=== PATIENT | female | born 1930 | race Caucasian/White ===

== ENCOUNTER → 2016-07-07 | Outpatient (CLI) | payer MEDICARE, OTHER ==
[2016-03-25 11:27] VITALS: BP 98/64
[~2016-07-07] MED LIST: ACET500T68 PO; ALBU2.5V14 NEB; ALBU8.5H3 INH; ASPI81TA9 PO; ATOR20TA58 PO; BENZ100C2 PO; BENZ200C39 PO; BETA15CR4 TP; CALC400T5 PO; CARB15DR65 OU; CELE100C PO; CYAN10002 IM; CYCL5TAB PO; DILT240C2 PO; FLUT1DIS3 IH; FLUT9.9S NS; FURO-68 PO; FURO20TA3 PO; HYDR-2680 PO; HYDR12.53 PO; IPRA3AMP NEB; LOPE2CAP PO; LORA0.5T PO; MAG355OR17 PO; MAGN2400 PO; MAGN400T3 PO; MEMA28CA PO; METF10002 PO; METH29OI TP; METO10TA81 PO; MIRT15TA PO; MOME17SP NS; OMEP20TA PO; ONDA4TAB10 PO; OXYQ113. VG; POLY17PO5 PO; QUET25TA5 PO; SERT25TA PO
--- NOTE | 2016-07-07 11:52 | RAD ---
EXAM: Renal sonogram. HISTORY: Unable to void. TECHNIQUE: Sonographic imaging of the kidneys and bladder was performed. COMPARISON: None. FINDINGS: The right kidney measures 9.5 cm [id number] and the left kidney measures 9.4 cm [id number]-[id number]-[id number]. No solid or cystic renal lesion is seen. The bladder is empty. There is no hydronephrosis. IMPRESSION: Unremarkable renal sonogram.
== END | disposition home or self-care (01) ==
LOC: US 10:31
PROVIDERS: ATTEND Urology
DX: R33.9 Retention of urine, unspecified (principal)
CPT/HCPCS: 76770

== ENCOUNTER 2017-08-25 18:27 | Inpatient (IN) | payer MEDICARE, OTHER ==
[~2017-08-25] VITALS: Ht 149.9 cm; Wt 57.2 kg
[~2017-08-25 18:27] MED LIST changes: -ALBU8.5H3 INH; +ALBU8.5H8 INH; +ASPI-612 PO; -ASPI81TA9 PO; +BENZ-8 PO; -BENZ100C2 PO; -BENZ200C39 PO; +BENZ200C47 PO; -METF10002 PO; +METF10003 PO; -OMEP20TA PO; +OMEP20TA8 PO
[2017-08-25 19:28] LABS: BASO # 0.1 x10^3/uL (0.0-0.2); BASO % 1 % (0-3); EOS # 0.2 x10^3/uL (0.0-0.7); EOS % 2 % (0-3); HEMATOCRIT 37.8 % (36.0-47.0); LYMPH # 1.5 x10^3/uL (1.0-4.8); LYMPH % 19 % (24-48); MEAN CORPUSCULAR HEMOGLOBIN 31 pg (25-35); MEAN CORPUSCULAR HGB CONC 34 g/dL (31-37); MEAN CORPUSCULAR VOLUME 89 fL (79-100); MONO # 0.7 x10^3/uL (0.0-1.1); MONO % 9 % (0-9); NEUT # 5.3 x10^3uL (1.8-7.7); NEUT % 68 % (31-73); PLATELET COUNT 313 x10^3/uL (140-400); RED BLOOD COUNT 4.24 x10^6/uL (3.50-5.40); WHITE BLOOD COUNT 7.7 x10^3/uL (4.0-11.0)
--- NOTE | 2017-08-25 19:37 | EKG ---
[address] [address] Test Date: 2017-08-25 Test Time: 19:17:00 Pat Name: NOELLE OLIVER Department: Room: Gender: F [place] Operator: RODRICK : 1930 Requested By: RINA ANDREA Order Number: [id number] Reading MD: Measurements Intervals [place] Rate: 75 P: 58 NM: 202 QRS: -145 QRSD: 108 T: 31 QT: 392 QTc: 440 Interpretive Statements SINUS RHYTHM INCOMPLETE RIGHT BUNDLE BRANCH BLOCK RIGHT VENTRICULAR HYPERTROPHY ABNORMAL ECG RI6.01 No previous ECG available for comparison
[2017-08-25 19:38] LABS: ALBUMIN 3.5 g/dL (3.4-5.0); ALBUMIN/GLOBULIN RATIO 0.8 (1.0-1.7); CALCIUM 8.3 mg/dL (8.5-10.1); GFR 52.2; MAGNESIUM 2.3 mg/dL (1.8-2.4); TOTAL BILIRUBIN 0.2 mg/dL (0.2-1.0); TOTAL PROTEIN 7.7 g/dL (6.4-8.2)
[2017-08-25 19:40] LABS: BILIRUBIN,URINE NEG (NEG); CLARITY,URINE CLEAR; COLOR,URINE YELLOW; GLUCOSE,URINE NEG (NEG); NITRITE,URINE NEG (NEG); UROBILINOGEN,URINE 0.2 mg/dL (0.2 mg/dL)
[2017-08-25 19:41] LABS: BACTERIA,URINE FEW /HPF (0-FEW); SQUAMOUS EPITHELIAL CELL,UR MOD /LPF
--- NOTE | 2017-08-25 19:45 | PHYS DOC ---
Past History Past Medical History: Asthma, CAD, Cancer, COPD, Dementia, Diabetes, GERD Past Surgical History: Appendectomy, Hysterectomy Alcohol Use: None Drug Use: None Adult General Chief Complaint Chief Complaint: PSYCH EVALUATION HPI HPI Patient is a 87 year old female who presents to the emergency department for medical clearance prior to admission to the [facility]. Patient was brought to the emergency department room her care home after reportedly being threatening towards her roommate and the roommates family. Patient denies any somatic symptoms at this time. Patient was called for acceptance to the [facility] and was instructed to come to the emergency department for medical evaluation prior to admission. Patient states that she is very angry regarding her circumstances. The patient is alert and oriented at this time and is cooperative with questioning. Review of Systems Review of Systems Constitutional: Denies fever or chills [] Eyes: Denies change in visual acuity, redness, or eye pain [] HENT: Denies nasal congestion or sore throat [] Respiratory: Denies cough or shortness of breath [] Cardiovascular: Denies chest pain or edema[] GI: Denies abdominal pain, nausea, vomiting, bloody stools or diarrhea [] : Denies dysuria or hematuria [] Musculoskeletal: Denies back pain or joint pain [] Integument: Denies rash or skin lesions [] Neurologic: Denies headache, focal weakness or sensory changes [] Endocrine: Denies polyuria or polydipsia [] All other systems were reviewed and found to be within normal limits, except as documented in this note. Allergies Allergies Allergies Coded Allergies Type Severity Reaction Last Updated Verified No Known Drug Allergies 03/11/16 No Physical Exam Physical Exam Constitutional: Well developed, well nourished, no acute distress, cooperative with exam. [] HENT: Normocephalic, atraumatic, bilateral external ears normal, oropharynx moist, no oral exudates, nose normal. [] Eyes: PERRLA, EOMI, conjunctiva normal, no discharge. [] Neck: Normal range of motion, no tenderness, supple, no stridor. [] Cardiovascular:Heart rate regular rhythm, no murmur [] Lungs & Thorax: Bilateral breath sounds clear to auscultation [] Abdomen: Bowel sounds normal, soft, no tenderness, no masses, no pulsatile masses. [] Skin: Warm, dry, no erythema, no rash. [] Back: No tenderness, no CVA tenderness. [] Extremities: No tenderness, no cyanosis, no clubbing, ROM intact, no edema. [] Neurologic: Alert and oriented X 3, normal motor function, normal sensory function, no focal deficits noted. [] Psychologic: Affect normal, judgement normal, mood angry. [] Current Patient Data Vital Signs Vital Signs Date Time Temp Pulse Resp B/P (MAP) Pulse Ox O2 Delivery O2 Flow Rate FiO2 08/25/17 19:24 90 16 116/67 (83) 94 Room Air 08/25/17 18:50 98.1 Lab Results Laboratory Tests Test 08/25/17 18:48 08/25/17 19:03 Urine Collection Type Unknown Urine Color Yellow Urine Clarity Clear Urine pH 5.5 Urine Specific [place] 1.010 Urine Protein Neg Urine Glucose (UA) Neg mg/dL Urine Ketones (Stick) Neg mg/dL Urine Blood Neg Urine Nitrite Neg Urine Bilirubin Neg Urine Urobilinogen Dipstick 0.2 mg/dL Urine Leukocyte Esterase Neg Urine RBC 1-2 /HPF Urine WBC 1-4 /HPF Urine Squamous Epithelial Cells Mod /LPF Urine Bacteria Few /HPF White Blood Count 7.7 x10^3/uL Red Blood Count 4.24 x10^6/uL Hemoglobin 13.0 g/dL Hematocrit 37.8 % Mean Corpuscular Volume 89 fL Mean Corpuscular Hemoglobin 31 pg Mean Corpuscular Hemoglobin Concent 34 g/dL Red Cell Distribution Width 14.0 % Platelet Count 313 x10^3/uL Neutrophils (%) (Auto) 68 % Lymphocytes (%) (Auto) 19 % Monocytes (%) (Auto) 9 % Eosinophils (%) (Auto) 2 % Basophils (%) (Auto) 1 % Neutrophils # (Auto) 5.3 x10^3uL Lymphocytes # (Auto) 1.5 x10^3/uL Monocytes # (Auto) 0.7 x10^3/uL Eosinophils # (Auto) 0.2 x10^3/uL Basophils # (Auto) 0.1 x10^3/uL Sodium Level 132 mmol/L Potassium Level 4.0 mmol/L Chloride Level 94 mmol/L Carbon Dioxide Level 29 mmol/L Anion Gap 9 Blood Urea Nitrogen 18 mg/dL Creatinine 1.0 mg/dL Estimated GFR (Cockcroft-Gault) 52.2 BUN/Creatinine Ratio 18 Glucose Level 146 mg/dL Calcium Level 8.3 mg/dL Magnesium Level 2.3 mg/dL Total Bilirubin 0.2 mg/dL Aspartate Amino Transf (AST/SGOT) 16 U/L Alanine Aminotransferase (ALT/SGPT) 19 U/L Alkaline Phosphatase 111 U/L Total Protein 7.7 g/dL Albumin 3.5 g/dL Albumin/Globulin Ratio 0.8 Laboratory Tests Test 08/25/17 19:03 White Blood Count 7.7 x10^3/uL (4.0-11.0) Red Blood Count 4.24 x10^6/uL (3.50-5.40) Hemoglobin 13.0 g/dL (12.0-15.5) Hematocrit 37.8 % (36.0-47.0) Mean Corpuscular Volume 89 fL (79-100) Mean Corpuscular Hemoglobin 31 pg (25-35) Mean Corpuscular Hemoglobin Concent 34 g/dL (31-37) Red Cell Distribution Width 14.0 % (11.5-14.5) Platelet Count 313 x10^3/uL (140-400) Neutrophils (%) (Auto) 68 % (31-73) Lymphocytes (%) (Auto) 19 % (24-48) L Monocytes (%) (Auto) 9 % (0-9) Eosinophils (%) (Auto) 2 % (0-3) Basophils (%) (Auto) 1 % (0-3) Neutrophils # (Auto) 5.3 x10^3uL (1.8-7.7) Lymphocytes # (Auto) 1.5 x10^3/uL (1.0-4.8) Monocytes # (Auto) 0.7 x10^3/uL (0.0-1.1) Eosinophils # (Auto) 0.2 x10^3/uL (0.0-0.7) Basophils # (Auto) 0.1 x10^3/uL (0.0-0.2) Sodium Level 132 mmol/L (136-145) L Potassium Level 4.0 mmol/L (3.5-5.1) Chloride Level 94 mmol/L (98-107) L Carbon Dioxide Level 29 mmol/L (21-32) Anion Gap 9 (6-14) Blood Urea Nitrogen 18 mg/dL (7-20) Creatinine 1.0 mg/dL (0.6-1.0) Estimated GFR (Cockcroft-Gault) 52.2 BUN/Creatinine Ratio 18 (6-20) Glucose Level 146 mg/dL (70-99) H Calcium Level 8.3 mg/dL (8.5-10.1) L Magnesium Level 2.3 mg/dL (1.8-2.4) Total Bilirubin 0.2 mg/dL (0.2-1.0) Aspartate Amino Transferase (AST) 16 U/L (15-37) Alanine Aminotransferase (ALT) 19 U/L (14-59) Alkaline Phosphatase 111 U/L (46-116) Total Protein 7.7 g/dL (6.4-8.2) Albumin 3.5 g/dL (3.4-5.0) Albumin/Globulin Ratio 0.8 (1.0-1.7) L EKG EKG Interpreted by me: Heart rate 75, sinus rhythm, incomplete right bundle branch block, no acute ST/T-wave abnormalities present[] Radiology/Procedures Radiology/Procedures Not performed[] Course & Med Decision Making Course & Med Decision Making Pertinent Labs and Imaging studies reviewed. (See chart for details) Patient's labwork unremarkable. The patient is medically cleared for acceptance to the [facility]. Dragon Disclaimer Dragon Disclaimer This electronic medical record was generated, in whole or in part, using a voice recognition dictation system. Departure Departure: Impression: Primary Impression: Medical clearance for psychiatric admission Disposition: ADMITTED INPATIENT Admitting Physician: Other Condition: STABLE Referrals: ELIANE ZAFAR MD (PCP) RINA ANDREA MD August 25, 2017 19:45
[2017-08-25] MEDS ORDERED: POTA20TA4 PO (21:24)
[2017-08-25] MEDS ORDERED: SERT25TA PO (21:24)
[2017-08-25] MEDS ORDERED: INSU100I17 SQ (21:24)
[2017-08-25] MEDS ORDERED: MULT-317 PO (21:24)
[2017-08-25] MEDS ORDERED: POLY17PO5 PO (21:24)
[2017-08-25] MEDS ORDERED: FLUT1DIS3 IH (21:24)
[2017-08-25] MEDS ORDERED: QUET100T4 PO (21:24)
[2017-08-25] MEDS ORDERED: [UNRECOGNIZED DRUG - CODE] PO (21:24)
[2017-08-25] MEDS ORDERED: BUSP10TA PO (21:24)
[2017-08-25] MEDS ORDERED: VENL37.57 PO (21:24)
[2017-08-25] MEDS ORDERED: VITA1TAB3 PO (21:24)
[2017-08-25] MEDS ORDERED: SENN-87 PO (21:24)
[2017-08-25] MEDS ORDERED: HYDR-2758 PO ×2 (21:24)
[2017-08-25] MEDS ORDERED: DOCU100C28 PO (21:24)
[2017-08-25] MEDS ORDERED: PANT40TA5 PO (21:24)
[2017-08-25] MEDS ORDERED: TAMS0.4C2 PO (21:24)
[2017-08-25] MEDS ORDERED: GUAI600T47 PO (21:24)
[2017-08-25] MEDS ORDERED: METHYL SALICYLATE/MENTHOL TOPICAL OINTMENT 29GM TUBE. TP PRN (22:15)
[2017-08-25] MEDS ORDERED: ACETAMINOPHEN 325 MG TABLET PO PRN (22:15)
[2017-08-25 22:24] VITALS: BP 137/71
[2017-08-25] MEDS ORDERED: ONDA4TAB11 PO (22:37)
[2017-08-25] MEDS ORDERED: INSULIN ASPART 300 UNITS/3 ML INSULN.PEN SQ PRN (22:45)
[2017-08-25] MEDS ORDERED: ALBUTEROL SULFATE 2.5 MG/3 ML NEBU. NEB PRN (22:45)
[2017-08-25] MEDS ORDERED: ACETAMINOPHEN 500 MG TABLET PO PRN (22:45)
[2017-08-25] MEDS ORDERED: LOPERAMIDE 2 MG CAPSULE PO PRN (23:00)
[2017-08-25] MEDS ORDERED: ONDANSETRON ODT 4 MG TAB.RAPDIS PO PRN (23:15)
[2017-08-25] MEDS ORDERED: MAGNESIUM HYDROXIDE 2,400 MG/30 ML ORAL.SUSP. PO PRN (23:15)
[2017-08-25] MEDS ORDERED: MAG HYDROX/AL HYDROX/SIMETH 30 ML ORAL.SUSP PO PRN (23:15)
[2017-08-25] MEDS ORDERED: HYDROcodone/APAP 5/325MG 1 TAB TABLET PO PRN (23:15)
[2017-08-25] MEDS: SENNOSIDES 8.6 MG TABLET PO SCH (23:19)
[2017-08-25] MEDS: QUEtiapine 100 MG TABLET. PO SCH (23:19)
[2017-08-25] MEDS: DOCUSATE SODIUM 100 MG CAPSULE PO SCH (23:20)
[2017-08-26 05:59] VITALS: BP 171/89
[2017-08-26] MEDS ORDERED: INSULIN LISPRO 300 UNITS/3 ML INSULN.PEN. SQ PRN (07:15)
[2017-08-26] MEDS ORDERED: NON FORMULARY ITEM (Fluticasone/Salmeterol (Advair 250-50 Diskus) 1 PUFF) IH SCH (09:00)
[2017-08-26] MEDS ORDERED: BENZONATATE 100 MG CAPSULE. PO PRN (09:00)
[2017-08-26] MEDS ORDERED: POLYETHYLENE GLYCOL 3350 17 GM PACKET. PO PRN (09:00)
[2017-08-26] MEDS: busPIRone 10 MG TABLET. PO SCH ×3 (09:13→17:51)
[2017-08-26] MEDS: HYDROcodone/APAP 5/325MG 1 TAB TABLET PO SCH ×2 (09:13→20:29)
[2017-08-26] MEDS: DOCUSATE SODIUM 100 MG CAPSULE PO SCH ×2 (09:14→20:19)
[2017-08-26] MEDS: PANTOPRAZOLE 40 MG TABLET. PO SCH (09:14)
[2017-08-26] MEDS: VITAMIN B COMPLEX CAPSULE. PO SCH (09:14)
[2017-08-26] MEDS: POTASSIUM CHLORIDE 20 MEQ TABLET.ER. PO SCH (09:14)
[2017-08-26] MEDS: FUROSEMIDE 40 MG TABLET PO SCH (09:14)
[2017-08-26] MEDS: VENLAFAXINE XR 37.5 MG CAP.ER.24H. PO SCH (09:14)
[2017-08-26] MEDS: ASCORBIC ACID 500 MG TABLET PO SCH (09:14)
[2017-08-26] MEDS: MULTIVITAMIN with MINERAL TABLET. PO SCH (09:14)
[2017-08-26] MEDS: SERTRALINE 25 MG TABLET. PO SCH (09:14)
[2017-08-26] MEDS: SENNOSIDES 8.6 MG TABLET PO SCH ×2 (09:14→20:19)
[2017-08-26] MEDS: MAGNESIUM OXIDE 400 MG TABLET PO SCH ×2 (09:14→20:19)
[2017-08-26] MEDS: POLYETHYLENE GLYCOL 3350 17 GM PACKET. PO SCH (09:15)
[2017-08-26] MEDS: FLUTICASONE 50MCG/NASAL SPRAY 16GM BOTTLE. NS SCH (09:15)
[2017-08-26] MEDS: INSULIN LISPRO 300 UNITS/3 ML INSULN.PEN. SQ SCH ×4 (09:25→20:20)
[2017-08-26] MEDS: BUDESONIDE 0.5 MG/2 ML NEBU NEB SCH ×2 (09:30→20:43)
[2017-08-26] MEDS: IPRATRPIUM/ALBUTEROL 0.5/2.5MG 3 ML NEBU. NEB SCH ×4 (09:30→20:40)
[2017-08-26 12:40] LABS: THYROID STIM HORMONE (TSH) 3.025 uIU/mL (0.358-3.740)
[2017-08-26] MEDS: TAMSULOSIN 0.4 MG CAP.ER.24H. PO SCH (17:51)
[2017-08-26 18:25] VITALS: BP 125/60
[2017-08-26] MEDS ORDERED: traZODone 50 MG TABLET. PO PRN (18:45)
[2017-08-26 20:08] LABS: T3 TOTAL 72 ng/dL (71-180)
[2017-08-26] MEDS: QUEtiapine 100 MG TABLET. PO SCH (20:19)
[2017-08-26] MEDS: MIRTAZAPINE 7.5 MG TABLET. PO SCH (20:28)
--- NOTE | 2017-08-26 22:18 | PDOC ---
Exam Note: Harris Note: Please also refer to the separate dictated note~for this date of service dictated separately.~Patient seen individually. Discussed the patient with Nursing staff reviewed the chart.~Reviewed interim history and current functioning. Reviewed vital signs,~Labs/ Radiology~and current medications noted below. Continue current treatment with the changes noted in the dictated addendum note Assessment: Vital Signs: Vital Signs Date Time Temp Pulse Resp B/P (MAP) Pulse Ox O2 Delivery O2 Flow Rate FiO2 08/26/17 21:29 18 97 Room Air 08/26/17 20:19 73 125/60 08/26/17 18:25 97.4 Labs: Laboratory Tests Test 08/26/17 07:45 08/26/17 11:56 08/26/17 17:14 08/26/17 19:28 Glucose (Fingerstick) 160 mg/dL (70-99) H 138 mg/dL (70-99) H 134 mg/dL (70-99) H 148 mg/dL (70-99) H Current Medications: Meds: Current Medications Acetaminophen (Tylenol) 650 mg PRN Q6HRS PRN PO PAIN / TEMP; Start 08/25/17 at 22:15; Stop 08/25/17 at 23:02; Status DC Multi-Ingredient Ointment (Analgesic [place]) 1 estrella PRN QID PRN TP MUSCLE PAIN; Start 08/25/17 at 22:15 Buspirone HCl (Buspar) 10 mg TIDWMEALS PO Last administered on 08/26/17at 17:51 ; Start 08/26/17 at 08:00 Quetiapine Fumarate (SEROquel) 100 mg QHS PO Last administered on 08/26/17at 20: 19; Start 08/25/17 at 23:00 Sertraline HCl (Zoloft) 75 mg DAILY PO Last administered on 08/26/17at 09:14; Start 08/26/17 at 09:00 Venlafaxine HCl (Effexor Xr) 37.5 mg DAILY PO Last administered on 08/26/17at 09 :14; Start 08/26/17 at 09:00 Vitamin D (Vitamin D3) 50,000 unit WEEKLY PO ; Start 09/01/17 at 09:00 Cyanocobalamin (Vitamin B-12) 1,000 mcg QMONTH IM ; Start 09/24/17 at 09:00 Diltiazem HCl (Cardizem 24hr Cd) 120 mg BID PO Last administered on 08/26/17 20:19; Start 08/26/17 at 09:00 Guaifenesin (Mucinex Er) 600 mg TID PO Last administered on 08/26/17at 20:19; Start 08/26/17 at 09:00 Insulin Aspart (NovoLOG) BS 75-150- 0 units BS 151-200... PRN BFRMEALHC PRN SQ Diabetes; Start 08/25/17 at 22:45; Stop 08/26/17 at 07:17; Status DC Albuterol Sulfate (Ventolin) 2.5 mg PRN Q6HRS PRN NEB SHORTNESS OF BREATH; Start 08/25/17 at 22:45 Potassium Chloride (Klor-Con) 20 meq DAILY PO Last administered on 08/26/17at 09 :14; Start 08/26/17 at 09:00 Tamsulosin HCl (Flomax) 0.4 mg QEVNG PO Last administered on 08/26/17at 17:51; Start 08/26/17 at 18:00 Acetaminophen (Tylenol) 500 mg PRN Q4HRS PRN PO PAIN / TEMP; Start 08/25/17 at 22:45 Ascorbic Acid (Vitamin C) 1,000 mg DAILY PO Last administered on 08/26/17at 09: 14; Start 08/26/17 at 09:00 Benzonatate (Tessalon Perle) 100 mg PRN TID PRN PO COUGH; Start 08/26/17 at 09: 00 Docusate Sodium (Colace) 100 mg BID PO Last administered on 08/26/17at 20:19; Start 08/25/17 at 23:00 Fluticasone Propionate (Flonase) 2 spray DAILY NS Last administered on at 09:15; Start 08/26/17 at 09:00 Non-Formulary Medication (Fluticasone/ Salmeterol (Advair 250-50 Diskus)) 1 puff BID IH ; Start 08/26/17 at 09:00; Status UNV Furosemide (Lasix) 40 mg DAILY PO Last administered on 08/26/17at 09:14; Start 08/26/17 at 09:00 Acetaminophen/ Hydrocodone Bitart (Lortab 5/325) 1 tab BID PO Last administered on 08/26/17at 20:29; Start 08/26/17 at 09:00 Acetaminophen/ Hydrocodone Bitart (Lortab 5/325) 1 tab PRN Q6HRS PRN PO PAIN; Start 08/25/17 at 23:15 Loperamide HCl (Imodium) 2 mg PRN Q8HRS PRN PO DIARRHEA; Start 08/25/17 at 23: 00 Al Hydroxide/Mg Hydroxide (Mylanta Plus Xs) 15 ml PRN AFTMEAL PRN PO DYSPEPSIA ; Start 08/25/17 at 23:15 Magnesium Hydroxide (Milk Of Magnesia) 2,400 mg PRN QHS PRN PO CONSTIPATION; Start 08/25/17 at 23:15 Magnesium Oxide (Magnesium Oxide) 400 mg BID PO Last administered on 08/26/17at 20:19; Start 08/26/17 at 09:00 Multivitamins/ Calcium (Thera-M Plus) 1 tab DAILY PO Last administered on at 09:14; Start 08/26/17 at 09:00 Pantoprazole Sodium (Protonix) 40 mg DAILYAC PO Last administered on 08/26/17at 09:14; Start 08/26/17 at 07:30 Polyethylene Glycol (miraLAX) 17 gm DAILY PO Last administered on 08/26/17at 09: 15; Start 08/26/17 at 09:00 Polyethylene Glycol (miraLAX) 17 gm PRN DAILY PRN PO COPNSTIPATION; Start 08/26 at 09:00 Sennosides (Senna) 8.6 mg BID PO Last administered on 08/26/17 20:19; Start at 23:15 Vitamin B Complex 1 cap DAILY PO Last administered on 08/26/17at 09:14; Start at 09:00 Ondansetron HCl (Zofran Odt) 4 mg PRN Q4HRS PRN PO NAUSEA/VOMITING; Start 08/25 at 23:15 Budesonide (Pulmicort) 0.5 mg RTBID NEB Last administered on 08/26/17at 20:43; Start 08/26/17 at 08:00 Albuterol/ Ipratropium (Duoneb) 3 ml RTQID NEB Last administered on 08/26/17at 20:40; Start 08/26/17 at 08:00 Insulin Human Lispro (HumaLOG) PRN BFRMEALHC PRN SQ DIABETES; Start 08/26/17 at 07:15; Stop 08/26/17 at 09:19; Status DC Insulin Human Lispro (HumaLOG) TIDWMEALHC SQ Last administered on 08/26/17at 09 :25; Start 08/26/17 at 09:30 Mirtazapine (Remeron) 7.5 mg QHS PO Last administered on 08/26/17at 20:28; Start 08/26/17 at 21:00 Trazodone HCl (Desyrel) 50 mg PRN QHS PRN PO INSOMNIA, MAY REPEAT X1; Start at 18:45 Active Scripts Active Reported Ondansetron Hcl 4 Mg Tablet 4 Mg PO PRN Q4HRS PRN Novolog Flexpen (Insulin Aspart) 100 Unit/1 Ml Insuln.pen 0-6 Unit SQ PRN BFRMEALHC PRN BS 75-150= 0 units BS 151-200= 2 units BS 201-250= 3 units BS 251-300= 4 units BS 301-350= 5 units BS 351-400= 6 units BS<70 or >400 call Physician Miralax (Polyethylene Glycol 3350) 17 Gm Powd.pack 17 Gm PO PRN DAILY PRN Mucinex (Guaifenesin) 600 Mg Tablet.er 600 Mg PO TID AT 09/24/2199 Buspirone Hcl 10 Mg Tablet 10 Mg PO TID AT 11/22/1799 Senna Lax (Sennosides) 8.6 Mg Tablet 8.6 Mg PO BID Docusate Sodium 100 Mg Capsule 100 Mg PO BID Advair 250-50 Diskus (Fluticasone/Salmeterol) 1 Each Disk.w.dev 1 Puff IH BID Vitamin B Complex 1 Each Tablet 100 Mg PO DAILY D3-50 (Cholecalciferol (Vitamin D3)) 50,000 Unit Capsule 50,000 Unit PO WEEKLY C-1000 (Ascorbic Acid) 1,000 Mg Tablet 1,000 Mg PO DAILY Zoloft (Sertraline Hcl) 25 Mg Tablet 75 Mg PO DAILY Seroquel (Quetiapine Fumarate) 100 Mg Tablet 100 Mg PO HS Klor-Con M20 (Potassium Chloride) 20 Meq Tab.er.prt 20 Meq PO DAILY Pantoprazole Sodium 40 Mg Tablet.dr 40 Mg PO DAILY One Daily Complete (Multivitamin With Minerals) 1 Each Tablet 1 Tab PO DAILY Tamsulosin Hcl 0.4 Mg Cap.er.24h 0.4 Mg PO QEVNG Venlafaxine Hcl Er (Venlafaxine Hcl) 37.5 Mg Cap.er.24h 37.5 Mg PO DAILY Hydrocodone-Apap 5-325 (Hydrocodone Bit/Acetaminophen) 1 Each Tablet 1 Tab PO PRN Q6HRS PRN Hydrocodone-Apap 5-325 (Hydrocodone Bit/Acetaminophen) 1 Each Tablet 1 Tab PO BID Milk Of Magnesia (Magnesium Hydroxide) 2,400 Mg/10 Ml Oral.susp 2,400 Mg PO PRN QHS PRN Advanced Antacid Liquid (Mag Hydrox/Al Hydrox/Simeth) 355 Ml Oral.susp 15 Ml PO PRN AFTMEAL PRN Lasix (Furosemide) 40 Mg Tablet 40 Mg PO DAILY Flonase Allergy Relief (Fluticasone Propionate) 9.9 Ml [place].susp 2 Sprays NS DAILY Benzonatate 100 Mg Capsule 100 Mg PO PRN Q8HRS PRN Miralax (Polyethylene Glycol 3350) 17 Gm Powd.pack 17 Gm PO DAILY Loperamide (Loperamide Hcl) 2 Mg Capsule 2 Mg PO PRN Q8HRS PRN Acetaminophen 500 Mg Tablet 500 Mg PO PRN Q4HRS PRN Magnesium Oxide 400 Mg Tablet 400 Mg PO BID Duoneb 0.5-3(2.5) Mg/3 Ml (Albuterol/Ipratropium) 3 Ml Ampul.neb 3 Ml NEB PRN Q6HRS PRN Cardizem Cd (Diltiazem Hcl) 240 Mg Cap.er.24h 120 Mg PO BID HOLD FOR SBP <110 Cyanocobalamin Injection (Cyanocobalamin (Vitamin B-12)) 1,000 Mcg/1 Ml Vial 1, 000 Mcg IM QMONTH LAST GIVEN 08/19/17 NEXT DOSE DUE 09/19/17 I have reviewed the current psychotropics carefully including drug interactions. Risk benefit ratio favors no change other than as noted in my dictated progress note. Diagnosis: Problems: (1) Hyponatremia (2) Altered mental status (3) Anxiety disorder (4) Dementia in Alzheimer's disease with delusions (5) Dementia in Alzheimer's disease with depression (6) Dementia, vascular, with delusions (7) Dementia, vascular, with depression (8) Impulse control disorder RACHEL BULLARD MD August 26, 2017 22:18
[2017-08-27 03:07] LABS: HEMOGLOBIN A1C 6.5 % (4.8-5.6)
--- NOTE | 2017-08-27 03:57 | HP ---
ADMIT DATE: 08/25/2017 PSYCHIATRIC ADMISSION HISTORY/EVALUATION This note covers the elements not covered in my initial note of 08/26/2017. IDENTIFYING DATA: The patient is an 87-year-old female referred to us from [facility], referred by Dr. Luz Grier, her primary care physician on account of marked irritability, mood lability, delusional. She believes staff have put her in a cage at night with wild animals. She sees men in her room. She has been hallucinating that her son is in her room. She hates her roommate, has been verbally abusive, escalating, crying, agitated. This is within the context of her diagnoses of dementia, Alzheimer's, vascular with delusion, depression, behavioral disturbance and failure of outpatient psychiatric interventions. CHIEF COMPLAINT: "I have been here 3 weeks." HISTORY OF PRESENT ILLNESS: The patient has a history of dementia, Alzheimer's, vascular type. She has been residing at the [facility] for some time, but more recently has been getting increasingly psychotic, agitated, unmanageable and has failed outpatient psychiatric interventions. She has had some sleep and appetite changes. No clear history of bipolar disorder, suicidal or homicidal ideation. PAST PSYCHIATRIC HISTORY: As above. MEDICAL HISTORY: End-stage renal disease, heart failure, hypertension, COPD, diabetes mellitus, hyperlipidemia, muscle weakness. Accu-Cheks at a.c. and at bedtime. ALLERGIES: Negative. CODE STATUS: DNR. MEDICATIONS: Takes her medications whole. DIET: Regular. CURRENT PSYCHOTROPICS: Effexor XR 37.5 mg daily, BuSpar 10 mg 3 times a day, Zoloft 75 mg a day, Seroquel 100 mg at bedtime. FAMILY HISTORY: Noncontributory. SOCIAL HISTORY: No alcohol, drug abuse, physical, sexual or elder abuse history is noted. Not known to be a perpetrator. MENTAL STATUS EXAMINATION: The patient was seen in her room. She is oriented to herself. Insight, judgment, recent and remote memory, attention, concentration, fund of knowledge poor, consistent with her diagnosis. She is quite delusional, hyperverbal as noted. No suicidal or homicidal ideation. LABORATORY DATA: Reviewed. IMPRESSION: Major neurocognitive disorder, Alzheimer, vascular with depression, delusion, behavioral disturbance; anxiety disorder, unspecified; impulse control disorder, unspecified. Rest as above. PLAN: Admit to geropsychiatry unit at [facility]. I will see the patient daily individually from a psychiatric standpoint. She slept very poorly last night. We will start Remeron 7.5 mg at bedtime, trazodone 50 mg at bedtime p.r.n., may repeat x 1 for insomnia. Continue rest of the psychotropics; stop the Zoloft to avoid duplication of antidepressants. Medical followup per Dr. Bonilla/Dr. Rendon. MAN Wilson BULLARD MD DR: ERINN/nts JOB#: [id number] / [id number]
[2017-08-27] MEDS: BUDESONIDE 0.5 MG/2 ML NEBU NEB SCH ×3 (05:34→21:13)
[2017-08-27] MEDS: IPRATRPIUM/ALBUTEROL 0.5/2.5MG 3 ML NEBU. NEB SCH ×4 (05:34→21:13)
[2017-08-27 06:09] VITALS: BP 99/55
[2017-08-27] MEDS: INSULIN LISPRO 300 UNITS/3 ML INSULN.PEN. SQ SCH ×4 (07:56→21:14)
[2017-08-27 08:04] VITALS: BP 133/74
[2017-08-27] MEDS: VITAMIN B COMPLEX CAPSULE. PO SCH (08:05)
[2017-08-27] MEDS: POLYETHYLENE GLYCOL 3350 17 GM PACKET. PO SCH (08:05)
[2017-08-27] MEDS: VENLAFAXINE XR 37.5 MG CAP.ER.24H. PO SCH (08:06)
[2017-08-27] MEDS: MULTIVITAMIN with MINERAL TABLET. PO SCH (08:06)
[2017-08-27] MEDS: busPIRone 10 MG TABLET. PO SCH ×3 (08:06→17:43)
[2017-08-27] MEDS: ASCORBIC ACID 500 MG TABLET PO SCH (08:06)
[2017-08-27] MEDS: MAGNESIUM OXIDE 400 MG TABLET PO SCH ×2 (08:06→21:09)
[2017-08-27] MEDS: PANTOPRAZOLE 40 MG TABLET. PO SCH (08:06)
[2017-08-27] MEDS: SENNOSIDES 8.6 MG TABLET PO SCH ×2 (08:07→21:09)
[2017-08-27] MEDS: SERTRALINE 25 MG TABLET. PO SCH (08:07)
[2017-08-27] MEDS: FUROSEMIDE 40 MG TABLET PO SCH (08:07)
[2017-08-27] MEDS: DOCUSATE SODIUM 100 MG CAPSULE PO SCH ×2 (08:07→21:09)
[2017-08-27] MEDS: POTASSIUM CHLORIDE 20 MEQ TABLET.ER. PO SCH (08:07)
[2017-08-27] MEDS: FLUTICASONE 50MCG/NASAL SPRAY 16GM BOTTLE. NS SCH (08:09)
[2017-08-27] MEDS: HYDROcodone/APAP 5/325MG 1 TAB TABLET PO SCH ×3 (08:10→22:13)
--- NOTE | 2017-08-27 09:35 | CONS ---
DATE OF CONSULTATION: 08/26/2017 REASON FOR CONSULTATION: Medical management. HISTORY OF PRESENT ILLNESS: The patient is an 87-year-old female patient who was apparently very delusional, angry with her roommate, calling roommate names, confused, and thinks men are in her room, yelling and mean to peers, crying, angry, all this has been going on for a few weeks and was admitted to [facility] for inpatient psychiatric stabilization. PAST MEDICAL HISTORY: Significant for hypertension, type 2 diabetes, hyperlipidemia, COPD, heart failure and muscle weakness. PAST SURGICAL HISTORY: Unobtainable. ALLERGIES: She has no known drug allergies. MEDICATIONS: She is currently following medications. She is currently on ipratropium bromide, albuterol sulfate 3 mL by nebulizer every 6 hours, she is on Flomax 0.4 mg at bedtime, Cardizem 120 mg twice a day, hydrocodone/APAP 5/325 one tablet twice a day and every 6 hours as needed, Tylenol 500 mg every 4 hours, sertraline, Zoloft 75 mg once a day, venlafaxine 37.5 mg once a day, quetiapine fumarate or Seroquel 100 mg at bedtime, buspirone 10 mg 3 times a day, potassium chloride 20 mEq once a day, she is on furosemide 40 mg daily, benzonatate or Tessalon Perles 100 mg every 8 hours, she is on Advair Diskus 250/50 one puff twice a day, Mucinex 600 mg 3 times a day, Flonase 2 sprays to each nostril daily, Mylanta 15 mL 4 times a day, magnesium oxide 400 mg twice a day, loperamide 2 mg every 8 hours, Colace 100 mg twice a day, magnesium hydroxide or milk of magnesia 30 mL p.o. daily p.r.n., polyethylene glycol 17 grams daily, senna 1 tablet twice a day, ondansetron 4 mg every 4 hours as needed, Protonix 40 mg daily, she is on NovoLog insulin sliding scale before meals, cyanocobalamin 1000 mcg per mL once a month, vitamin B complex 1 tablet once a day, ascorbic acid 1000 mg daily, vitamin D 50,000 units once a week, and multivitamin 1 tablet once a day. PHYSICAL EXAMINATION: GENERAL: On examining her, she looked well and was clearly in no apparent distress. She is pale, but no jaundice, cyanosis, or thyromegaly. No jugular venous distension. No limb edema. VITAL SIGNS: Her heart rate was 90, blood pressure 171/89, temperature 97.9, respiratory rate was 16, and oxygen saturation was 97% on room air. HEAD, EYES, EARS, NOSE AND THROAT: Showed normocephalic, atraumatic. NECK: Supple. HEART: Showed normal first and second heart sounds with no gallop, rub or murmur. CHEST: Clear to auscultation. No crepitation or rhonchi. ABDOMEN: Distended, soft, nontender. No guarding or rigidity. No organomegaly. Hernial orifices intact. Bowel sounds normal. NEUROLOGIC: She was awake, alert, confused, delusional; however, all cranial nerves intact. EXTREMITIES: She moves extremities without difficulty. She ambulates without assistance or assistive devices. LABORATORY DATA: This morning showed a serum sodium of 132, potassium 4, chloride 94, bicarbonate 29, anion gap of 9, BUN 18, creatinine 1, estimated GFR was 52 mL per minute. Her glucose 146, calcium was 8.3, magnesium 2.3. Serum iron was ____, TIBC was 436 and percent saturation was 15. Her total bilirubin, AST, ALT, alkaline phosphatase were normal. Total protein was 7.7, albumin was 3.5. Her vitamin B12 was 1156 picogram per mL. Her TSH was 3.025, 25-hydroxy vitamin D was ____ which is within normal range. Her serum triglycerides were 77, total cholesterol 207, LDL was 90, VLDL was 35, and HDL cholesterol 82, the ratio was 2. Her urinalysis was essentially unremarkable. IMPRESSION: In summary, this is an 87-year-old female patient who was admitted on account of being delusional, angry with a roommate, calling roommates names, confused, thinks men are in her room, yelling and mean to her peers, crying, angry and difficult apparently to redirect and was admitted here for inpatient psychiatric stabilization. Medically, she has multiple medical problems including COPD, hypertension, type 2 diabetes, hyperlipidemia, chronic obstructive pulmonary disease, heart failure, and muscle weakness. All in all, she seemed to be medically stable. I will definitely continue with all her medication. I will obviously follow all the lab works that are still pending and make any necessary recommendation. Thank you, Dr. Felix for allowing me to participate in the care of this patient. MARCELO HYATT MD DR: BREANNE/alex JOB#: [id number] / [id number]
[2017-08-27 16:51] VITALS: BP 178/53
[2017-08-27] MEDS: TAMSULOSIN 0.4 MG CAP.ER.24H. PO SCH (17:43)
--- NOTE | 2017-08-27 20:21 | PDOC ---
Exam Note: Harris Note: Please also refer to the separate dictated note~for this date of service dictated separately.~Patient seen individually. Discussed the patient with Nursing staff reviewed the chart.~Reviewed interim history and current functioning. Reviewed vital signs,~Labs/ Radiology~and current medications noted below. Continue current treatment with the changes noted in the dictated addendum note Assessment: Vital Signs: Vital Signs Date Time Temp Pulse Resp B/P (MAP) Pulse Ox O2 Delivery O2 Flow Rate FiO2 08/27/17 16:51 97.4 72 18 178/53 (94) 92 Room Air I&O Intake and Output 08/27/17 07:00 Intake Total 600 ml Balance 600 ml Intake Oral 600 ml Labs: Laboratory Tests Test 08/27/17 07:11 08/27/17 11:42 08/27/17 16:50 08/27/17 19:31 Glucose (Fingerstick) 133 mg/dL (70-99) H 89 mg/dL (70-99) 113 mg/dL (70-99) H 202 mg/dL (70-99) H Current Medications: Meds: Current Medications Acetaminophen (Tylenol) 650 mg PRN Q6HRS PRN PO PAIN / TEMP; Start 08/25/17 at 22:15; Stop 08/25/17 at 23:02; Status DC Multi-Ingredient Ointment (Analgesic [place]) 1 estrella PRN QID PRN TP MUSCLE PAIN; Start 08/25/17 at 22:15 Buspirone HCl (Buspar) 10 mg TIDWMEALS PO Last administered on 08/27/17at 17:43 ; Start 08/26/17 at 08:00 Quetiapine Fumarate (SEROquel) 100 mg QHS PO Last administered on 08/26/17at 20: 19; Start 08/25/17 at 23:00 Sertraline HCl (Zoloft) 75 mg DAILY PO Last administered on 08/27/17at 08:07; Start 08/26/17 at 09:00; Stop 08/27/17 at 18:41; Status DC Venlafaxine HCl (Effexor Xr) 37.5 mg DAILY PO Last administered on 08/27/17at 08 :06; Start 08/26/17 at 09:00 Vitamin D (Vitamin D3) 50,000 unit WEEKLY PO ; Start 09/01/17 at 09:00 Cyanocobalamin (Vitamin B-12) 1,000 mcg QMONTH IM ; Start 09/24/17 at 09:00 Diltiazem HCl (Cardizem 24hr Cd) 120 mg BID PO Last administered on 08/27/17at 08:06; Start 08/26/17 at 09:00 Guaifenesin (Mucinex Er) 600 mg TID PO Last administered on 08/27/17at 14:08; Start 08/26/17 at 09:00 Insulin Aspart (NovoLOG) BS 75-150- 0 units BS 151-200... PRN BFRMEALHC PRN SQ Diabetes; Start 08/25/17 at 22:45; Stop 08/26/17 at 07:17; Status DC Albuterol Sulfate (Ventolin) 2.5 mg PRN Q6HRS PRN NEB SHORTNESS OF BREATH; Start 08/25/17 at 22:45 Potassium Chloride (Klor-Con) 20 meq DAILY PO Last administered on 08/27/17at 08 :07; Start 08/26/17 at 09:00 Tamsulosin HCl (Flomax) 0.4 mg QEVNG PO Last administered on 08/27/17at 17:43; Start 08/26/17 at 18:00 Acetaminophen (Tylenol) 500 mg PRN Q4HRS PRN PO PAIN / TEMP; Start 08/25/17 at 22:45 Ascorbic Acid (Vitamin C) 1,000 mg DAILY PO Last administered on 08/27/17at 08: 06; Start 08/26/17 at 09:00 Benzonatate (Tessalon Perle) 100 mg PRN TID PRN PO COUGH; Start 08/26/17 at 09: 00 Docusate Sodium (Colace) 100 mg BID PO Last administered on 08/27/17at 08:07; Start 08/25/17 at 23:00 Fluticasone Propionate (Flonase) 2 spray DAILY NS Last administered on at 08:09; Start 08/26/17 at 09:00 Non-Formulary Medication (Fluticasone/ Salmeterol (Advair 250-50 Diskus)) 1 puff BID IH ; Start 08/26/17 at 09:00; Status UNV Furosemide (Lasix) 40 mg DAILY PO Last administered on 08/27/17at 08:07; Start 08/26/17 at 09:00 Acetaminophen/ Hydrocodone Bitart (Lortab 5/325) 1 tab BID PO Last administered on 08/27/17at 08:10; Start 08/26/17 at 09:00 Acetaminophen/ Hydrocodone Bitart (Lortab 5/325) 1 tab PRN Q6HRS PRN PO PAIN; Start 08/25/17 at 23:15 Loperamide HCl (Imodium) 2 mg PRN Q8HRS PRN PO DIARRHEA; Start 08/25/17 at 23: 00 Al Hydroxide/Mg Hydroxide (Mylanta Plus Xs) 15 ml PRN AFTMEAL PRN PO DYSPEPSIA ; Start 08/25/17 at 23:15 Magnesium Hydroxide (Milk Of Magnesia) 2,400 mg PRN QHS PRN PO CONSTIPATION; Start 08/25/17 at 23:15 Magnesium Oxide (Magnesium Oxide) 400 mg BID PO Last administered on 08/27/17at 08:06; Start 08/26/17 at 09:00 Multivitamins/ Calcium (Thera-M Plus) 1 tab DAILY PO Last administered on at 08:06; Start 08/26/17 at 09:00 Pantoprazole Sodium (Protonix) 40 mg DAILYAC PO Last administered on 08/27/17at 08:06; Start 08/26/17 at 07:30 Polyethylene Glycol (miraLAX) 17 gm DAILY PO Last administered on 08/27/17at 08: 05; Start 08/26/17 at 09:00 Polyethylene Glycol (miraLAX) 17 gm PRN DAILY PRN PO COPNSTIPATION; Start 08/26 at 09:00 Sennosides (Senna) 8.6 mg BID PO Last administered on 08/27/17at 08:07; Start at 23:15 Vitamin B Complex 1 cap DAILY PO Last administered on 08/27/17at 08:05; Start at 09:00 Ondansetron HCl (Zofran Odt) 4 mg PRN Q4HRS PRN PO NAUSEA/VOMITING; Start 08/25 at 23:15 Budesonide (Pulmicort) 0.5 mg RTBID NEB Last administered on 08/27/17at 11:21; Start 08/26/17 at 08:00 Albuterol/ Ipratropium (Duoneb) 3 ml RTQID NEB Last administered on 08/27/17at 16:39; Start 08/26/17 at 08:00 Insulin Human Lispro (HumaLOG) PRN BFRMEALHC PRN SQ DIABETES; Start 08/26/17 at 07:15; Stop 08/26/17 at 09:19; Status DC Insulin Human Lispro (HumaLOG) TIDWMEALHC SQ Last administered on 08/26/17at 09 :25; Start 08/26/17 at 09:30 Mirtazapine (Remeron) 7.5 mg QHS PO Last administered on 08/26/17at 20:28; Start 08/26/17 at 21:00 Trazodone HCl (Desyrel) 50 mg PRN QHS PRN PO INSOMNIA, MAY REPEAT X1; Start at 18:45 Active Scripts Active Reported Ondansetron Hcl 4 Mg Tablet 4 Mg PO PRN Q4HRS PRN Novolog Flexpen (Insulin Aspart) 100 Unit/1 Ml Insuln.pen 0-6 Unit SQ PRN BFRMEALHC PRN BS 75-150= 0 units BS 151-200= 2 units BS 201-250= 3 units BS 251-300= 4 units BS 301-350= 5 units BS 351-400= 6 units BS<70 or >400 call Physician Miralax (Polyethylene Glycol 3350) 17 Gm Powd.pack 17 Gm PO PRN DAILY PRN Mucinex (Guaifenesin) 600 Mg Tablet.er 600 Mg PO TID AT 09/24/2199 Buspirone Hcl 10 Mg Tablet 10 Mg PO TID AT 11/22/1799 Senna Lax (Sennosides) 8.6 Mg Tablet 8.6 Mg PO BID Docusate Sodium 100 Mg Capsule 100 Mg PO BID Advair 250-50 Diskus (Fluticasone/Salmeterol) 1 Each Disk.w.dev 1 Puff IH BID Vitamin B Complex 1 Each Tablet 100 Mg PO DAILY D3-50 (Cholecalciferol (Vitamin D3)) 50,000 Unit Capsule 50,000 Unit PO WEEKLY C-1000 (Ascorbic Acid) 1,000 Mg Tablet 1,000 Mg PO DAILY Zoloft (Sertraline Hcl) 25 Mg Tablet 75 Mg PO DAILY Seroquel (Quetiapine Fumarate) 100 Mg Tablet 100 Mg PO HS Klor-Con M20 (Potassium Chloride) 20 Meq Tab.er.prt 20 Meq PO DAILY Pantoprazole Sodium 40 Mg Tablet.dr 40 Mg PO DAILY One Daily Complete (Multivitamin With Minerals) 1 Each Tablet 1 Tab PO DAILY Tamsulosin Hcl 0.4 Mg Cap.er.24h 0.4 Mg PO QEVNG Venlafaxine Hcl Er (Venlafaxine Hcl) 37.5 Mg Cap.er.24h 37.5 Mg PO DAILY Hydrocodone-Apap 5-325 (Hydrocodone Bit/Acetaminophen) 1 Each Tablet 1 Tab PO PRN Q6HRS PRN Hydrocodone-Apap 5-325 (Hydrocodone Bit/Acetaminophen) 1 Each Tablet 1 Tab PO BID Milk Of Magnesia (Magnesium Hydroxide) 2,400 Mg/10 Ml Oral.susp 2,400 Mg PO PRN QHS PRN Advanced Antacid Liquid (Mag Hydrox/Al Hydrox/Simeth) 355 Ml Oral.susp 15 Ml PO PRN AFTMEAL PRN Lasix (Furosemide) 40 Mg Tablet 40 Mg PO DAILY Flonase Allergy Relief (Fluticasone Propionate) 9.9 Ml [place].susp 2 Sprays NS DAILY Benzonatate 100 Mg Capsule 100 Mg PO PRN Q8HRS PRN Miralax (Polyethylene Glycol 3350) 17 Gm Powd.pack 17 Gm PO DAILY Loperamide (Loperamide Hcl) 2 Mg Capsule 2 Mg PO PRN Q8HRS PRN Acetaminophen 500 Mg Tablet 500 Mg PO PRN Q4HRS PRN Magnesium Oxide 400 Mg Tablet 400 Mg PO BID Duoneb 0.5-3(2.5) Mg/3 Ml (Albuterol/Ipratropium) 3 Ml Ampul.neb 3 Ml NEB PRN Q6HRS PRN Cardizem Cd (Diltiazem Hcl) 240 Mg Cap.er.24h 120 Mg PO BID HOLD FOR SBP <110 Cyanocobalamin Injection (Cyanocobalamin (Vitamin B-12)) 1,000 Mcg/1 Ml Vial 1, 000 Mcg IM QMONTH LAST GIVEN 08/19/17 NEXT DOSE DUE 09/19/17 I have reviewed the current psychotropics carefully including drug interactions. Risk benefit ratio favors no change other than as noted in my dictated progress note. Diagnosis: Problems: (1) Hyponatremia (2) Altered mental status (3) Anxiety disorder (4) Dementia in Alzheimer's disease with delusions (5) Dementia in Alzheimer's disease with depression (6) Dementia, vascular, with delusions (7) Dementia, vascular, with depression (8) Impulse control disorder RACHEL BULLARD MD August 27, 2017 20:20
[2017-08-27] MEDS: QUEtiapine 100 MG TABLET. PO SCH (21:09)
[2017-08-27] MEDS: MIRTAZAPINE 7.5 MG TABLET. PO SCH (21:09)
[2017-08-28 05:39] VITALS: BP 146/64
[2017-08-28] MEDS: IPRATRPIUM/ALBUTEROL 0.5/2.5MG 3 ML NEBU. NEB SCH ×4 (05:49→20:07)
[2017-08-28] MEDS: VENLAFAXINE XR 37.5 MG CAP.ER.24H. PO SCH (08:46)
[2017-08-28] MEDS: MAGNESIUM OXIDE 400 MG TABLET PO SCH ×2 (08:46→20:41)
[2017-08-28] MEDS: busPIRone 10 MG TABLET. PO SCH ×3 (08:46→16:54)
[2017-08-28] MEDS: VITAMIN B COMPLEX CAPSULE. PO SCH (08:46)
[2017-08-28] MEDS: POLYETHYLENE GLYCOL 3350 17 GM PACKET. PO SCH (08:46)
[2017-08-28] MEDS: DOCUSATE SODIUM 100 MG CAPSULE PO SCH ×2 (08:46→20:40)
[2017-08-28] MEDS: MULTIVITAMIN with MINERAL TABLET. PO SCH (08:47)
[2017-08-28] MEDS: PANTOPRAZOLE 40 MG TABLET. PO SCH (08:47)
[2017-08-28] MEDS: SENNOSIDES 8.6 MG TABLET PO SCH ×2 (08:47→20:41)
[2017-08-28] MEDS: POTASSIUM CHLORIDE 20 MEQ TABLET.ER. PO SCH (08:47)
[2017-08-28] MEDS: FUROSEMIDE 40 MG TABLET PO SCH (08:47)
[2017-08-28] MEDS: ASCORBIC ACID 500 MG TABLET PO SCH (08:47)
[2017-08-28] MEDS: FLUTICASONE 50MCG/NASAL SPRAY 16GM BOTTLE. NS SCH (08:50)
[2017-08-28] MEDS: INSULIN LISPRO 300 UNITS/3 ML INSULN.PEN. SQ SCH ×4 (08:51→20:58)
[2017-08-28] MEDS: BUDESONIDE 0.5 MG/2 ML NEBU NEB SCH ×2 (10:19→20:07)
[2017-08-28 16:24] VITALS: BP 101/59
[2017-08-28] MEDS: TAMSULOSIN 0.4 MG CAP.ER.24H. PO SCH (17:42)
[2017-08-28] MEDS: MIRTAZAPINE 7.5 MG TABLET. PO SCH (20:40)
[2017-08-28] MEDS: HYDROcodone/APAP 5/325MG 1 TAB TABLET PO SCH (20:41)
[2017-08-28] MEDS: QUEtiapine 100 MG TABLET. PO SCH (20:41)
[2017-08-29] MEDS: IPRATRPIUM/ALBUTEROL 0.5/2.5MG 3 ML NEBU. NEB SCH ×4 (05:54→21:18)
[2017-08-29 06:14] VITALS: BP 114/77
[2017-08-29] MEDS: PANTOPRAZOLE 40 MG TABLET. PO SCH (07:47)
[2017-08-29] MEDS: INSULIN LISPRO 300 UNITS/3 ML INSULN.PEN. SQ SCH ×4 (08:00→20:20)
[2017-08-29] MEDS: POLYETHYLENE GLYCOL 3350 17 GM PACKET. PO SCH (08:52)
[2017-08-29] MEDS: ASCORBIC ACID 500 MG TABLET PO SCH (08:53)
[2017-08-29] MEDS: VENLAFAXINE XR 37.5 MG CAP.ER.24H. PO SCH (08:53)
[2017-08-29] MEDS: MULTIVITAMIN with MINERAL TABLET. PO SCH (08:53)
[2017-08-29] MEDS: SENNOSIDES 8.6 MG TABLET PO SCH ×2 (08:56→20:23)
[2017-08-29] MEDS: FUROSEMIDE 40 MG TABLET PO SCH (08:56)
[2017-08-29] MEDS: DOCUSATE SODIUM 100 MG CAPSULE PO SCH ×2 (08:59→20:23)
[2017-08-29] MEDS: MAGNESIUM OXIDE 400 MG TABLET PO SCH ×2 (08:59→20:23)
[2017-08-29] MEDS: POTASSIUM CHLORIDE 20 MEQ TABLET.ER. PO SCH (08:59)
[2017-08-29] MEDS: busPIRone 10 MG TABLET. PO SCH ×3 (09:11→17:37)
[2017-08-29] MEDS: HYDROcodone/APAP 5/325MG 1 TAB TABLET PO SCH ×2 (09:11→20:24)
[2017-08-29] MEDS: VITAMIN B COMPLEX CAPSULE. PO SCH (09:11)
[2017-08-29] MEDS: FLUTICASONE 50MCG/NASAL SPRAY 16GM BOTTLE. NS SCH (09:12)
[2017-08-29] MEDS: BUDESONIDE 0.5 MG/2 ML NEBU NEB SCH ×2 (11:09→21:18)
--- NOTE | 2017-08-29 12:24 | PN ---
DATE: 08/27/2017 This late entry 08/27/2017 covers elements not covered in my initial note 08/27/2017. I met with the patient in the evening, the patient slept 5-1/2 hours, remains quite confused but not aggressive. REVIEW OF SYSTEMS: No CV, , pulmonary, eye, ENT system symptoms on review. MENTAL STATUS EXAM: Oriented to herself. Insight, judgment, recent and remote memory, attention, concentration, fund of knowledge poor, consistent with her diagnosis mentioned in my initial note. PLAN: The patient is on two antidepressants Effexor and Zoloft. We will stop the Zoloft. Continue BuSpar, Seroquel, Remeron, trazodone. Adjust further as clinically indicated. May need to increase Effexor. MAN Wilson BULLARD MD DR: ERINN/alex JOB#: [id number] / [id number]
[2017-08-29 16:39] VITALS: BP 103/60
[2017-08-29] MEDS: TAMSULOSIN 0.4 MG CAP.ER.24H. PO SCH (17:39)
[2017-08-29] MEDS: MIRTAZAPINE 7.5 MG TABLET. PO SCH (20:23)
[2017-08-29] MEDS: QUEtiapine 100 MG TABLET. PO SCH (20:23)
--- NOTE | 2017-08-29 22:50 | PDOC ---
Exam Note: Harris Note: Late entry for date of service August 28, 2017. Please also refer to the separate dictated note~for this date of service dictated separately.~Patient seen individually. Discussed the patient with Nursing staff reviewed the chart.~ Reviewed interim history and current functioning. Reviewed vital signs,~Labs/ Radiology~and current medications noted below. Continue current treatment with the changes noted in the dictated addendum note Assessment: Vital Signs: VS - Last 72 Hours, by Label Date Time Temp Pulse Resp B/P (MAP) Pulse Ox O2 Delivery O2 Flow Rate FiO2 08/29/17 21:32 18 Room Air 08/29/17 21:22 Room Air 08/29/17 21:20 95 Room Air 08/29/17 20:24 18 Room Air 08/29/17 20:23 68 103/60 08/29/17 16:39 97.1 68 18 103/60 (74) 94 08/29/17 16:32 95 Room Air 08/29/17 12:09 92 08/29/17 11:10 92 Room Air 08/29/17 11:09 92 Room Air 08/29/17 09:11 92 Room Air 08/29/17 09:00 80 114/77 08/29/17 06:14 97.4 80 18 114/77 (89) 92 08/29/17 05:55 94 Room Air 08/28/17 20:57 69 98/62 08/28/17 20:13 Room Air 08/28/17 20:10 92 Room Air 08/28/17 16:24 97.1 69 18 101/59 (73) 94 08/28/17 10:20 94 Room Air 08/28/17 08:47 94 146/64 08/28/17 05:39 97.9 94 14 146/64 (91) 94 08/27/17 22:13 20 92 08/27/17 21:12 97 Room Air 08/27/17 21:12 20 92 08/27/17 21:09 72 178/53 08/27/17 21:05 97 Room Air 08/27/17 16:51 97.4 72 18 178/53 (94) 92 Room Air 08/27/17 16:39 96 Room Air 08/27/17 11:22 96 Room Air 08/27/17 11:21 96 Room Air 5/17/18 08:10 20 93 08/27/17 08:06 64 133/74 08/27/17 08:04 64 133/74 (93) 08/27/17 06:09 97.6 64 20 99/55 (70) 93 08/27/17 05:35 97 Room Air Vital Signs Date Time Temp Pulse Resp B/P (MAP) Pulse Ox O2 Delivery O2 Flow Rate FiO2 08/29/17 21:32 18 Room Air 08/29/17 21:20 95 08/29/17 20:23 68 103/60 08/29/17 16:39 97.1 I&O Intake and Output 08/29/17 07:00 Intake Total 960 ml Balance 960 ml Intake Oral 960 ml Labs: Laboratory Tests Test 08/29/17 07:32 08/29/17 12:20 08/29/17 16:51 08/29/17 19:36 Glucose (Fingerstick) 112 mg/dL (70-99) H 58 mg/dL (70-99) L 131 mg/dL (70-99) H 119 mg/dL (70-99) H Current Medications: Meds: Current Medications Acetaminophen (Tylenol) 650 mg PRN Q6HRS PRN PO PAIN / TEMP; Start 08/25/17 at 22:15; Stop 08/25/17 at 23:02; Status DC Multi-Ingredient Ointment (Analgesic [place]) 1 estrella PRN QID PRN TP MUSCLE PAIN; Start 08/25/17 at 22:15 Buspirone HCl (Buspar) 10 mg TIDWMEALS PO Last administered on 08/28/17at 16:54 ; Start 08/26/17 at 08:00; Stop 08/28/17 at 19:30; Status DC Quetiapine Fumarate (SEROquel) 100 mg QHS PO Last administered on 08/29/17at 20: 23; Start 08/25/17 at 23:00 Sertraline HCl (Zoloft) 75 mg DAILY PO Last administered on 08/27/17at 08:07; Start 08/26/17 at 09:00; Stop 08/27/17 at 18:41; Status DC Venlafaxine HCl (Effexor Xr) 37.5 mg DAILY PO Last administered on 08/29/17at 08 :53; Start 08/26/17 at 09:00; Stop 08/29/17 at 19:25; Status DC Vitamin D (Vitamin D3) 50,000 unit WEEKLY PO ; Start 09/01/17 at 09:00 Cyanocobalamin (Vitamin B-12) 1,000 mcg QMONTH IM ; Start 09/24/17 at 09:00 Diltiazem HCl (Cardizem 24hr Cd) 120 mg BID PO Last administered on 08/29/17at 20:23; Start 08/26/17 at 09:00 Guaifenesin (Mucinex Er) 600 mg TID PO Last administered on 08/29/17at 20:23; Start 08/26/17 at 09:00 Insulin Aspart (NovoLOG) BS 75-150- 0 units BS 151-200... PRN BFRMEALHC PRN SQ Diabetes; Start 08/25/17 at 22:45; Stop 08/26/17 at 07:17; Status DC Albuterol Sulfate (Ventolin) 2.5 mg PRN Q6HRS PRN NEB SHORTNESS OF BREATH; Start 08/25/17 at 22:45 Potassium Chloride (Klor-Con) 20 meq DAILY PO Last administered on 08/29/17at 08 :59; Start 08/26/17 at 09:00 Tamsulosin HCl (Flomax) 0.4 mg QEVNG PO Last administered on 08/29/17at 17:39; Start 08/26/17 at 18:00 Acetaminophen (Tylenol) 500 mg PRN Q4HRS PRN PO PAIN / TEMP; Start 08/25/17 at 22:45 Ascorbic Acid (Vitamin C) 1,000 mg DAILY PO Last administered on 08/29/17at 08: 53; Start 08/26/17 at 09:00 Benzonatate (Tessalon Perle) 100 mg PRN TID PRN PO COUGH; Start 08/26/17 at 09: 00 Docusate Sodium (Colace) 100 mg BID PO Last administered on 08/29/17at 20:23; Start 08/25/17 at 23:00 Fluticasone Propionate (Flonase) 2 spray DAILY NS Last administered on at 09:12; Start 08/26/17 at 09:00 Non-Formulary Medication (Fluticasone/ Salmeterol (Advair 250-50 Diskus)) 1 puff BID IH ; Start 08/26/17 at 09:00; Status UNV Furosemide (Lasix) 40 mg DAILY PO Last administered on 08/29/17at 08:56; Start 08/26/17 at 09:00 Acetaminophen/ Hydrocodone Bitart (Lortab 5/325) 1 tab BID PO Last administered on 08/29/17at 20:24; Start 08/26/17 at 09:00 Acetaminophen/ Hydrocodone Bitart (Lortab 5/325) 1 tab PRN Q6HRS PRN PO PAIN; Start 08/25/17 at 23:15 Loperamide HCl (Imodium) 2 mg PRN Q8HRS PRN PO DIARRHEA; Start 08/25/17 at 23: 00 Al Hydroxide/Mg Hydroxide (Mylanta Plus Xs) 15 ml PRN AFTMEAL PRN PO DYSPEPSIA ; Start 08/25/17 at 23:15 Magnesium Hydroxide (Milk Of Magnesia) 2,400 mg PRN QHS PRN PO CONSTIPATION; Start 08/25/17 at 23:15 Magnesium Oxide (Magnesium Oxide) 400 mg BID PO Last administered on 08/29/17at 20:23; Start 08/26/17 at 09:00 Multivitamins/ Calcium (Thera-M Plus) 1 tab DAILY PO Last administered on at 08:53; Start 08/26/17 at 09:00 Pantoprazole Sodium (Protonix) 40 mg DAILYAC PO Last administered on 08/29/17at 07:47; Start 08/26/17 at 07:30 Polyethylene Glycol (miraLAX) 17 gm DAILY PO Last administered on 08/29/17at 08: 52; Start 08/26/17 at 09:00 Polyethylene Glycol (miraLAX) 17 gm PRN DAILY PRN PO COPNSTIPATION; Start 08/26 at 09:00 Sennosides (Senna) 8.6 mg BID PO Last administered on 08/29/17at 20:23; Start at 23:15 Vitamin B Complex 1 cap DAILY PO Last administered on 08/29/17at 09:11; Start at 09:00 Ondansetron HCl (Zofran Odt) 4 mg PRN Q4HRS PRN PO NAUSEA/VOMITING; Start 08/25 at 23:15 Budesonide (Pulmicort) 0.5 mg RTBID NEB Last administered on 08/29/17at 21:18; Start 08/26/17 at 08:00 Albuterol/ Ipratropium (Duoneb) 3 ml RTQID NEB Last administered on 08/29/17at 21:18; Start 08/26/17 at 08:00 Insulin Human Lispro (HumaLOG) PRN BFRMEALHC PRN SQ DIABETES; Start 08/26/17 at 07:15; Stop 08/26/17 at 09:19; Status DC Insulin Human Lispro (HumaLOG) TIDWMEALHC SQ Last administered on 08/28/17at 08 :51; Start 08/26/17 at 09:30 Mirtazapine (Remeron) 7.5 mg QHS PO Last administered on 08/29/17at 20:23; Start 08/26/17 at 21:00 Trazodone HCl (Desyrel) 50 mg PRN QHS PRN PO INSOMNIA, MAY REPEAT X1; Start at 18:45 Buspirone HCl (Buspar) 10 mg BID@0900,1300 PO Last administered on 08/29/17at 14 :03; Start 08/29/17 at 09:00 Buspirone HCl (Buspar) 20 mg DAILYWSUP PO Last administered on 08/29/17at 17:37 ; Start 08/29/17 at 17:00 Venlafaxine HCl (Effexor Xr) 75 mg DAILY PO ; Start 08/30/17 at 09:00 Active Scripts Active Reported Ondansetron Hcl 4 Mg Tablet 4 Mg PO PRN Q4HRS PRN Novolog Flexpen (Insulin Aspart) 100 Unit/1 Ml Insuln.pen 0-6 Unit SQ PRN BFRMEALHC PRN BS 75-150= 0 units BS 151-200= 2 units BS 201-250= 3 units BS 251-300= 4 units BS 301-350= 5 units BS 351-400= 6 units BS<70 or >400 call Physician Miralax (Polyethylene Glycol 3350) 17 Gm Powd.pack 17 Gm PO PRN DAILY PRN Mucinex (Guaifenesin) 600 Mg Tablet.er 600 Mg PO TID AT 09/24/2199 Buspirone Hcl 10 Mg Tablet 10 Mg PO TID AT 11/22/1799 Senna Lax (Sennosides) 8.6 Mg Tablet 8.6 Mg PO BID Docusate Sodium 100 Mg Capsule 100 Mg PO BID Advair 250-50 Diskus (Fluticasone/Salmeterol) 1 Each Disk.w.dev 1 Puff IH BID Vitamin B Complex 1 Each Tablet 100 Mg PO DAILY D3-50 (Cholecalciferol (Vitamin D3)) 50,000 Unit Capsule 50,000 Unit PO WEEKLY C-1000 (Ascorbic Acid) 1,000 Mg Tablet 1,000 Mg PO DAILY Zoloft (Sertraline Hcl) 25 Mg Tablet 75 Mg PO DAILY Seroquel (Quetiapine Fumarate) 100 Mg Tablet 100 Mg PO HS Klor-Con M20 (Potassium Chloride) 20 Meq Tab.er.prt 20 Meq PO DAILY Pantoprazole Sodium 40 Mg Tablet.dr 40 Mg PO DAILY One Daily Complete (Multivitamin With Minerals) 1 Each Tablet 1 Tab PO DAILY Tamsulosin Hcl 0.4 Mg Cap.er.24h 0.4 Mg PO QEVNG Venlafaxine Hcl Er (Venlafaxine Hcl) 37.5 Mg Cap.er.24h 37.5 Mg PO DAILY Hydrocodone-Apap 5-325 (Hydrocodone Bit/Acetaminophen) 1 Each Tablet 1 Tab PO PRN Q6HRS PRN Hydrocodone-Apap 5-325 (Hydrocodone Bit/Acetaminophen) 1 Each Tablet 1 Tab PO BID Milk Of Magnesia (Magnesium Hydroxide) 2,400 Mg/10 Ml Oral.susp 2,400 Mg PO PRN QHS PRN Advanced Antacid Liquid (Mag Hydrox/Al Hydrox/Simeth) 355 Ml Oral.susp 15 Ml PO PRN AFTMEAL PRN Lasix (Furosemide) 40 Mg Tablet 40 Mg PO DAILY Flonase Allergy Relief (Fluticasone Propionate) 9.9 Ml [place].susp 2 Sprays NS DAILY Benzonatate 100 Mg Capsule 100 Mg PO PRN Q8HRS PRN Miralax (Polyethylene Glycol 3350) 17 Gm Powd.pack 17 Gm PO DAILY Loperamide (Loperamide Hcl) 2 Mg Capsule 2 Mg PO PRN Q8HRS PRN Acetaminophen 500 Mg Tablet 500 Mg PO PRN Q4HRS PRN Magnesium Oxide 400 Mg Tablet 400 Mg PO BID Duoneb 0.5-3(2.5) Mg/3 Ml (Albuterol/Ipratropium) 3 Ml Ampul.neb 3 Ml NEB PRN Q6HRS PRN Cardizem Cd (Diltiazem Hcl) 240 Mg Cap.er.24h 120 Mg PO BID HOLD FOR SBP <110 Cyanocobalamin Injection (Cyanocobalamin (Vitamin B-12)) 1,000 Mcg/1 Ml Vial 1, 000 Mcg IM QMONTH LAST GIVEN 08/19/17 NEXT DOSE DUE 09/19/17 I have reviewed the current psychotropics carefully including drug interactions. Risk benefit ratio favors no change other than as noted in my dictated progress note. Diagnosis: Problems: (1) Hyponatremia (2) Altered mental status (3) Anxiety disorder (4) Dementia in Alzheimer's disease with delusions (5) Dementia in Alzheimer's disease with depression (6) Dementia, vascular, with delusions (7) Dementia, vascular, with depression (8) Impulse control disorder RACHEL BULLARD MD August 29, 2017 22:50
--- NOTE | 2017-08-29 23:20 | PDOC ---
Exam Note: Harris Note: Please also refer to the separate dictated note~for this date of service dictated separately.~Patient seen individually. Discussed the patient with Nursing staff reviewed the chart.~Reviewed interim history and current functioning. Reviewed vital signs,~Labs/ Radiology~and current medications noted below. Continue current treatment with the changes noted in the dictated addendum note Assessment: Vital Signs: Vital Signs Date Time Temp Pulse Resp B/P (MAP) Pulse Ox O2 Delivery O2 Flow Rate FiO2 08/29/17 21:32 18 Room Air 08/29/17 21:20 95 08/29/17 20:23 68 103/60 08/29/17 16:39 97.1 I&O Intake and Output 08/29/17 07:00 Intake Total 960 ml Balance 960 ml Intake Oral 960 ml Labs: Laboratory Tests Test 08/29/17 07:32 08/29/17 12:20 08/29/17 16:51 08/29/17 19:36 Glucose (Fingerstick) 112 mg/dL (70-99) H 58 mg/dL (70-99) L 131 mg/dL (70-99) H 119 mg/dL (70-99) H Current Medications: Meds: Current Medications Acetaminophen (Tylenol) 650 mg PRN Q6HRS PRN PO PAIN / TEMP; Start 08/25/17 at 22:15; Stop 08/25/17 at 23:02; Status DC Multi-Ingredient Ointment (Analgesic [place]) 1 estrella PRN QID PRN TP MUSCLE PAIN; Start 08/25/17 at 22:15 Buspirone HCl (Buspar) 10 mg TIDWMEALS PO Last administered on 08/28/17at 16:54 ; Start 08/26/17 at 08:00; Stop 08/28/17 at 19:30; Status DC Quetiapine Fumarate (SEROquel) 100 mg QHS PO Last administered on 08/29/17at 20: 23; Start 08/25/17 at 23:00 Sertraline HCl (Zoloft) 75 mg DAILY PO Last administered on 08/27/17at 08:07; Start 08/26/17 at 09:00; Stop 08/27/17 at 18:41; Status DC Venlafaxine HCl (Effexor Xr) 37.5 mg DAILY PO Last administered on 08/29/17at 08 :53; Start 08/26/17 at 09:00; Stop 08/29/17 at 19:25; Status DC Vitamin D (Vitamin D3) 50,000 unit WEEKLY PO ; Start 09/01/17 at 09:00 Cyanocobalamin (Vitamin B-12) 1,000 mcg QMONTH IM ; Start 09/24/17 at 09:00 Diltiazem HCl (Cardizem 24hr Cd) 120 mg BID PO Last administered on 08/29/17at 20:23; Start 08/26/17 at 09:00 Guaifenesin (Mucinex Er) 600 mg TID PO Last administered on 08/29/17at 20:23; Start 08/26/17 at 09:00 Insulin Aspart (NovoLOG) BS 75-150- 0 units BS 151-200... PRN BFRMEALHC PRN SQ Diabetes; Start 08/25/17 at 22:45; Stop 08/26/17 at 07:17; Status DC Albuterol Sulfate (Ventolin) 2.5 mg PRN Q6HRS PRN NEB SHORTNESS OF BREATH; Start 08/25/17 at 22:45 Potassium Chloride (Klor-Con) 20 meq DAILY PO Last administered on 08/29/17at 08 :59; Start 08/26/17 at 09:00 Tamsulosin HCl (Flomax) 0.4 mg QEVNG PO Last administered on 08/29/17at 17:39; Start 08/26/17 at 18:00 Acetaminophen (Tylenol) 500 mg PRN Q4HRS PRN PO PAIN / TEMP; Start 08/25/17 at 22:45 Ascorbic Acid (Vitamin C) 1,000 mg DAILY PO Last administered on 08/29/17at 08: 53; Start 08/26/17 at 09:00 Benzonatate (Tessalon Perle) 100 mg PRN TID PRN PO COUGH; Start 08/26/17 at 09: 00 Docusate Sodium (Colace) 100 mg BID PO Last administered on 08/29/17at 20:23; Start 08/25/17 at 23:00 Fluticasone Propionate (Flonase) 2 spray DAILY NS Last administered on at 09:12; Start 08/26/17 at 09:00 Non-Formulary Medication (Fluticasone/ Salmeterol (Advair 250-50 Diskus)) 1 puff BID IH ; Start 08/26/17 at 09:00; Status UNV Furosemide (Lasix) 40 mg DAILY PO Last administered on 08/29/17at 08:56; Start 08/26/17 at 09:00 Acetaminophen/ Hydrocodone Bitart (Lortab 5/325) 1 tab BID PO Last administered on 08/29/17at 20:24; Start 08/26/17 at 09:00 Acetaminophen/ Hydrocodone Bitart (Lortab 5/325) 1 tab PRN Q6HRS PRN PO PAIN; Start 08/25/17 at 23:15 Loperamide HCl (Imodium) 2 mg PRN Q8HRS PRN PO DIARRHEA; Start 08/25/17 at 23: 00 Al Hydroxide/Mg Hydroxide (Mylanta Plus Xs) 15 ml PRN AFTMEAL PRN PO DYSPEPSIA ; Start 08/25/17 at 23:15 Magnesium Hydroxide (Milk Of Magnesia) 2,400 mg PRN QHS PRN PO CONSTIPATION; Start 08/25/17 at 23:15 Magnesium Oxide (Magnesium Oxide) 400 mg BID PO Last administered on 08/29/17at 20:23; Start 08/26/17 at 09:00 Multivitamins/ Calcium (Thera-M Plus) 1 tab DAILY PO Last administered on at 08:53; Start 08/26/17 at 09:00 Pantoprazole Sodium (Protonix) 40 mg DAILYAC PO Last administered on 08/29/17at 07:47; Start 08/26/17 at 07:30 Polyethylene Glycol (miraLAX) 17 gm DAILY PO Last administered on 08/29/17at 08: 52; Start 08/26/17 at 09:00 Polyethylene Glycol (miraLAX) 17 gm PRN DAILY PRN PO COPNSTIPATION; Start 08/26 at 09:00 Sennosides (Senna) 8.6 mg BID PO Last administered on 08/29/17at 20:23; Start at 23:15 Vitamin B Complex 1 cap DAILY PO Last administered on 08/29/17at 09:11; Start at 09:00 Ondansetron HCl (Zofran Odt) 4 mg PRN Q4HRS PRN PO NAUSEA/VOMITING; Start 08/25 at 23:15 Budesonide (Pulmicort) 0.5 mg RTBID NEB Last administered on 08/29/17at 21:18; Start 08/26/17 at 08:00 Albuterol/ Ipratropium (Duoneb) 3 ml RTQID NEB Last administered on 08/29/17at 21:18; Start 08/26/17 at 08:00 Insulin Human Lispro (HumaLOG) PRN BFRMEALHC PRN SQ DIABETES; Start 08/26/17 at 07:15; Stop 08/26/17 at 09:19; Status DC Insulin Human Lispro (HumaLOG) TIDWMEALHC SQ Last administered on 08/28/17at 08 :51; Start 08/26/17 at 09:30 Mirtazapine (Remeron) 7.5 mg QHS PO Last administered on 08/29/17at 20:23; Start 08/26/17 at 21:00 Trazodone HCl (Desyrel) 50 mg PRN QHS PRN PO INSOMNIA, MAY REPEAT X1; Start at 18:45 Buspirone HCl (Buspar) 10 mg BID@0900,1300 PO Last administered on 08/29/17at 14 :03; Start 08/29/17 at 09:00 Buspirone HCl (Buspar) 20 mg DAILYWSUP PO Last administered on 08/29/17at 17:37 ; Start 08/29/17 at 17:00 Venlafaxine HCl (Effexor Xr) 75 mg DAILY PO ; Start 08/30/17 at 09:00 Active Scripts Active Reported Ondansetron Hcl 4 Mg Tablet 4 Mg PO PRN Q4HRS PRN Novolog Flexpen (Insulin Aspart) 100 Unit/1 Ml Insuln.pen 0-6 Unit SQ PRN BFRMEALHC PRN BS 75-150= 0 units BS 151-200= 2 units BS 201-250= 3 units BS 251-300= 4 units BS 301-350= 5 units BS 351-400= 6 units BS<70 or >400 call Physician Miralax (Polyethylene Glycol 3350) 17 Gm Powd.pack 17 Gm PO PRN DAILY PRN Mucinex (Guaifenesin) 600 Mg Tablet.er 600 Mg PO TID AT 09/24/2199 Buspirone Hcl 10 Mg Tablet 10 Mg PO TID AT 11/22/1799 Senna Lax (Sennosides) 8.6 Mg Tablet 8.6 Mg PO BID Docusate Sodium 100 Mg Capsule 100 Mg PO BID Advair 250-50 Diskus (Fluticasone/Salmeterol) 1 Each Disk.w.dev 1 Puff IH BID Vitamin B Complex 1 Each Tablet 100 Mg PO DAILY D3-50 (Cholecalciferol (Vitamin D3)) 50,000 Unit Capsule 50,000 Unit PO WEEKLY C-1000 (Ascorbic Acid) 1,000 Mg Tablet 1,000 Mg PO DAILY Zoloft (Sertraline Hcl) 25 Mg Tablet 75 Mg PO DAILY Seroquel (Quetiapine Fumarate) 100 Mg Tablet 100 Mg PO HS Klor-Con M20 (Potassium Chloride) 20 Meq Tab.er.prt 20 Meq PO DAILY Pantoprazole Sodium 40 Mg Tablet.dr 40 Mg PO DAILY One Daily Complete (Multivitamin With Minerals) 1 Each Tablet 1 Tab PO DAILY Tamsulosin Hcl 0.4 Mg Cap.er.24h 0.4 Mg PO QEVNG Venlafaxine Hcl Er (Venlafaxine Hcl) 37.5 Mg Cap.er.24h 37.5 Mg PO DAILY Hydrocodone-Apap 5-325 (Hydrocodone Bit/Acetaminophen) 1 Each Tablet 1 Tab PO PRN Q6HRS PRN Hydrocodone-Apap 5-325 (Hydrocodone Bit/Acetaminophen) 1 Each Tablet 1 Tab PO BID Milk Of Magnesia (Magnesium Hydroxide) 2,400 Mg/10 Ml Oral.susp 2,400 Mg PO PRN QHS PRN Advanced Antacid Liquid (Mag Hydrox/Al Hydrox/Simeth) 355 Ml Oral.susp 15 Ml PO PRN AFTMEAL PRN Lasix (Furosemide) 40 Mg Tablet 40 Mg PO DAILY Flonase Allergy Relief (Fluticasone Propionate) 9.9 Ml [place].susp 2 Sprays NS DAILY Benzonatate 100 Mg Capsule 100 Mg PO PRN Q8HRS PRN Miralax (Polyethylene Glycol 3350) 17 Gm Powd.pack 17 Gm PO DAILY Loperamide (Loperamide Hcl) 2 Mg Capsule 2 Mg PO PRN Q8HRS PRN Acetaminophen 500 Mg Tablet 500 Mg PO PRN Q4HRS PRN Magnesium Oxide 400 Mg Tablet 400 Mg PO BID Duoneb 0.5-3(2.5) Mg/3 Ml (Albuterol/Ipratropium) 3 Ml Ampul.neb 3 Ml NEB PRN Q6HRS PRN Cardizem Cd (Diltiazem Hcl) 240 Mg Cap.er.24h 120 Mg PO BID HOLD FOR SBP <110 Cyanocobalamin Injection (Cyanocobalamin (Vitamin B-12)) 1,000 Mcg/1 Ml Vial 1, 000 Mcg IM QMONTH LAST GIVEN 08/19/17 NEXT DOSE DUE 09/19/17 I have reviewed the current psychotropics carefully including drug interactions. Risk benefit ratio favors no change other than as noted in my dictated progress note. 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
[2017-08-30] MEDS: IPRATRPIUM/ALBUTEROL 0.5/2.5MG 3 ML NEBU. NEB SCH ×4 (05:55→20:11)
[2017-08-30 06:07] VITALS: BP 93/55
[2017-08-30] MEDS: INSULIN LISPRO 300 UNITS/3 ML INSULN.PEN. SQ SCH ×4 (08:00→21:01)
[2017-08-30] MEDS: DOCUSATE SODIUM 100 MG CAPSULE PO SCH ×2 (08:19→20:51)
[2017-08-30] MEDS: POTASSIUM CHLORIDE 20 MEQ TABLET.ER. PO SCH (08:19)
[2017-08-30] MEDS: VITAMIN B COMPLEX CAPSULE. PO SCH (08:19)
[2017-08-30] MEDS: POLYETHYLENE GLYCOL 3350 17 GM PACKET. PO SCH (08:19)
[2017-08-30] MEDS: MULTIVITAMIN with MINERAL TABLET. PO SCH (08:19)
[2017-08-30] MEDS: SENNOSIDES 8.6 MG TABLET PO SCH ×2 (08:20→20:51)
[2017-08-30] MEDS: PANTOPRAZOLE 40 MG TABLET. PO SCH (08:21)
[2017-08-30] MEDS: FUROSEMIDE 40 MG TABLET PO SCH (08:21)
[2017-08-30] MEDS: busPIRone 10 MG TABLET. PO SCH ×3 (08:21→17:18)
[2017-08-30] MEDS: ASCORBIC ACID 500 MG TABLET PO SCH (08:22)
[2017-08-30] MEDS: MAGNESIUM OXIDE 400 MG TABLET PO SCH ×2 (08:22→20:51)
[2017-08-30] MEDS: HYDROcodone/APAP 5/325MG 1 TAB TABLET PO SCH ×2 (08:24→20:54)
[2017-08-30] MEDS: VENLAFAXINE XR 37.5 MG CAP.ER.24H. PO SCH (08:24)
[2017-08-30] MEDS: FLUTICASONE 50MCG/NASAL SPRAY 16GM BOTTLE. NS SCH (08:25)
[2017-08-30] MEDS: BUDESONIDE 0.5 MG/2 ML NEBU NEB SCH ×2 (11:14→20:11)
[2017-08-30 15:42] VITALS: BP 108/69
[2017-08-30] MEDS: TAMSULOSIN 0.4 MG CAP.ER.24H. PO SCH (17:19)
[2017-08-30] MEDS: MIRTAZAPINE 7.5 MG TABLET. PO SCH (20:51)
[2017-08-30] MEDS: QUEtiapine 100 MG TABLET. PO SCH (20:51)
--- NOTE | 2017-08-30 20:51 | PDOC ---
Exam Note: Harris Note: Please also refer to the separate dictated note~for this date of service dictated separately.~Patient seen individually. Discussed the patient with Nursing staff reviewed the chart.~Reviewed interim history and current functioning. Reviewed vital signs,~Labs/ Radiology~and current medications noted below. Continue current treatment with the changes noted in the dictated addendum note Assessment: Vital Signs: Vital Signs Date Time Temp Pulse Resp B/P (MAP) Pulse Ox O2 Delivery O2 Flow Rate FiO2 08/30/17 20:14 Room Air 08/30/17 20:10 95 08/30/17 15:42 98.3 86 18 108/69 (82) I&O Intake and Output 08/30/17 07:00 Intake Total 1440 ml Balance 1440 ml Intake Oral 1440 ml Labs: Laboratory Tests Test 08/30/17 07:15 08/30/17 11:22 08/30/17 16:26 08/30/17 19:35 Glucose (Fingerstick) 147 mg/dL (70-99) H 107 mg/dL (70-99) H 96 mg/dL (70-99) 157 mg/dL (70-99) H Current Medications: Meds: Current Medications Acetaminophen (Tylenol) 650 mg PRN Q6HRS PRN PO PAIN / TEMP; Start 08/25/17 at 22:15; Stop 08/25/17 at 23:02; Status DC Multi-Ingredient Ointment (Analgesic [place]) 1 estrella PRN QID PRN TP MUSCLE PAIN; Start 08/25/17 at 22:15 Buspirone HCl (Buspar) 10 mg TIDWMEALS PO Last administered on 08/28/17at 16:54 ; Start 08/26/17 at 08:00; Stop 08/28/17 at 19:30; Status DC Quetiapine Fumarate (SEROquel) 100 mg QHS PO Last administered on 08/29/17at 20: 23; Start 08/25/17 at 23:00 Sertraline HCl (Zoloft) 75 mg DAILY PO Last administered on 08/27/17at 08:07; Start 08/26/17 at 09:00; Stop 08/27/17 at 18:41; Status DC Venlafaxine HCl (Effexor Xr) 37.5 mg DAILY PO Last administered on 08/29/17at 08 :53; Start 08/26/17 at 09:00; Stop 08/29/17 at 19:25; Status DC Vitamin D (Vitamin D3) 50,000 unit WEEKLY PO ; Start 09/01/17 at 09:00 Cyanocobalamin (Vitamin B-12) 1,000 mcg QMONTH IM ; Start 09/24/17 at 09:00 Diltiazem HCl (Cardizem 24hr Cd) 120 mg BID PO Last administered on 08/29/17at 20:23; Start 08/26/17 at 09:00 Guaifenesin (Mucinex Er) 600 mg TID PO Last administered on 08/30/17at 14:54; Start 08/26/17 at 09:00 Insulin Aspart (NovoLOG) BS 75-150- 0 units BS 151-200... PRN BFRMEALHC PRN SQ Diabetes; Start 08/25/17 at 22:45; Stop 08/26/17 at 07:17; Status DC Albuterol Sulfate (Ventolin) 2.5 mg PRN Q6HRS PRN NEB SHORTNESS OF BREATH; Start 08/25/17 at 22:45 Potassium Chloride (Klor-Con) 20 meq DAILY PO Last administered on 08/30/17at 08 :19; Start 08/26/17 at 09:00 Tamsulosin HCl (Flomax) 0.4 mg QEVNG PO Last administered on 08/30/17at 17:19; Start 08/26/17 at 18:00 Acetaminophen (Tylenol) 500 mg PRN Q4HRS PRN PO PAIN / TEMP; Start 08/25/17 at 22:45 Ascorbic Acid (Vitamin C) 1,000 mg DAILY PO Last administered on 08/30/17at 08: 22; Start 08/26/17 at 09:00 Benzonatate (Tessalon Perle) 100 mg PRN TID PRN PO COUGH; Start 08/26/17 at 09: 00 Docusate Sodium (Colace) 100 mg BID PO Last administered on 08/30/17at 08:19; Start 08/25/17 at 23:00 Fluticasone Propionate (Flonase) 2 spray DAILY NS Last administered on at 08:25; Start 08/26/17 at 09:00 Non-Formulary Medication (Fluticasone/ Salmeterol (Advair 250-50 Diskus)) 1 puff BID IH ; Start 08/26/17 at 09:00; Status UNV Furosemide (Lasix) 40 mg DAILY PO Last administered on 08/30/17at 08:21; Start 08/26/17 at 09:00 Acetaminophen/ Hydrocodone Bitart (Lortab 5/325) 1 tab BID PO Last administered on 08/30/17at 08:24; Start 08/26/17 at 09:00 Acetaminophen/ Hydrocodone Bitart (Lortab 5/325) 1 tab PRN Q6HRS PRN PO PAIN; Start 08/25/17 at 23:15 Loperamide HCl (Imodium) 2 mg PRN Q8HRS PRN PO DIARRHEA; Start 08/25/17 at 23: 00 Al Hydroxide/Mg Hydroxide (Mylanta Plus Xs) 15 ml PRN AFTMEAL PRN PO DYSPEPSIA ; Start 08/25/17 at 23:15 Magnesium Hydroxide (Milk Of Magnesia) 2,400 mg PRN QHS PRN PO CONSTIPATION; Start 08/25/17 at 23:15 Magnesium Oxide (Magnesium Oxide) 400 mg BID PO Last administered on 08/30/17at 08:22; Start 08/26/17 at 09:00 Multivitamins/ Calcium (Thera-M Plus) 1 tab DAILY PO Last administered on at 08:19; Start 08/26/17 at 09:00 Pantoprazole Sodium (Protonix) 40 mg DAILYAC PO Last administered on 08/30/17at 08:21; Start 08/26/17 at 07:30 Polyethylene Glycol (miraLAX) 17 gm DAILY PO Last administered on 08/30/17at 08: 19; Start 08/26/17 at 09:00 Polyethylene Glycol (miraLAX) 17 gm PRN DAILY PRN PO COPNSTIPATION; Start 08/26 at 09:00 Sennosides (Senna) 8.6 mg BID PO Last administered on 08/30/17at 08:20; Start at 23:15 Vitamin B Complex 1 cap DAILY PO Last administered on 08/30/17at 08:19; Start at 09:00 Ondansetron HCl (Zofran Odt) 4 mg PRN Q4HRS PRN PO NAUSEA/VOMITING; Start 08/25 at 23:15 Budesonide (Pulmicort) 0.5 mg RTBID NEB Last administered on 08/30/17at 20:11; Start 08/26/17 at 08:00 Albuterol/ Ipratropium (Duoneb) 3 ml RTQID NEB Last administered on 08/30/17at 20:11; Start 08/26/17 at 08:00 Insulin Human Lispro (HumaLOG) PRN BFRMEALHC PRN SQ DIABETES; Start 08/26/17 at 07:15; Stop 08/26/17 at 09:19; Status DC Insulin Human Lispro (HumaLOG) TIDWMEALHC SQ Last administered on 08/28/17at 08 :51; Start 08/26/17 at 09:30 Mirtazapine (Remeron) 7.5 mg QHS PO Last administered on 08/29/17at 20:23; Start 08/26/17 at 21:00 Trazodone HCl (Desyrel) 50 mg PRN QHS PRN PO INSOMNIA, MAY REPEAT X1; Start at 18:45 Buspirone HCl (Buspar) 10 mg BID@0900,1300 PO Last administered on 08/30/17at 14 :55; Start 08/29/17 at 09:00 Buspirone HCl (Buspar) 20 mg DAILYWSUP PO Last administered on 08/30/17at 17:18 ; Start 08/29/17 at 17:00 Venlafaxine HCl (Effexor Xr) 75 mg DAILY PO Last administered on 08/30/17at 08: 24; Start 08/30/17 at 09:00 Active Scripts Active Reported Ondansetron Hcl 4 Mg Tablet 4 Mg PO PRN Q4HRS PRN Novolog Flexpen (Insulin Aspart) 100 Unit/1 Ml Insuln.pen 0-6 Unit SQ PRN BFRMEALHC PRN BS 75-150= 0 units BS 151-200= 2 units BS 201-250= 3 units BS 251-300= 4 units BS 301-350= 5 units BS 351-400= 6 units BS<70 or >400 call Physician Miralax (Polyethylene Glycol 3350) 17 Gm Powd.pack 17 Gm PO PRN DAILY PRN Mucinex (Guaifenesin) 600 Mg Tablet.er 600 Mg PO TID AT 09/24/2199 Buspirone Hcl 10 Mg Tablet 10 Mg PO TID AT 11/22/1799 Senna Lax (Sennosides) 8.6 Mg Tablet 8.6 Mg PO BID Docusate Sodium 100 Mg Capsule 100 Mg PO BID Advair 250-50 Diskus (Fluticasone/Salmeterol) 1 Each Disk.w.dev 1 Puff IH BID Vitamin B Complex 1 Each Tablet 100 Mg PO DAILY D3-50 (Cholecalciferol (Vitamin D3)) 50,000 Unit Capsule 50,000 Unit PO WEEKLY C-1000 (Ascorbic Acid) 1,000 Mg Tablet 1,000 Mg PO DAILY Zoloft (Sertraline Hcl) 25 Mg Tablet 75 Mg PO DAILY Seroquel (Quetiapine Fumarate) 100 Mg Tablet 100 Mg PO HS Klor-Con M20 (Potassium Chloride) 20 Meq Tab.er.prt 20 Meq PO DAILY Pantoprazole Sodium 40 Mg Tablet.dr 40 Mg PO DAILY One Daily Complete (Multivitamin With Minerals) 1 Each Tablet 1 Tab PO DAILY Tamsulosin Hcl 0.4 Mg Cap.er.24h 0.4 Mg PO QEVNG Venlafaxine Hcl Er (Venlafaxine Hcl) 37.5 Mg Cap.er.24h 37.5 Mg PO DAILY Hydrocodone-Apap 5-325 (Hydrocodone Bit/Acetaminophen) 1 Each Tablet 1 Tab PO PRN Q6HRS PRN Hydrocodone-Apap 5-325 (Hydrocodone Bit/Acetaminophen) 1 Each Tablet 1 Tab PO BID Milk Of Magnesia (Magnesium Hydroxide) 2,400 Mg/10 Ml Oral.susp 2,400 Mg PO PRN QHS PRN Advanced Antacid Liquid (Mag Hydrox/Al Hydrox/Simeth) 355 Ml Oral.susp 15 Ml PO PRN AFTMEAL PRN Lasix (Furosemide) 40 Mg Tablet 40 Mg PO DAILY Flonase Allergy Relief (Fluticasone Propionate) 9.9 Ml [place].susp 2 Sprays NS DAILY Benzonatate 100 Mg Capsule 100 Mg PO PRN Q8HRS PRN Miralax (Polyethylene Glycol 3350) 17 Gm Powd.pack 17 Gm PO DAILY Loperamide (Loperamide Hcl) 2 Mg Capsule 2 Mg PO PRN Q8HRS PRN Acetaminophen 500 Mg Tablet 500 Mg PO PRN Q4HRS PRN Magnesium Oxide 400 Mg Tablet 400 Mg PO BID Duoneb 0.5-3(2.5) Mg/3 Ml (Albuterol/Ipratropium) 3 Ml Ampul.neb 3 Ml NEB PRN Q6HRS PRN Cardizem Cd (Diltiazem Hcl) 240 Mg Cap.er.24h 120 Mg PO BID HOLD FOR SBP <110 Cyanocobalamin Injection (Cyanocobalamin (Vitamin B-12)) 1,000 Mcg/1 Ml Vial 1, 000 Mcg IM QMONTH LAST GIVEN 08/19/17 NEXT DOSE DUE 09/19/17 I have reviewed the current psychotropics carefully including drug interactions. Risk benefit ratio favors no change other than as noted in my dictated progress note. Diagnosis: Problems: (1) Hyponatremia (2) Altered mental status (3) Anxiety disorder (4) Dementia in Alzheimer's disease with delusions (5) Dementia in Alzheimer's disease with depression (6) Dementia, vascular, with delusions (7) Dementia, vascular, with depression (8) Impulse control disorder RACHEL BULLARD MD August 30, 2017 20:51
[2017-08-31] MEDS: IPRATRPIUM/ALBUTEROL 0.5/2.5MG 3 ML NEBU. NEB SCH ×4 (06:04→21:55)
[2017-08-31 06:13] VITALS: BP 96/73
[2017-08-31] MEDS: POLYETHYLENE GLYCOL 3350 17 GM PACKET. PO SCH (07:57)
[2017-08-31] MEDS: DOCUSATE SODIUM 100 MG CAPSULE PO SCH ×2 (07:57→20:00)
[2017-08-31] MEDS: POTASSIUM CHLORIDE 20 MEQ TABLET.ER. PO SCH (07:57)
[2017-08-31] MEDS: VITAMIN B COMPLEX CAPSULE. PO SCH (07:57)
[2017-08-31] MEDS: VENLAFAXINE XR 37.5 MG CAP.ER.24H. PO SCH (07:58)
[2017-08-31] MEDS: HYDROcodone/APAP 5/325MG 1 TAB TABLET PO SCH ×2 (07:58→19:58)
[2017-08-31] MEDS: SENNOSIDES 8.6 MG TABLET PO SCH ×2 (07:59→19:58)
[2017-08-31] MEDS: busPIRone 10 MG TABLET. PO SCH ×3 (07:59→17:00)
[2017-08-31] MEDS: MULTIVITAMIN with MINERAL TABLET. PO SCH (08:00)
[2017-08-31] MEDS: MAGNESIUM OXIDE 400 MG TABLET PO SCH ×2 (08:00→20:00)
[2017-08-31] MEDS: PANTOPRAZOLE 40 MG TABLET. PO SCH (08:00)
[2017-08-31] MEDS: FUROSEMIDE 40 MG TABLET PO SCH (08:00)
[2017-08-31] MEDS: BUDESONIDE 0.5 MG/2 ML NEBU NEB SCH ×2 (08:00→21:55)
[2017-08-31] MEDS: ASCORBIC ACID 500 MG TABLET PO SCH (08:00)
[2017-08-31] MEDS: INSULIN LISPRO 300 UNITS/3 ML INSULN.PEN. SQ SCH ×4 (08:00→20:01)
[2017-08-31] MEDS: FLUTICASONE 50MCG/NASAL SPRAY 16GM BOTTLE. NS SCH (09:00)
--- NOTE | 2017-08-31 09:07 | PN ---
DATE: 08/28/2017 This late entry 08/28/2017 covers elements not covered in my initial note 08/28/2017. Met with the patient in the evening. The patient slept 6 hours. Otherwise, pleasant and calm. No delusional behaviors noted. Less aggressive, certainly very confused. REVIEW OF SYSTEMS: No CV, , pulmonary, eye, ENT system symptoms on review. Reliability poor. MENTAL STATUS EXAM: Oriented to herself. Insight, judgment, recent and remote memory, attention, concentration, fund of knowledge poor, consistent with her diagnosis mentioned in my initial note. PLAN: Continue current psychotropics. BuSpar is 10 mg 3 times a day. We will increase to 10 mg twice a day, 20 mg in the evening. Continue rest unchanged. MAN Wilson BULLARD MD DR: ERINN/alex JOB#: [id number] / [id number]
--- NOTE | 2017-08-31 13:15 | PN ---
DATE: PSYCHIATRIC PROGRESS NOTE DATE OF SERVICE: 08/29/2017 This late entry 08/29/2017 covers elements not covered in my initial note 08/29/2017. SUBJECTIVE: I met with the patient in the evening. The patient slept 6-1/4 hours, remains confused, did reasonably well the night before, oblivious of her surroundings, anxious regarding a male patient coming into her room, later she was smiling. REVIEW OF SYSTEMS: No CV, , pulmonary, eye, ENT system symptoms on review. Reliability poor. MENTAL STATUS EXAM: Oriented to herself. Insight, judgment, recent and remote memory, attention, concentration, fund of knowledge poor, consistent with her diagnosis mentioned in my initial note. PLAN: Increase Effexor XR from 37.5 mg a day to 75 mg a day. Continue BuSpar, Seroquel, Remeron along with trazodone for now. MAN Wilson BULLARD MD DR: ERINN/alex JOB#: [id number] / [id number]
[2017-08-31 16:20] VITALS: BP 119/65
[2017-08-31] MEDS: TAMSULOSIN 0.4 MG CAP.ER.24H. PO SCH (18:00)
[2017-08-31] MEDS: MIRTAZAPINE 7.5 MG TABLET. PO SCH (19:59)
[2017-08-31] MEDS: QUEtiapine 100 MG TABLET. PO SCH (20:00)
--- NOTE | 2017-08-31 20:49 | PDOC ---
Exam Note: Harris Note: Please also refer to the separate dictated note~for this date of service dictated separately.~Patient seen individually. Discussed the patient with Nursing staff reviewed the chart.~Reviewed interim history and current functioning. Reviewed vital signs,~Labs/ Radiology~and current medications noted below. Continue current treatment with the changes noted in the dictated addendum note Assessment: Vital Signs: Vital Signs Date Time Temp Pulse Resp B/P (MAP) Pulse Ox O2 Delivery O2 Flow Rate FiO2 08/31/17 19:59 83 119/65 08/31/17 16:20 98.5 20 94 08/31/17 06:05 Room Air I&O Intake and Output 08/31/17 07:00 Intake Total 1680 ml Balance 1680 ml Intake Oral 1680 ml # Bowel Movements 2 Labs: Laboratory Tests Test 08/31/17 07:30 08/31/17 11:09 08/31/17 16:17 08/31/17 19:13 Glucose (Fingerstick) 116 mg/dL (70-99) H 89 mg/dL (70-99) 184 mg/dL (70-99) H 90 mg/dL (70-99) Current Medications: Meds: Current Medications Acetaminophen (Tylenol) 650 mg PRN Q6HRS PRN PO PAIN / TEMP; Start 08/25/17 at 22:15; Stop 08/25/17 at 23:02; Status DC Multi-Ingredient Ointment (Analgesic [place]) 1 estrella PRN QID PRN TP MUSCLE PAIN; Start 08/25/17 at 22:15 Buspirone HCl (Buspar) 10 mg TIDWMEALS PO Last administered on 08/28/17at 16:54 ; Start 08/26/17 at 08:00; Stop 08/28/17 at 19:30; Status DC Quetiapine Fumarate (SEROquel) 100 mg QHS PO Last administered on 08/31/17at 20: 00; Start 08/25/17 at 23:00 Sertraline HCl (Zoloft) 75 mg DAILY PO Last administered on 08/27/17at 08:07; Start 08/26/17 at 09:00; Stop 08/27/17 at 18:41; Status DC Venlafaxine HCl (Effexor Xr) 37.5 mg DAILY PO Last administered on 08/29/17at 08 :53; Start 08/26/17 at 09:00; Stop 08/29/17 at 19:25; Status DC Vitamin D (Vitamin D3) 50,000 unit WEEKLY PO ; Start 09/01/17 at 09:00 Cyanocobalamin (Vitamin B-12) 1,000 mcg QMONTH IM ; Start 09/24/17 at 09:00 Diltiazem HCl (Cardizem 24hr Cd) 120 mg BID PO Last administered on 08/31/17at 19:59; Start 08/26/17 at 09:00 Guaifenesin (Mucinex Er) 600 mg TID PO Last administered on 08/31/17at 20:00; Start 08/26/17 at 09:00 Insulin Aspart (NovoLOG) BS 75-150- 0 units BS 151-200... PRN BFRMEALHC PRN SQ Diabetes; Start 08/25/17 at 22:45; Stop 08/26/17 at 07:17; Status DC Albuterol Sulfate (Ventolin) 2.5 mg PRN Q6HRS PRN NEB SHORTNESS OF BREATH; Start 08/25/17 at 22:45 Potassium Chloride (Klor-Con) 20 meq DAILY PO Last administered on 08/31/17at 07 :57; Start 08/26/17 at 09:00 Tamsulosin HCl (Flomax) 0.4 mg QEVNG PO Last administered on 08/31/17at 18:00; Start 08/26/17 at 18:00 Acetaminophen (Tylenol) 500 mg PRN Q4HRS PRN PO PAIN / TEMP; Start 08/25/17 at 22:45 Ascorbic Acid (Vitamin C) 1,000 mg DAILY PO Last administered on 08/31/17at 08: 00; Start 08/26/17 at 09:00 Benzonatate (Tessalon Perle) 100 mg PRN TID PRN PO COUGH; Start 08/26/17 at 09: 00 Docusate Sodium (Colace) 100 mg BID PO Last administered on 08/31/17at 20:00; Start 08/25/17 at 23:00 Fluticasone Propionate (Flonase) 2 spray DAILY NS Last administered on at 09:00; Start 08/26/17 at 09:00 Non-Formulary Medication (Fluticasone/ Salmeterol (Advair 250-50 Diskus)) 1 puff BID IH ; Start 08/26/17 at 09:00; Status UNV Furosemide (Lasix) 40 mg DAILY PO Last administered on 08/31/17at 08:00; Start 08/26/17 at 09:00 Acetaminophen/ Hydrocodone Bitart (Lortab 5/325) 1 tab BID PO Last administered on 08/31/17at 19:58; Start 08/26/17 at 09:00 Acetaminophen/ Hydrocodone Bitart (Lortab 5/325) 1 tab PRN Q6HRS PRN PO PAIN; Start 08/25/17 at 23:15 Loperamide HCl (Imodium) 2 mg PRN Q8HRS PRN PO DIARRHEA; Start 08/25/17 at 23: 00 Al Hydroxide/Mg Hydroxide (Mylanta Plus Xs) 15 ml PRN AFTMEAL PRN PO DYSPEPSIA ; Start 08/25/17 at 23:15 Magnesium Hydroxide (Milk Of Magnesia) 2,400 mg PRN QHS PRN PO CONSTIPATION; Start 08/25/17 at 23:15 Magnesium Oxide (Magnesium Oxide) 400 mg BID PO Last administered on 08/31/17at 20:00; Start 08/26/17 at 09:00 Multivitamins/ Calcium (Thera-M Plus) 1 tab DAILY PO Last administered on at 08:00; Start 08/26/17 at 09:00 Pantoprazole Sodium (Protonix) 40 mg DAILYAC PO Last administered on 08/31/17at 08:00; Start 08/26/17 at 07:30 Polyethylene Glycol (miraLAX) 17 gm DAILY PO Last administered on 08/31/17at 07: 57; Start 08/26/17 at 09:00 Polyethylene Glycol (miraLAX) 17 gm PRN DAILY PRN PO COPNSTIPATION; Start 08/26 at 09:00 Sennosides (Senna) 8.6 mg BID PO Last administered on 08/31/17at 19:58; Start at 23:15 Vitamin B Complex 1 cap DAILY PO Last administered on 08/31/17at 07:57; Start at 09:00 Ondansetron HCl (Zofran Odt) 4 mg PRN Q4HRS PRN PO NAUSEA/VOMITING; Start 08/25 at 23:15 Budesonide (Pulmicort) 0.5 mg RTBID NEB Last administered on 08/30/17at 20:11; Start 08/26/17 at 08:00 Albuterol/ Ipratropium (Duoneb) 3 ml RTQID NEB Last administered on 08/31/17at 06:04; Start 08/26/17 at 08:00 Insulin Human Lispro (HumaLOG) PRN BFRMEALHC PRN SQ DIABETES; Start 08/26/17 at 07:15; Stop 08/26/17 at 09:19; Status DC Insulin Human Lispro (HumaLOG) TIDWMEALHC SQ Last administered on 08/31/17at 17 :00; Start 08/26/17 at 09:30 Mirtazapine (Remeron) 7.5 mg QHS PO Last administered on 08/31/17at 19:59; Start 08/26/17 at 21:00 Trazodone HCl (Desyrel) 50 mg PRN QHS PRN PO INSOMNIA, MAY REPEAT X1; Start at 18:45 Buspirone HCl (Buspar) 10 mg BID@0900,1300 PO Last administered on 08/31/17at 13 :02; Start 08/29/17 at 09:00 Buspirone HCl (Buspar) 20 mg DAILYWSUP PO Last administered on 08/31/17at 17:00 ; Start 08/29/17 at 17:00 Venlafaxine HCl (Effexor Xr) 75 mg DAILY PO Last administered on 08/31/17at 07: 58; Start 08/30/17 at 09:00 Active Scripts Active Reported Ondansetron Hcl 4 Mg Tablet 4 Mg PO PRN Q4HRS PRN Novolog Flexpen (Insulin Aspart) 100 Unit/1 Ml Insuln.pen 0-6 Unit SQ PRN BFRMEALHC PRN BS 75-150= 0 units BS 151-200= 2 units BS 201-250= 3 units BS 251-300= 4 units BS 301-350= 5 units BS 351-400= 6 units BS<70 or >400 call Physician Miralax (Polyethylene Glycol 3350) 17 Gm Powd.pack 17 Gm PO PRN DAILY PRN Mucinex (Guaifenesin) 600 Mg Tablet.er 600 Mg PO TID AT 09/24/2199 Buspirone Hcl 10 Mg Tablet 10 Mg PO TID AT 11/22/1799 Senna Lax (Sennosides) 8.6 Mg Tablet 8.6 Mg PO BID Docusate Sodium 100 Mg Capsule 100 Mg PO BID Advair 250-50 Diskus (Fluticasone/Salmeterol) 1 Each Disk.w.dev 1 Puff IH BID Vitamin B Complex 1 Each Tablet 100 Mg PO DAILY D3-50 (Cholecalciferol (Vitamin D3)) 50,000 Unit Capsule 50,000 Unit PO WEEKLY C-1000 (Ascorbic Acid) 1,000 Mg Tablet 1,000 Mg PO DAILY Zoloft (Sertraline Hcl) 25 Mg Tablet 75 Mg PO DAILY Seroquel (Quetiapine Fumarate) 100 Mg Tablet 100 Mg PO HS Klor-Con M20 (Potassium Chloride) 20 Meq Tab.er.prt 20 Meq PO DAILY Pantoprazole Sodium 40 Mg Tablet.dr 40 Mg PO DAILY One Daily Complete (Multivitamin With Minerals) 1 Each Tablet 1 Tab PO DAILY Tamsulosin Hcl 0.4 Mg Cap.er.24h 0.4 Mg PO QEVNG Venlafaxine Hcl Er (Venlafaxine Hcl) 37.5 Mg Cap.er.24h 37.5 Mg PO DAILY Hydrocodone-Apap 5-325 (Hydrocodone Bit/Acetaminophen) 1 Each Tablet 1 Tab PO PRN Q6HRS PRN Hydrocodone-Apap 5-325 (Hydrocodone Bit/Acetaminophen) 1 Each Tablet 1 Tab PO BID Milk Of Magnesia (Magnesium Hydroxide) 2,400 Mg/10 Ml Oral.susp 2,400 Mg PO PRN QHS PRN Advanced Antacid Liquid (Mag Hydrox/Al Hydrox/Simeth) 355 Ml Oral.susp 15 Ml PO PRN AFTMEAL PRN Lasix (Furosemide) 40 Mg Tablet 40 Mg PO DAILY Flonase Allergy Relief (Fluticasone Propionate) 9.9 Ml [place].susp 2 Sprays NS DAILY Benzonatate 100 Mg Capsule 100 Mg PO PRN Q8HRS PRN Miralax (Polyethylene Glycol 3350) 17 Gm Powd.pack 17 Gm PO DAILY Loperamide (Loperamide Hcl) 2 Mg Capsule 2 Mg PO PRN Q8HRS PRN Acetaminophen 500 Mg Tablet 500 Mg PO PRN Q4HRS PRN Magnesium Oxide 400 Mg Tablet 400 Mg PO BID Duoneb 0.5-3(2.5) Mg/3 Ml (Albuterol/Ipratropium) 3 Ml Ampul.neb 3 Ml NEB PRN Q6HRS PRN Cardizem Cd (Diltiazem Hcl) 240 Mg Cap.er.24h 120 Mg PO BID HOLD FOR SBP <110 Cyanocobalamin Injection (Cyanocobalamin (Vitamin B-12)) 1,000 Mcg/1 Ml Vial 1, 000 Mcg IM QMONTH LAST GIVEN 08/19/17 NEXT DOSE DUE 09/19/17 I have reviewed the current psychotropics carefully including drug interactions. Risk benefit ratio favors no change other than as noted in my dictated progress note. Diagnosis: Problems: (1) Hyponatremia (2) Altered mental status (3) Anxiety disorder (4) Dementia in Alzheimer's disease with delusions (5) Dementia in Alzheimer's disease with depression (6) Dementia, vascular, with delusions (7) Dementia, vascular, with depression (8) Impulse control disorder RACHEL BULLARD MD August 31, 2017 20:49
--- NOTE | 2017-09-01 07:14 | PN ---
DATE: 08/31/2017 SUBJECTIVE: The patient was seen today, met with the staff, chart reviewed. The patient was also seen today for Dr. Felix. The patient's behavior remains the same. She is confused constantly, very delusional, paranoid. She thinks people are walking into her room. The patient also having hallucinations, both visual and auditory. The patient also rambling, increased psychomotor activity, racing thoughts, manic-like behaviors. OBSERVATION: VITAL SIGNS: Temperature 98.2, blood pressure 96/73, pulse 79, respirations 16, O2 sat 96%. Slept about 8 hours last night. Appetite fair. The patient likes to be left alone, gets irritable and ramos, also somewhat sarcastic. The patient does not like to hold a conversation with the staff or residents. MEDICATIONS: Reviewed. Currently on Effexor 75 mg daily, BuSpar 20 mg daily and 10 mg t.i.d., mirtazapine 7.5 mg at night, trazodone 50 mg at night p.r.n., Seroquel 100 mg at night. The patient normally is not exhibiting any side effects. The patient's lab reviewed, which are all within normal range. ASSESSMENT: 1. Major neurocognitive disorder, Alzheimer's, vascular with depression, delusions and behavioral disturbances. 2. Anxiety disorder, unspecified. 3. Impulse control disorder, unspecified. PARKER AGUIRRE MD DR: CHRISTIANO/alex JOB#: [id number] / [id number]
[2017-09-01 07:41] LABS: ALBUMIN 3.1 g/dL (3.4-5.0); ALBUMIN/GLOBULIN RATIO 0.8 (1.0-1.7); CALCIUM 8.5 mg/dL (8.5-10.1); GFR 52.2; POTASSIUM 3.9 mmol/L (3.5-5.1); TOTAL BILIRUBIN 0.3 mg/dL (0.2-1.0)
[2017-09-01 07:51] LABS: BASO # 0.1 x10^3/uL (0.0-0.2); BASO % 1 % (0-3); EOS # 0.2 x10^3/uL (0.0-0.7); EOS % 4 % (0-3); HEMATOCRIT 38.6 % (36.0-47.0); HEMOGLOBIN 13.2 g/dL (12.0-15.5); LYMPH # 1.6 x10^3/uL (1.0-4.8); LYMPH % 25 % (24-48); MEAN CORPUSCULAR HEMOGLOBIN 31 pg (25-35); MEAN CORPUSCULAR HGB CONC 34 g/dL (31-37); MEAN CORPUSCULAR VOLUME 89 fL (79-100); MONO # 0.6 x10^3/uL (0.0-1.1); MONO % 9 % (0-9); NEUT # 3.9 x10^3uL (1.8-7.7); NEUT % 62 % (31-73); PLATELET COUNT 337 x10^3/uL (140-400); RED BLOOD COUNT 4.33 x10^6/uL (3.50-5.40); RED CELL DISTRIBUTION WIDTH 14.1 % (11.5-14.5); WHITE BLOOD COUNT 6.3 x10^3/uL (4.0-11.0)
[2017-09-01] MEDS: IPRATRPIUM/ALBUTEROL 0.5/2.5MG 3 ML NEBU. NEB SCH ×4 (08:00→22:10)
[2017-09-01] MEDS: INSULIN LISPRO 300 UNITS/3 ML INSULN.PEN. SQ SCH ×4 (08:00→20:12)
[2017-09-01] MEDS: busPIRone 10 MG TABLET. PO SCH ×3 (08:12→16:51)
[2017-09-01] MEDS: VITAMIN B COMPLEX CAPSULE. PO SCH (08:12)
[2017-09-01] MEDS: VENLAFAXINE XR 37.5 MG CAP.ER.24H. PO SCH (08:13)
[2017-09-01] MEDS: FUROSEMIDE 40 MG TABLET PO SCH (08:13)
[2017-09-01] MEDS: DOCUSATE SODIUM 100 MG CAPSULE PO SCH ×2 (08:13→20:08)
[2017-09-01] MEDS: SENNOSIDES 8.6 MG TABLET PO SCH ×2 (08:13→20:08)
[2017-09-01] MEDS: ASCORBIC ACID 500 MG TABLET PO SCH (08:13)
[2017-09-01] MEDS: MAGNESIUM OXIDE 400 MG TABLET PO SCH ×2 (08:14→20:07)
[2017-09-01] MEDS: PANTOPRAZOLE 40 MG TABLET. PO SCH (08:14)
[2017-09-01] MEDS: MULTIVITAMIN with MINERAL TABLET. PO SCH (08:14)
[2017-09-01] MEDS: POTASSIUM CHLORIDE 20 MEQ TABLET.ER. PO SCH (08:14)
[2017-09-01] MEDS: POLYETHYLENE GLYCOL 3350 17 GM PACKET. PO SCH (08:15)
[2017-09-01] MEDS: HYDROcodone/APAP 5/325MG 1 TAB TABLET PO SCH ×2 (08:17→20:11)
[2017-09-01] MEDS: FLUTICASONE 50MCG/NASAL SPRAY 16GM BOTTLE. NS SCH (08:18)
[2017-09-01 09:00] VITALS: BP 121/66
[2017-09-01] MEDS ORDERED: CHOLECALCIFEROL (VITAMIN D3) 50,000 UNIT CAPSULE PO SCH (09:00)
--- NOTE | 2017-09-01 09:45 | PN ---
DATE: 08/30/2017 This is a late entry 08/30/2017 covers the elements not covered in my initial note 08/30/2017. I met with the patient in the evening. The patient remains confused, wandering up and down the hallway, somewhat anxious, restless, but redirectable. REVIEW OF SYSTEMS: No CV, , pulmonary, eye, ENT system symptoms on review. Reliability poor. MENTAL STATUS EXAM: Oriented to herself. Insight, judgment, recent and remote memory, attention, concentration, fund of knowledge poor, consistent with her diagnosis mentioned in my initial note. IMPRESSION: Major neurocognitive disorder, Alzheimer, vascular with depression, behavioral disturbance. Rest unchanged. PLAN: Continue psychotropics mentioned in my initial note. Adjust further as clinically indicated. MAN Wilson BULLARD MD DR: ERINN/alex JOB#: [id number] / [id number]
[2017-09-01] MEDS: BUDESONIDE 0.5 MG/2 ML NEBU NEB SCH ×2 (10:47→22:11)
[2017-09-01 16:50] VITALS: BP 125/52
[2017-09-01] MEDS: TAMSULOSIN 0.4 MG CAP.ER.24H. PO SCH (16:51)
[2017-09-01] MEDS: MIRTAZAPINE 7.5 MG TABLET. PO SCH (20:07)
[2017-09-01] MEDS: QUEtiapine 50 MG TABLET. PO SCH (20:11)
[2017-09-01] MEDS ORDERED: CHOL500021 PO (21:24)
[2017-09-02] MEDS: IPRATRPIUM/ALBUTEROL 0.5/2.5MG 3 ML NEBU. NEB SCH ×4 (05:52→23:31)
[2017-09-02 06:41] VITALS: BP 104/55
[2017-09-02] MEDS: SENNOSIDES 8.6 MG TABLET PO SCH ×2 (07:48→20:04)
[2017-09-02] MEDS: DOCUSATE SODIUM 100 MG CAPSULE PO SCH ×2 (07:48→20:04)
[2017-09-02] MEDS: VITAMIN B COMPLEX CAPSULE. PO SCH (07:48)
[2017-09-02] MEDS: PANTOPRAZOLE 40 MG TABLET. PO SCH (07:49)
[2017-09-02] MEDS: VENLAFAXINE XR 37.5 MG CAP.ER.24H. PO SCH (07:49)
[2017-09-02] MEDS: FUROSEMIDE 40 MG TABLET PO SCH (07:49)
[2017-09-02] MEDS: MULTIVITAMIN with MINERAL TABLET. PO SCH (07:49)
[2017-09-02] MEDS: MAGNESIUM OXIDE 400 MG TABLET PO SCH ×2 (07:49→20:04)
[2017-09-02] MEDS: busPIRone 10 MG TABLET. PO SCH ×3 (07:49→17:25)
[2017-09-02] MEDS: POTASSIUM CHLORIDE 20 MEQ TABLET.ER. PO SCH (07:49)
[2017-09-02] MEDS: POLYETHYLENE GLYCOL 3350 17 GM PACKET. PO SCH (07:50)
[2017-09-02] MEDS: ASCORBIC ACID 500 MG TABLET PO SCH (07:50)
[2017-09-02] MEDS: INSULIN LISPRO 300 UNITS/3 ML INSULN.PEN. SQ SCH ×4 (07:51→20:06)
[2017-09-02] MEDS: HYDROcodone/APAP 5/325MG 1 TAB TABLET PO SCH ×2 (07:52→20:04)
[2017-09-02] MEDS: FLUTICASONE 50MCG/NASAL SPRAY 16GM BOTTLE. NS SCH (07:53)
[2017-09-02] MEDS: QUEtiapine 25 MG TABLET. PO SCH ×2 (07:54→14:04)
[2017-09-02] MEDS: BUDESONIDE 0.5 MG/2 ML NEBU NEB SCH ×2 (10:56→23:31)
[2017-09-02 16:45] VITALS: BP 133/60
[2017-09-02] MEDS: TAMSULOSIN 0.4 MG CAP.ER.24H. PO SCH (17:26)
[2017-09-02] MEDS: MIRTAZAPINE 7.5 MG TABLET. PO SCH (20:04)
--- NOTE | 2017-09-02 20:04 | PDOC ---
Exam Note: Harris Note: Late entry for date of service September 01, 2017. Please also refer to the separate dictated note~for this date of service dictated separately.~Patient seen individually. Discussed the patient with Nursing staff reviewed the chart.~ Reviewed interim history and current functioning. Reviewed vital signs,~Labs/ Radiology~and current medications noted below. Continue current treatment with the changes noted in the dictated addendum note Assessment: Vital Signs: VS - Last 72 Hours, by Label Date Time Temp Pulse Resp B/P (MAP) Pulse Ox O2 Delivery O2 Flow Rate FiO2 09/02/17 16:45 97.6 71 20 133/60 (84) 92 09/02/17 16:04 94 Room Air 09/02/17 10:56 94 Room Air 09/02/17 10:56 94 Room Air 09/02/17 09:08 93 09/02/17 07:52 93 09/02/17 07:48 79 104/55 09/02/17 06:41 97.4 79 16 104/55 (71) 93 09/02/17 04:50 95 Room Air 09/01/17 21:45 95 Room Air 09/01/17 21:40 95 Room Air 09/01/17 21:35 18 Room Air 09/01/17 20:11 20 95 Room Air 09/01/17 20:08 72 125/52 09/01/17 16:50 97.8 72 18 125/52 (76) 95 Room Air 09/01/17 16:18 93 Room Air 09/01/17 10:47 96 Room Air 09/01/17 10:47 96 Room Air 09/01/17 09:00 80 121/66 (84) Room Air 09/01/17 08:19 80 121/66 09/01/17 08:17 95 Room Air 08/31/17 21:55 95 Room Air 08/31/17 19:59 83 119/65 08/31/17 16:20 98.5 83 20 119/65 (83) 94 08/31/17 08:01 79 96/73 08/31/17 06:13 98.2 79 16 96/73 (81) 96 08/31/17 06:05 95 Room Air 08/30/17 20:54 18 Room Air 08/30/17 20:51 86 108/69 08/30/17 20:14 Room Air 08/30/17 20:10 95 Room Air Vital Signs Date Time Temp Pulse Resp B/P (MAP) Pulse Ox O2 Delivery O2 Flow Rate FiO2 09/02/17 16:45 97.6 71 20 133/60 (84) 92 09/02/17 16:04 Room Air I&O Intake and Output 09/02/17 07:00 Intake Total 1320 ml Balance 1320 ml Intake Oral 1320 ml Labs: Laboratory Tests Test 09/02/17 07:18 09/02/17 11:20 09/02/17 16:16 09/02/17 19:32 Glucose (Fingerstick) 134 mg/dL (70-99) H 96 mg/dL (70-99) 129 mg/dL (70-99) H 187 mg/dL (70-99) H Current Medications: Meds: Current Medications Acetaminophen (Tylenol) 650 mg PRN Q6HRS PRN PO PAIN / TEMP; Start 08/25/17 at 22:15; Stop 08/25/17 at 23:02; Status DC Multi-Ingredient Ointment (Analgesic [place]) 1 estrella PRN QID PRN TP MUSCLE PAIN; Start 08/25/17 at 22:15 Buspirone HCl (Buspar) 10 mg TIDWMEALS PO Last administered on 08/28/17at 16:54 ; Start 08/26/17 at 08:00; Stop 08/28/17 at 19:30; Status DC Quetiapine Fumarate (SEROquel) 100 mg QHS PO Last administered on 08/31/17at 20: 00; Start 08/25/17 at 23:00; Stop 09/01/17 at 18:29; Status DC Sertraline HCl (Zoloft) 75 mg DAILY PO Last administered on 08/27/17at 08:07; Start 08/26/17 at 09:00; Stop 08/27/17 at 18:41; Status DC Venlafaxine HCl (Effexor Xr) 37.5 mg DAILY PO Last administered on 08/29/17at 08 :53; Start 08/26/17 at 09:00; Stop 08/29/17 at 19:25; Status DC Vitamin D (Vitamin D3) 50,000 unit WEEKLY PO Last administered on 09/01/17at 08: 17; Start 09/01/17 at 09:00 Cyanocobalamin (Vitamin B-12) 1,000 mcg QMONTH IM ; Start 09/24/17 at 09:00 Diltiazem HCl (Cardizem 24hr Cd) 120 mg BID PO Last administered on 09/02/17at 07:48; Start 08/26/17 at 09:00 Guaifenesin (Mucinex Er) 600 mg TID PO Last administered on 09/02/17at 14:00; Start 08/26/17 at 09:00 Insulin Aspart (NovoLOG) BS 75-150- 0 units BS 151-200... PRN BFRMEALHC PRN SQ Diabetes; Start 08/25/17 at 22:45; Stop 08/26/17 at 07:17; Status DC Albuterol Sulfate (Ventolin) 2.5 mg PRN Q6HRS PRN NEB SHORTNESS OF BREATH; Start 08/25/17 at 22:45 Potassium Chloride (Klor-Con) 20 meq DAILY PO Last administered on 09/02/17at 07 :49; Start 08/26/17 at 09:00 Tamsulosin HCl (Flomax) 0.4 mg QEVNG PO Last administered on 09/02/17at 17:26; Start 08/26/17 at 18:00 Acetaminophen (Tylenol) 500 mg PRN Q4HRS PRN PO PAIN / TEMP; Start 08/25/17 at 22:45 Ascorbic Acid (Vitamin C) 1,000 mg DAILY PO Last administered on 09/02/17at 07: 50; Start 08/26/17 at 09:00 Benzonatate (Tessalon Perle) 100 mg PRN TID PRN PO COUGH; Start 08/26/17 at 09: 00 Docusate Sodium (Colace) 100 mg BID PO Last administered on 09/02/17at 07:48; Start 08/25/17 at 23:00 Fluticasone Propionate (Flonase) 2 spray DAILY NS Last administered on at 07:53; Start 08/26/17 at 09:00 Non-Formulary Medication (Fluticasone/ Salmeterol (Advair 250-50 Diskus)) 1 puff BID IH ; Start 08/26/17 at 09:00; Status UNV Furosemide (Lasix) 40 mg DAILY PO Last administered on 09/02/17 07:49; Start 08/26/17 at 09:00 Acetaminophen/ Hydrocodone Bitart (Lortab 5/325) 1 tab BID PO Last administered on 09/02/17at 07:52; Start 08/26/17 at 09:00 Acetaminophen/ Hydrocodone Bitart (Lortab 5/325) 1 tab PRN Q6HRS PRN PO PAIN; Start 08/25/17 at 23:15 Loperamide HCl (Imodium) 2 mg PRN Q8HRS PRN PO DIARRHEA; Start 08/25/17 at 23: 00 Al Hydroxide/Mg Hydroxide (Mylanta Plus Xs) 15 ml PRN AFTMEAL PRN PO DYSPEPSIA Last administered on 09/01/17 14:19; Start 08/25/17 at 23:15 Magnesium Hydroxide (Milk Of Magnesia) 2,400 mg PRN QHS PRN PO CONSTIPATION; Start 08/25/17 at 23:15 Magnesium Oxide (Magnesium Oxide) 400 mg BID PO Last administered on 09/02/17 07:49; Start 08/26/17 at 09:00 Multivitamins/ Calcium (Thera-M Plus) 1 tab DAILY PO Last administered on 07:49; Start 08/26/17 at 09:00 Pantoprazole Sodium (Protonix) 40 mg DAILYAC PO Last administered on 09/02/17 07:49; Start 08/26/17 at 07:30 Polyethylene Glycol (miraLAX) 17 gm DAILY PO Last administered on 09/02/17 07: 50; Start 08/26/17 at 09:00 Polyethylene Glycol (miraLAX) 17 gm PRN DAILY PRN PO COPNSTIPATION; Start 08/26 at 09:00 Sennosides (Senna) 8.6 mg BID PO Last administered on 09/02/17 07:48; Start at 23:15 Vitamin B Complex 1 cap DAILY PO Last administered on 09/02/17 07:48; Start at 09:00 Ondansetron HCl (Zofran Odt) 4 mg PRN Q4HRS PRN PO NAUSEA/VOMITING; Start 08/25 at 23:15 Budesonide (Pulmicort) 0.5 mg RTBID NEB Last administered on 09/02/17at 10:56; Start 08/26/17 at 08:00 Albuterol/ Ipratropium (Duoneb) 3 ml RTQID NEB Last administered on 09/02/17at 16:03; Start 08/26/17 at 08:00 Insulin Human Lispro (HumaLOG) PRN BFRMEALHC PRN SQ DIABETES; Start 08/26/17 at 07:15; Stop 08/26/17 at 09:19; Status DC Insulin Human Lispro (HumaLOG) TIDWMEALHC SQ Last administered on 08/31/17at 17 :00; Start 08/26/17 at 09:30 Mirtazapine (Remeron) 7.5 mg QHS PO Last administered on 09/01/17at 20:07; Start 08/26/17 at 21:00 Trazodone HCl (Desyrel) 50 mg PRN QHS PRN PO INSOMNIA, MAY REPEAT X1; Start at 18:45 Buspirone HCl (Buspar) 10 mg BID@0900,1300 PO Last administered on 09/02/17at 14 :07; Start 08/29/17 at 09:00 Buspirone HCl (Buspar) 20 mg DAILYWSUP PO Last administered on 09/02/17at 17:25 ; Start 08/29/17 at 17:00 Venlafaxine HCl (Effexor Xr) 75 mg DAILY PO Last administered on 09/02/17at 07: 49; Start 08/30/17 at 09:00 Quetiapine Fumarate (SEROquel) 75 mg QHS PO Last administered on 09/01/17at 20: 11; Start 09/01/17 at 21:00 Quetiapine Fumarate (SEROquel) 25 mg BID@0900,1500 PO Last administered on 09/02at 14:04; Start 09/02/17 at 09:00 Active Scripts Active Reported Ondansetron Hcl 4 Mg Tablet 4 Mg PO PRN Q4HRS PRN Novolog Flexpen (Insulin Aspart) 100 Unit/1 Ml Insuln.pen 0-6 Unit SQ PRN BFRMEALHC PRN BS 75-150= 0 units BS 151-200= 2 units BS 201-250= 3 units BS 251-300= 4 units BS 301-350= 5 units BS 351-400= 6 units BS<70 or >400 call Physician Miralax (Polyethylene Glycol 3350) 17 Gm Powd.pack 17 Gm PO PRN DAILY PRN Mucinex (Guaifenesin) 600 Mg Tablet.er 600 Mg PO TID AT 09/24/2199 Buspirone Hcl 10 Mg Tablet 10 Mg PO TID AT 11/22/1799 Senna Lax (Sennosides) 8.6 Mg Tablet 8.6 Mg PO BID Docusate Sodium 100 Mg Capsule 100 Mg PO BID Advair 250-50 Diskus (Fluticasone/Salmeterol) 1 Each Disk.w.dev 1 Puff IH BID Vitamin B Complex 1 Each Tablet 100 Mg PO DAILY D3-50 (Cholecalciferol (Vitamin D3)) 50,000 Unit Capsule 50,000 Unit PO WEEKLY C-1000 (Ascorbic Acid) 1,000 Mg Tablet 1,000 Mg PO DAILY Zoloft (Sertraline Hcl) 25 Mg Tablet 75 Mg PO DAILY Seroquel (Quetiapine Fumarate) 100 Mg Tablet 100 Mg PO HS Klor-Con M20 (Potassium Chloride) 20 Meq Tab.er.prt 20 Meq PO DAILY Pantoprazole Sodium 40 Mg Tablet.dr 40 Mg PO DAILY One Daily Complete (Multivitamin With Minerals) 1 Each Tablet 1 Tab PO DAILY Tamsulosin Hcl 0.4 Mg Cap.er.24h 0.4 Mg PO QEVNG Venlafaxine Hcl Er (Venlafaxine Hcl) 37.5 Mg Cap.er.24h 37.5 Mg PO DAILY Hydrocodone-Apap 5-325 (Hydrocodone Bit/Acetaminophen) 1 Each Tablet 1 Tab PO PRN Q6HRS PRN Hydrocodone-Apap 5-325 (Hydrocodone Bit/Acetaminophen) 1 Each Tablet 1 Tab PO BID Milk Of Magnesia (Magnesium Hydroxide) 2,400 Mg/10 Ml Oral.susp 2,400 Mg PO PRN QHS PRN Advanced Antacid Liquid (Mag Hydrox/Al Hydrox/Simeth) 355 Ml Oral.susp 15 Ml PO PRN AFTMEAL PRN Lasix (Furosemide) 40 Mg Tablet 40 Mg PO DAILY Flonase Allergy Relief (Fluticasone Propionate) 9.9 Ml [place].susp 2 Sprays NS DAILY Benzonatate 100 Mg Capsule 100 Mg PO PRN Q8HRS PRN Miralax (Polyethylene Glycol 3350) 17 Gm Powd.pack 17 Gm PO DAILY Loperamide (Loperamide Hcl) 2 Mg Capsule 2 Mg PO PRN Q8HRS PRN Acetaminophen 500 Mg Tablet 500 Mg PO PRN Q4HRS PRN Magnesium Oxide 400 Mg Tablet 400 Mg PO BID Duoneb 0.5-3(2.5) Mg/3 Ml (Albuterol/Ipratropium) 3 Ml Ampul.neb 3 Ml NEB PRN Q6HRS PRN Cardizem Cd (Diltiazem Hcl) 240 Mg Cap.er.24h 120 Mg PO BID HOLD FOR SBP <110 Cyanocobalamin Injection (Cyanocobalamin (Vitamin B-12)) 1,000 Mcg/1 Ml Vial 1, 000 Mcg IM QMONTH LAST GIVEN 08/19/17 NEXT DOSE DUE 09/19/17 I have reviewed the current psychotropics carefully including drug interactions. Risk benefit ratio favors no change other than as noted in my dictated progress note. Diagnosis: Problems: (1) Hyponatremia (2) Altered mental status (3) Anxiety disorder (4) Dementia in Alzheimer's disease with delusions (5) Dementia in Alzheimer's disease with depression (6) Dementia, vascular, with delusions (7) Dementia, vascular, with depression (8) Impulse control disorder RACHEL BULLARD MD September 02, 2017 20:04
[2017-09-02] MEDS: QUEtiapine 50 MG TABLET. PO SCH (20:05)
--- NOTE | 2017-09-02 20:36 | PDOC ---
Exam Note: Harris Note: Please also refer to the separate dictated note~for this date of service dictated separately.~Patient seen individually. Discussed the patient with Nursing staff reviewed the chart.~Reviewed interim history and current functioning. Reviewed vital signs,~Labs/ Radiology~and current medications noted below. Continue current treatment with the changes noted in the dictated addendum note Assessment: Vital Signs: Vital Signs Date Time Temp Pulse Resp B/P (MAP) Pulse Ox O2 Delivery O2 Flow Rate FiO2 09/02/17 20:04 18 09/02/17 20:03 71 133/60 09/02/17 16:45 97.6 92 09/02/17 16:04 Room Air I&O Intake and Output 09/02/17 07:00 Intake Total 1320 ml Balance 1320 ml Intake Oral 1320 ml Labs: Laboratory Tests Test 09/02/17 07:18 09/02/17 11:20 09/02/17 16:16 09/02/17 19:32 Glucose (Fingerstick) 134 mg/dL (70-99) H 96 mg/dL (70-99) 129 mg/dL (70-99) H 187 mg/dL (70-99) H Current Medications: Meds: Current Medications Acetaminophen (Tylenol) 650 mg PRN Q6HRS PRN PO PAIN / TEMP; Start 08/25/17 at 22:15; Stop 08/25/17 at 23:02; Status DC Multi-Ingredient Ointment (Analgesic [place]) 1 estrella PRN QID PRN TP MUSCLE PAIN; Start 08/25/17 at 22:15 Buspirone HCl (Buspar) 10 mg TIDWMEALS PO Last administered on 08/28/17at 16:54 ; Start 08/26/17 at 08:00; Stop 08/28/17 at 19:30; Status DC Quetiapine Fumarate (SEROquel) 100 mg QHS PO Last administered on 08/31/17at 20: 00; Start 08/25/17 at 23:00; Stop 09/01/17 at 18:29; Status DC Sertraline HCl (Zoloft) 75 mg DAILY PO Last administered on 08/27/17at 08:07; Start 08/26/17 at 09:00; Stop 08/27/17 at 18:41; Status DC Venlafaxine HCl (Effexor Xr) 37.5 mg DAILY PO Last administered on 08/29/17at 08 :53; Start 08/26/17 at 09:00; Stop 08/29/17 at 19:25; Status DC Vitamin D (Vitamin D3) 50,000 unit WEEKLY PO Last administered on 09/01/17at 08: 17; Start 09/01/17 at 09:00 Cyanocobalamin (Vitamin B-12) 1,000 mcg QMONTH IM ; Start 09/24/17 at 09:00 Diltiazem HCl (Cardizem 24hr Cd) 120 mg BID PO Last administered on 09/02/17at 20:03; Start 08/26/17 at 09:00 Guaifenesin (Mucinex Er) 600 mg TID PO Last administered on 09/02/17at 20:04; Start 08/26/17 at 09:00 Insulin Aspart (NovoLOG) BS 75-150- 0 units BS 151-200... PRN BFRMEALHC PRN SQ Diabetes; Start 08/25/17 at 22:45; Stop 08/26/17 at 07:17; Status DC Albuterol Sulfate (Ventolin) 2.5 mg PRN Q6HRS PRN NEB SHORTNESS OF BREATH; Start 08/25/17 at 22:45 Potassium Chloride (Klor-Con) 20 meq DAILY PO Last administered on 09/02/17at 07 :49; Start 08/26/17 at 09:00 Tamsulosin HCl (Flomax) 0.4 mg QEVNG PO Last administered on 09/02/17at 17:26; Start 08/26/17 at 18:00 Acetaminophen (Tylenol) 500 mg PRN Q4HRS PRN PO PAIN / TEMP; Start 08/25/17 at 22:45 Ascorbic Acid (Vitamin C) 1,000 mg DAILY PO Last administered on 09/02/17at 07: 50; Start 08/26/17 at 09:00 Benzonatate (Tessalon Perle) 100 mg PRN TID PRN PO COUGH; Start 08/26/17 at 09: 00 Docusate Sodium (Colace) 100 mg BID PO Last administered on 09/02/17at 20:04; Start 08/25/17 at 23:00 Fluticasone Propionate (Flonase) 2 spray DAILY NS Last administered on 07:53; Start 08/26/17 at 09:00 Non-Formulary Medication (Fluticasone/ Salmeterol (Advair 250-50 Diskus)) 1 puff BID IH ; Start 08/26/17 at 09:00; Status UNV Furosemide (Lasix) 40 mg DAILY PO Last administered on 09/02/17 07:49; Start 08/26/17 at 09:00 Acetaminophen/ Hydrocodone Bitart (Lortab 5/325) 1 tab BID PO Last administered on 09/02/17at 20:04; Start 08/26/17 at 09:00 Acetaminophen/ Hydrocodone Bitart (Lortab 5/325) 1 tab PRN Q6HRS PRN PO PAIN; Start 08/25/17 at 23:15 Loperamide HCl (Imodium) 2 mg PRN Q8HRS PRN PO DIARRHEA; Start 08/25/17 at 23: 00 Al Hydroxide/Mg Hydroxide (Mylanta Plus Xs) 15 ml PRN AFTMEAL PRN PO DYSPEPSIA Last administered on 09/01/17at 14:19; Start 08/25/17 at 23:15 Magnesium Hydroxide (Milk Of Magnesia) 2,400 mg PRN QHS PRN PO CONSTIPATION; Start 08/25/17 at 23:15 Magnesium Oxide (Magnesium Oxide) 400 mg BID PO Last administered on 09/02/17 20:04; Start 08/26/17 at 09:00 Multivitamins/ Calcium (Thera-M Plus) 1 tab DAILY PO Last administered on 07:49; Start 08/26/17 at 09:00 Pantoprazole Sodium (Protonix) 40 mg DAILYAC PO Last administered on 09/02/17 07:49; Start 08/26/17 at 07:30 Polyethylene Glycol (miraLAX) 17 gm DAILY PO Last administered on 09/02/17 07: 50; Start 08/26/17 at 09:00 Polyethylene Glycol (miraLAX) 17 gm PRN DAILY PRN PO COPNSTIPATION; Start 08/26 at 09:00 Sennosides (Senna) 8.6 mg BID PO Last administered on 09/02/17 20:04; Start at 23:15 Vitamin B Complex 1 cap DAILY PO Last administered on 09/02/17 07:48; Start at 09:00 Ondansetron HCl (Zofran Odt) 4 mg PRN Q4HRS PRN PO NAUSEA/VOMITING; Start 08/25 at 23:15 Budesonide (Pulmicort) 0.5 mg RTBID NEB Last administered on 09/02/17at 10:56; Start 08/26/17 at 08:00 Albuterol/ Ipratropium (Duoneb) 3 ml RTQID NEB Last administered on 09/02/17 16:03; Start 08/26/17 at 08:00 Insulin Human Lispro (HumaLOG) PRN BFRMEALHC PRN SQ DIABETES; Start 08/26/17 at 07:15; Stop 08/26/17 at 09:19; Status DC Insulin Human Lispro (HumaLOG) TIDWMEALHC SQ Last administered on 09/02/17at 20 :06; Start 08/26/17 at 09:30 Mirtazapine (Remeron) 7.5 mg QHS PO Last administered on 09/02/17 20:04; Start 08/26/17 at 21:00 Trazodone HCl (Desyrel) 50 mg PRN QHS PRN PO INSOMNIA, MAY REPEAT X1; Start at 18:45 Buspirone HCl (Buspar) 10 mg BID@0900,1300 PO Last administered on 09/02/17at 14 :07; Start 08/29/17 at 09:00 Buspirone HCl (Buspar) 20 mg DAILYWSUP PO Last administered on 09/02/17at 17:25 ; Start 08/29/17 at 17:00 Venlafaxine HCl (Effexor Xr) 75 mg DAILY PO Last administered on 09/02/17at 07: 49; Start 08/30/17 at 09:00 Quetiapine Fumarate (SEROquel) 75 mg QHS PO Last administered on 09/02/17at 20: 05; Start 09/01/17 at 21:00 Quetiapine Fumarate (SEROquel) 25 mg BID@0900,1500 PO Last administered on 09/02at 14:04; Start 09/02/17 at 09:00 Active Scripts Active Reported Ondansetron Hcl 4 Mg Tablet 4 Mg PO PRN Q4HRS PRN Novolog Flexpen (Insulin Aspart) 100 Unit/1 Ml Insuln.pen 0-6 Unit SQ PRN BFRMEALHC PRN BS 75-150= 0 units BS 151-200= 2 units BS 201-250= 3 units BS 251-300= 4 units BS 301-350= 5 units BS 351-400= 6 units BS<70 or >400 call Physician Miralax (Polyethylene Glycol 3350) 17 Gm Powd.pack 17 Gm PO PRN DAILY PRN Mucinex (Guaifenesin) 600 Mg Tablet.er 600 Mg PO TID AT 09/24/2199 Buspirone Hcl 10 Mg Tablet 10 Mg PO TID AT 11/22/1799 Senna Lax (Sennosides) 8.6 Mg Tablet 8.6 Mg PO BID Docusate Sodium 100 Mg Capsule 100 Mg PO BID Advair 250-50 Diskus (Fluticasone/Salmeterol) 1 Each Disk.w.dev 1 Puff IH BID Vitamin B Complex 1 Each Tablet 100 Mg PO DAILY D3-50 (Cholecalciferol (Vitamin D3)) 50,000 Unit Capsule 50,000 Unit PO WEEKLY C-1000 (Ascorbic Acid) 1,000 Mg Tablet 1,000 Mg PO DAILY Zoloft (Sertraline Hcl) 25 Mg Tablet 75 Mg PO DAILY Seroquel (Quetiapine Fumarate) 100 Mg Tablet 100 Mg PO HS Klor-Con M20 (Potassium Chloride) 20 Meq Tab.er.prt 20 Meq PO DAILY Pantoprazole Sodium 40 Mg Tablet.dr 40 Mg PO DAILY One Daily Complete (Multivitamin With Minerals) 1 Each Tablet 1 Tab PO DAILY Tamsulosin Hcl 0.4 Mg Cap.er.24h 0.4 Mg PO QEVNG Venlafaxine Hcl Er (Venlafaxine Hcl) 37.5 Mg Cap.er.24h 37.5 Mg PO DAILY Hydrocodone-Apap 5-325 (Hydrocodone Bit/Acetaminophen) 1 Each Tablet 1 Tab PO PRN Q6HRS PRN Hydrocodone-Apap 5-325 (Hydrocodone Bit/Acetaminophen) 1 Each Tablet 1 Tab PO BID Milk Of Magnesia (Magnesium Hydroxide) 2,400 Mg/10 Ml Oral.susp 2,400 Mg PO PRN QHS PRN Advanced Antacid Liquid (Mag Hydrox/Al Hydrox/Simeth) 355 Ml Oral.susp 15 Ml PO PRN AFTMEAL PRN Lasix (Furosemide) 40 Mg Tablet 40 Mg PO DAILY Flonase Allergy Relief (Fluticasone Propionate) 9.9 Ml [place].susp 2 Sprays NS DAILY Benzonatate 100 Mg Capsule 100 Mg PO PRN Q8HRS PRN Miralax (Polyethylene Glycol 3350) 17 Gm Powd.pack 17 Gm PO DAILY Loperamide (Loperamide Hcl) 2 Mg Capsule 2 Mg PO PRN Q8HRS PRN Acetaminophen 500 Mg Tablet 500 Mg PO PRN Q4HRS PRN Magnesium Oxide 400 Mg Tablet 400 Mg PO BID Duoneb 0.5-3(2.5) Mg/3 Ml (Albuterol/Ipratropium) 3 Ml Ampul.neb 3 Ml NEB PRN Q6HRS PRN Cardizem Cd (Diltiazem Hcl) 240 Mg Cap.er.24h 120 Mg PO BID HOLD FOR SBP <110 Cyanocobalamin Injection (Cyanocobalamin (Vitamin B-12)) 1,000 Mcg/1 Ml Vial 1, 000 Mcg IM QMONTH LAST GIVEN 08/19/17 NEXT DOSE DUE 09/19/17 I have reviewed the current psychotropics carefully including drug interactions. Risk benefit ratio favors no change other than as noted in my dictated progress note. 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
--- NOTE | 2017-09-03 05:08 | PN ---
DATE: PSYCHIATRIC PROGRESS NOTE DATE OF SERVICE: 09/01/2017 This late entry 09/01/2017 covers elements not covered in my initial note 09/01/2017. SUBJECTIVE: I met with the patient on evening of 09/01/2017. The patient slept 5-3/4 hours previous evening. She is confused, wanders the hallways, pleasant; otherwise, compliant, was labile and agitated the previous evening and seemed to have some sundowning. During the day, she does better. She gets agitated if someone wanders into her room and we addressed this. REVIEW OF SYSTEMS: No CV, , pulmonary, eye, ENT system symptoms on review. Reliability poor. MENTAL STATUS EXAM: Oriented to herself. Insight, judgment, recent and remote memory, attention, concentration, fund of knowledge poor, consistent with her diagnosis mentioned in my initial note. IMPRESSION: Major neurocognitive disorder, Alzheimer, vascular with delusion, depression, behavioral disturbance. Rest unchanged. PLAN: Continue current psychotropics. Change the Seroquel to 25 mg 9:00 a.m., 3:00 p.m. and 75 mg at bedtime, which is an increase of 25 mg but we are using some of the nighttime dosage during the day to help with her daytime anxiety and some mood lability. MAN Wilson BULLARD MD DR: ERINN/alex JOB#: [id number] / [id number]
[2017-09-03 05:57] VITALS: BP 127/51
[2017-09-03] MEDS: IPRATRPIUM/ALBUTEROL 0.5/2.5MG 3 ML NEBU. NEB SCH ×4 (05:57→22:15)
[2017-09-03] MEDS: INSULIN LISPRO 300 UNITS/3 ML INSULN.PEN. SQ SCH ×4 (08:00→21:00)
[2017-09-03] MEDS: BUDESONIDE 0.5 MG/2 ML NEBU NEB SCH ×2 (08:00→22:15)
[2017-09-03] MEDS: FUROSEMIDE 40 MG TABLET PO SCH (08:03)
[2017-09-03] MEDS: VENLAFAXINE XR 37.5 MG CAP.ER.24H. PO SCH (08:03)
[2017-09-03] MEDS: MULTIVITAMIN with MINERAL TABLET. PO SCH (08:04)
[2017-09-03] MEDS: MAGNESIUM OXIDE 400 MG TABLET PO SCH ×2 (08:04→21:16)
[2017-09-03] MEDS: ASCORBIC ACID 500 MG TABLET PO SCH (08:04)
[2017-09-03] MEDS: busPIRone 10 MG TABLET. PO SCH ×3 (08:04→16:23)
[2017-09-03] MEDS: VITAMIN B COMPLEX CAPSULE. PO SCH (08:04)
[2017-09-03] MEDS: SENNOSIDES 8.6 MG TABLET PO SCH ×2 (08:05→21:17)
[2017-09-03] MEDS: POTASSIUM CHLORIDE 20 MEQ TABLET.ER. PO SCH (08:05)
[2017-09-03] MEDS: POLYETHYLENE GLYCOL 3350 17 GM PACKET. PO SCH (08:06)
[2017-09-03] MEDS: QUEtiapine 25 MG TABLET. PO SCH ×2 (08:06→15:25)
[2017-09-03] MEDS: DOCUSATE SODIUM 100 MG CAPSULE PO SCH ×2 (08:06→21:16)
[2017-09-03] MEDS: FLUTICASONE 50MCG/NASAL SPRAY 16GM BOTTLE. NS SCH (08:09)
[2017-09-03] MEDS: PANTOPRAZOLE 40 MG TABLET. PO SCH (08:09)
[2017-09-03] MEDS: HYDROcodone/APAP 5/325MG 1 TAB TABLET PO SCH ×2 (08:12→21:19)
[2017-09-03 16:10] VITALS: BP 82/58
[2017-09-03 16:49] VITALS: BP 110/62
[2017-09-03] MEDS: TAMSULOSIN 0.4 MG CAP.ER.24H. PO SCH (16:56)
--- NOTE | 2017-09-03 20:53 | PDOC ---
Exam Note: Harris Note: Please also refer to the separate dictated note~for this date of service dictated separately.~Patient seen individually. Discussed the patient with Nursing staff reviewed the chart.~Reviewed interim history and current functioning. Reviewed vital signs,~Labs/ Radiology~and current medications noted below. Continue current treatment with the changes noted in the dictated addendum note Assessment: Vital Signs: Vital Signs Date Time Temp Pulse Resp B/P (MAP) Pulse Ox O2 Delivery O2 Flow Rate FiO2 09/03/17 16:49 110/62 (78) Room Air 09/03/17 16:10 97.9 80 18 97 I&O Intake and Output 09/03/17 07:00 Intake Total 1160 ml Balance 1160 ml Intake Oral 1160 ml Labs: Laboratory Tests Test 09/03/17 07:25 09/03/17 11:45 09/03/17 17:00 09/03/17 19:23 Glucose (Fingerstick) 119 mg/dL (70-99) H 145 mg/dL (70-99) H 88 mg/dL (70-99) 133 mg/dL (70-99) H Current Medications: Meds: Current Medications Acetaminophen (Tylenol) 650 mg PRN Q6HRS PRN PO PAIN / TEMP; Start 08/25/17 at 22:15; Stop 08/25/17 at 23:02; Status DC Multi-Ingredient Ointment (Analgesic [place]) 1 estrella PRN QID PRN TP MUSCLE PAIN; Start 08/25/17 at 22:15 Buspirone HCl (Buspar) 10 mg TIDWMEALS PO Last administered on 08/28/17at 16:54 ; Start 08/26/17 at 08:00; Stop 08/28/17 at 19:30; Status DC Quetiapine Fumarate (SEROquel) 100 mg QHS PO Last administered on 08/31/17at 20: 00; Start 08/25/17 at 23:00; Stop 09/01/17 at 18:29; Status DC Sertraline HCl (Zoloft) 75 mg DAILY PO Last administered on 08/27/17at 08:07; Start 08/26/17 at 09:00; Stop 08/27/17 at 18:41; Status DC Venlafaxine HCl (Effexor Xr) 37.5 mg DAILY PO Last administered on 08/29/17at 08 :53; Start 08/26/17 at 09:00; Stop 08/29/17 at 19:25; Status DC Vitamin D (Vitamin D3) 50,000 unit WEEKLY PO Last administered on 09/01/17at 08: 17; Start 09/01/17 at 09:00 Cyanocobalamin (Vitamin B-12) 1,000 mcg QMONTH IM ; Start 09/24/17 at 09:00 Diltiazem HCl (Cardizem 24hr Cd) 120 mg BID PO Last administered on 09/03/17at 08:12; Start 08/26/17 at 09:00 Guaifenesin (Mucinex Er) 600 mg TID PO Last administered on 09/03/17 12:29; Start 08/26/17 at 09:00 Insulin Aspart (NovoLOG) BS 75-150- 0 units BS 151-200... PRN BFRMEALHC PRN SQ Diabetes; Start 08/25/17 at 22:45; Stop 08/26/17 at 07:17; Status DC Albuterol Sulfate (Ventolin) 2.5 mg PRN Q6HRS PRN NEB SHORTNESS OF BREATH; Start 08/25/17 at 22:45 Potassium Chloride (Klor-Con) 20 meq DAILY PO Last administered on 09/03/17at 08 :05; Start 08/26/17 at 09:00 Tamsulosin HCl (Flomax) 0.4 mg QEVNG PO Last administered on 09/03/17at 16:56; Start 08/26/17 at 18:00 Acetaminophen (Tylenol) 500 mg PRN Q4HRS PRN PO PAIN / TEMP; Start 08/25/17 at 22:45 Ascorbic Acid (Vitamin C) 1,000 mg DAILY PO Last administered on 09/03/17at 08: 04; Start 08/26/17 at 09:00 Benzonatate (Tessalon Perle) 100 mg PRN TID PRN PO COUGH; Start 08/26/17 at 09: 00 Docusate Sodium (Colace) 100 mg BID PO Last administered on 09/03/17at 08:06; Start 08/25/17 at 23:00 Fluticasone Propionate (Flonase) 2 spray DAILY NS Last administered on at 08:09; Start 08/26/17 at 09:00 Non-Formulary Medication (Fluticasone/ Salmeterol (Advair 250-50 Diskus)) 1 puff BID IH ; Start 08/26/17 at 09:00; Status UNV Furosemide (Lasix) 40 mg DAILY PO Last administered on 09/03/17at 08:03; Start 08/26/17 at 09:00 Acetaminophen/ Hydrocodone Bitart (Lortab 5/325) 1 tab BID PO Last administered on 09/03/17at 08:12; Start 08/26/17 at 09:00 Acetaminophen/ Hydrocodone Bitart (Lortab 5/325) 1 tab PRN Q6HRS PRN PO PAIN; Start 08/25/17 at 23:15 Loperamide HCl (Imodium) 2 mg PRN Q8HRS PRN PO DIARRHEA; Start 08/25/17 at 23: 00 Al Hydroxide/Mg Hydroxide (Mylanta Plus Xs) 15 ml PRN AFTMEAL PRN PO DYSPEPSIA Last administered on 09/01/17at 14:19; Start 08/25/17 at 23:15 Magnesium Hydroxide (Milk Of Magnesia) 2,400 mg PRN QHS PRN PO CONSTIPATION; Start 08/25/17 at 23:15 Magnesium Oxide (Magnesium Oxide) 400 mg BID PO Last administered on 09/03/17at 08:04; Start 08/26/17 at 09:00 Multivitamins/ Calcium (Thera-M Plus) 1 tab DAILY PO Last administered on at 08:04; Start 08/26/17 at 09:00 Pantoprazole Sodium (Protonix) 40 mg DAILYAC PO Last administered on 09/03/17at 08:09; Start 08/26/17 at 07:30 Polyethylene Glycol (miraLAX) 17 gm DAILY PO Last administered on 09/03/17 08: 06; Start 08/26/17 at 09:00 Polyethylene Glycol (miraLAX) 17 gm PRN DAILY PRN PO COPNSTIPATION; Start 08/26 at 09:00 Sennosides (Senna) 8.6 mg BID PO Last administered on 09/03/17at 08:05; Start at 23:15 Vitamin B Complex 1 cap DAILY PO Last administered on 09/03/17at 08:04; Start at 09:00 Ondansetron HCl (Zofran Odt) 4 mg PRN Q4HRS PRN PO NAUSEA/VOMITING; Start 08/25 at 23:15 Budesonide (Pulmicort) 0.5 mg RTBID NEB Last administered on 09/02/17at 23:31; Start 08/26/17 at 08:00 Albuterol/ Ipratropium (Duoneb) 3 ml RTQID NEB Last administered on 09/03/17at 15:32; Start 08/26/17 at 08:00 Insulin Human Lispro (HumaLOG) PRN BFRMEALHC PRN SQ DIABETES; Start 08/26/17 at 07:15; Stop 08/26/17 at 09:19; Status DC Insulin Human Lispro (HumaLOG) TIDWMEALHC SQ Last administered on 09/02/17 20 :06; Start 08/26/17 at 09:30 Mirtazapine (Remeron) 7.5 mg QHS PO Last administered on 09/02/17 20:04; Start 08/26/17 at 21:00 Trazodone HCl (Desyrel) 50 mg PRN QHS PRN PO INSOMNIA, MAY REPEAT X1; Start at 18:45 Buspirone HCl (Buspar) 10 mg BID@0900,1300 PO Last administered on 09/03/17at 12 :30; Start 08/29/17 at 09:00 Buspirone HCl (Buspar) 20 mg DAILYWSUP PO Last administered on 09/03/17at 16:23 ; Start 08/29/17 at 17:00 Venlafaxine HCl (Effexor Xr) 75 mg DAILY PO Last administered on 09/03/17 08: 03; Start 08/30/17 at 09:00 Quetiapine Fumarate (SEROquel) 75 mg QHS PO Last administered on 09/02/17at 20: 05; Start 09/01/17 at 21:00 Quetiapine Fumarate (SEROquel) 25 mg BID@0900,1500 PO Last administered on 09/03at 15:25; Start 09/02/17 at 09:00 Active Scripts Active Reported Ondansetron Hcl 4 Mg Tablet 4 Mg PO PRN Q4HRS PRN Novolog Flexpen (Insulin Aspart) 100 Unit/1 Ml Insuln.pen 0-6 Unit SQ PRN BFRMEALHC PRN BS 75-150= 0 units BS 151-200= 2 units BS 201-250= 3 units BS 251-300= 4 units BS 301-350= 5 units BS 351-400= 6 units BS<70 or >400 call Physician Miralax (Polyethylene Glycol 3350) 17 Gm Powd.pack 17 Gm PO PRN DAILY PRN Mucinex (Guaifenesin) 600 Mg Tablet.er 600 Mg PO TID AT 09/24/2199 Buspirone Hcl 10 Mg Tablet 10 Mg PO TID AT 11/22/1799 Senna Lax (Sennosides) 8.6 Mg Tablet 8.6 Mg PO BID Docusate Sodium 100 Mg Capsule 100 Mg PO BID Advair 250-50 Diskus (Fluticasone/Salmeterol) 1 Each Disk.w.dev 1 Puff IH BID Vitamin B Complex 1 Each Tablet 100 Mg PO DAILY D3-50 (Cholecalciferol (Vitamin D3)) 50,000 Unit Capsule 50,000 Unit PO WEEKLY C-1000 (Ascorbic Acid) 1,000 Mg Tablet 1,000 Mg PO DAILY Zoloft (Sertraline Hcl) 25 Mg Tablet 75 Mg PO DAILY Seroquel (Quetiapine Fumarate) 100 Mg Tablet 100 Mg PO HS Klor-Con M20 (Potassium Chloride) 20 Meq Tab.er.prt 20 Meq PO DAILY Pantoprazole Sodium 40 Mg Tablet.dr 40 Mg PO DAILY One Daily Complete (Multivitamin With Minerals) 1 Each Tablet 1 Tab PO DAILY Tamsulosin Hcl 0.4 Mg Cap.er.24h 0.4 Mg PO QEVNG Venlafaxine Hcl Er (Venlafaxine Hcl) 37.5 Mg Cap.er.24h 37.5 Mg PO DAILY Hydrocodone-Apap 5-325 (Hydrocodone Bit/Acetaminophen) 1 Each Tablet 1 Tab PO PRN Q6HRS PRN Hydrocodone-Apap 5-325 (Hydrocodone Bit/Acetaminophen) 1 Each Tablet 1 Tab PO BID Milk Of Magnesia (Magnesium Hydroxide) 2,400 Mg/10 Ml Oral.susp 2,400 Mg PO PRN QHS PRN Advanced Antacid Liquid (Mag Hydrox/Al Hydrox/Simeth) 355 Ml Oral.susp 15 Ml PO PRN AFTMEAL PRN Lasix (Furosemide) 40 Mg Tablet 40 Mg PO DAILY Flonase Allergy Relief (Fluticasone Propionate) 9.9 Ml [place].susp 2 Sprays NS DAILY Benzonatate 100 Mg Capsule 100 Mg PO PRN Q8HRS PRN Miralax (Polyethylene Glycol 3350) 17 Gm Powd.pack 17 Gm PO DAILY Loperamide (Loperamide Hcl) 2 Mg Capsule 2 Mg PO PRN Q8HRS PRN Acetaminophen 500 Mg Tablet 500 Mg PO PRN Q4HRS PRN Magnesium Oxide 400 Mg Tablet 400 Mg PO BID Duoneb 0.5-3(2.5) Mg/3 Ml (Albuterol/Ipratropium) 3 Ml Ampul.neb 3 Ml NEB PRN Q6HRS PRN Cardizem Cd (Diltiazem Hcl) 240 Mg Cap.er.24h 120 Mg PO BID HOLD FOR SBP <110 Cyanocobalamin Injection (Cyanocobalamin (Vitamin B-12)) 1,000 Mcg/1 Ml Vial 1, 000 Mcg IM QMONTH LAST GIVEN 08/19/17 NEXT DOSE DUE 09/19/17 I have reviewed the current psychotropics carefully including drug interactions. Risk benefit ratio favors no change other than as noted in my dictated progress note. Diagnosis: Problems: (1) Hyponatremia (2) Altered mental status (3) Anxiety disorder (4) Dementia in Alzheimer's disease with delusions (5) Dementia in Alzheimer's disease with depression (6) Dementia, vascular, with delusions (7) Dementia, vascular, with depression (8) Impulse control disorder RACHEL BULLARD MD September 03, 2017 20:53
[2017-09-03] MEDS: QUEtiapine 50 MG TABLET. PO SCH (21:17)
[2017-09-03] MEDS: MIRTAZAPINE 7.5 MG TABLET. PO SCH (21:17)
[2017-09-04] MEDS ORDERED: ALBU2.5V5 NEB (03:14)
[2017-09-04] MEDS ORDERED: BENZ-8 PO (03:16)
[2017-09-04] MEDS ORDERED: BUDE0.5A3 NEB (03:17)
[2017-09-04] MEDS ORDERED: MAG30ORA2 PO (03:27)
[2017-09-04] MEDS ORDERED: METH29OI TP (03:30)
[2017-09-04] MEDS ORDERED: MIRT15TA PO (03:32)
[2017-09-04] MEDS ORDERED: MULT-638 PO (03:34)
[2017-09-04] MEDS ORDERED: QUET50TA5 PO (03:42)
[2017-09-04] MEDS ORDERED: QUET25TA5 PO (03:44)
[2017-09-04] MEDS ORDERED: VENL75CA6 PO (03:46)
[2017-09-04] MEDS ORDERED: BUSP10TA PO (03:49)
[2017-09-04] MEDS ORDERED: TRAZ50TA15 PO (03:52)
[2017-09-04] MEDS: IPRATRPIUM/ALBUTEROL 0.5/2.5MG 3 ML NEBU. NEB SCH ×3 (04:11→20:25)
[2017-09-04 05:57] VITALS: BP 150/61
[2017-09-04] MEDS: INSULIN LISPRO 300 UNITS/3 ML INSULN.PEN. SQ SCH ×4 (08:00→19:53)
[2017-09-04] MEDS: SENNOSIDES 8.6 MG TABLET PO SCH ×2 (09:28→19:51)
[2017-09-04] MEDS: QUEtiapine 25 MG TABLET. PO SCH ×2 (09:28→14:05)
[2017-09-04] MEDS: VENLAFAXINE XR 37.5 MG CAP.ER.24H. PO SCH (09:28)
[2017-09-04] MEDS: POLYETHYLENE GLYCOL 3350 17 GM PACKET. PO SCH (09:28)
[2017-09-04] MEDS: DOCUSATE SODIUM 100 MG CAPSULE PO SCH ×2 (09:28→19:51)
[2017-09-04] MEDS: FUROSEMIDE 40 MG TABLET PO SCH (09:29)
[2017-09-04] MEDS: VITAMIN B COMPLEX CAPSULE. PO SCH (09:29)
[2017-09-04] MEDS: busPIRone 10 MG TABLET. PO SCH ×3 (09:29→17:50)
[2017-09-04] MEDS: MAGNESIUM OXIDE 400 MG TABLET PO SCH ×2 (09:29→19:52)
[2017-09-04] MEDS: PANTOPRAZOLE 40 MG TABLET. PO SCH (09:29)
[2017-09-04] MEDS: ASCORBIC ACID 500 MG TABLET PO SCH (09:29)
[2017-09-04] MEDS: MULTIVITAMIN with MINERAL TABLET. PO SCH (09:29)
[2017-09-04] MEDS: POTASSIUM CHLORIDE 20 MEQ TABLET.ER. PO SCH (09:30)
[2017-09-04] MEDS: FLUTICASONE 50MCG/NASAL SPRAY 16GM BOTTLE. NS SCH (09:33)
[2017-09-04] MEDS: HYDROcodone/APAP 5/325MG 1 TAB TABLET PO SCH ×2 (09:33→19:52)
[2017-09-04] MEDS: BUDESONIDE 0.5 MG/2 ML NEBU NEB SCH ×2 (10:43→20:25)
[2017-09-04 16:26] VITALS: BP 90/64
[2017-09-04] MEDS: TAMSULOSIN 0.4 MG CAP.ER.24H. PO SCH (17:50)
[2017-09-04] MEDS: MIRTAZAPINE 7.5 MG TABLET. PO SCH (19:52)
[2017-09-04] MEDS: QUEtiapine 50 MG TABLET. PO SCH (19:52)
--- NOTE | 2017-09-04 19:56 | PDOC ---
Exam Note: Harris Note: Please also refer to the separate dictated note~for this date of service dictated separately.~Patient seen individually. Discussed the patient with Nursing staff reviewed the chart.~Reviewed interim history and current functioning. Reviewed vital signs,~Labs/ Radiology~and current medications noted below. Continue current treatment with the changes noted in the dictated addendum note Assessment: Vital Signs: Vital Signs Date Time Temp Pulse Resp B/P (MAP) Pulse Ox O2 Delivery O2 Flow Rate FiO2 09/04/17 19:52 Room Air 09/04/17 16:26 97.8 78 18 90/64 (73) 95 I&O Intake and Output 09/04/17 07:00 Intake Total 2060 ml Balance 2060 ml Intake Oral 2060 ml Labs: Laboratory Tests Test 09/04/17 07:27 09/04/17 11:30 09/04/17 16:58 09/04/17 19:36 Glucose (Fingerstick) 112 mg/dL (70-99) H 93 mg/dL (70-99) 110 mg/dL (70-99) H 315 mg/dL (70-99) H Current Medications: Meds: Current Medications Acetaminophen (Tylenol) 650 mg PRN Q6HRS PRN PO PAIN / TEMP; Start 08/25/17 at 22:15; Stop 08/25/17 at 23:02; Status DC Multi-Ingredient Ointment (Analgesic Rough And Ready) 1 edi PRN QID PRN TP MUSCLE PAIN; Start 08/25/17 at 22:15 Buspirone HCl (Buspar) 10 mg TIDWMEALS PO Last administered on 08/28/17at 16:54 ; Start 08/26/17 at 08:00; Stop 08/28/17 at 19:30; Status DC Quetiapine Fumarate (SEROquel) 100 mg QHS PO Last administered on 08/31/17at 20: 00; Start 08/25/17 at 23:00; Stop 09/01/17 at 18:29; Status DC Sertraline HCl (Zoloft) 75 mg DAILY PO Last administered on 08/27/17at 08:07; Start 08/26/17 at 09:00; Stop 08/27/17 at 18:41; Status DC Venlafaxine HCl (Effexor Xr) 37.5 mg DAILY PO Last administered on 08/29/17at 08 :53; Start 08/26/17 at 09:00; Stop 08/29/17 at 19:25; Status DC Vitamin D (Vitamin D3) 50,000 unit WEEKLY PO Last administered on 09/01/17at 08: 17; Start 09/01/17 at 09:00 Cyanocobalamin (Vitamin B-12) 1,000 mcg QMONTH IM ; Start 09/24/17 at 09:00 Diltiazem HCl (Cardizem 24hr Cd) 120 mg BID PO Last administered on 09/04/17 09:29; Start 08/26/17 at 09:00 Guaifenesin (Mucinex Er) 600 mg TID PO Last administered on 09/04/17 19:51; Start 08/26/17 at 09:00 Insulin Aspart (NovoLOG) BS 75-150- 0 units BS 151-200... PRN BFRMEALHC PRN SQ Diabetes; Start 08/25/17 at 22:45; Stop 08/26/17 at 07:17; Status DC Albuterol Sulfate (Ventolin) 2.5 mg PRN Q6HRS PRN NEB SHORTNESS OF BREATH; Start 08/25/17 at 22:45 Potassium Chloride (Klor-Con) 20 meq DAILY PO Last administered on 09/04/17 09 :30; Start 08/26/17 at 09:00 Tamsulosin HCl (Flomax) 0.4 mg QEVNG PO Last administered on 09/04/17at 17:50; Start 08/26/17 at 18:00 Acetaminophen (Tylenol) 500 mg PRN Q4HRS PRN PO PAIN / TEMP; Start 08/25/17 at 22:45 Ascorbic Acid (Vitamin C) 1,000 mg DAILY PO Last administered on 09/04/17 09: 29; Start 08/26/17 at 09:00 Benzonatate (Tessalon Perle) 100 mg PRN TID PRN PO COUGH; Start 08/26/17 at 09: 00 Docusate Sodium (Colace) 100 mg BID PO Last administered on 09/04/17 19:51; Start 08/25/17 at 23:00 Fluticasone Propionate (Flonase) 2 spray DAILY NS Last administered on 09:33; Start 08/26/17 at 09:00 Non-Formulary Medication (Fluticasone/ Salmeterol (Advair 250-50 Diskus)) 1 puff BID IH ; Start 08/26/17 at 09:00; Status UNV Furosemide (Lasix) 40 mg DAILY PO Last administered on 09/04/17 09:29; Start 08/26/17 at 09:00 Acetaminophen/ Hydrocodone Bitart (Lortab 5/325) 1 tab BID PO Last administered on 09/04/17 19:52; Start 08/26/17 at 09:00 Acetaminophen/ Hydrocodone Bitart (Lortab 5/325) 1 tab PRN Q6HRS PRN PO PAIN; Start 08/25/17 at 23:15 Loperamide HCl (Imodium) 2 mg PRN Q8HRS PRN PO DIARRHEA; Start 08/25/17 at 23: 00 Al Hydroxide/Mg Hydroxide (Mylanta Plus Xs) 15 ml PRN AFTMEAL PRN PO DYSPEPSIA Last administered on 09/01/17 14:19; Start 08/25/17 at 23:15 Magnesium Hydroxide (Milk Of Magnesia) 2,400 mg PRN QHS PRN PO CONSTIPATION; Start 08/25/17 at 23:15 Magnesium Oxide (Magnesium Oxide) 400 mg BID PO Last administered on 09/04/17 19:52; Start 08/26/17 at 09:00 Multivitamins/ Calcium (Thera-M Plus) 1 tab DAILY PO Last administered on 09:29; Start 08/26/17 at 09:00 Pantoprazole Sodium (Protonix) 40 mg DAILYAC PO Last administered on 09/04/17 09:29; Start 08/26/17 at 07:30 Polyethylene Glycol (miraLAX) 17 gm DAILY PO Last administered on 09/04/17 09: 28; Start 08/26/17 at 09:00 Polyethylene Glycol (miraLAX) 17 gm PRN DAILY PRN PO COPNSTIPATION; Start 08/26 at 09:00 Sennosides (Senna) 8.6 mg BID PO Last administered on 09/04/17 19:51; Start at 23:15 Vitamin B Complex 1 cap DAILY PO Last administered on 09/04/17 09:29; Start at 09:00 Ondansetron HCl (Zofran Odt) 4 mg PRN Q4HRS PRN PO NAUSEA/VOMITING Last administered on 09/04/17at 05:04; Start 08/25/17 at 23:15 Budesonide (Pulmicort) 0.5 mg RTBID NEB Last administered on 09/04/17at 10:43; Start 08/26/17 at 08:00 Albuterol/ Ipratropium (Duoneb) 3 ml RTQID NEB Last administered on 09/04/17 04:11; Start 08/26/17 at 08:00; Stop 09/04/17 at 04:39; Status DC Insulin Human Lispro (HumaLOG) PRN BFRMEALHC PRN SQ DIABETES; Start 08/26/17 at 07:15; Stop 08/26/17 at 09:19; Status DC Insulin Human Lispro (HumaLOG) TIDWMEALHC SQ Last administered on 09/02/17at 20 :06; Start 08/26/17 at 09:30 Mirtazapine (Remeron) 7.5 mg QHS PO Last administered on 09/04/17 19:52; Start 08/26/17 at 21:00 Trazodone HCl (Desyrel) 50 mg PRN QHS PRN PO INSOMNIA, MAY REPEAT X1; Start at 18:45 Buspirone HCl (Buspar) 10 mg BID@0900,1300 PO Last administered on 09/04/17 14 :05; Start 08/29/17 at 09:00 Buspirone HCl (Buspar) 20 mg DAILYWSUP PO Last administered on 09/04/17at 17:50 ; Start 08/29/17 at 17:00 Venlafaxine HCl (Effexor Xr) 75 mg DAILY PO Last administered on 09/04/17 09: 28; Start 08/30/17 at 09:00 Quetiapine Fumarate (SEROquel) 75 mg QHS PO Last administered on 09/04/17 19: 52; Start 09/01/17 at 21:00 Quetiapine Fumarate (SEROquel) 25 mg BID@0900,1500 PO Last administered on 09/04 14:05; Start 09/02/17 at 09:00 Albuterol/ Ipratropium (Duoneb) 3 ml RTBID NEB Last administered on 09/04/17at 10:43; Start 09/04/17 at 08:00; Stop 09/12/17 at 07:59 Active Scripts Active Reported Trazodone Hcl 50 Mg Tablet 50 Mg PO PRN QHS PRN Buspirone Hcl 10 Mg Tablet 20 Mg PO DAILYWSUP Venlafaxine Hcl Er (Venlafaxine Hcl) 75 Mg Cap.er.24h 75 Mg PO DAILY Seroquel (Quetiapine Fumarate) 25 Mg Tablet 25 Mg PO BID @ 0900,1500 Seroquel (Quetiapine Fumarate) 50 Mg Tablet 75 Mg PO QHS Thera M Plus Tablet (Multivits,Ca,Minerals/Iron/FA) 1 Each Tablet 1 Each PO DAILY Remeron (Mirtazapine) 15 Mg Tablet 7.5 Mg PO QHS Analgesic Rough And Ready (Methyl Salicylate/Menthol) 28 Gm Oint...g. 1 Edi TP PRN QID PRN Mag-Al Plus Xs Suspension (Mag Hydrox/Al Hydrox/Simeth) 30 Ml Oral.susp 15 Ml PO PRN AFTMEAL PRN Pulmicort (Budesonide) 0.5 Mg/2 Ml Ampul.neb 0.5 Mg NEB BID Benzonatate 100 Mg Capsule 100 Mg PO PRN TID PRN Albuterol Sulfate Neb Soln (Albuterol Sulfate) 2.5 Mg/3 Ml Vial.neb 2.5 Mg NEB PRN Q6HRS PRN Ondansetron Hcl 4 Mg Tablet 4 Mg PO PRN Q4HRS PRN Novolog Flexpen (Insulin Aspart) 100 Unit/1 Ml Insuln.pen 0-6 Unit SQ PRN BFRMEALHC PRN BS 75-150= 0 units BS 151-200= 2 units BS 201-250= 3 units BS 251-300= 4 units BS 301-350= 5 units BS 351-400= 6 units BS<70 or >400 call Physician Miralax (Polyethylene Glycol 3350) 17 Gm Powd.pack 17 Gm PO PRN DAILY PRN Mucinex (Guaifenesin) 600 Mg Tablet.er 600 Mg PO TID AT 09/24/2199 Buspirone Hcl 10 Mg Tablet 10 Mg PO TID AT 11/22/1799 Senna Lax (Sennosides) 8.6 Mg Tablet 8.6 Mg PO BID Docusate Sodium 100 Mg Capsule 100 Mg PO BID Advair 250-50 Diskus (Fluticasone/Salmeterol) 1 Each Disk.w.dev 1 Puff IH BID Vitamin B Complex 1 Each Tablet 100 Mg PO DAILY D3-50 (Cholecalciferol (Vitamin D3)) 50,000 Unit Capsule 50,000 Unit PO WEEKLY C-1000 (Ascorbic Acid) 1,000 Mg Tablet 1,000 Mg PO DAILY Zoloft (Sertraline Hcl) 25 Mg Tablet 75 Mg PO DAILY Seroquel (Quetiapine Fumarate) 100 Mg Tablet 100 Mg PO HS Klor-Con M20 (Potassium Chloride) 20 Meq Tab.er.prt 20 Meq PO DAILY Pantoprazole Sodium 40 Mg Tablet.dr 40 Mg PO DAILY One Daily Complete (Multivitamin With Minerals) 1 Each Tablet 1 Tab PO DAILY Tamsulosin Hcl 0.4 Mg Cap.er.24h 0.4 Mg PO QEVNG Venlafaxine Hcl Er (Venlafaxine Hcl) 37.5 Mg Cap.er.24h 37.5 Mg PO DAILY Hydrocodone-Apap 5-325 (Hydrocodone Bit/Acetaminophen) 1 Each Tablet 1 Tab PO PRN Q6HRS PRN Hydrocodone-Apap 5-325 (Hydrocodone Bit/Acetaminophen) 1 Each Tablet 1 Tab PO BID Milk Of Magnesia (Magnesium Hydroxide) 2,400 Mg/10 Ml Oral.susp 2,400 Mg PO PRN QHS PRN Advanced Antacid Liquid (Mag Hydrox/Al Hydrox/Simeth) 355 Ml Oral.susp 15 Ml PO PRN AFTMEAL PRN Lasix (Furosemide) 40 Mg Tablet 40 Mg PO DAILY Flonase Allergy Relief (Fluticasone Propionate) 9.9 Ml [place].susp 2 Sprays NS DAILY Benzonatate 100 Mg Capsule 100 Mg PO PRN Q8HRS PRN Miralax (Polyethylene Glycol 3350) 17 Gm Powd.pack 17 Gm PO DAILY Loperamide (Loperamide Hcl) 2 Mg Capsule 2 Mg PO PRN Q8HRS PRN Acetaminophen 500 Mg Tablet 500 Mg PO PRN Q4HRS PRN Magnesium Oxide 400 Mg Tablet 400 Mg PO BID Duoneb 0.5-3(2.5) Mg/3 Ml (Albuterol/Ipratropium) 3 Ml Ampul.neb 3 Ml NEB PRN Q6HRS PRN Cardizem Cd (Diltiazem Hcl) 240 Mg Cap.er.24h 120 Mg PO BID HOLD FOR SBP <110 Cyanocobalamin Injection (Cyanocobalamin (Vitamin B-12)) 1,000 Mcg/1 Ml Vial 1, 000 Mcg IM QMONTH LAST GIVEN 08/19/17 NEXT DOSE DUE 09/19/17 I have reviewed the current psychotropics carefully including drug interactions. Risk benefit ratio favors no change other than as noted in my dictated progress note. Diagnosis: Problems: (1) Hyponatremia (2) Altered mental status (3) Anxiety disorder (4) Dementia in Alzheimer's disease with delusions (5) Dementia in Alzheimer's disease with depression (6) Dementia, vascular, with delusions (7) Dementia, vascular, with depression (8) Impulse control disorder RACHEL BULLARD MD September 04, 2017 19:56
--- NOTE | 2017-09-04 22:47 | PN ---
DATE: PSYCHIATRIC PROGRESS NOTE DATE OF SERVICE: 09/02/2017 This late entry 09/02/2017 covers elements not covered in my initial note 09/02/2017. SUBJECTIVE: I met with the patient in the evening. The patient slept 6 hours, somewhat concerned about another demented patient walking into her room. REVIEW OF SYSTEMS: No CV, , pulmonary, eye, ENT system symptoms on review. Reliability poor. MENTAL STATUS EXAM: Oriented to herself. Insight, judgment, recent and remote memory, attention, concentration, fund of knowledge poor, consistent with her diagnosis mentioned in my initial note. PLAN: Continue psychotropics from my initial note. MAN Wilson BULLARD MD DR: ERINN/alex JOB#: [id number] / [id number]
--- NOTE | 2017-09-05 03:29 | PN ---
DATE: 08/25/2017 This is a late entry, 08/25/2017, covers the elements not covered in my initial note, 08/25/2017. SUBJECTIVE: I met with the patient in the evening and staffed at a treatment team meeting with the entire team in the morning. The patient is sleeping about 7 hours. Appetite 90%, remains confused. REVIEW OF SYSTEMS: No CV, , pulmonary, eye, ENT system symptoms on review. Not aggressive. MENTAL STATUS EXAM: Oriented to herself. Insight, judgment, recent and remote memory, attention, concentration, fund of knowledge poor, consistent with her diagnosis as mentioned in my initial note. PLAN: Continue psychotropics from initial note. MAN Wilson BULLARD MD DR: ERINN/alex JOB#: [id number] / [id number]
[2017-09-05 06:30] VITALS: BP 110/70
[2017-09-05 07:47] VITALS: BP 110/70
[2017-09-05] MEDS: POLYETHYLENE GLYCOL 3350 17 GM PACKET. PO SCH (07:47)
[2017-09-05] MEDS: busPIRone 10 MG TABLET. PO SCH (07:48)
[2017-09-05] MEDS: PANTOPRAZOLE 40 MG TABLET. PO SCH (07:48)
[2017-09-05] MEDS: ASCORBIC ACID 500 MG TABLET PO SCH (07:48)
[2017-09-05] MEDS: POTASSIUM CHLORIDE 20 MEQ TABLET.ER. PO SCH (07:48)
[2017-09-05] MEDS: SENNOSIDES 8.6 MG TABLET PO SCH (07:48)
[2017-09-05] MEDS: DOCUSATE SODIUM 100 MG CAPSULE PO SCH (07:48)
[2017-09-05] MEDS: MULTIVITAMIN with MINERAL TABLET. PO SCH (07:48)
[2017-09-05] MEDS: FUROSEMIDE 40 MG TABLET PO SCH (07:48)
[2017-09-05] MEDS: VITAMIN B COMPLEX CAPSULE. PO SCH (07:49)
[2017-09-05] MEDS: QUEtiapine 25 MG TABLET. PO SCH (07:49)
[2017-09-05] MEDS: MAGNESIUM OXIDE 400 MG TABLET PO SCH (07:49)
[2017-09-05] MEDS: VENLAFAXINE XR 37.5 MG CAP.ER.24H. PO SCH (07:49)
[2017-09-05] MEDS: HYDROcodone/APAP 5/325MG 1 TAB TABLET PO SCH (07:51)
[2017-09-05] MEDS: INSULIN LISPRO 300 UNITS/3 ML INSULN.PEN. SQ SCH (08:00)
[2017-09-05] MEDS: FLUTICASONE 50MCG/NASAL SPRAY 16GM BOTTLE. NS SCH (09:00)
[2017-09-05] MEDS: IPRATRPIUM/ALBUTEROL 0.5/2.5MG 3 ML NEBU. NEB SCH (09:54)
[2017-09-05] MEDS: BUDESONIDE 0.5 MG/2 ML NEBU NEB SCH (09:54)
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
--- NOTE | 2017-09-07 22:32 | PN ---
DATE: 09/04/2017 PSYCHIATRIC PROGRESS NOTE This is a late entry for 09/04/2017, covers the elements not covered in my initial note of 09/04/2017. SUBJECTIVE: I met with the patient in the evening. The patient slept 5-1/2 hours at night, cooperative, pleasant, confused. REVIEW OF SYSTEMS: No CV, , pulmonary, eye, ENT system symptoms on review. Reliability poor. MENTAL STATUS EXAM: Oriented to herself. Insight, judgment, recent and remote memory, attention, concentration, fund of knowledge poor, consistent with her diagnosis mentioned in my initial note. PLAN: No change from a psychiatric standpoint from initial note. MAN Wilson BULLARD MD DR: ERINN/alex JOB#: [id number] / [id number]
[2017-09-24] MEDS ORDERED: CYANOCOBALAMIN (VITAMIN B-12) 1,000 MCG/ML VIAL IM SCH (09:00)
== END 2017-09-05 12:30 | disposition home or self-care (01) | DRG 56 ==
LOC: ER 18:27 → GEROPSY 21:54
PROVIDERS: ADMIT Psychiatry & Neurology Psychiatry; ATTEND Psychiatry & Neurology Psychiatry
DX: G30.9 Alzheimer's disease, unspecified (principal); N18.6 End stage renal disease; I13.2 Hypertensive heart and chronic kidney disease with heart failure and with stage 5 chronic kidney disease, or end stage renal disease; E11.22 Type 2 diabetes mellitus with diabetic chronic kidney disease; F01.51 Vascular dementia, unspecified severity, with behavioral disturbance; E87.1 Hypo-osmolality and hyponatremia; F02.81 Dementia in other diseases classified elsewhere, unspecified severity, with behavioral disturbance; I50.9 Heart failure, unspecified; J44.9 Chronic obstructive pulmonary disease, unspecified; I25.10 Atherosclerotic heart disease of native coronary artery without angina pectoris; E78.5 Hyperlipidemia, unspecified; F41.9 Anxiety disorder, unspecified; F63.9 Impulse disorder, unspecified; K21.9 Gastro-esophageal reflux disease without esophagitis; Z66 Do not resuscitate; F32.9 Major depressive disorder, single episode, unspecified; Z79.899 Other long term (current) drug therapy; Z90.49 Acquired absence of other specified parts of digestive tract; Z90.710 Acquired absence of both cervix and uterus; Z91.83 Wandering in diseases classified elsewhere
CPT/HCPCS: 36415; 80053; 80061; 81001; 82306; 82607; 82947; 83036; 83540; 83550; 83735; 84436; 84443; 84480; 85025; 86593; 93005; 94640; J1815; J7620; J7626; Q0162; 99285-25

== ENCOUNTER 2017-11-15 12:50 | Inpatient (IN) | payer MEDICARE, OTHER ==
[~2017-11-15] VITALS: Ht 149.9 cm; Wt 63.1 kg
[~2017-11-15 12:50] MED LIST changes: +ALBU2.5V5 NEB; +BUDE0.5A3 NEB; +BUSP10TA PO; +CHOL500021 PO; +DOCU100C28 PO; +GUAI600T47 PO; +HYDR-2758 PO; +INSU100I17 SQ; -IPRA3AMP NEB; +IPRA3AMP29 NEB; +MAG30ORA2 PO; +MULT-317 PO; +MULT-638 PO; +ONDA4TAB11 PO; +PANT40TA5 PO; +POTA20TA4 PO; +QUET100T4 PO; +QUET50TA5 PO; +SENN-87 PO; +TAMS0.4C2 PO; +TRAZ-85 PO; +VENL37.57 PO; +VENL75CA6 PO; +VITA1TAB3 PO; +[UNRECOGNIZED DRUG - CODE] PO
--- NOTE | 2017-11-15 13:05 | EKG ---
[address] [address] Test Date: 2017-11-15 Test Time: 13:03:04 Pat Name: NOELLE OLIVER Department: Room: Gender: F Education And Training Coordinator: : 1930 Requested By: PATRIA GREEN Order Number: [id number] Reading MD: Odell Mendez Measurements Intervals [place] Rate: 59 P: GA: QRS: 171 QRSD: 118 T: 10 QT: 412 QTc: 412 Interpretive Statements SINUS RHYTHM FIRST DEGREE AV BLOCK ABNORMAL RIGHT AXIS DEVIATION INCOMPLETE RIGHT BUNDLE BRANCH BLOCK, T ABNORMALITY IN ANTERIOR LEADS, INFEROLATERAL LEADS ABNORMAL ECG Electronically Signed On 11-30-2017 9:47:46 CDT by Odell Mendez
[2017-11-15 13:30] LABS: BASO # 0.1 x10^3/uL (0.0-0.2); BASO % 1 % (0-3); EOS # 0.2 x10^3/uL (0.0-0.7); EOS % 2 % (0-3); HEMATOCRIT 39.7 % (36.0-47.0); HEMOGLOBIN 13.2 g/dL (12.0-15.5); LYMPH # 2.2 x10^3/uL (1.0-4.8); LYMPH % 20 % (24-48); MEAN CORPUSCULAR HEMOGLOBIN 30 pg (25-35); MEAN CORPUSCULAR HGB CONC 33 g/dL (31-37); MEAN CORPUSCULAR VOLUME 90 fL (79-100); MONO # 0.8 x10^3/uL (0.0-1.1); MONO % 7 % (0-9); NEUT % 71 % (31-73); PLATELET COUNT 355 x10^3/uL (140-400); RED BLOOD COUNT 4.42 x10^6/uL (3.50-5.40); RED CELL DISTRIBUTION WIDTH 14.2 % (11.5-14.5); WHITE BLOOD COUNT 11.3 x10^3/uL (4.0-11.0)
[2017-11-15 13:38] LABS: BACTERIA,URINE FEW /HPF (0-FEW); BILIRUBIN,URINE NEG (NEG); CLARITY,URINE HAZY; COLOR,URINE YELLOW; GLUCOSE,URINE NEG (NEG); NITRITE,URINE NEG (NEG); RBC,URINE 0 /HPF (0-2); SQUAMOUS EPITHELIAL CELL,UR MOD /LPF; UROBILINOGEN,URINE 0.2 mg/dL (0.2 mg/dL)
[2017-11-15 13:39] LABS: ALBUMIN 3.3 g/dL (3.4-5.0); ALBUMIN/GLOBULIN RATIO 0.8 (1.0-1.7); CALCIUM 8.4 mg/dL (8.5-10.1); CREATININE 1.6 mg/dL (0.6-1.0); GFR 30.3; MAGNESIUM 2.3 mg/dL (1.8-2.4); POTASSIUM 4.2 mmol/L (3.5-5.1); TOTAL BILIRUBIN 0.3 mg/dL (0.2-1.0); TOTAL PROTEIN 7.6 g/dL (6.4-8.2)
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
--- NOTE | 2017-11-15 20:21 | PDOC ---
Exam Note: Harris Note: Please also refer to the separate dictated note~for this date of service dictated separately.~Patient seen individually. Discussed the patient with Nursing staff reviewed the chart.~Reviewed interim history and current functioning. Reviewed vital signs,~Labs/ Radiology~and current medications noted below. Continue current treatment with the changes noted in the dictated addendum note Assessment: Vital Signs: Vital Signs Date Time Temp Pulse Resp B/P (MAP) Pulse Ox O2 Delivery O2 Flow Rate FiO2 11/15/17 15:05 52 18 97/53 (68) 95 Room Air 11/15/17 12:55 97.6 Labs: Laboratory Tests Test 11/15/17 13:00 11/15/17 13:10 Urine Collection Type Unknown Urine Color Yellow Urine Clarity Hazy Urine pH 6.5 Urine Specific [place] 1.010 Urine Protein Neg (NEG-TRACE) Urine Glucose (UA) Neg mg/dL (NEG) Urine Ketones (Stick) Neg mg/dL (NEG) Urine Blood Neg (NEG) Urine Nitrite Neg (NEG) Urine Bilirubin Neg (NEG) Urine Urobilinogen Dipstick 0.2 mg/dL (0.2 mg/dL) Urine Leukocyte Esterase Small (NEG) Urine RBC 0 /HPF (0-2) Urine WBC 1-4 /HPF (0-4) Urine Squamous Epithelial Cells Mod /LPF Urine Bacteria Few /HPF (0-FEW) Urine Mucus Slight /LPF White Blood Count 11.3 x10^3/uL (4.0-11.0) H Red Blood Count 4.42 x10^6/uL (3.50-5.40) Hemoglobin 13.2 g/dL (12.0-15.5) Hematocrit 39.7 % (36.0-47.0) Mean Corpuscular Volume 90 fL (79-100) Mean Corpuscular Hemoglobin 30 pg (25-35) Mean Corpuscular Hemoglobin Concent 33 g/dL (31-37) Red Cell Distribution Width 14.2 % (11.5-14.5) Platelet Count 355 x10^3/uL (140-400) Neutrophils (%) (Auto) 71 % (31-73) Lymphocytes (%) (Auto) 20 % (24-48) L Monocytes (%) (Auto) 7 % (0-9) Eosinophils (%) (Auto) 2 % (0-3) Basophils (%) (Auto) 1 % (0-3) Neutrophils # (Auto) 8.0 x10^3uL (1.8-7.7) H Lymphocytes # (Auto) 2.2 x10^3/uL (1.0-4.8) Monocytes # (Auto) 0.8 x10^3/uL (0.0-1.1) Eosinophils # (Auto) 0.2 x10^3/uL (0.0-0.7) Basophils # (Auto) 0.1 x10^3/uL (0.0-0.2) Sodium Level 132 mmol/L (136-145) L Potassium Level 4.2 mmol/L (3.5-5.1) Chloride Level 95 mmol/L (98-107) L Carbon Dioxide Level 30 mmol/L (21-32) Anion Gap 7 (6-14) Blood Urea Nitrogen 22 mg/dL (7-20) H Creatinine 1.6 mg/dL (0.6-1.0) H Estimated GFR (Cockcroft-Gault) 30.3 BUN/Creatinine Ratio 14 (6-20) Glucose Level 203 mg/dL (70-99) H Calcium Level 8.4 mg/dL (8.5-10.1) L Magnesium Level 2.3 mg/dL (1.8-2.4) Total Bilirubin 0.3 mg/dL (0.2-1.0) Aspartate Amino Transferase (AST) 19 U/L (15-37) Alanine Aminotransferase (ALT) 20 U/L (14-59) Alkaline Phosphatase 114 U/L (46-116) Total Protein 7.6 g/dL (6.4-8.2) Albumin 3.3 g/dL (3.4-5.0) L Albumin/Globulin Ratio 0.8 (1.0-1.7) L Current Medications: Meds: Active Scripts Active Reported Trazodone Hcl 50 Mg Tablet 50 Mg PO PRN QHS PRN Buspirone Hcl 10 Mg Tablet 20 Mg PO DAILYWSUP Venlafaxine Hcl Er (Venlafaxine Hcl) 75 Mg Cap.er.24h 75 Mg PO DAILY Seroquel (Quetiapine Fumarate) 25 Mg Tablet 25 Mg PO BID @ 0900,1500 Seroquel (Quetiapine Fumarate) 50 Mg Tablet 75 Mg PO QHS Thera M Plus Tablet (Multivits,Ca,Minerals/Iron/FA) 1 Each Tablet 1 Each PO DAILY Remeron (Mirtazapine) 15 Mg Tablet 7.5 Mg PO QHS Analgesic [place] (Methyl Salicylate/Menthol) 28 Gm Oint...g. 1 Edi TP PRN QID PRN Mag-Al Plus Xs Suspension (Mag Hydrox/Al Hydrox/Simeth) 30 Ml Oral.susp 15 Ml PO PRN AFTMEAL PRN Pulmicort (Budesonide) 0.5 Mg/2 Ml Ampul.neb 0.5 Mg NEB BID Benzonatate 100 Mg Capsule 100 Mg PO PRN TID PRN Albuterol Sulfate Neb Soln (Albuterol Sulfate) 2.5 Mg/3 Ml Vial.neb 2.5 Mg NEB PRN Q6HRS PRN Ondansetron Hcl 4 Mg Tablet 4 Mg PO PRN Q4HRS PRN dissolve on tongue Novolog Flexpen (Insulin Aspart) 100 Unit/1 Ml Insuln.pen 0-6 Unit SQ TIDWMEALHC PRN BS 75-150= 0 units BS 151-200= 2 units BS 201-250= 3 units BS 251-300= 4 units BS 301-350= 5 units BS 351-400= 6 units BS<70 or >400 call Physician Miralax (Polyethylene Glycol 3350) 17 Gm Powd.pack 17 Gm PO PRN DAILY PRN Mucinex (Guaifenesin) 600 Mg Tablet.er 600 Mg PO TID Buspirone Hcl 10 Mg Tablet 10 Mg PO BID@ 0900,1300 Senna Lax (Sennosides) 8.6 Mg Tablet 8.6 Mg PO BID Docusate Sodium 100 Mg Capsule 100 Mg PO BID Vitamin B Complex 1 Each Tablet 100 Mg PO DAILY D3-50 (Cholecalciferol (Vitamin D3)) 50,000 Unit Capsule 50,000 Unit PO WEEKLY every thursday C-1000 (Ascorbic Acid) 1,000 Mg Tablet 1,000 Mg PO DAILY Klor-Con M20 (Potassium Chloride) 20 Meq Tab.er.prt 20 Meq PO DAILY Pantoprazole Sodium 40 Mg Tablet.dr 40 Mg PO DAILYAC Tamsulosin Hcl 0.4 Mg Cap.er.24h 0.4 Mg PO QEVNG Hydrocodone-Apap 5-325 (Hydrocodone Bit/Acetaminophen) 1 Each Tablet 1 Tab PO PRN Q6HRS PRN Hydrocodone-Apap 5-325 (Hydrocodone Bit/Acetaminophen) 1 Each Tablet 1 Tab PO BID Milk Of Magnesia (Magnesium Hydroxide) 2,400 Mg/10 Ml Oral.susp 2,400 Mg PO PRN QHS PRN Lasix (Furosemide) 40 Mg Tablet 40 Mg PO DAILY Flonase Allergy Relief (Fluticasone Propionate) 9.9 Ml [place].susp 2 Sprays NS DAILY use in each nostril Miralax (Polyethylene Glycol 3350) 17 Gm Powd.pack 17 Gm PO DAILY Loperamide (Loperamide Hcl) 2 Mg Capsule 2 Mg PO PRN Q8HRS PRN Not to exceed 8 capsules in 24hrs Acetaminophen 500 Mg Tablet 500 Mg PO PRN Q4HRS PRN Magnesium Oxide 400 Mg Tablet 400 Mg PO BID Duoneb 0.5-3(2.5) Mg/3 Ml (Albuterol/Ipratropium) 3 Ml Ampul.neb 3 Ml NEB QID Cardizem Cd (Diltiazem Hcl) 240 Mg Cap.er.24h 120 Mg PO BID HOLD FOR SBP <110 Cyanocobalamin Injection (Cyanocobalamin (Vitamin B-12)) 1,000 Mcg/1 Ml Vial 1, 000 Mcg IM QMONTH next due 09/24/17 NEXT DOSE DUE 09/19/17 I have reviewed the current psychotropics carefully including drug interactions. Risk benefit ratio favors no change other than as noted in my dictated progress note. 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
[2017-11-15] MEDS ORDERED: METHYL SALICYLATE/MENTHOL TOPICAL OINTMENT 29GM TUBE. TP PRN ×2 (20:45→22:15)
[2017-11-15] MEDS ORDERED: ALBUTEROL SULFATE 2.5 MG/3 ML NEBU. NEB PRN (20:45)
[2017-11-15] MEDS ORDERED: ACETAMINOPHEN 500 MG TABLET PO PRN (21:15)
[2017-11-15] MEDS ORDERED: ONDANSETRON ODT 4 MG TAB.RAPDIS PO PRN (21:30)
[2017-11-15] MEDS ORDERED: MAGNESIUM HYDROXIDE 2,400 MG/30 ML ORAL.SUSP. PO PRN ×2 (21:30→22:15)
[2017-11-15] MEDS ORDERED: HYDROcodone/APAP 5/325MG 1 TAB TABLET PO PRN (21:30)
[2017-11-15] MEDS ORDERED: LOPERAMIDE 2 MG CAPSULE PO PRN (21:30)
[2017-11-15] MEDS ORDERED: traZODone 50 MG TABLET. PO PRN (21:30)
[2017-11-15] MEDS ORDERED: MIRTAZAPINE 7.5 MG TABLET. PO SCH (22:00)
[2017-11-15] MEDS ORDERED: MAG HYDROX/AL HYDROX/SIMETH 30 ML ORAL.SUSP PO PRN (22:15)
[2017-11-15] MEDS ORDERED: ACETAMINOPHEN 325 MG TABLET PO PRN (22:15)
[2017-11-15] MEDS: MAGNESIUM OXIDE 400 MG TABLET PO SCH (22:17)
[2017-11-15] MEDS: QUEtiapine 25 MG TABLET. PO SCH (22:17)
[2017-11-15] MEDS: SENNOSIDES 8.6 MG TABLET PO SCH (22:17)
[2017-11-15] MEDS: DOCUSATE SODIUM 100 MG CAPSULE PO SCH (22:17)
[2017-11-15] MEDS: HYDROcodone/APAP 5/325MG 1 TAB TABLET PO SCH (22:18)
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
[2017-11-15] MEDS: IPRATRPIUM/ALBUTEROL 0.5/2.5MG 3 ML NEBU. NEB SCH (23:28)
[2017-11-16] MEDS: IPRATRPIUM/ALBUTEROL 0.5/2.5MG 3 ML NEBU. NEB SCH ×5 (05:11→20:51)
[2017-11-16 06:45] VITALS: BP 115/32
[2017-11-16] MEDS: BUDESONIDE 0.5 MG/2 ML NEBU NEB SCH ×2 (08:00→20:35)
[2017-11-16] MEDS: MULTIVITAMIN with MINERAL TABLET. PO SCH (08:34)
[2017-11-16] MEDS: DOCUSATE SODIUM 100 MG CAPSULE PO SCH ×2 (08:34→20:29)
[2017-11-16] MEDS: QUEtiapine 25 MG TABLET. PO SCH ×3 (08:34→20:29)
[2017-11-16] MEDS: VITAMIN B COMPLEX CAPSULE. PO SCH (08:34)
[2017-11-16] MEDS: VENLAFAXINE XR 37.5 MG CAP.ER.24H. PO SCH (08:35)
[2017-11-16] MEDS: POTASSIUM CHLORIDE 20 MEQ TABLET.ER. PO SCH (08:35)
[2017-11-16] MEDS: SENNOSIDES 8.6 MG TABLET PO SCH ×2 (08:36→20:29)
[2017-11-16] MEDS: PANTOPRAZOLE 40 MG TABLET. PO SCH (08:36)
[2017-11-16] MEDS: HYDROcodone/APAP 5/325MG 1 TAB TABLET PO SCH ×2 (08:36→20:31)
[2017-11-16] MEDS: busPIRone 10 MG TABLET. PO SCH ×3 (08:36→17:19)
[2017-11-16] MEDS: FUROSEMIDE 40 MG TABLET PO SCH (08:36)
[2017-11-16] MEDS: MAGNESIUM OXIDE 400 MG TABLET PO SCH ×2 (08:36→20:29)
[2017-11-16] MEDS: POLYETHYLENE GLYCOL 3350 17 GM PACKET. PO SCH (08:36)
[2017-11-16] MEDS: ASCORBIC ACID 500 MG TABLET PO SCH (08:36)
[2017-11-16] MEDS: FLUTICASONE 50MCG/NASAL SPRAY 16GM BOTTLE. NS SCH (08:48)
[2017-11-16] MEDS ORDERED: BENZONATATE 100 MG CAPSULE. PO PRN (09:00)
[2017-11-16 13:35] LABS: THYROID STIM HORMONE (TSH) 2.485 uIU/mL (0.358-3.740)
[2017-11-16 16:23] VITALS: BP 147/82
[2017-11-16] MEDS: TAMSULOSIN 0.4 MG CAP.ER.24H. PO SCH (17:19)
[2017-11-16] MEDS: MIRTAZAPINE 15 MG TABLET PO SCH (20:34)
--- NOTE | 2017-11-16 21:16 | PDOC ---
Exam Note: Harris Note: Please also refer to the separate dictated note~for this date of service dictated separately.~Patient seen individually. Discussed the patient with Nursing staff reviewed the chart.~Reviewed interim history and current functioning. Reviewed vital signs,~Labs/ Radiology~and current medications noted below. Continue current treatment with the changes noted in the dictated addendum note Assessment: Vital Signs: Vital Signs Date Time Temp Pulse Resp B/P (MAP) Pulse Ox O2 Delivery O2 Flow Rate FiO2 11/16/17 20:53 94 Room Air 11/16/17 20:31 80 147/82 11/16/17 16:23 98.3 18 I&O Intake and Output 11/16/17 07:00 Intake Total 120 ml Balance 120 ml Intake Oral 120 ml Labs: Laboratory Tests Test 11/15/17 22:11 11/16/17 07:34 11/16/17 12:09 11/16/17 16:48 Glucose (Fingerstick) 199 mg/dL (70-99) H 143 mg/dL (70-99) H 151 mg/dL (70-99) H 112 mg/dL (70-99) H Test 11/16/17 19:26 Glucose (Fingerstick) 198 mg/dL (70-99) H Current Medications: Meds: Current Medications Albuterol Sulfate (Ventolin) 2.5 mg PRN Q6HRS PRN NEB SHORTNESS OF BREATH; Start 11/15/17 at 20:45 Vitamin D (Vitamin D3) 50,000 unit WEEKLY PO ; Start 11/22/17 at 09:00 Cyanocobalamin (Vitamin B-12) 1,000 mcg QMONTH IM ; Start 12/15/17 at 09:00 Diltiazem HCl (Cardizem 24hr Cd) 120 mg BID PO Last administered on 11/16/17at 20 :31; Start 11/16/17 at 09:00 Guaifenesin (Mucinex Er) 600 mg BID PO Last administered on 11/16/17at 20:31; Start 11/15/17 at 21:00 Albuterol/ Ipratropium (Duoneb) 3 ml RTQID NEB Last administered on 11/16/17at 20 :51; Start 11/15/17 at 21:00 Al Hydroxide/Mg Hydroxide (Mylanta Plus Xs) 15 ml PRN AFTMEAL PRN PO DYSPEPSIA ; Start 11/15/17 at 20:45 Multi-Ingredient Ointment (Analgesic [place]) 1 edi PRN QID PRN TP MUSCLE PAIN; Start 11/15/17 at 20:45 Multivitamins/ Calcium (Thera-M Plus) 1 tab DAILY PO Last administered on 08:34; Start 11/16/17 at 09:00 Potassium Chloride (Klor-Con) 20 meq DAILY PO Last administered on 11/16/17at 08: 35; Start 11/16/17 at 09:00 Tamsulosin HCl (Flomax) 0.4 mg QEVNG PO Last administered on 11/16/17 17:19; Start 11/16/17 at 18:00 Acetaminophen (Tylenol) 500 mg PRN Q4HRS PRN PO PAIN / TEMP; Start 11/15/17 at 21:15 Ascorbic Acid (Vitamin C) 1,000 mg DAILY PO Last administered on 11/16/17 08:36 ; Start 11/16/17 at 09:00 Benzonatate (Tessalon Perle) 100 mg PRN TID PRN PO COUGH; Start 11/16/17 at 09: 00 Budesonide (Pulmicort) 0.5 mg RTBID NEB Last administered on 11/16/17 20:35; Start 11/16/17 at 08:00 Buspirone HCl (Buspar) 10 mg 0900,1300 PO Last administered on 11/16/17 13:52; Start 11/16/17 at 09:00 Buspirone HCl (Buspar) 20 mg DAILYWSUP PO Last administered on 11/16/17 17:19; Start 11/16/17 at 17:00 Docusate Sodium (Colace) 100 mg BID PO Last administered on 11/16/17 20:29; Start 11/15/17 at 21:30 Fluticasone Propionate (Flonase) 2 spray DAILY NS ; Start 11/16/17 at 09:00 Furosemide (Lasix) 40 mg DAILY PO Last administered on 11/16/17 08:36; Start at 09:00 Acetaminophen/ Hydrocodone Bitart (Lortab 5/325) 1 tab BID PO Last administered on 11/16/17 20:31; Start 11/15/17 at 21:30 Acetaminophen/ Hydrocodone Bitart (Lortab 5/325) 1 tab PRN Q6HRS PRN PO PAIN; Start 11/15/17 at 21:30 Insulin Human Lispro (HumaLOG) If blood sugar is 75-150=0un... TIDWMEALHC PRN SQ Diabetes; Start 11/15/17 at 20:45 Loperamide HCl (Imodium) 2 mg PRN Q8HRS PRN PO DIARRHEA; Start 11/15/17 at 21:30 Magnesium Hydroxide (Milk Of Magnesia) 2,400 mg PRN QHS PRN PO CONSTIPATION; Start 11/15/17 at 21:30 Magnesium Oxide (Magnesium Oxide) 400 mg BID PO Last administered on 11/16/17at 20:29; Start 11/15/17 at 22:00 Mirtazapine (Remeron) 7.5 mg QHS PO Last administered on 11/15/17 22:17; Start 11/15/17 at 22:00; Stop 11/16/17 at 18:24; Status DC Ondansetron HCl (Zofran Odt) 4 mg PRN Q8HRS PRN PO NAUSEA/VOMITING; Start at 21:30 Pantoprazole Sodium (Protonix) 40 mg DAILYAC PO Last administered on 11/16/17 08:36; Start 11/16/17 at 07:30 Polyethylene Glycol (miraLAX) 17 gm DAILY PO Last administered on 11/16/17 08: 36; Start 11/16/17 at 09:00 Quetiapine Fumarate (SEROquel) 25 mg 0900,1500 PO Last administered on at 13:52; Start 11/16/17 at 09:00 Quetiapine Fumarate (SEROquel) 75 mg QHS PO Last administered on 11/16/17 20:29 ; Start 11/15/17 at 21:30 Sennosides (Senna) 8.6 mg BID PO Last administered on 11/16/17 20:29; Start 11/15/17 at 21:30 Trazodone HCl (Desyrel) 50 mg PRN QHS PRN PO INSOMNIA, MAY REPEAT X1 Last administered on 11/15/17at 22:17; Start 11/15/17 at 21:30 Venlafaxine HCl (Effexor Xr) 75 mg DAILY PO Last administered on 11/16/17at 08:35 ; Start 11/16/17 at 09:00 Vitamin B Complex 1 cap DAILY PO Last administered on 11/16/17at 08:34; Start 11/16/17 at 09:00 Acetaminophen (Tylenol) 650 mg PRN Q6HRS PRN PO PAIN / TEMP; Start 11/15/17 at 22:15; Status UNV Multi-Ingredient Ointment (Analgesic [place]) 1 edi PRN QID PRN TP MUSCLE PAIN; Start 11/15/17 at 22:15; Status UNV Al Hydroxide/Mg Hydroxide (Mylanta Plus Xs) 15 ml PRN AFTMEALHC PRN PO DYSPEPSIA; Start 11/15/17 at 22:15; Status UNV Magnesium Hydroxide (Milk Of Magnesia) 2,400 mg PRN QHS PRN PO CONSTIPATION; Start 11/15/17 at 22:15; Status UNV Mirtazapine (Remeron) 15 mg QHS PO Last administered on 11/16/17at 20:34; Start 11/16/17 at 21:00 Active Scripts Active Reported Trazodone Hcl 50 Mg Tablet 50 Mg PO PRN QHS PRN Buspirone Hcl 10 Mg Tablet 20 Mg PO DAILYWSUP Venlafaxine Hcl Er (Venlafaxine Hcl) 75 Mg Cap.er.24h 75 Mg PO DAILY Seroquel (Quetiapine Fumarate) 25 Mg Tablet 25 Mg PO BID @ 0900,1500 Seroquel (Quetiapine Fumarate) 50 Mg Tablet 75 Mg PO QHS Thera M Plus Tablet (Multivits,Ca,Minerals/Iron/FA) 1 Each Tablet 1 Each PO DAILY Remeron (Mirtazapine) 15 Mg Tablet 7.5 Mg PO QHS Analgesic [place] (Methyl Salicylate/Menthol) 28 Gm Oint...g. 1 Edi TP PRN QID PRN Mag-Al Plus Xs Suspension (Mag Hydrox/Al Hydrox/Simeth) 30 Ml Oral.susp 15 Ml PO PRN AFTMEAL PRN Pulmicort (Budesonide) 0.5 Mg/2 Ml Ampul.neb 0.5 Mg NEB BID Benzonatate 100 Mg Capsule 100 Mg PO PRN TID PRN Albuterol Sulfate Neb Soln (Albuterol Sulfate) 2.5 Mg/3 Ml Vial.neb 2.5 Mg NEB PRN Q6HRS PRN Ondansetron Hcl 4 Mg Tablet 4 Mg PO PRN Q4HRS PRN dissolve on tongue Novolog Flexpen (Insulin Aspart) 100 Unit/1 Ml Insuln.pen 0-6 Unit SQ TIDWMEALHC PRN BS 75-150= 0 units BS 151-200= 2 units BS 201-250= 3 units BS 251-300= 4 units BS 301-350= 5 units BS 351-400= 6 units BS<70 or >400 call Physician Miralax (Polyethylene Glycol 3350) 17 Gm Powd.pack 17 Gm PO PRN DAILY PRN Mucinex (Guaifenesin) 600 Mg Tablet.er 600 Mg PO TID Buspirone Hcl 10 Mg Tablet 10 Mg PO BID@ 0900,1300 Senna Lax (Sennosides) 8.6 Mg Tablet 8.6 Mg PO BID Docusate Sodium 100 Mg Capsule 100 Mg PO BID Vitamin B Complex 1 Each Tablet 100 Mg PO DAILY D3-50 (Cholecalciferol (Vitamin D3)) 50,000 Unit Capsule 50,000 Unit PO WEEKLY every thursday C-1000 (Ascorbic Acid) 1,000 Mg Tablet 1,000 Mg PO DAILY Klor-Con M20 (Potassium Chloride) 20 Meq Tab.er.prt 20 Meq PO DAILY Pantoprazole Sodium 40 Mg Tablet.dr 40 Mg PO DAILYAC Tamsulosin Hcl 0.4 Mg Cap.er.24h 0.4 Mg PO QEVNG Hydrocodone-Apap 5-325 (Hydrocodone Bit/Acetaminophen) 1 Each Tablet 1 Tab PO PRN Q6HRS PRN Hydrocodone-Apap 5-325 (Hydrocodone Bit/Acetaminophen) 1 Each Tablet 1 Tab PO BID Milk Of Magnesia (Magnesium Hydroxide) 2,400 Mg/10 Ml Oral.susp 2,400 Mg PO PRN QHS PRN Lasix (Furosemide) 40 Mg Tablet 40 Mg PO DAILY Flonase Allergy Relief (Fluticasone Propionate) 9.9 Ml [place].susp 2 Sprays NS DAILY use in each nostril Miralax (Polyethylene Glycol 3350) 17 Gm Powd.pack 17 Gm PO DAILY Loperamide (Loperamide Hcl) 2 Mg Capsule 2 Mg PO PRN Q8HRS PRN Not to exceed 8 capsules in 24hrs Acetaminophen 500 Mg Tablet 500 Mg PO PRN Q4HRS PRN Magnesium Oxide 400 Mg Tablet 400 Mg PO BID Duoneb 0.5-3(2.5) Mg/3 Ml (Albuterol/Ipratropium) 3 Ml Ampul.neb 3 Ml NEB QID Cardizem Cd (Diltiazem Hcl) 240 Mg Cap.er.24h 120 Mg PO BID HOLD FOR SBP <110 Cyanocobalamin Injection (Cyanocobalamin (Vitamin B-12)) 1,000 Mcg/1 Ml Vial 1, 000 Mcg IM QMONTH next due 09/24/17 NEXT DOSE DUE 09/19/17 I have reviewed the current psychotropics carefully including drug interactions. Risk benefit ratio favors no change other than as noted in my dictated progress note. Diagnosis: Problems: (1) Hyponatremia (2) Major neurocognitive disorder due to Alzheimer's disease, probable, with behavioral disturbance (3) Hyperglycemia (4) Renal insufficiency (5) Uncontrolled diabetes mellitus (6) Behavior problem (7) Medical clearance for psychiatric admission (8) Altered mental status (9) Anxiety disorder (10) Dementia in Alzheimer's disease with delusions (11) Dementia in Alzheimer's disease with depression (12) Dementia, vascular, with delusions (13) Dementia, vascular, with depression (14) Impulse control disorder RACHEL BULLARD MD Nov 16, 2017 21:16
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
[2017-11-17] MEDS: IPRATRPIUM/ALBUTEROL 0.5/2.5MG 3 ML NEBU. NEB SCH ×3 (04:13→21:34)
[2017-11-17 06:59] VITALS: BP 137/93
[2017-11-17] MEDS: BUDESONIDE 0.5 MG/2 ML NEBU NEB SCH ×2 (08:00→21:34)
[2017-11-17] MEDS: VENLAFAXINE XR 37.5 MG CAP.ER.24H. PO SCH (09:15)
[2017-11-17] MEDS: ASCORBIC ACID 500 MG TABLET PO SCH (09:16)
[2017-11-17] MEDS: SENNOSIDES 8.6 MG TABLET PO SCH ×2 (09:16→20:38)
[2017-11-17] MEDS: busPIRone 10 MG TABLET. PO SCH ×3 (09:16→17:33)
[2017-11-17] MEDS: VITAMIN B COMPLEX CAPSULE. PO SCH (09:16)
[2017-11-17] MEDS: POTASSIUM CHLORIDE 20 MEQ TABLET.ER. PO SCH (09:16)
[2017-11-17] MEDS: QUEtiapine 25 MG TABLET. PO SCH ×3 (09:16→20:37)
[2017-11-17] MEDS: POLYETHYLENE GLYCOL 3350 17 GM PACKET. PO SCH (09:17)
[2017-11-17] MEDS: DOCUSATE SODIUM 100 MG CAPSULE PO SCH ×2 (09:17→20:38)
[2017-11-17] MEDS: PANTOPRAZOLE 40 MG TABLET. PO SCH (09:17)
[2017-11-17] MEDS: MAGNESIUM OXIDE 400 MG TABLET PO SCH ×2 (09:17→20:38)
[2017-11-17] MEDS: MULTIVITAMIN with MINERAL TABLET. PO SCH (09:17)
[2017-11-17] MEDS: HYDROcodone/APAP 5/325MG 1 TAB TABLET PO SCH ×2 (09:17→20:40)
[2017-11-17] MEDS: FUROSEMIDE 40 MG TABLET PO SCH (09:17)
[2017-11-17] MEDS: FLUTICASONE 50MCG/NASAL SPRAY 16GM BOTTLE. NS SCH (09:19)
[2017-11-17 15:10] LABS: HEMOGLOBIN A1C 6.9 % (4.8-5.6)
[2017-11-17 16:27] VITALS: BP 137/60
[2017-11-17] MEDS: TAMSULOSIN 0.4 MG CAP.ER.24H. PO SCH (17:33)
[2017-11-17] MEDS: MIRTAZAPINE 15 MG TABLET PO SCH (20:38)
--- NOTE | 2017-11-17 20:45 | PDOC ---
Exam Note: Harris Note: Please also refer to the separate dictated note~for this date of service dictated separately.~Patient seen individually. Discussed the patient with Nursing staff reviewed the chart.~Reviewed interim history and current functioning. Reviewed vital signs,~Labs/ Radiology~and current medications noted below. Continue current treatment with the changes noted in the dictated addendum note Assessment: Vital Signs: Vital Signs Date Time Temp Pulse Resp B/P (MAP) Pulse Ox O2 Delivery O2 Flow Rate FiO2 11/17/17 20:40 20 94 Room Air 11/17/17 20:39 75 137/60 11/17/17 16:27 98.0 I&O Intake and Output 11/17/17 06:59 Intake Total 720 ml Balance 720 ml Intake Oral 720 ml Labs: Laboratory Tests Test 11/17/17 07:04 11/17/17 12:16 Glucose (Fingerstick) 120 mg/dL (70-99) H 118 mg/dL (70-99) H Current Medications: Meds: Current Medications Albuterol Sulfate (Ventolin) 2.5 mg PRN Q6HRS PRN NEB SHORTNESS OF BREATH; Start 11/15/17 at 20:45 Vitamin D (Vitamin D3) 50,000 unit WEEKLY PO ; Start 11/22/17 at 09:00 Cyanocobalamin (Vitamin B-12) 1,000 mcg QMONTH IM ; Start 12/15/17 at 09:00 Diltiazem HCl (Cardizem 24hr Cd) 120 mg BID PO Last administered on 11/17/17at 20 :39; Start 11/16/17 at 09:00 Guaifenesin (Mucinex Er) 600 mg BID PO Last administered on 11/17/17at 20:38; Start 11/15/17 at 21:00 Albuterol/ Ipratropium (Duoneb) 3 ml RTQID NEB Last administered on 11/17/17at 04 :13; Start 11/15/17 at 21:00 Al Hydroxide/Mg Hydroxide (Mylanta Plus Xs) 15 ml PRN AFTMEAL PRN PO DYSPEPSIA ; Start 11/15/17 at 20:45 Multi-Ingredient Ointment (Analgesic [place]) 1 edi PRN QID PRN TP MUSCLE PAIN; Start 11/15/17 at 20:45 Multivitamins/ Calcium (Thera-M Plus) 1 tab DAILY PO Last administered on 09:17; Start 11/16/17 at 09:00 Potassium Chloride (Klor-Con) 20 meq DAILY PO Last administered on 11/17/17 09: 16; Start 11/16/17 at 09:00 Tamsulosin HCl (Flomax) 0.4 mg QEVNG PO Last administered on 11/17/17 17:33; Start 11/16/17 at 18:00 Acetaminophen (Tylenol) 500 mg PRN Q4HRS PRN PO PAIN / TEMP; Start 11/15/17 at 21:15 Ascorbic Acid (Vitamin C) 1,000 mg DAILY PO Last administered on 11/17/17 09:16 ; Start 11/16/17 at 09:00 Benzonatate (Tessalon Perle) 100 mg PRN TID PRN PO COUGH; Start 11/16/17 at 09: 00 Budesonide (Pulmicort) 0.5 mg RTBID NEB Last administered on 11/16/17 20:35; Start 11/16/17 at 08:00 Buspirone HCl (Buspar) 10 mg 0900,1300 PO Last administered on 11/17/17 14:23; Start 11/16/17 at 09:00 Buspirone HCl (Buspar) 20 mg DAILYWSUP PO Last administered on 11/17/17 17:33; Start 11/16/17 at 17:00 Docusate Sodium (Colace) 100 mg BID PO Last administered on 11/17/17 20:38; Start 11/15/17 at 21:30 Fluticasone Propionate (Flonase) 2 spray DAILY NS Last administered on 09:19; Start 11/16/17 at 09:00 Furosemide (Lasix) 40 mg DAILY PO Last administered on 11/17/17 09:17; Start at 09:00 Acetaminophen/ Hydrocodone Bitart (Lortab 5/325) 1 tab BID PO Last administered on 11/17/17 20:40; Start 11/15/17 at 21:30 Acetaminophen/ Hydrocodone Bitart (Lortab 5/325) 1 tab PRN Q6HRS PRN PO PAIN; Start 11/15/17 at 21:30 Insulin Human Lispro (HumaLOG) If blood sugar is 75-150=0un... TIDWMEALHC PRN SQ Diabetes; Start 11/15/17 at 20:45 Loperamide HCl (Imodium) 2 mg PRN Q8HRS PRN PO DIARRHEA; Start 11/15/17 at 21:30 Magnesium Hydroxide (Milk Of Magnesia) 2,400 mg PRN QHS PRN PO CONSTIPATION; Start 11/15/17 at 21:30 Magnesium Oxide (Magnesium Oxide) 400 mg BID PO Last administered on 11/17/17 20:38; Start 11/15/17 at 22:00 Mirtazapine (Remeron) 7.5 mg QHS PO Last administered on 11/15/17 22:17; Start 11/15/17 at 22:00; Stop 11/16/17 at 18:24; Status DC Ondansetron HCl (Zofran Odt) 4 mg PRN Q8HRS PRN PO NAUSEA/VOMITING; Start at 21:30 Pantoprazole Sodium (Protonix) 40 mg DAILYAC PO Last administered on 11/17/17 09:17; Start 11/16/17 at 07:30 Polyethylene Glycol (miraLAX) 17 gm DAILY PO Last administered on 11/17/17 09: 17; Start 11/16/17 at 09:00 Quetiapine Fumarate (SEROquel) 25 mg 0900,1500 PO Last administered on 14:23; Start 11/16/17 at 09:00 Quetiapine Fumarate (SEROquel) 75 mg QHS PO Last administered on 11/17/17 20:37 ; Start 11/15/17 at 21:30 Sennosides (Senna) 8.6 mg BID PO Last administered on 11/17/17 20:38; Start 11/15/17 at 21:30 Trazodone HCl (Desyrel) 50 mg PRN QHS PRN PO INSOMNIA, MAY REPEAT X1 Last administered on 11/15/17 22:17; Start 11/15/17 at 21:30 Venlafaxine HCl (Effexor Xr) 75 mg DAILY PO Last administered on 11/17/17 09:15 ; Start 11/16/17 at 09:00 Vitamin B Complex 1 cap DAILY PO Last administered on 11/17/17at 09:16; Start 11/16/17 at 09:00 Acetaminophen (Tylenol) 650 mg PRN Q6HRS PRN PO PAIN / TEMP; Start 11/15/17 at 22:15; Status UNV Multi-Ingredient Ointment (Analgesic [place]) 1 edi PRN QID PRN TP MUSCLE PAIN; Start 11/15/17 at 22:15; Status UNV Al Hydroxide/Mg Hydroxide (Mylanta Plus Xs) 15 ml PRN AFTMEALHC PRN PO DYSPEPSIA; Start 11/15/17 at 22:15; Status UNV Magnesium Hydroxide (Milk Of Magnesia) 2,400 mg PRN QHS PRN PO CONSTIPATION; Start 11/15/17 at 22:15; Status UNV Mirtazapine (Remeron) 15 mg QHS PO Last administered on 11/17/17at 20:38; Start 11/16/17 at 21:00 Active Scripts Active Reported Trazodone Hcl 50 Mg Tablet 50 Mg PO PRN QHS PRN Buspirone Hcl 10 Mg Tablet 20 Mg PO DAILYWSUP Venlafaxine Hcl Er (Venlafaxine Hcl) 75 Mg Cap.er.24h 75 Mg PO DAILY Seroquel (Quetiapine Fumarate) 25 Mg Tablet 25 Mg PO BID @ 0900,1500 Seroquel (Quetiapine Fumarate) 50 Mg Tablet 75 Mg PO QHS Thera M Plus Tablet (Multivits,Ca,Minerals/Iron/FA) 1 Each Tablet 1 Each PO DAILY Remeron (Mirtazapine) 15 Mg Tablet 7.5 Mg PO QHS Analgesic [place] (Methyl Salicylate/Menthol) 28 Gm Oint...g. 1 Edi TP PRN QID PRN Mag-Al Plus Xs Suspension (Mag Hydrox/Al Hydrox/Simeth) 30 Ml Oral.susp 15 Ml PO PRN AFTMEAL PRN Pulmicort (Budesonide) 0.5 Mg/2 Ml Ampul.neb 0.5 Mg NEB BID Benzonatate 100 Mg Capsule 100 Mg PO PRN TID PRN Albuterol Sulfate Neb Soln (Albuterol Sulfate) 2.5 Mg/3 Ml Vial.neb 2.5 Mg NEB PRN Q6HRS PRN Ondansetron Hcl 4 Mg Tablet 4 Mg PO PRN Q4HRS PRN dissolve on tongue Novolog Flexpen (Insulin Aspart) 100 Unit/1 Ml Insuln.pen 0-6 Unit SQ TIDWMEALHC PRN BS 75-150= 0 units BS 151-200= 2 units BS 201-250= 3 units BS 251-300= 4 units BS 301-350= 5 units BS 351-400= 6 units BS<70 or >400 call Physician Miralax (Polyethylene Glycol 3350) 17 Gm Powd.pack 17 Gm PO PRN DAILY PRN Mucinex (Guaifenesin) 600 Mg Tablet.er 600 Mg PO TID Buspirone Hcl 10 Mg Tablet 10 Mg PO BID@ 0900,1300 Senna Lax (Sennosides) 8.6 Mg Tablet 8.6 Mg PO BID Docusate Sodium 100 Mg Capsule 100 Mg PO BID Vitamin B Complex 1 Each Tablet 100 Mg PO DAILY D3-50 (Cholecalciferol (Vitamin D3)) 50,000 Unit Capsule 50,000 Unit PO WEEKLY every thursday C-1000 (Ascorbic Acid) 1,000 Mg Tablet 1,000 Mg PO DAILY Klor-Con M20 (Potassium Chloride) 20 Meq Tab.er.prt 20 Meq PO DAILY Pantoprazole Sodium 40 Mg Tablet.dr 40 Mg PO DAILYAC Tamsulosin Hcl 0.4 Mg Cap.er.24h 0.4 Mg PO QEVNG Hydrocodone-Apap 5-325 (Hydrocodone Bit/Acetaminophen) 1 Each Tablet 1 Tab PO PRN Q6HRS PRN Hydrocodone-Apap 5-325 (Hydrocodone Bit/Acetaminophen) 1 Each Tablet 1 Tab PO BID Milk Of Magnesia (Magnesium Hydroxide) 2,400 Mg/10 Ml Oral.susp 2,400 Mg PO PRN QHS PRN Lasix (Furosemide) 40 Mg Tablet 40 Mg PO DAILY Flonase Allergy Relief (Fluticasone Propionate) 9.9 Ml [place].susp 2 Sprays NS DAILY use in each nostril Miralax (Polyethylene Glycol 3350) 17 Gm Powd.pack 17 Gm PO DAILY Loperamide (Loperamide Hcl) 2 Mg Capsule 2 Mg PO PRN Q8HRS PRN Not to exceed 8 capsules in 24hrs Acetaminophen 500 Mg Tablet 500 Mg PO PRN Q4HRS PRN Magnesium Oxide 400 Mg Tablet 400 Mg PO BID Duoneb 0.5-3(2.5) Mg/3 Ml (Albuterol/Ipratropium) 3 Ml Ampul.neb 3 Ml NEB QID Cardizem Cd (Diltiazem Hcl) 240 Mg Cap.er.24h 120 Mg PO BID HOLD FOR SBP <110 Cyanocobalamin Injection (Cyanocobalamin (Vitamin B-12)) 1,000 Mcg/1 Ml Vial 1, 000 Mcg IM QMONTH next due 09/24/17 NEXT DOSE DUE 09/19/17 I have reviewed the current psychotropics carefully including drug interactions. Risk benefit ratio favors no change other than as noted in my dictated progress note. 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
--- NOTE | 2017-11-18 00:50 | PN ---
DATE: 11/16/2017 PSYCHIATRIC PROGRESS NOTE This is a late entry for 11/16/2017, covers elements not covered in my initial note. SUBJECTIVE: I met with the patient in the evening. The patient slept 4-1/2 hours previous evening, extremely labile, agitated, resistive to medications from time to time. More agitated in the evening, threatening staff members. REVIEW OF SYSTEMS: No CV, , pulmonary, eye, ENT system symptoms on review. Reliability poor. MENTAL STATUS EXAM: Oriented to herself. Insight, judgment, recent and remote memory, attention, concentration, fund of knowledge poor, consistent with her diagnosis mentioned in my initial note. PLAN: Increase Remeron from 7.5 to 15 mg a day. Continue rest unchanged per initial note. MAN Wilson BULLARD MD DR: ERINN/alex JOB#: [id number] / [id number]
[2017-11-18] MEDS: IPRATRPIUM/ALBUTEROL 0.5/2.5MG 3 ML NEBU. NEB SCH ×4 (05:45→22:24)
[2017-11-18 06:03] VITALS: BP 96/59
[2017-11-18] MEDS: MULTIVITAMIN with MINERAL TABLET. PO SCH (07:45)
[2017-11-18] MEDS: POLYETHYLENE GLYCOL 3350 17 GM PACKET. PO SCH (07:45)
[2017-11-18] MEDS: ASCORBIC ACID 500 MG TABLET PO SCH (07:46)
[2017-11-18] MEDS: FUROSEMIDE 40 MG TABLET PO SCH (07:46)
[2017-11-18] MEDS: SENNOSIDES 8.6 MG TABLET PO SCH ×2 (07:46→20:03)
[2017-11-18] MEDS: VITAMIN B COMPLEX CAPSULE. PO SCH (07:46)
[2017-11-18] MEDS: PANTOPRAZOLE 40 MG TABLET. PO SCH (07:47)
[2017-11-18] MEDS: VENLAFAXINE XR 37.5 MG CAP.ER.24H. PO SCH (07:47)
[2017-11-18] MEDS: busPIRone 10 MG TABLET. PO SCH ×3 (07:47→17:15)
[2017-11-18] MEDS: QUEtiapine 25 MG TABLET. PO SCH ×3 (07:47→20:02)
[2017-11-18] MEDS: DOCUSATE SODIUM 100 MG CAPSULE PO SCH ×2 (07:47→20:03)
[2017-11-18] MEDS: MAGNESIUM OXIDE 400 MG TABLET PO SCH ×2 (07:47→20:03)
[2017-11-18] MEDS: POTASSIUM CHLORIDE 20 MEQ TABLET.ER. PO SCH (07:48)
[2017-11-18] MEDS: FLUTICASONE 50MCG/NASAL SPRAY 16GM BOTTLE. NS SCH (07:49)
[2017-11-18] MEDS: HYDROcodone/APAP 5/325MG 1 TAB TABLET PO SCH ×2 (07:49→20:03)
[2017-11-18] MEDS: BUDESONIDE 0.5 MG/2 ML NEBU NEB SCH ×2 (08:00→22:24)
[2017-11-18] MEDS: INSULIN LISPRO 300 UNITS/3 ML INSULN.PEN. SQ PRN (12:22)
[2017-11-18 16:29] VITALS: BP 123/65
[2017-11-18] MEDS: TAMSULOSIN 0.4 MG CAP.ER.24H. PO SCH (17:15)
[2017-11-18] MEDS: MIRTAZAPINE 15 MG TABLET PO SCH (20:03)
--- NOTE | 2017-11-18 21:14 | PDOC ---
Exam Note: Harris Note: Please also refer to the separate dictated note~for this date of service dictated separately.~Patient seen individually. Discussed the patient with Nursing staff reviewed the chart.~Reviewed interim history and current functioning. Reviewed vital signs,~Labs/ Radiology~and current medications noted below. Continue current treatment with the changes noted in the dictated addendum note Assessment: Vital Signs: Vital Signs Date Time Temp Pulse Resp B/P (MAP) Pulse Ox O2 Delivery O2 Flow Rate FiO2 11/18/17 20:03 18 93 Room Air 11/18/17 20:03 67 123/65 11/18/17 16:29 97.5 I&O Intake and Output 11/18/17 06:59 Intake Total 840 ml Balance 840 ml Intake Oral 840 ml # Bowel Movements 1 Labs: Laboratory Tests Test 11/18/17 07:50 11/18/17 11:54 11/18/17 19:11 Glucose (Fingerstick) 151 mg/dL (70-99) H 172 mg/dL (70-99) H 150 mg/dL (70-99) H Current Medications: Meds: Current Medications Albuterol Sulfate (Ventolin) 2.5 mg PRN Q6HRS PRN NEB SHORTNESS OF BREATH; Start 11/15/17 at 20:45 Vitamin D (Vitamin D3) 50,000 unit WEEKLY PO ; Start 11/22/17 at 09:00 Cyanocobalamin (Vitamin B-12) 1,000 mcg QMONTH IM ; Start 12/15/17 at 09:00 Diltiazem HCl (Cardizem 24hr Cd) 120 mg BID PO Last administered on 11/18/17at 20 :03; Start 11/16/17 at 09:00 Guaifenesin (Mucinex Er) 600 mg BID PO Last administered on 11/18/17at 20:03; Start 11/15/17 at 21:00 Albuterol/ Ipratropium (Duoneb) 3 ml RTQID NEB Last administered on 11/18/17at 05 :45; Start 11/15/17 at 21:00 Al Hydroxide/Mg Hydroxide (Mylanta Plus Xs) 15 ml PRN AFTMEAL PRN PO DYSPEPSIA ; Start 11/15/17 at 20:45 Multi-Ingredient Ointment (Analgesic [place]) 1 edi PRN QID PRN TP MUSCLE PAIN; Start 11/15/17 at 20:45 Multivitamins/ Calcium (Thera-M Plus) 1 tab DAILY PO Last administered on 07:45; Start 11/16/17 at 09:00 Potassium Chloride (Klor-Con) 20 meq DAILY PO Last administered on 11/18/17 07: 48; Start 11/16/17 at 09:00 Tamsulosin HCl (Flomax) 0.4 mg QEVNG PO Last administered on 11/18/17 17:15; Start 11/16/17 at 18:00 Acetaminophen (Tylenol) 500 mg PRN Q4HRS PRN PO PAIN / TEMP; Start 11/15/17 at 21:15 Ascorbic Acid (Vitamin C) 1,000 mg DAILY PO Last administered on 11/18/17 07:46 ; Start 11/16/17 at 09:00 Benzonatate (Tessalon Perle) 100 mg PRN TID PRN PO COUGH; Start 11/16/17 at 09: 00 Budesonide (Pulmicort) 0.5 mg RTBID NEB Last administered on 11/17/17 21:34; Start 11/16/17 at 08:00 Buspirone HCl (Buspar) 10 mg 0900,1300 PO Last administered on 11/18/17 11:53; Start 11/16/17 at 09:00 Buspirone HCl (Buspar) 20 mg DAILYWSUP PO Last administered on 11/18/17 17:15; Start 11/16/17 at 17:00 Docusate Sodium (Colace) 100 mg BID PO Last administered on 11/18/17 20:03; Start 11/15/17 at 21:30 Fluticasone Propionate (Flonase) 2 spray DAILY NS Last administered on 07:49; Start 11/16/17 at 09:00 Furosemide (Lasix) 40 mg DAILY PO Last administered on 11/18/17 07:46; Start at 09:00 Acetaminophen/ Hydrocodone Bitart (Lortab 5/325) 1 tab BID PO Last administered on 11/18/17 20:03; Start 11/15/17 at 21:30 Acetaminophen/ Hydrocodone Bitart (Lortab 5/325) 1 tab PRN Q6HRS PRN PO PAIN; Start 11/15/17 at 21:30 Insulin Human Lispro (HumaLOG) If blood sugar is 75-150=0un... TIDWMEALHC PRN SQ Diabetes Last administered on 11/18/17 12:22; Start 11/15/17 at 20:45 Loperamide HCl (Imodium) 2 mg PRN Q8HRS PRN PO DIARRHEA; Start 11/15/17 at 21:30 Magnesium Hydroxide (Milk Of Magnesia) 2,400 mg PRN QHS PRN PO CONSTIPATION; Start 11/15/17 at 21:30 Magnesium Oxide (Magnesium Oxide) 400 mg BID PO Last administered on 11/18/17 20:03; Start 11/15/17 at 22:00 Mirtazapine (Remeron) 7.5 mg QHS PO Last administered on 11/15/17 22:17; Start 11/15/17 at 22:00; Stop 11/16/17 at 18:24; Status DC Ondansetron HCl (Zofran Odt) 4 mg PRN Q8HRS PRN PO NAUSEA/VOMITING; Start at 21:30 Pantoprazole Sodium (Protonix) 40 mg DAILYAC PO Last administered on 11/18/17 07:47; Start 11/16/17 at 07:30 Polyethylene Glycol (miraLAX) 17 gm DAILY PO Last administered on 11/18/17 07: 45; Start 11/16/17 at 09:00 Quetiapine Fumarate (SEROquel) 25 mg 0900,1500 PO Last administered on 15:56; Start 11/16/17 at 09:00 Quetiapine Fumarate (SEROquel) 75 mg QHS PO Last administered on 11/18/17 20:02 ; Start 11/15/17 at 21:30 Sennosides (Senna) 8.6 mg BID PO Last administered on 11/18/17 20:03; Start 11/15/17 at 21:30 Trazodone HCl (Desyrel) 50 mg PRN QHS PRN PO INSOMNIA, MAY REPEAT X1 Last administered on 11/15/17 22:17; Start 11/15/17 at 21:30 Venlafaxine HCl (Effexor Xr) 75 mg DAILY PO Last administered on 11/18/17at 07:47 ; Start 11/16/17 at 09:00 Vitamin B Complex 1 cap DAILY PO Last administered on 11/18/17at 07:46; Start 11/16/17 at 09:00 Acetaminophen (Tylenol) 650 mg PRN Q6HRS PRN PO PAIN / TEMP; Start 11/15/17 at 22:15; Status UNV Multi-Ingredient Ointment (Analgesic [place]) 1 edi PRN QID PRN TP MUSCLE PAIN; Start 11/15/17 at 22:15; Status UNV Al Hydroxide/Mg Hydroxide (Mylanta Plus Xs) 15 ml PRN AFTMEALHC PRN PO DYSPEPSIA; Start 11/15/17 at 22:15; Status UNV Magnesium Hydroxide (Milk Of Magnesia) 2,400 mg PRN QHS PRN PO CONSTIPATION; Start 11/15/17 at 22:15; Status UNV Mirtazapine (Remeron) 15 mg QHS PO Last administered on 11/18/17at 20:03; Start 11/16/17 at 21:00 Active Scripts Active Reported Trazodone Hcl 50 Mg Tablet 50 Mg PO PRN QHS PRN Buspirone Hcl 10 Mg Tablet 20 Mg PO DAILYWSUP Venlafaxine Hcl Er (Venlafaxine Hcl) 75 Mg Cap.er.24h 75 Mg PO DAILY Seroquel (Quetiapine Fumarate) 25 Mg Tablet 25 Mg PO BID @ 0900,1500 Seroquel (Quetiapine Fumarate) 50 Mg Tablet 75 Mg PO QHS Thera M Plus Tablet (Multivits,Ca,Minerals/Iron/FA) 1 Each Tablet 1 Each PO DAILY Remeron (Mirtazapine) 15 Mg Tablet 7.5 Mg PO QHS Analgesic [place] (Methyl Salicylate/Menthol) 28 Gm Oint...g. 1 Edi TP PRN QID PRN Mag-Al Plus Xs Suspension (Mag Hydrox/Al Hydrox/Simeth) 30 Ml Oral.susp 15 Ml PO PRN AFTMEAL PRN Pulmicort (Budesonide) 0.5 Mg/2 Ml Ampul.neb 0.5 Mg NEB BID Benzonatate 100 Mg Capsule 100 Mg PO PRN TID PRN Albuterol Sulfate Neb Soln (Albuterol Sulfate) 2.5 Mg/3 Ml Vial.neb 2.5 Mg NEB PRN Q6HRS PRN Ondansetron Hcl 4 Mg Tablet 4 Mg PO PRN Q4HRS PRN dissolve on tongue Novolog Flexpen (Insulin Aspart) 100 Unit/1 Ml Insuln.pen 0-6 Unit SQ TIDWMEALHC PRN BS 75-150= 0 units BS 151-200= 2 units BS 201-250= 3 units BS 251-300= 4 units BS 301-350= 5 units BS 351-400= 6 units BS<70 or >400 call Physician Miralax (Polyethylene Glycol 3350) 17 Gm Powd.pack 17 Gm PO PRN DAILY PRN Mucinex (Guaifenesin) 600 Mg Tablet.er 600 Mg PO TID Buspirone Hcl 10 Mg Tablet 10 Mg PO BID@ 0900,1300 Senna Lax (Sennosides) 8.6 Mg Tablet 8.6 Mg PO BID Docusate Sodium 100 Mg Capsule 100 Mg PO BID Vitamin B Complex 1 Each Tablet 100 Mg PO DAILY D3-50 (Cholecalciferol (Vitamin D3)) 50,000 Unit Capsule 50,000 Unit PO WEEKLY every thursday C-1000 (Ascorbic Acid) 1,000 Mg Tablet 1,000 Mg PO DAILY Klor-Con M20 (Potassium Chloride) 20 Meq Tab.er.prt 20 Meq PO DAILY Pantoprazole Sodium 40 Mg Tablet.dr 40 Mg PO DAILYAC Tamsulosin Hcl 0.4 Mg Cap.er.24h 0.4 Mg PO QEVNG Hydrocodone-Apap 5-325 (Hydrocodone Bit/Acetaminophen) 1 Each Tablet 1 Tab PO PRN Q6HRS PRN Hydrocodone-Apap 5-325 (Hydrocodone Bit/Acetaminophen) 1 Each Tablet 1 Tab PO BID Milk Of Magnesia (Magnesium Hydroxide) 2,400 Mg/10 Ml Oral.susp 2,400 Mg PO PRN QHS PRN Lasix (Furosemide) 40 Mg Tablet 40 Mg PO DAILY Flonase Allergy Relief (Fluticasone Propionate) 9.9 Ml [place].susp 2 Sprays NS DAILY use in each nostril Miralax (Polyethylene Glycol 3350) 17 Gm Powd.pack 17 Gm PO DAILY Loperamide (Loperamide Hcl) 2 Mg Capsule 2 Mg PO PRN Q8HRS PRN Not to exceed 8 capsules in 24hrs Acetaminophen 500 Mg Tablet 500 Mg PO PRN Q4HRS PRN Magnesium Oxide 400 Mg Tablet 400 Mg PO BID Duoneb 0.5-3(2.5) Mg/3 Ml (Albuterol/Ipratropium) 3 Ml Ampul.neb 3 Ml NEB QID Cardizem Cd (Diltiazem Hcl) 240 Mg Cap.er.24h 120 Mg PO BID HOLD FOR SBP <110 Cyanocobalamin Injection (Cyanocobalamin (Vitamin B-12)) 1,000 Mcg/1 Ml Vial 1, 000 Mcg IM QMONTH next due 09/24/17 NEXT DOSE DUE 09/19/17 I have reviewed the current psychotropics carefully including drug interactions. Risk benefit ratio favors no change other than as noted in my dictated progress note. 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
--- NOTE | 2017-11-18 22:49 | PN ---
DATE: 11/17/2017 PSYCHIATRIC PROGRESS NOTE This is a late entry, 11/17, covers elements not covered in my initial note. SUBJECTIVE: I met with the patient in the evening. The patient slept 7-3/4 hours previous evening. Previous night, she was resistive to cares, agitated in the morning, but better by the evening of 11/17. Earlier, she was making rather threatening statements "kill the bitch." She is nonspecific, but irritability is better in the evening. She slept 7-3/4 hours. REVIEW OF SYSTEMS: No CV, , pulmonary, eye, ENT system symptoms on review. MENTAL STATUS EXAM: Oriented to herself, situation at times. Speech coherent, rapid at times. Abstraction fair, computation impaired, language function intact. Mood and affect, lability is improved. LABORATORY DATA: Reviewed. IMPRESSION: Unchanged from initial note. PLAN: No change from initial note. RACHEL BULLARD MD DR: ERINN/alex JOB#: [id number] / [id number]
[2017-11-19] MEDS: IPRATRPIUM/ALBUTEROL 0.5/2.5MG 3 ML NEBU. NEB SCH ×3 (05:52→16:45)
[2017-11-19] MEDS: BUDESONIDE 0.5 MG/2 ML NEBU NEB SCH ×2 (05:52→21:26)
[2017-11-19 06:28] VITALS: BP 95/56
[2017-11-19 08:04] VITALS: BP 125/64
[2017-11-19] MEDS: VITAMIN B COMPLEX CAPSULE. PO SCH (08:15)
[2017-11-19] MEDS: PANTOPRAZOLE 40 MG TABLET. PO SCH (08:16)
[2017-11-19] MEDS: SENNOSIDES 8.6 MG TABLET PO SCH ×2 (08:16→20:03)
[2017-11-19] MEDS: MAGNESIUM OXIDE 400 MG TABLET PO SCH ×2 (08:17→20:03)
[2017-11-19] MEDS: ASCORBIC ACID 500 MG TABLET PO SCH (08:18)
[2017-11-19] MEDS: QUEtiapine 25 MG TABLET. PO SCH ×3 (08:18→20:03)
[2017-11-19] MEDS: FUROSEMIDE 40 MG TABLET PO SCH (08:18)
[2017-11-19] MEDS: MULTIVITAMIN with MINERAL TABLET. PO SCH (08:18)
[2017-11-19] MEDS: VENLAFAXINE XR 37.5 MG CAP.ER.24H. PO SCH (08:19)
[2017-11-19] MEDS: DOCUSATE SODIUM 100 MG CAPSULE PO SCH ×2 (08:19→20:03)
[2017-11-19] MEDS: FLUTICASONE 50MCG/NASAL SPRAY 16GM BOTTLE. NS SCH (08:19)
[2017-11-19] MEDS: POTASSIUM CHLORIDE 20 MEQ TABLET.ER. PO SCH (08:19)
[2017-11-19] MEDS: busPIRone 10 MG TABLET. PO SCH ×3 (08:19→17:04)
[2017-11-19] MEDS: POLYETHYLENE GLYCOL 3350 17 GM PACKET. PO SCH (08:20)
[2017-11-19] MEDS: HYDROcodone/APAP 5/325MG 1 TAB TABLET PO SCH ×2 (08:24→20:04)
[2017-11-19 15:50] VITALS: BP 143/65
[2017-11-19 16:08] LABS: BILIRUBIN,URINE NEG (NEG); CLARITY,URINE CLOUDY; COLOR,URINE YELLOW; GLUCOSE,URINE NEG (NEG)
[2017-11-19 16:09] LABS: BACTERIA,URINE FEW /HPF (0-FEW); HYALINE CASTS, URINE OCC /HPF; NITRITE,URINE NEG (NEG); SQUAMOUS EPITHELIAL CELL,UR MANY /LPF; UROBILINOGEN,URINE 0.2 mg/dL (0.2 mg/dL)
[2017-11-19] MEDS: TAMSULOSIN 0.4 MG CAP.ER.24H. PO SCH (17:04)
[2017-11-19] MEDS: MIRTAZAPINE 15 MG TABLET PO SCH (20:03)
[2017-11-19] MEDS: INSULIN LISPRO 300 UNITS/3 ML INSULN.PEN. SQ PRN (20:18)
--- NOTE | 2017-11-19 20:33 | PDOC ---
Exam Note: Harris Note: Please also refer to the separate dictated note~for this date of service dictated separately.~Patient seen individually. Discussed the patient with Nursing staff reviewed the chart.~Reviewed interim history and current functioning. Reviewed vital signs,~Labs/ Radiology~and current medications noted below. Continue current treatment with the changes noted in the dictated addendum note Assessment: Vital Signs: Vital Signs Date Time Temp Pulse Resp B/P (MAP) Pulse Ox O2 Delivery O2 Flow Rate FiO2 11/19/17 20:04 20 Room Air 11/19/17 20:02 75 143/65 11/19/17 16:45 95 11/19/17 15:50 98.1 I&O Intake and Output 11/19/17 07:00 Intake Total 1200 ml Balance 1200 ml Intake Oral 1200 ml # Voids 1 Labs: Laboratory Tests Test 11/19/17 07:10 11/19/17 11:53 11/19/17 15:18 11/19/17 16:53 Glucose (Fingerstick) 141 mg/dL (70-99) H 163 mg/dL (70-99) H 125 mg/dL (70-99) H Urine Collection Type Unknown Urine Color Yellow Urine Clarity Cloudy Urine pH 7.0 Urine Specific [place] 1.015 Urine Protein Neg (NEG-TRACE) Urine Glucose (UA) Neg mg/dL (NEG) Urine Ketones (Stick) Neg mg/dL (NEG) Urine Blood Neg (NEG) Urine Nitrite Neg (NEG) Urine Bilirubin Neg (NEG) Urine Urobilinogen Dipstick 0.2 mg/dL (0.2 mg/dL) Urine Leukocyte Esterase Large (NEG) Urine RBC 11-20 /HPF (0-2) Urine WBC 11-20 /HPF (0-4) Urine Squamous Epithelial Cells Many /LPF Urine Bacteria Few /HPF (0-FEW) Urine Hyaline Casts Occ /HPF Urine Mucus Slight /LPF Test 11/19/17 19:53 Glucose (Fingerstick) 168 mg/dL (70-99) H Current Medications: Meds: Current Medications Albuterol Sulfate (Ventolin) 2.5 mg PRN Q6HRS PRN NEB SHORTNESS OF BREATH; Start 11/15/17 at 20:45 Vitamin D (Vitamin D3) 50,000 unit WEEKLY PO ; Start 11/22/17 at 09:00 Cyanocobalamin (Vitamin B-12) 1,000 mcg QMONTH IM ; Start 12/15/17 at 09:00 Diltiazem HCl (Cardizem 24hr Cd) 120 mg BID PO Last administered on 11/19/17 20 :02; Start 11/16/17 at 09:00 Guaifenesin (Mucinex Er) 600 mg BID PO Last administered on 11/19/17 20:03; Start 11/15/17 at 21:00 Albuterol/ Ipratropium (Duoneb) 3 ml RTQID NEB Last administered on 11/19/17 16 :45; Start 11/15/17 at 21:00 Al Hydroxide/Mg Hydroxide (Mylanta Plus Xs) 15 ml PRN AFTMEAL PRN PO DYSPEPSIA ; Start 11/15/17 at 20:45 Multi-Ingredient Ointment (Analgesic [place]) 1 edi PRN QID PRN TP MUSCLE PAIN; Start 11/15/17 at 20:45 Multivitamins/ Calcium (Thera-M Plus) 1 tab DAILY PO Last administered on at 08:18; Start 11/16/17 at 09:00 Potassium Chloride (Klor-Con) 20 meq DAILY PO Last administered on 11/19/17 08: 19; Start 11/16/17 at 09:00 Tamsulosin HCl (Flomax) 0.4 mg QEVNG PO Last administered on 11/19/17at 17:04; Start 11/16/17 at 18:00 Acetaminophen (Tylenol) 500 mg PRN Q4HRS PRN PO PAIN / TEMP; Start 11/15/17 at 21:15 Ascorbic Acid (Vitamin C) 1,000 mg DAILY PO Last administered on 11/19/17at 08:18 ; Start 11/16/17 at 09:00 Benzonatate (Tessalon Perle) 100 mg PRN TID PRN PO COUGH; Start 11/16/17 at 09: 00 Budesonide (Pulmicort) 0.5 mg RTBID NEB Last administered on 11/19/17at 05:52; Start 11/16/17 at 08:00 Buspirone HCl (Buspar) 10 mg 0900,1300 PO Last administered on 11/19/17at 13:55; Start 11/16/17 at 09:00 Buspirone HCl (Buspar) 20 mg DAILYWSUP PO Last administered on 11/19/17 17:04; Start 11/16/17 at 17:00 Docusate Sodium (Colace) 100 mg BID PO Last administered on 11/19/17 20:03; Start 11/15/17 at 21:30 Fluticasone Propionate (Flonase) 2 spray DAILY NS Last administered on 08:19; Start 11/16/17 at 09:00 Furosemide (Lasix) 40 mg DAILY PO Last administered on 11/19/17 08:18; Start at 09:00 Acetaminophen/ Hydrocodone Bitart (Lortab 5/325) 1 tab BID PO Last administered on 11/19/17 20:04; Start 11/15/17 at 21:30 Acetaminophen/ Hydrocodone Bitart (Lortab 5/325) 1 tab PRN Q6HRS PRN PO PAIN; Start 11/15/17 at 21:30 Insulin Human Lispro (HumaLOG) If blood sugar is 75-150=0un... TIDWMEALHC PRN SQ Diabetes Last administered on 11/19/17 20:18; Start 11/15/17 at 20:45 Loperamide HCl (Imodium) 2 mg PRN Q8HRS PRN PO DIARRHEA; Start 11/15/17 at 21:30 Magnesium Hydroxide (Milk Of Magnesia) 2,400 mg PRN QHS PRN PO CONSTIPATION; Start 11/15/17 at 21:30 Magnesium Oxide (Magnesium Oxide) 400 mg BID PO Last administered on 11/19/17at 20:03; Start 11/15/17 at 22:00 Mirtazapine (Remeron) 7.5 mg QHS PO Last administered on 11/15/17at 22:17; Start 11/15/17 at 22:00; Stop 11/16/17 at 18:24; Status DC Ondansetron HCl (Zofran Odt) 4 mg PRN Q8HRS PRN PO NAUSEA/VOMITING; Start at 21:30 Pantoprazole Sodium (Protonix) 40 mg DAILYAC PO Last administered on 11/19/17 08:16; Start 11/16/17 at 07:30 Polyethylene Glycol (miraLAX) 17 gm DAILY PO Last administered on 11/19/17 08: 20; Start 11/16/17 at 09:00 Quetiapine Fumarate (SEROquel) 25 mg 0900,1500 PO Last administered on 13:55; Start 11/16/17 at 09:00 Quetiapine Fumarate (SEROquel) 75 mg QHS PO Last administered on 11/19/17 20:03 ; Start 11/15/17 at 21:30 Sennosides (Senna) 8.6 mg BID PO Last administered on 11/19/17 20:03; Start 11/15/17 at 21:30 Trazodone HCl (Desyrel) 50 mg PRN QHS PRN PO INSOMNIA, MAY REPEAT X1 Last administered on 11/15/17 22:17; Start 11/15/17 at 21:30 Venlafaxine HCl (Effexor Xr) 75 mg DAILY PO Last administered on 11/19/17 08:19 ; Start 11/16/17 at 09:00 Vitamin B Complex 1 cap DAILY PO Last administered on 11/19/17 08:15; Start 11/16/17 at 09:00 Acetaminophen (Tylenol) 650 mg PRN Q6HRS PRN PO PAIN / TEMP; Start 11/15/17 at 22:15; Status UNV Multi-Ingredient Ointment (Analgesic [place]) 1 edi PRN QID PRN TP MUSCLE PAIN; Start 11/15/17 at 22:15; Status UNV Al Hydroxide/Mg Hydroxide (Mylanta Plus Xs) 15 ml PRN AFTMEALHC PRN PO DYSPEPSIA; Start 11/15/17 at 22:15; Status UNV Magnesium Hydroxide (Milk Of Magnesia) 2,400 mg PRN QHS PRN PO CONSTIPATION; Start 11/15/17 at 22:15; Status UNV Mirtazapine (Remeron) 15 mg QHS PO Last administered on 11/19/17 20:03; Start 11/16/17 at 21:00 Active Scripts Active Reported Trazodone Hcl 50 Mg Tablet 50 Mg PO PRN QHS PRN Buspirone Hcl 10 Mg Tablet 20 Mg PO DAILYWSUP Venlafaxine Hcl Er (Venlafaxine Hcl) 75 Mg Cap.er.24h 75 Mg PO DAILY Seroquel (Quetiapine Fumarate) 25 Mg Tablet 25 Mg PO BID @ 0900,1500 Seroquel (Quetiapine Fumarate) 50 Mg Tablet 75 Mg PO QHS Thera M Plus Tablet (Multivits,Ca,Minerals/Iron/FA) 1 Each Tablet 1 Each PO DAILY Remeron (Mirtazapine) 15 Mg Tablet 7.5 Mg PO QHS Analgesic [place] (Methyl Salicylate/Menthol) 28 Gm Oint...g. 1 Edi TP PRN QID PRN Mag-Al Plus Xs Suspension (Mag Hydrox/Al Hydrox/Simeth) 30 Ml Oral.susp 15 Ml PO PRN AFTMEAL PRN Pulmicort (Budesonide) 0.5 Mg/2 Ml Ampul.neb 0.5 Mg NEB BID Benzonatate 100 Mg Capsule 100 Mg PO PRN TID PRN Albuterol Sulfate Neb Soln (Albuterol Sulfate) 2.5 Mg/3 Ml Vial.neb 2.5 Mg NEB PRN Q6HRS PRN Ondansetron Hcl 4 Mg Tablet 4 Mg PO PRN Q4HRS PRN dissolve on tongue Novolog Flexpen (Insulin Aspart) 100 Unit/1 Ml Insuln.pen 0-6 Unit SQ TIDWMEALHC PRN BS 75-150= 0 units BS 151-200= 2 units BS 201-250= 3 units BS 251-300= 4 units BS 301-350= 5 units BS 351-400= 6 units BS<70 or >400 call Physician Miralax (Polyethylene Glycol 3350) 17 Gm Powd.pack 17 Gm PO PRN DAILY PRN Mucinex (Guaifenesin) 600 Mg Tablet.er 600 Mg PO TID Buspirone Hcl 10 Mg Tablet 10 Mg PO BID@ 0900,1300 Senna Lax (Sennosides) 8.6 Mg Tablet 8.6 Mg PO BID Docusate Sodium 100 Mg Capsule 100 Mg PO BID Vitamin B Complex 1 Each Tablet 100 Mg PO DAILY D3-50 (Cholecalciferol (Vitamin D3)) 50,000 Unit Capsule 50,000 Unit PO WEEKLY every thursday C-1000 (Ascorbic Acid) 1,000 Mg Tablet 1,000 Mg PO DAILY Klor-Con M20 (Potassium Chloride) 20 Meq Tab.er.prt 20 Meq PO DAILY Pantoprazole Sodium 40 Mg Tablet.dr 40 Mg PO DAILYAC Tamsulosin Hcl 0.4 Mg Cap.er.24h 0.4 Mg PO QEVNG Hydrocodone-Apap 5-325 (Hydrocodone Bit/Acetaminophen) 1 Each Tablet 1 Tab PO PRN Q6HRS PRN Hydrocodone-Apap 5-325 (Hydrocodone Bit/Acetaminophen) 1 Each Tablet 1 Tab PO BID Milk Of Magnesia (Magnesium Hydroxide) 2,400 Mg/10 Ml Oral.susp 2,400 Mg PO PRN QHS PRN Lasix (Furosemide) 40 Mg Tablet 40 Mg PO DAILY Flonase Allergy Relief (Fluticasone Propionate) 9.9 Ml [place].susp 2 Sprays NS DAILY use in each nostril Miralax (Polyethylene Glycol 3350) 17 Gm Powd.pack 17 Gm PO DAILY Loperamide (Loperamide Hcl) 2 Mg Capsule 2 Mg PO PRN Q8HRS PRN Not to exceed 8 capsules in 24hrs Acetaminophen 500 Mg Tablet 500 Mg PO PRN Q4HRS PRN Magnesium Oxide 400 Mg Tablet 400 Mg PO BID Duoneb 0.5-3(2.5) Mg/3 Ml (Albuterol/Ipratropium) 3 Ml Ampul.neb 3 Ml NEB QID Cardizem Cd (Diltiazem Hcl) 240 Mg Cap.er.24h 120 Mg PO BID HOLD FOR SBP <110 Cyanocobalamin Injection (Cyanocobalamin (Vitamin B-12)) 1,000 Mcg/1 Ml Vial 1, 000 Mcg IM QMONTH next due 09/24/17 NEXT DOSE DUE 09/19/17 I have reviewed the current psychotropics carefully including drug interactions. Risk benefit ratio favors no change other than as noted in my dictated progress note. 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
[2017-11-20] MEDS: BUDESONIDE 0.5 MG/2 ML NEBU NEB SCH ×2 (05:49→20:00)
[2017-11-20] MEDS: IPRATRPIUM/ALBUTEROL 0.5/2.5MG 3 ML NEBU. NEB SCH ×5 (05:49→20:00)
[2017-11-20 06:41] VITALS: BP 110/40
[2017-11-20] MEDS: PANTOPRAZOLE 40 MG TABLET. PO SCH (07:48)
[2017-11-20] MEDS: FUROSEMIDE 40 MG TABLET PO SCH (07:48)
[2017-11-20] MEDS: POTASSIUM CHLORIDE 20 MEQ TABLET.ER. PO SCH (07:48)
[2017-11-20] MEDS: HYDROcodone/APAP 5/325MG 1 TAB TABLET PO SCH ×2 (07:48→19:30)
[2017-11-20] MEDS: POLYETHYLENE GLYCOL 3350 17 GM PACKET. PO SCH (07:48)
[2017-11-20] MEDS: busPIRone 10 MG TABLET. PO SCH ×3 (07:48→18:26)
[2017-11-20] MEDS: VITAMIN B COMPLEX CAPSULE. PO SCH (07:48)
[2017-11-20] MEDS: SENNOSIDES 8.6 MG TABLET PO SCH ×2 (07:49→19:29)
[2017-11-20] MEDS: VENLAFAXINE XR 37.5 MG CAP.ER.24H. PO SCH (07:49)
[2017-11-20] MEDS: MAGNESIUM OXIDE 400 MG TABLET PO SCH ×2 (07:50→19:30)
[2017-11-20] MEDS: MULTIVITAMIN with MINERAL TABLET. PO SCH (07:50)
[2017-11-20] MEDS: QUEtiapine 25 MG TABLET. PO SCH ×3 (07:50→19:29)
[2017-11-20] MEDS: ASCORBIC ACID 500 MG TABLET PO SCH (07:50)
[2017-11-20] MEDS: FLUTICASONE 50MCG/NASAL SPRAY 16GM BOTTLE. NS SCH (07:51)
[2017-11-20] MEDS: DOCUSATE SODIUM 100 MG CAPSULE PO SCH ×2 (07:51→19:30)
[2017-11-20 16:28] VITALS: BP 112/69
[2017-11-20] MEDS: TAMSULOSIN 0.4 MG CAP.ER.24H. PO SCH (18:26)
[2017-11-20] MEDS: MIRTAZAPINE 15 MG TABLET PO SCH (19:30)
--- NOTE | 2017-11-20 20:58 | PDOC ---
Exam Note: Harris Note: Please also refer to the separate dictated note~for this date of service dictated separately.~Patient seen individually. Discussed the patient with Nursing staff reviewed the chart.~Reviewed interim history and current functioning. Reviewed vital signs,~Labs/ Radiology~and current medications noted below. Continue current treatment with the changes noted in the dictated addendum note Assessment: Vital Signs: Vital Signs Date Time Temp Pulse Resp B/P (MAP) Pulse Ox O2 Delivery O2 Flow Rate FiO2 11/20/17 19:30 93 11/20/17 19:28 92 112/69 11/20/17 16:28 97.4 20 11/20/17 15:50 Room Air I&O Intake and Output 11/20/17 07:00 Intake Total 600 ml Balance 600 ml Intake Oral 600 ml # Voids 1 Labs: Laboratory Tests Test 11/20/17 07:14 11/20/17 11:41 11/20/17 16:32 11/20/17 19:12 Glucose (Fingerstick) 140 mg/dL (70-99) H 111 mg/dL (70-99) H 133 mg/dL (70-99) H 324 mg/dL (70-99) H Current Medications: Meds: Current Medications Albuterol Sulfate (Ventolin) 2.5 mg PRN Q6HRS PRN NEB SHORTNESS OF BREATH; Start 11/15/17 at 20:45 Vitamin D (Vitamin D3) 50,000 unit WEEKLY PO ; Start 11/22/17 at 09:00 Cyanocobalamin (Vitamin B-12) 1,000 mcg QMONTH IM ; Start 12/15/17 at 09:00 Diltiazem HCl (Cardizem 24hr Cd) 120 mg BID PO Last administered on 11/20/17at 19:28; Start 11/16/17 at 09:00 Guaifenesin (Mucinex Er) 600 mg BID PO Last administered on 11/20/17at 19:30; Start 11/15/17 at 21:00 Albuterol/ Ipratropium (Duoneb) 3 ml RTQID NEB Last administered on 11/20/17at 15:47; Start 11/15/17 at 21:00 Al Hydroxide/Mg Hydroxide (Mylanta Plus Xs) 15 ml PRN AFTMEAL PRN PO DYSPEPSIA ; Start 11/15/17 at 20:45 Multi-Ingredient Ointment (Analgesic [place]) 1 edi PRN QID PRN TP MUSCLE PAIN; Start 11/15/17 at 20:45 Multivitamins/ Calcium (Thera-M Plus) 1 tab DAILY PO Last administered on 07:50; Start 11/16/17 at 09:00 Potassium Chloride (Klor-Con) 20 meq DAILY PO Last administered on 11/20/17 07 :48; Start 11/16/17 at 09:00 Tamsulosin HCl (Flomax) 0.4 mg QEVNG PO Last administered on 11/20/17 18:26; Start 11/16/17 at 18:00 Acetaminophen (Tylenol) 500 mg PRN Q4HRS PRN PO PAIN / TEMP; Start 11/15/17 at 21:15 Ascorbic Acid (Vitamin C) 1,000 mg DAILY PO Last administered on 11/20/17 07: 50; Start 11/16/17 at 09:00 Benzonatate (Tessalon Perle) 100 mg PRN TID PRN PO COUGH; Start 11/16/17 at 09: 00 Budesonide (Pulmicort) 0.5 mg RTBID NEB Last administered on 11/20/17 05:49; Start 11/16/17 at 08:00 Buspirone HCl (Buspar) 10 mg 0900,1300 PO Last administered on 11/20/17 13:27 ; Start 11/16/17 at 09:00 Buspirone HCl (Buspar) 20 mg DAILYWSUP PO Last administered on 11/20/17 18:26 ; Start 11/16/17 at 17:00 Docusate Sodium (Colace) 100 mg BID PO Last administered on 11/20/17 19:30; Start 11/15/17 at 21:30 Fluticasone Propionate (Flonase) 2 spray DAILY NS Last administered on 07:51; Start 11/16/17 at 09:00 Furosemide (Lasix) 40 mg DAILY PO Last administered on 11/20/17 07:48; Start 11/16/17 at 09:00 Acetaminophen/ Hydrocodone Bitart (Lortab 5/325) 1 tab BID PO Last administered on 11/20/17 19:30; Start 11/15/17 at 21:30 Acetaminophen/ Hydrocodone Bitart (Lortab 5/325) 1 tab PRN Q6HRS PRN PO PAIN; Start 11/15/17 at 21:30 Insulin Human Lispro (HumaLOG) If blood sugar is 75-150=0un... TIDWMEALHC PRN SQ Diabetes Last administered on 11/19/17 20:18; Start 11/15/17 at 20:45 Loperamide HCl (Imodium) 2 mg PRN Q8HRS PRN PO DIARRHEA; Start 11/15/17 at 21:30 Magnesium Hydroxide (Milk Of Magnesia) 2,400 mg PRN QHS PRN PO CONSTIPATION; Start 11/15/17 at 21:30 Magnesium Oxide (Magnesium Oxide) 400 mg BID PO Last administered on 11/20/17 19:30; Start 11/15/17 at 22:00 Mirtazapine (Remeron) 7.5 mg QHS PO Last administered on 11/15/17 22:17; Start 11/15/17 at 22:00; Stop 11/16/17 at 18:24; Status DC Ondansetron HCl (Zofran Odt) 4 mg PRN Q8HRS PRN PO NAUSEA/VOMITING; Start at 21:30 Pantoprazole Sodium (Protonix) 40 mg DAILYAC PO Last administered on 11/20/17 07:48; Start 11/16/17 at 07:30 Polyethylene Glycol (miraLAX) 17 gm DAILY PO Last administered on 11/20/17 07: 48; Start 11/16/17 at 09:00 Quetiapine Fumarate (SEROquel) 25 mg 0900,1500 PO Last administered on 18:25; Start 11/16/17 at 09:00 Quetiapine Fumarate (SEROquel) 75 mg QHS PO Last administered on 11/20/17 19: 29; Start 11/15/17 at 21:30 Sennosides (Senna) 8.6 mg BID PO Last administered on 11/20/17 19:29; Start at 21:30 Trazodone HCl (Desyrel) 50 mg PRN QHS PRN PO INSOMNIA, MAY REPEAT X1 Last administered on 8/5/18at 22:17; Start 11/15/17 at 21:30 Venlafaxine HCl (Effexor Xr) 75 mg DAILY PO Last administered on 11/20/17at 07: 49; Start 11/16/17 at 09:00 Vitamin B Complex 1 cap DAILY PO Last administered on 11/20/17at 07:48; Start at 09:00 Acetaminophen (Tylenol) 650 mg PRN Q6HRS PRN PO PAIN / TEMP; Start 11/15/17 at 22:15; Status UNV Multi-Ingredient Ointment (Analgesic [place]) 1 edi PRN QID PRN TP MUSCLE PAIN; Start 11/15/17 at 22:15; Status UNV Al Hydroxide/Mg Hydroxide (Mylanta Plus Xs) 15 ml PRN AFTMEALHC PRN PO DYSPEPSIA; Start 11/15/17 at 22:15; Status UNV Magnesium Hydroxide (Milk Of Magnesia) 2,400 mg PRN QHS PRN PO CONSTIPATION; Start 11/15/17 at 22:15; Status UNV Mirtazapine (Remeron) 15 mg QHS PO Last administered on 11/20/17at 19:30; Start 11/16/17 at 21:00 Active Scripts Active Reported Trazodone Hcl 50 Mg Tablet 50 Mg PO PRN QHS PRN Buspirone Hcl 10 Mg Tablet 20 Mg PO DAILYWSUP Venlafaxine Hcl Er (Venlafaxine Hcl) 75 Mg Cap.er.24h 75 Mg PO DAILY Seroquel (Quetiapine Fumarate) 25 Mg Tablet 25 Mg PO BID @ 0900,1500 Seroquel (Quetiapine Fumarate) 50 Mg Tablet 75 Mg PO QHS Thera M Plus Tablet (Multivits,Ca,Minerals/Iron/FA) 1 Each Tablet 1 Each PO DAILY Remeron (Mirtazapine) 15 Mg Tablet 7.5 Mg PO QHS Analgesic [place] (Methyl Salicylate/Menthol) 28 Gm Oint...g. 1 Edi TP PRN QID PRN Mag-Al Plus Xs Suspension (Mag Hydrox/Al Hydrox/Simeth) 30 Ml Oral.susp 15 Ml PO PRN AFTMEAL PRN Pulmicort (Budesonide) 0.5 Mg/2 Ml Ampul.neb 0.5 Mg NEB BID Benzonatate 100 Mg Capsule 100 Mg PO PRN TID PRN Albuterol Sulfate Neb Soln (Albuterol Sulfate) 2.5 Mg/3 Ml Vial.neb 2.5 Mg NEB PRN Q6HRS PRN Ondansetron Hcl 4 Mg Tablet 4 Mg PO PRN Q4HRS PRN dissolve on tongue Novolog Flexpen (Insulin Aspart) 100 Unit/1 Ml Insuln.pen 0-6 Unit SQ TIDWMEALHC PRN BS 75-150= 0 units BS 151-200= 2 units BS 201-250= 3 units BS 251-300= 4 units BS 301-350= 5 units BS 351-400= 6 units BS<70 or >400 call Physician Miralax (Polyethylene Glycol 3350) 17 Gm Powd.pack 17 Gm PO PRN DAILY PRN Mucinex (Guaifenesin) 600 Mg Tablet.er 600 Mg PO TID Buspirone Hcl 10 Mg Tablet 10 Mg PO BID@ 0900,1300 Senna Lax (Sennosides) 8.6 Mg Tablet 8.6 Mg PO BID Docusate Sodium 100 Mg Capsule 100 Mg PO BID Vitamin B Complex 1 Each Tablet 100 Mg PO DAILY D3-50 (Cholecalciferol (Vitamin D3)) 50,000 Unit Capsule 50,000 Unit PO WEEKLY every thursday C-1000 (Ascorbic Acid) 1,000 Mg Tablet 1,000 Mg PO DAILY Klor-Con M20 (Potassium Chloride) 20 Meq Tab.er.prt 20 Meq PO DAILY Pantoprazole Sodium 40 Mg Tablet.dr 40 Mg PO DAILYAC Tamsulosin Hcl 0.4 Mg Cap.er.24h 0.4 Mg PO QEVNG Hydrocodone-Apap 5-325 (Hydrocodone Bit/Acetaminophen) 1 Each Tablet 1 Tab PO PRN Q6HRS PRN Hydrocodone-Apap 5-325 (Hydrocodone Bit/Acetaminophen) 1 Each Tablet 1 Tab PO BID Milk Of Magnesia (Magnesium Hydroxide) 2,400 Mg/10 Ml Oral.susp 2,400 Mg PO PRN QHS PRN Lasix (Furosemide) 40 Mg Tablet 40 Mg PO DAILY Flonase Allergy Relief (Fluticasone Propionate) 9.9 Ml [place].susp 2 Sprays NS DAILY use in each nostril Miralax (Polyethylene Glycol 3350) 17 Gm Powd.pack 17 Gm PO DAILY Loperamide (Loperamide Hcl) 2 Mg Capsule 2 Mg PO PRN Q8HRS PRN Not to exceed 8 capsules in 24hrs Acetaminophen 500 Mg Tablet 500 Mg PO PRN Q4HRS PRN Magnesium Oxide 400 Mg Tablet 400 Mg PO BID Duoneb 0.5-3(2.5) Mg/3 Ml (Albuterol/Ipratropium) 3 Ml Ampul.neb 3 Ml NEB QID Cardizem Cd (Diltiazem Hcl) 240 Mg Cap.er.24h 120 Mg PO BID HOLD FOR SBP <110 Cyanocobalamin Injection (Cyanocobalamin (Vitamin B-12)) 1,000 Mcg/1 Ml Vial 1, 000 Mcg IM QMONTH next due 09/24/17 NEXT DOSE DUE 09/19/17 I have reviewed the current psychotropics carefully including drug interactions. Risk benefit ratio favors no change other than as noted in my dictated progress note. 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
--- NOTE | 2017-11-20 21:28 | PN ---
DATE: 11/19/2017 PSYCHIATRIC PROGRESS NOTE This late entry 11/19/2017 covers elements not covered in my initial note of 11/19/2017. SUBJECTIVE: Met with the patient in the evening, staffed at a treatment team meeting with the entire team in the morning. The patient has moments when she gets more irritable. Slept 5-1/4 hours. REVIEW OF SYSTEMS: No CV, , pulmonary, eye, ENT system symptoms on review. Reliability poor. MENTAL STATUS EXAM: Oriented to herself, situation. Speech is coherent, rapid at times. Abstraction fair, computation impaired. Mood and affect somewhat anxious, labile. LABORATORY DATA: Reviewed. IMPRESSION: Unchanged from initial note. PLAN: Increase Seroquel from 25 mg twice a day to 3 times a day. Continue rest unchanged. MAN Wilson BULLARD MD DR: ERINN/alex JOB#: [id number] / [id number]
--- NOTE | 2017-11-20 21:31 | PN ---
DATE: 11/18/2017 PSYCHIATRIC PROGRESS NOTE This is a late entry for 11/18/2017, covers elements not covered in my initial note. SUBJECTIVE: I met with the patient evening of 11/18/2017. The patient remains confused, slept 6-1/4 hours, irritable at times, but pleasant most of the day on 11/18/2017. Compliant with medications, more friendly. REVIEW OF SYSTEMS: No CV, , pulmonary, eye, ENT system symptoms on review. Reliability poor. MENTAL STATUS EXAM: Oriented to herself. Insight, judgment, recent and remote memory, attention, concentration, fund of knowledge poor, consistent with her diagnosis mentioned in my initial note. PLAN: No change from initial note. MAN Wilson BULLARD MD DR: ERINN/alex JOB#: [id number] / [id number]
[2017-11-21] MEDS: BUDESONIDE 0.5 MG/2 ML NEBU NEB SCH ×2 (05:38→20:52)
[2017-11-21] MEDS: IPRATRPIUM/ALBUTEROL 0.5/2.5MG 3 ML NEBU. NEB SCH ×4 (05:38→20:52)
[2017-11-21 06:53] VITALS: BP 105/56
[2017-11-21] MEDS: POLYETHYLENE GLYCOL 3350 17 GM PACKET. PO SCH (08:17)
[2017-11-21] MEDS: VENLAFAXINE XR 37.5 MG CAP.ER.24H. PO SCH (08:17)
[2017-11-21] MEDS: busPIRone 10 MG TABLET. PO SCH ×3 (08:17→18:38)
[2017-11-21] MEDS: DOCUSATE SODIUM 100 MG CAPSULE PO SCH ×2 (08:17→20:22)
[2017-11-21] MEDS: FUROSEMIDE 40 MG TABLET PO SCH (08:17)
[2017-11-21] MEDS: SENNOSIDES 8.6 MG TABLET PO SCH ×2 (08:18→20:21)
[2017-11-21] MEDS: ASCORBIC ACID 500 MG TABLET PO SCH (08:18)
[2017-11-21] MEDS: MULTIVITAMIN with MINERAL TABLET. PO SCH (08:18)
[2017-11-21] MEDS: VITAMIN B COMPLEX CAPSULE. PO SCH (08:18)
[2017-11-21] MEDS: QUEtiapine 25 MG TABLET. PO SCH ×3 (08:18→20:21)
[2017-11-21] MEDS: POTASSIUM CHLORIDE 20 MEQ TABLET.ER. PO SCH (08:19)
[2017-11-21] MEDS: PANTOPRAZOLE 40 MG TABLET. PO SCH (08:19)
[2017-11-21] MEDS: MAGNESIUM OXIDE 400 MG TABLET PO SCH ×2 (08:19→20:22)
[2017-11-21] MEDS: FLUTICASONE 50MCG/NASAL SPRAY 16GM BOTTLE. NS SCH (08:19)
[2017-11-21] MEDS: HYDROcodone/APAP 5/325MG 1 TAB TABLET PO SCH ×2 (08:21→20:22)
[2017-11-21 16:53] VITALS: BP 109/68
[2017-11-21] MEDS: INSULIN LISPRO 300 UNITS/3 ML INSULN.PEN. SQ SCH (17:00)
[2017-11-21] MEDS: TAMSULOSIN 0.4 MG CAP.ER.24H. PO SCH (18:38)
[2017-11-21] MEDS: MIRTAZAPINE 15 MG TABLET PO SCH (20:22)
--- NOTE | 2017-11-21 23:12 | PDOC ---
Exam Note: Harris Note: Please also refer to the separate dictated note~for this date of service dictated separately.~Patient seen individually. Discussed the patient with Nursing staff reviewed the chart.~Reviewed interim history and current functioning. Reviewed vital signs,~Labs/ Radiology~and current medications noted below. Continue current treatment with the changes noted in the dictated addendum note Assessment: Vital Signs: Vital Signs Date Time Temp Pulse Resp B/P (MAP) Pulse Ox O2 Delivery O2 Flow Rate FiO2 11/21/17 21:22 93 11/21/17 20:50 Room Air 11/21/17 20:21 83 109/68 11/21/17 16:53 97.6 18 I&O Intake and Output 11/21/17 07:00 Intake Total 1080 ml Balance 1080 ml Intake Oral 1080 ml # Voids 1 Labs: Laboratory Tests Test 11/21/17 07:50 11/21/17 11:43 11/21/17 17:11 11/21/17 19:07 Glucose (Fingerstick) 151 mg/dL (70-99) H 116 mg/dL (70-99) H 124 mg/dL (70-99) H 175 mg/dL (70-99) H Current Medications: Meds: Current Medications Albuterol Sulfate (Ventolin) 2.5 mg PRN Q6HRS PRN NEB SHORTNESS OF BREATH; Start 11/15/17 at 20:45 Vitamin D (Vitamin D3) 50,000 unit WEEKLY PO ; Start 11/22/17 at 09:00 Cyanocobalamin (Vitamin B-12) 1,000 mcg QMONTH IM ; Start 12/15/17 at 09:00 Diltiazem HCl (Cardizem 24hr Cd) 120 mg BID PO Last administered on 11/21/17at 20:21; Start 11/16/17 at 09:00 Guaifenesin (Mucinex Er) 600 mg BID PO Last administered on 11/21/17at 20:22; Start 11/15/17 at 21:00 Albuterol/ Ipratropium (Duoneb) 3 ml RTQID NEB Last administered on 11/21/17at 20:52; Start 11/15/17 at 21:00 Al Hydroxide/Mg Hydroxide (Mylanta Plus Xs) 15 ml PRN AFTMEAL PRN PO DYSPEPSIA ; Start 11/15/17 at 20:45 Multi-Ingredient Ointment (Analgesic [place]) 1 edi PRN QID PRN TP MUSCLE PAIN; Start 11/15/17 at 20:45 Multivitamins/ Calcium (Thera-M Plus) 1 tab DAILY PO Last administered on 08:18; Start 11/16/17 at 09:00 Potassium Chloride (Klor-Con) 20 meq DAILY PO Last administered on 11/21/17 08 :19; Start 11/16/17 at 09:00 Tamsulosin HCl (Flomax) 0.4 mg QEVNG PO Last administered on 11/21/17 18:38; Start 11/16/17 at 18:00 Acetaminophen (Tylenol) 500 mg PRN Q4HRS PRN PO PAIN / TEMP; Start 11/15/17 at 21:15 Ascorbic Acid (Vitamin C) 1,000 mg DAILY PO Last administered on 11/21/17 08: 18; Start 11/16/17 at 09:00 Benzonatate (Tessalon Perle) 100 mg PRN TID PRN PO COUGH; Start 11/16/17 at 09: 00 Budesonide (Pulmicort) 0.5 mg RTBID NEB Last administered on 11/21/17 20:52; Start 11/16/17 at 08:00 Buspirone HCl (Buspar) 10 mg 0900,1300 PO Last administered on 11/21/17 13:03 ; Start 11/16/17 at 09:00 Buspirone HCl (Buspar) 20 mg DAILYWSUP PO Last administered on 11/21/17 18:38 ; Start 11/16/17 at 17:00 Docusate Sodium (Colace) 100 mg BID PO Last administered on 11/21/17 20:22; Start 11/15/17 at 21:30 Fluticasone Propionate (Flonase) 2 spray DAILY NS Last administered on 07:51; Start 11/16/17 at 09:00 Furosemide (Lasix) 40 mg DAILY PO Last administered on 11/21/17 08:17; Start 11/16/17 at 09:00 Acetaminophen/ Hydrocodone Bitart (Lortab 5/325) 1 tab BID PO Last administered on 11/21/17 20:22; Start 11/15/17 at 21:30 Acetaminophen/ Hydrocodone Bitart (Lortab 5/325) 1 tab PRN Q6HRS PRN PO PAIN; Start 11/15/17 at 21:30 Insulin Human Lispro (HumaLOG) If blood sugar is 75-150=0un... TIDWMEALHC PRN SQ Diabetes Last administered on 11/19/17 20:18; Start 11/15/17 at 20:45; Stop at 12:25; Status DC Loperamide HCl (Imodium) 2 mg PRN Q8HRS PRN PO DIARRHEA; Start 11/15/17 at 21:30 Magnesium Hydroxide (Milk Of Magnesia) 2,400 mg PRN QHS PRN PO CONSTIPATION; Start 11/15/17 at 21:30 Magnesium Oxide (Magnesium Oxide) 400 mg BID PO Last administered on 11/21/17 20:22; Start 11/15/17 at 22:00 Mirtazapine (Remeron) 7.5 mg QHS PO Last administered on 11/15/17at 22:17; Start 11/15/17 at 22:00; Stop 11/16/17 at 18:24; Status DC Ondansetron HCl (Zofran Odt) 4 mg PRN Q8HRS PRN PO NAUSEA/VOMITING; Start at 21:30 Pantoprazole Sodium (Protonix) 40 mg DAILYAC PO Last administered on 11/21/17 08:19; Start 11/16/17 at 07:30 Polyethylene Glycol (miraLAX) 17 gm DAILY PO Last administered on 11/21/17 08: 17; Start 11/16/17 at 09:00 Quetiapine Fumarate (SEROquel) 25 mg 0900,1500 PO Last administered on 13:03; Start 11/16/17 at 09:00 Quetiapine Fumarate (SEROquel) 75 mg QHS PO Last administered on 11/21/17 20: 21; Start 11/15/17 at 21:30 Sennosides (Senna) 8.6 mg BID PO Last administered on 11/21/17 20:21; Start at 21:30 Trazodone HCl (Desyrel) 50 mg PRN QHS PRN PO INSOMNIA, MAY REPEAT X1 Last administered on 11/15/17at 22:17; Start 11/15/17 at 21:30 Venlafaxine HCl (Effexor Xr) 75 mg DAILY PO Last administered on 11/21/17at 08: 17; Start 11/16/17 at 09:00 Vitamin B Complex 1 cap DAILY PO Last administered on 11/21/17at 08:18; Start at 09:00 Acetaminophen (Tylenol) 650 mg PRN Q6HRS PRN PO PAIN / TEMP; Start 11/15/17 at 22:15; Status UNV Multi-Ingredient Ointment (Analgesic [place]) 1 edi PRN QID PRN TP MUSCLE PAIN; Start 11/15/17 at 22:15; Status UNV Al Hydroxide/Mg Hydroxide (Mylanta Plus Xs) 15 ml PRN AFTMEALHC PRN PO DYSPEPSIA; Start 11/15/17 at 22:15; Status UNV Magnesium Hydroxide (Milk Of Magnesia) 2,400 mg PRN QHS PRN PO CONSTIPATION; Start 11/15/17 at 22:15; Status UNV Mirtazapine (Remeron) 15 mg QHS PO Last administered on 11/21/17at 20:22; Start 11/16/17 at 21:00 Insulin Human Lispro (HumaLOG) If blood sugar is 75-150=0un... TIDWMEALS SQ ; Start 11/21/17 at 17:00 Active Scripts Active Reported Trazodone Hcl 50 Mg Tablet 50 Mg PO PRN QHS PRN Buspirone Hcl 10 Mg Tablet 20 Mg PO DAILYWSUP Venlafaxine Hcl Er (Venlafaxine Hcl) 75 Mg Cap.er.24h 75 Mg PO DAILY Seroquel (Quetiapine Fumarate) 25 Mg Tablet 25 Mg PO BID @ 0900,1500 Seroquel (Quetiapine Fumarate) 50 Mg Tablet 75 Mg PO QHS Thera M Plus Tablet (Multivits,Ca,Minerals/Iron/FA) 1 Each Tablet 1 Each PO DAILY Remeron (Mirtazapine) 15 Mg Tablet 7.5 Mg PO QHS Analgesic [place] (Methyl Salicylate/Menthol) 28 Gm Oint...g. 1 Edi TP PRN QID PRN Mag-Al Plus Xs Suspension (Mag Hydrox/Al Hydrox/Simeth) 30 Ml Oral.susp 15 Ml PO PRN AFTMEAL PRN Pulmicort (Budesonide) 0.5 Mg/2 Ml Ampul.neb 0.5 Mg NEB BID Benzonatate 100 Mg Capsule 100 Mg PO PRN TID PRN Albuterol Sulfate Neb Soln (Albuterol Sulfate) 2.5 Mg/3 Ml Vial.neb 2.5 Mg NEB PRN Q6HRS PRN Ondansetron Hcl 4 Mg Tablet 4 Mg PO PRN Q4HRS PRN dissolve on tongue Novolog Flexpen (Insulin Aspart) 100 Unit/1 Ml Insuln.pen 0-6 Unit SQ TIDWMEALHC PRN BS 75-150= 0 units BS 151-200= 2 units BS 201-250= 3 units BS 251-300= 4 units BS 301-350= 5 units BS 351-400= 6 units BS<70 or >400 call Physician Miralax (Polyethylene Glycol 3350) 17 Gm Powd.pack 17 Gm PO PRN DAILY PRN Mucinex (Guaifenesin) 600 Mg Tablet.er 600 Mg PO TID Buspirone Hcl 10 Mg Tablet 10 Mg PO BID@ 0900,1300 Senna Lax (Sennosides) 8.6 Mg Tablet 8.6 Mg PO BID Docusate Sodium 100 Mg Capsule 100 Mg PO BID Vitamin B Complex 1 Each Tablet 100 Mg PO DAILY D3-50 (Cholecalciferol (Vitamin D3)) 50,000 Unit Capsule 50,000 Unit PO WEEKLY every thursday C-1000 (Ascorbic Acid) 1,000 Mg Tablet 1,000 Mg PO DAILY Klor-Con M20 (Potassium Chloride) 20 Meq Tab.er.prt 20 Meq PO DAILY Pantoprazole Sodium 40 Mg Tablet.dr 40 Mg PO DAILYAC Tamsulosin Hcl 0.4 Mg Cap.er.24h 0.4 Mg PO QEVNG Hydrocodone-Apap 5-325 (Hydrocodone Bit/Acetaminophen) 1 Each Tablet 1 Tab PO PRN Q6HRS PRN Hydrocodone-Apap 5-325 (Hydrocodone Bit/Acetaminophen) 1 Each Tablet 1 Tab PO BID Milk Of Magnesia (Magnesium Hydroxide) 2,400 Mg/10 Ml Oral.susp 2,400 Mg PO PRN QHS PRN Lasix (Furosemide) 40 Mg Tablet 40 Mg PO DAILY Flonase Allergy Relief (Fluticasone Propionate) 9.9 Ml [place].susp 2 Sprays NS DAILY use in each nostril Miralax (Polyethylene Glycol 3350) 17 Gm Powd.pack 17 Gm PO DAILY Loperamide (Loperamide Hcl) 2 Mg Capsule 2 Mg PO PRN Q8HRS PRN Not to exceed 8 capsules in 24hrs Acetaminophen 500 Mg Tablet 500 Mg PO PRN Q4HRS PRN Magnesium Oxide 400 Mg Tablet 400 Mg PO BID Duoneb 0.5-3(2.5) Mg/3 Ml (Albuterol/Ipratropium) 3 Ml Ampul.neb 3 Ml NEB QID Cardizem Cd (Diltiazem Hcl) 240 Mg Cap.er.24h 120 Mg PO BID HOLD FOR SBP <110 Cyanocobalamin Injection (Cyanocobalamin (Vitamin B-12)) 1,000 Mcg/1 Ml Vial 1, 000 Mcg IM QMONTH next due 09/24/17 NEXT DOSE DUE 09/19/17 I have reviewed the current psychotropics carefully including drug interactions. Risk benefit ratio favors no change other than as noted in my dictated progress note. 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
[2017-11-22] MEDS: IPRATRPIUM/ALBUTEROL 0.5/2.5MG 3 ML NEBU. NEB SCH ×4 (05:39→21:17)
[2017-11-22 07:15] LABS: BASO % 1 % (0-3); EOS # 0.2 x10^3/uL (0.0-0.7); EOS % 3 % (0-3); HEMATOCRIT 38.9 % (36.0-47.0); HEMOGLOBIN 13.1 g/dL (12.0-15.5); LYMPH # 1.8 x10^3/uL (1.0-4.8); LYMPH % 23 % (24-48); MEAN CORPUSCULAR HEMOGLOBIN 30 pg (25-35); MEAN CORPUSCULAR HGB CONC 34 g/dL (31-37); MEAN CORPUSCULAR VOLUME 89 fL (79-100); MONO # 0.7 x10^3/uL (0.0-1.1); MONO % 8 % (0-9); NEUT # 5.1 x10^3uL (1.8-7.7); NEUT % 66 % (31-73); PLATELET COUNT 318 x10^3/uL (140-400); RED BLOOD COUNT 4.37 x10^6/uL (3.50-5.40); RED CELL DISTRIBUTION WIDTH 14.5 % (11.5-14.5); WHITE BLOOD COUNT 7.8 x10^3/uL (4.0-11.0)
[2017-11-22 07:18] LABS: ALBUMIN 3.4 g/dL (3.4-5.0); ALBUMIN/GLOBULIN RATIO 0.8 (1.0-1.7); CALCIUM 9.5 mg/dL (8.5-10.1); GFR 52.2; MAGNESIUM 2.7 mg/dL (1.8-2.4); POTASSIUM 4.5 mmol/L (3.5-5.1); TOTAL BILIRUBIN 0.2 mg/dL (0.2-1.0); TOTAL PROTEIN 7.5 g/dL (6.4-8.2)
[2017-11-22] MEDS: INSULIN LISPRO 300 UNITS/3 ML INSULN.PEN. SQ SCH ×3 (08:00→17:00)
[2017-11-22] MEDS: DOCUSATE SODIUM 100 MG CAPSULE PO SCH ×2 (08:02→21:16)
[2017-11-22] MEDS: VITAMIN B COMPLEX CAPSULE. PO SCH (08:02)
[2017-11-22] MEDS: POLYETHYLENE GLYCOL 3350 17 GM PACKET. PO SCH (08:02)
[2017-11-22] MEDS: FUROSEMIDE 40 MG TABLET PO SCH (08:03)
[2017-11-22] MEDS: SENNOSIDES 8.6 MG TABLET PO SCH ×2 (08:03→21:15)
[2017-11-22] MEDS: VENLAFAXINE XR 37.5 MG CAP.ER.24H. PO SCH (08:03)
[2017-11-22] MEDS: MAGNESIUM OXIDE 400 MG TABLET PO SCH ×2 (08:03→21:16)
[2017-11-22] MEDS: MULTIVITAMIN with MINERAL TABLET. PO SCH (08:03)
[2017-11-22] MEDS: POTASSIUM CHLORIDE 20 MEQ TABLET.ER. PO SCH (08:03)
[2017-11-22] MEDS: QUEtiapine 25 MG TABLET. PO SCH ×3 (08:03→21:16)
[2017-11-22] MEDS: busPIRone 10 MG TABLET. PO SCH ×3 (08:04→18:10)
[2017-11-22] MEDS: ASCORBIC ACID 500 MG TABLET PO SCH (08:04)
[2017-11-22] MEDS: PANTOPRAZOLE 40 MG TABLET. PO SCH (08:04)
[2017-11-22] MEDS: FLUTICASONE 50MCG/NASAL SPRAY 16GM BOTTLE. NS SCH (08:05)
[2017-11-22] MEDS: CHOLECALCIFEROL (VITAMIN D3) 50,000 UNIT CAPSULE PO SCH (08:07)
[2017-11-22] MEDS: HYDROcodone/APAP 5/325MG 1 TAB TABLET PO SCH ×2 (08:08→21:14)
[2017-11-22 10:33] VITALS: BP 100/55
[2017-11-22] MEDS: BUDESONIDE 0.5 MG/2 ML NEBU NEB SCH ×2 (11:15→21:17)
[2017-11-22 16:09] VITALS: BP 94/60
[2017-11-22] MEDS: TAMSULOSIN 0.4 MG CAP.ER.24H. PO SCH (18:10)
--- NOTE | 2017-11-22 20:13 | PDOC ---
Exam Note: Harris Note: Please also refer to the separate dictated note~for this date of service dictated separately.~Patient seen individually. Discussed the patient with Nursing staff reviewed the chart.~Reviewed interim history and current functioning. Reviewed vital signs,~Labs/ Radiology~and current medications noted below. Continue current treatment with the changes noted in the dictated addendum note Assessment: Vital Signs: Vital Signs Date Time Temp Pulse Resp B/P (MAP) Pulse Ox O2 Delivery O2 Flow Rate FiO2 11/22/17 16:09 97.8 83 18 94/60 (71) 96 11/22/17 16:04 Room Air I&O Intake and Output 11/22/17 06:59 Intake Total 840 ml Balance 840 ml Intake Oral 840 ml # Voids 1 Labs: Laboratory Tests Test 11/22/17 06:55 11/22/17 07:27 11/22/17 12:18 White Blood Count 7.8 x10^3/uL (4.0-11.0) Red Blood Count 4.37 x10^6/uL (3.50-5.40) Hemoglobin 13.1 g/dL (12.0-15.5) Hematocrit 38.9 % (36.0-47.0) Mean Corpuscular Volume 89 fL (79-100) Mean Corpuscular Hemoglobin 30 pg (25-35) Mean Corpuscular Hemoglobin Concent 34 g/dL (31-37) Red Cell Distribution Width 14.5 % (11.5-14.5) Platelet Count 318 x10^3/uL (140-400) Neutrophils (%) (Auto) 66 % (31-73) Lymphocytes (%) (Auto) 23 % (24-48) L Monocytes (%) (Auto) 8 % (0-9) Eosinophils (%) (Auto) 3 % (0-3) Basophils (%) (Auto) 1 % (0-3) Neutrophils # (Auto) 5.1 x10^3uL (1.8-7.7) Lymphocytes # (Auto) 1.8 x10^3/uL (1.0-4.8) Monocytes # (Auto) 0.7 x10^3/uL (0.0-1.1) Eosinophils # (Auto) 0.2 x10^3/uL (0.0-0.7) Basophils # (Auto) 0.0 x10^3/uL (0.0-0.2) Sodium Level 137 mmol/L (136-145) Potassium Level 4.5 mmol/L (3.5-5.1) Chloride Level 101 mmol/L (98-107) Carbon Dioxide Level 33 mmol/L (21-32) H Anion Gap 3 (6-14) L Blood Urea Nitrogen 22 mg/dL (7-20) H Creatinine 1.0 mg/dL (0.6-1.0) Estimated GFR (Cockcroft-Gault) 52.2 BUN/Creatinine Ratio 22 (6-20) H Glucose Level 126 mg/dL (70-99) H Calcium Level 9.5 mg/dL (8.5-10.1) Magnesium Level 2.7 mg/dL (1.8-2.4) H Total Bilirubin 0.2 mg/dL (0.2-1.0) Aspartate Amino Transferase (AST) 16 U/L (15-37) Alanine Aminotransferase (ALT) 18 U/L (14-59) Alkaline Phosphatase 100 U/L (46-116) Total Protein 7.5 g/dL (6.4-8.2) Albumin 3.4 g/dL (3.4-5.0) Albumin/Globulin Ratio 0.8 (1.0-1.7) L Glucose (Fingerstick) 126 mg/dL (70-99) H 108 mg/dL (70-99) H Current Medications: Meds: Current Medications Albuterol Sulfate (Ventolin) 2.5 mg PRN Q6HRS PRN NEB SHORTNESS OF BREATH Last administered on 11/22/17at 02:19; Start 11/15/17 at 20:45 Vitamin D (Vitamin D3) 50,000 unit WEEKLY PO Last administered on 11/22/17at 08: 07; Start 11/22/17 at 09:00 Cyanocobalamin (Vitamin B-12) 1,000 mcg QMONTH IM ; Start 12/15/17 at 09:00 Diltiazem HCl (Cardizem 24hr Cd) 120 mg BID PO Last administered on 11/22/17at 08:03; Start 11/16/17 at 09:00 Guaifenesin (Mucinex Er) 600 mg BID PO Last administered on 11/22/17at 08:04; Start 11/15/17 at 21:00 Albuterol/ Ipratropium (Duoneb) 3 ml RTQID NEB Last administered on 11/22/17at 16:04; Start 11/15/17 at 21:00 Al Hydroxide/Mg Hydroxide (Mylanta Plus Xs) 15 ml PRN AFTMEAL PRN PO DYSPEPSIA ; Start 11/15/17 at 20:45 Multi-Ingredient Ointment (Analgesic [place]) 1 edi PRN QID PRN TP MUSCLE PAIN; Start 11/15/17 at 20:45 Multivitamins/ Calcium (Thera-M Plus) 1 tab DAILY PO Last administered on 08:03; Start 11/16/17 at 09:00 Potassium Chloride (Klor-Con) 20 meq DAILY PO Last administered on 11/22/17 08 :03; Start 11/16/17 at 09:00 Tamsulosin HCl (Flomax) 0.4 mg QEVNG PO Last administered on 11/22/17 18:10; Start 11/16/17 at 18:00 Acetaminophen (Tylenol) 500 mg PRN Q4HRS PRN PO PAIN / TEMP; Start 11/15/17 at 21:15 Ascorbic Acid (Vitamin C) 1,000 mg DAILY PO Last administered on 11/22/17 08: 04; Start 11/16/17 at 09:00 Benzonatate (Tessalon Perle) 100 mg PRN TID PRN PO COUGH Last administered on 02:19; Start 11/16/17 at 09:00 Budesonide (Pulmicort) 0.5 mg RTBID NEB Last administered on 11/22/17 11:15; Start 11/16/17 at 08:00 Buspirone HCl (Buspar) 10 mg 0900,1300 PO Last administered on 11/22/17 12:56 ; Start 11/16/17 at 09:00 Buspirone HCl (Buspar) 20 mg DAILYWSUP PO Last administered on 11/22/17 18:10 ; Start 11/16/17 at 17:00 Docusate Sodium (Colace) 100 mg BID PO Last administered on 11/22/17 08:02; Start 11/15/17 at 21:30 Fluticasone Propionate (Flonase) 2 spray DAILY NS Last administered on 07:51; Start 11/16/17 at 09:00 Furosemide (Lasix) 40 mg DAILY PO Last administered on 11/22/17 08:03; Start 11/16/17 at 09:00 Acetaminophen/ Hydrocodone Bitart (Lortab 5/325) 1 tab BID PO Last administered on 11/22/17 08:08; Start 11/15/17 at 21:30 Acetaminophen/ Hydrocodone Bitart (Lortab 5/325) 1 tab PRN Q6HRS PRN PO PAIN; Start 11/15/17 at 21:30 Insulin Human Lispro (HumaLOG) If blood sugar is 75-150=0un... TIDWMEALHC PRN SQ Diabetes Last administered on 11/19/17 20:18; Start 11/15/17 at 20:45; Stop at 12:25; Status DC Loperamide HCl (Imodium) 2 mg PRN Q8HRS PRN PO DIARRHEA; Start 11/15/17 at 21:30 Magnesium Hydroxide (Milk Of Magnesia) 2,400 mg PRN QHS PRN PO CONSTIPATION; Start 11/15/17 at 21:30 Magnesium Oxide (Magnesium Oxide) 400 mg BID PO Last administered on 11/22/17 08:03; Start 11/15/17 at 22:00 Mirtazapine (Remeron) 7.5 mg QHS PO Last administered on 11/15/17 22:17; Start 11/15/17 at 22:00; Stop 11/16/17 at 18:24; Status DC Ondansetron HCl (Zofran Odt) 4 mg PRN Q8HRS PRN PO NAUSEA/VOMITING; Start at 21:30 Pantoprazole Sodium (Protonix) 40 mg DAILYAC PO Last administered on 11/22/17 08:04; Start 11/16/17 at 07:30 Polyethylene Glycol (miraLAX) 17 gm DAILY PO Last administered on 11/22/17 08: 02; Start 11/16/17 at 09:00 Quetiapine Fumarate (SEROquel) 25 mg 0900,1500 PO Last administered on 12:56; Start 11/16/17 at 09:00 Quetiapine Fumarate (SEROquel) 75 mg QHS PO Last administered on 11/21/17at 20: 21; Start 11/15/17 at 21:30 Sennosides (Senna) 8.6 mg BID PO Last administered on 11/22/17at 08:03; Start at 21:30 Trazodone HCl (Desyrel) 50 mg PRN QHS PRN PO INSOMNIA, MAY REPEAT X1 Last administered on 11/15/17at 22:17; Start 11/15/17 at 21:30 Venlafaxine HCl (Effexor Xr) 75 mg DAILY PO Last administered on 11/22/17at 08: 03; Start 11/16/17 at 09:00 Vitamin B Complex 1 cap DAILY PO Last administered on 11/22/17at 08:02; Start at 09:00 Acetaminophen (Tylenol) 650 mg PRN Q6HRS PRN PO PAIN / TEMP; Start 11/15/17 at 22:15; Status UNV Multi-Ingredient Ointment (Analgesic [place]) 1 edi PRN QID PRN TP MUSCLE PAIN; Start 11/15/17 at 22:15; Status UNV Al Hydroxide/Mg Hydroxide (Mylanta Plus Xs) 15 ml PRN AFTMEALHC PRN PO DYSPEPSIA; Start 11/15/17 at 22:15; Status UNV Magnesium Hydroxide (Milk Of Magnesia) 2,400 mg PRN QHS PRN PO CONSTIPATION; Start 11/15/17 at 22:15; Status UNV Mirtazapine (Remeron) 15 mg QHS PO Last administered on 11/21/17at 20:22; Start 11/16/17 at 21:00 Insulin Human Lispro (HumaLOG) If blood sugar is 75-150=0un... TIDWMEALS SQ ; Start 11/21/17 at 17:00 Active Scripts Active Reported Trazodone Hcl 50 Mg Tablet 50 Mg PO PRN QHS PRN Buspirone Hcl 10 Mg Tablet 20 Mg PO DAILYWSUP Venlafaxine Hcl Er (Venlafaxine Hcl) 75 Mg Cap.er.24h 75 Mg PO DAILY Seroquel (Quetiapine Fumarate) 25 Mg Tablet 25 Mg PO BID @ 0900,1500 Seroquel (Quetiapine Fumarate) 50 Mg Tablet 75 Mg PO QHS Thera M Plus Tablet (Multivits,Ca,Minerals/Iron/FA) 1 Each Tablet 1 Each PO DAILY Remeron (Mirtazapine) 15 Mg Tablet 7.5 Mg PO QHS Analgesic [place] (Methyl Salicylate/Menthol) 28 Gm Oint...g. 1 Edi TP PRN QID PRN Mag-Al Plus Xs Suspension (Mag Hydrox/Al Hydrox/Simeth) 30 Ml Oral.susp 15 Ml PO PRN AFTMEAL PRN Pulmicort (Budesonide) 0.5 Mg/2 Ml Ampul.neb 0.5 Mg NEB BID Benzonatate 100 Mg Capsule 100 Mg PO PRN TID PRN Albuterol Sulfate Neb Soln (Albuterol Sulfate) 2.5 Mg/3 Ml Vial.neb 2.5 Mg NEB PRN Q6HRS PRN Ondansetron Hcl 4 Mg Tablet 4 Mg PO PRN Q4HRS PRN dissolve on tongue Novolog Flexpen (Insulin Aspart) 100 Unit/1 Ml Insuln.pen 0-6 Unit SQ TIDWMEALHC PRN BS 75-150= 0 units BS 151-200= 2 units BS 201-250= 3 units BS 251-300= 4 units BS 301-350= 5 units BS 351-400= 6 units BS<70 or >400 call Physician Miralax (Polyethylene Glycol 3350) 17 Gm Powd.pack 17 Gm PO PRN DAILY PRN Mucinex (Guaifenesin) 600 Mg Tablet.er 600 Mg PO TID Buspirone Hcl 10 Mg Tablet 10 Mg PO BID@ 0900,1300 Senna Lax (Sennosides) 8.6 Mg Tablet 8.6 Mg PO BID Docusate Sodium 100 Mg Capsule 100 Mg PO BID Vitamin B Complex 1 Each Tablet 100 Mg PO DAILY D3-50 (Cholecalciferol (Vitamin D3)) 50,000 Unit Capsule 50,000 Unit PO WEEKLY every thursday C-1000 (Ascorbic Acid) 1,000 Mg Tablet 1,000 Mg PO DAILY Klor-Con M20 (Potassium Chloride) 20 Meq Tab.er.prt 20 Meq PO DAILY Pantoprazole Sodium 40 Mg Tablet.dr 40 Mg PO DAILYAC Tamsulosin Hcl 0.4 Mg Cap.er.24h 0.4 Mg PO QEVNG Hydrocodone-Apap 5-325 (Hydrocodone Bit/Acetaminophen) 1 Each Tablet 1 Tab PO PRN Q6HRS PRN Hydrocodone-Apap 5-325 (Hydrocodone Bit/Acetaminophen) 1 Each Tablet 1 Tab PO BID Milk Of Magnesia (Magnesium Hydroxide) 2,400 Mg/10 Ml Oral.susp 2,400 Mg PO PRN QHS PRN Lasix (Furosemide) 40 Mg Tablet 40 Mg PO DAILY Flonase Allergy Relief (Fluticasone Propionate) 9.9 Ml [place].susp 2 Sprays NS DAILY use in each nostril Miralax (Polyethylene Glycol 3350) 17 Gm Powd.pack 17 Gm PO DAILY Loperamide (Loperamide Hcl) 2 Mg Capsule 2 Mg PO PRN Q8HRS PRN Not to exceed 8 capsules in 24hrs Acetaminophen 500 Mg Tablet 500 Mg PO PRN Q4HRS PRN Magnesium Oxide 400 Mg Tablet 400 Mg PO BID Duoneb 0.5-3(2.5) Mg/3 Ml (Albuterol/Ipratropium) 3 Ml Ampul.neb 3 Ml NEB QID Cardizem Cd (Diltiazem Hcl) 240 Mg Cap.er.24h 120 Mg PO BID HOLD FOR SBP <110 Cyanocobalamin Injection (Cyanocobalamin (Vitamin B-12)) 1,000 Mcg/1 Ml Vial 1, 000 Mcg IM QMONTH next due 09/24/17 NEXT DOSE DUE 09/19/17 I have reviewed the current psychotropics carefully including drug interactions. Risk benefit ratio favors no change other than as noted in my dictated progress note. Diagnosis: Problems: (1) Hyponatremia (2) Hyperglycemia (3) Renal insufficiency (4) Uncontrolled diabetes mellitus (5) Behavior problem (6) Medical clearance for psychiatric admission (7) Major neurocognitive disorder due to Alzheimer's disease, probable, with behavioral disturbance (8) Altered mental status (9) Anxiety disorder (10) Dementia in Alzheimer's disease with delusions (11) Dementia in Alzheimer's disease with depression (12) Dementia, vascular, with delusions (13) Dementia, vascular, with depression (14) Impulse control disorder RACHEL BULLARD MD Nov 22, 2017 20:13
[2017-11-22] MEDS: MIRTAZAPINE 15 MG TABLET PO SCH (21:16)
--- NOTE | 2017-11-23 00:13 | PN ---
DATE: 11/20/2017 PSYCHIATRIC PROGRESS NOTE This is a late entry, 11/20, covers elements not covered in my initial note. SUBJECTIVE: I met with the patient in the evening. The patient has been pleasant, cooperative, confused, not aggressive. REVIEW OF SYSTEMS: No CV, , pulmonary, eye, ENT system symptoms on review. MENTAL STATUS EXAM: Oriented to herself. Insight, judgment, recent and remote memory, attention, concentration, fund of knowledge poor, consistent with her diagnosis. At times, she seems much more oriented than she is at other times. LABORATORY DATA: Reviewed. IMPRESSION: Major depressive disorder with psychotic features; anxiety disorder, unspecified; possible urinary tract infection; cognitive disorder, unspecified versus major neurocognitive disorder, Alzheimer, vascular with delusion; depression. PLAN: Await urine C and S. Defer to Dr. Bonilla. Continue rest psychotropics unchanged from initial note. MAN Wilson BULLARD MD DR: ERINN/alex JOB#: [id number] / [id number]
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
[2017-11-23] MEDS: IPRATRPIUM/ALBUTEROL 0.5/2.5MG 3 ML NEBU. NEB SCH ×4 (05:11→20:18)
[2017-11-23 06:41] VITALS: BP 100/61
[2017-11-23] MEDS: INSULIN LISPRO 300 UNITS/3 ML INSULN.PEN. SQ SCH ×3 (07:58→16:37)
[2017-11-23] MEDS: BUDESONIDE 0.5 MG/2 ML NEBU NEB SCH ×2 (08:00→20:21)
[2017-11-23] MEDS: VITAMIN B COMPLEX CAPSULE. PO SCH (08:44)
[2017-11-23] MEDS: FUROSEMIDE 40 MG TABLET PO SCH (08:45)
[2017-11-23] MEDS: QUEtiapine 25 MG TABLET. PO SCH ×3 (08:45→20:08)
[2017-11-23] MEDS: SENNOSIDES 8.6 MG TABLET PO SCH ×2 (08:45→20:08)
[2017-11-23] MEDS: DOCUSATE SODIUM 100 MG CAPSULE PO SCH ×2 (08:45→20:08)
[2017-11-23] MEDS: POLYETHYLENE GLYCOL 3350 17 GM PACKET. PO SCH (08:45)
[2017-11-23] MEDS: POTASSIUM CHLORIDE 20 MEQ TABLET.ER. PO SCH (08:45)
[2017-11-23] MEDS: ASCORBIC ACID 500 MG TABLET PO SCH (08:45)
[2017-11-23] MEDS: busPIRone 10 MG TABLET. PO SCH ×3 (08:45→17:59)
[2017-11-23] MEDS: PANTOPRAZOLE 40 MG TABLET. PO SCH (08:46)
[2017-11-23] MEDS: HYDROcodone/APAP 5/325MG 1 TAB TABLET PO SCH ×2 (08:46→20:08)
[2017-11-23] MEDS: MAGNESIUM OXIDE 400 MG TABLET PO SCH (08:46)
[2017-11-23] MEDS: VENLAFAXINE XR 37.5 MG CAP.ER.24H. PO SCH (08:46)
[2017-11-23] MEDS: FLUTICASONE 50MCG/NASAL SPRAY 16GM BOTTLE. NS SCH (08:48)
[2017-11-23 08:54] VITALS: BP 144/66
[2017-11-23] MEDS: MULTIVITAMIN with MINERAL TABLET. PO SCH (08:54)
[2017-11-23 16:24] VITALS: BP 109/62
[2017-11-23] MEDS: TAMSULOSIN 0.4 MG CAP.ER.24H. PO SCH (17:59)
[2017-11-23] MEDS: MIRTAZAPINE 15 MG TABLET PO SCH (20:09)
--- NOTE | 2017-11-23 22:37 | PDOC ---
Exam Note: Harris Note: Please also refer to the separate dictated note~for this date of service dictated separately.~Patient seen individually. Discussed the patient with Nursing staff reviewed the chart.~Reviewed interim history and current functioning. Reviewed vital signs,~Labs/ Radiology~and current medications noted below. Continue current treatment with the changes noted in the dictated addendum note Assessment: Vital Signs: Vital Signs Date Time Temp Pulse Resp B/P (MAP) Pulse Ox O2 Delivery O2 Flow Rate FiO2 11/23/17 20:21 94 Room Air 11/23/17 20:08 20 11/23/17 20:08 82 109/62 11/23/17 16:24 97.8 I&O Intake and Output 11/23/17 06:59 Intake Total 1080 ml Balance 1080 ml Intake Oral 1080 ml # Voids 1 Labs: Laboratory Tests Test 11/23/17 07:30 11/23/17 11:50 11/23/17 16:26 11/23/17 19:14 Glucose (Fingerstick) 135 mg/dL (70-99) H 81 mg/dL (70-99) 109 mg/dL (70-99) H 104 mg/dL (70-99) H Current Medications: Meds: Current Medications Albuterol Sulfate (Ventolin) 2.5 mg PRN Q6HRS PRN NEB SHORTNESS OF BREATH Last administered on 11/22/17at 02:19; Start 11/15/17 at 20:45 Vitamin D (Vitamin D3) 50,000 unit WEEKLY PO Last administered on 11/22/17at 08: 07; Start 11/22/17 at 09:00 Cyanocobalamin (Vitamin B-12) 1,000 mcg QMONTH IM ; Start 12/15/17 at 09:00 Diltiazem HCl (Cardizem 24hr Cd) 120 mg BID PO Last administered on 11/23/17at 20:08; Start 11/16/17 at 09:00 Guaifenesin (Mucinex Er) 600 mg BID PO Last administered on 11/23/17at 20:08; Start 11/15/17 at 21:00 Albuterol/ Ipratropium (Duoneb) 3 ml RTQID NEB Last administered on 11/23/17at 20:18; Start 11/15/17 at 21:00 Al Hydroxide/Mg Hydroxide (Mylanta Plus Xs) 15 ml PRN AFTMEAL PRN PO DYSPEPSIA ; Start 11/15/17 at 20:45 Multi-Ingredient Ointment (Analgesic [place]) 1 edi PRN QID PRN TP MUSCLE PAIN; Start 11/15/17 at 20:45 Multivitamins/ Calcium (Thera-M Plus) 1 tab DAILY PO Last administered on 08:54; Start 11/16/17 at 09:00 Potassium Chloride (Klor-Con) 20 meq DAILY PO Last administered on 11/23/17 08 :45; Start 11/16/17 at 09:00 Tamsulosin HCl (Flomax) 0.4 mg QEVNG PO Last administered on 11/23/17 17:59; Start 11/16/17 at 18:00 Acetaminophen (Tylenol) 500 mg PRN Q4HRS PRN PO PAIN / TEMP; Start 11/15/17 at 21:15 Ascorbic Acid (Vitamin C) 1,000 mg DAILY PO Last administered on 11/23/17 08: 45; Start 11/16/17 at 09:00 Benzonatate (Tessalon Perle) 100 mg PRN TID PRN PO COUGH Last administered on 02:19; Start 11/16/17 at 09:00 Budesonide (Pulmicort) 0.5 mg RTBID NEB Last administered on 11/23/17 20:21; Start 11/16/17 at 08:00 Buspirone HCl (Buspar) 10 mg 0900,1300 PO Last administered on 11/23/17 13:48 ; Start 11/16/17 at 09:00 Buspirone HCl (Buspar) 20 mg DAILYWSUP PO Last administered on 11/23/17 17:59 ; Start 11/16/17 at 17:00 Docusate Sodium (Colace) 100 mg BID PO Last administered on 11/23/17 20:08; Start 11/15/17 at 21:30 Fluticasone Propionate (Flonase) 2 spray DAILY NS Last administered on 07:51; Start 11/16/17 at 09:00 Furosemide (Lasix) 40 mg DAILY PO Last administered on 11/23/17 08:45; Start 11/16/17 at 09:00 Acetaminophen/ Hydrocodone Bitart (Lortab 5/325) 1 tab BID PO Last administered on 11/23/17at 20:08; Start 11/15/17 at 21:30 Acetaminophen/ Hydrocodone Bitart (Lortab 5/325) 1 tab PRN Q6HRS PRN PO PAIN; Start 11/15/17 at 21:30 Insulin Human Lispro (HumaLOG) If blood sugar is 75-150=0un... TIDWMEALHC PRN SQ Diabetes Last administered on 11/19/17at 20:18; Start 11/15/17 at 20:45; Stop at 12:25; Status DC Loperamide HCl (Imodium) 2 mg PRN Q8HRS PRN PO DIARRHEA; Start 11/15/17 at 21:30 Magnesium Hydroxide (Milk Of Magnesia) 2,400 mg PRN QHS PRN PO CONSTIPATION; Start 11/15/17 at 21:30 Magnesium Oxide (Magnesium Oxide) 400 mg BID PO Last administered on 11/22/17at 21:16; Start 11/15/17 at 22:00; Stop 11/23/17 at 11:58; Status DC Mirtazapine (Remeron) 7.5 mg QHS PO Last administered on 11/15/17at 22:17; Start 11/15/17 at 22:00; Stop 11/16/17 at 18:24; Status DC Ondansetron HCl (Zofran Odt) 4 mg PRN Q8HRS PRN PO NAUSEA/VOMITING; Start at 21:30 Pantoprazole Sodium (Protonix) 40 mg DAILYAC PO Last administered on 11/23/17at 08:46; Start 11/16/17 at 07:30 Polyethylene Glycol (miraLAX) 17 gm DAILY PO Last administered on 11/23/17at 08: 45; Start 11/16/17 at 09:00 Quetiapine Fumarate (SEROquel) 25 mg 0900,1500 PO Last administered on at 13:48; Start 11/16/17 at 09:00 Quetiapine Fumarate (SEROquel) 75 mg QHS PO Last administered on 11/23/17at 20: 08; Start 11/15/17 at 21:30 Sennosides (Senna) 8.6 mg BID PO Last administered on 11/23/17at 20:08; Start at 21:30 Trazodone HCl (Desyrel) 50 mg PRN QHS PRN PO INSOMNIA, MAY REPEAT X1 Last administered on 11/15/17at 22:17; Start 11/15/17 at 21:30 Venlafaxine HCl (Effexor Xr) 75 mg DAILY PO Last administered on 11/23/17at 08: 46; Start 11/16/17 at 09:00 Vitamin B Complex 1 cap DAILY PO Last administered on 11/23/17at 08:44; Start at 09:00 Acetaminophen (Tylenol) 650 mg PRN Q6HRS PRN PO PAIN / TEMP; Start 11/15/17 at 22:15; Status UNV Multi-Ingredient Ointment (Analgesic [place]) 1 edi PRN QID PRN TP MUSCLE PAIN; Start 11/15/17 at 22:15; Status UNV Al Hydroxide/Mg Hydroxide (Mylanta Plus Xs) 15 ml PRN AFTMEALHC PRN PO DYSPEPSIA; Start 11/15/17 at 22:15; Status UNV Magnesium Hydroxide (Milk Of Magnesia) 2,400 mg PRN QHS PRN PO CONSTIPATION; Start 11/15/17 at 22:15; Status UNV Mirtazapine (Remeron) 15 mg QHS PO Last administered on 11/23/17at 20:09; Start 11/16/17 at 21:00 Insulin Human Lispro (HumaLOG) If blood sugar is 75-150=0un... TIDWMEALS SQ ; Start 11/21/17 at 17:00 Active Scripts Active Reported Trazodone Hcl 50 Mg Tablet 50 Mg PO PRN QHS PRN Buspirone Hcl 10 Mg Tablet 20 Mg PO DAILYWSUP Venlafaxine Hcl Er (Venlafaxine Hcl) 75 Mg Cap.er.24h 75 Mg PO DAILY Seroquel (Quetiapine Fumarate) 25 Mg Tablet 25 Mg PO BID @ 0900,1500 Seroquel (Quetiapine Fumarate) 50 Mg Tablet 75 Mg PO QHS Thera M Plus Tablet (Multivits,Ca,Minerals/Iron/FA) 1 Each Tablet 1 Each PO DAILY Remeron (Mirtazapine) 15 Mg Tablet 7.5 Mg PO QHS Analgesic [place] (Methyl Salicylate/Menthol) 28 Gm Oint...g. 1 Edi TP PRN QID PRN Mag-Al Plus Xs Suspension (Mag Hydrox/Al Hydrox/Simeth) 30 Ml Oral.susp 15 Ml PO PRN AFTMEAL PRN Pulmicort (Budesonide) 0.5 Mg/2 Ml Ampul.neb 0.5 Mg NEB BID Benzonatate 100 Mg Capsule 100 Mg PO PRN TID PRN Albuterol Sulfate Neb Soln (Albuterol Sulfate) 2.5 Mg/3 Ml Vial.neb 2.5 Mg NEB PRN Q6HRS PRN Ondansetron Hcl 4 Mg Tablet 4 Mg PO PRN Q4HRS PRN dissolve on tongue Novolog Flexpen (Insulin Aspart) 100 Unit/1 Ml Insuln.pen 0-6 Unit SQ TIDWMEALHC PRN BS 75-150= 0 units BS 151-200= 2 units BS 201-250= 3 units BS 251-300= 4 units BS 301-350= 5 units BS 351-400= 6 units BS<70 or >400 call Physician Miralax (Polyethylene Glycol 3350) 17 Gm Powd.pack 17 Gm PO PRN DAILY PRN Mucinex (Guaifenesin) 600 Mg Tablet.er 600 Mg PO TID Buspirone Hcl 10 Mg Tablet 10 Mg PO BID@ 0900,1300 Senna Lax (Sennosides) 8.6 Mg Tablet 8.6 Mg PO BID Docusate Sodium 100 Mg Capsule 100 Mg PO BID Vitamin B Complex 1 Each Tablet 100 Mg PO DAILY D3-50 (Cholecalciferol (Vitamin D3)) 50,000 Unit Capsule 50,000 Unit PO WEEKLY every thursday C-1000 (Ascorbic Acid) 1,000 Mg Tablet 1,000 Mg PO DAILY Klor-Con M20 (Potassium Chloride) 20 Meq Tab.er.prt 20 Meq PO DAILY Pantoprazole Sodium 40 Mg Tablet.dr 40 Mg PO DAILYAC Tamsulosin Hcl 0.4 Mg Cap.er.24h 0.4 Mg PO QEVNG Hydrocodone-Apap 5-325 (Hydrocodone Bit/Acetaminophen) 1 Each Tablet 1 Tab PO PRN Q6HRS PRN Hydrocodone-Apap 5-325 (Hydrocodone Bit/Acetaminophen) 1 Each Tablet 1 Tab PO BID Milk Of Magnesia (Magnesium Hydroxide) 2,400 Mg/10 Ml Oral.susp 2,400 Mg PO PRN QHS PRN Lasix (Furosemide) 40 Mg Tablet 40 Mg PO DAILY Flonase Allergy Relief (Fluticasone Propionate) 9.9 Ml [place].susp 2 Sprays NS DAILY use in each nostril Miralax (Polyethylene Glycol 3350) 17 Gm Powd.pack 17 Gm PO DAILY Loperamide (Loperamide Hcl) 2 Mg Capsule 2 Mg PO PRN Q8HRS PRN Not to exceed 8 capsules in 24hrs Acetaminophen 500 Mg Tablet 500 Mg PO PRN Q4HRS PRN Magnesium Oxide 400 Mg Tablet 400 Mg PO BID Duoneb 0.5-3(2.5) Mg/3 Ml (Albuterol/Ipratropium) 3 Ml Ampul.neb 3 Ml NEB QID Cardizem Cd (Diltiazem Hcl) 240 Mg Cap.er.24h 120 Mg PO BID HOLD FOR SBP <110 Cyanocobalamin Injection (Cyanocobalamin (Vitamin B-12)) 1,000 Mcg/1 Ml Vial 1, 000 Mcg IM QMONTH next due 09/24/17 NEXT DOSE DUE 09/19/17 I have reviewed the current psychotropics carefully including drug interactions. Risk benefit ratio favors no change other than as noted in my dictated progress note. 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
[2017-11-24] MEDS: MAG HYDROX/AL HYDROX/SIMETH 30 ML ORAL.SUSP PO PRN (01:49)
[2017-11-24] MEDS: IPRATRPIUM/ALBUTEROL 0.5/2.5MG 3 ML NEBU. NEB SCH ×4 (04:14→20:43)
[2017-11-24] MEDS: MULTIVITAMIN with MINERAL TABLET. PO SCH (09:01)
[2017-11-24] MEDS: POLYETHYLENE GLYCOL 3350 17 GM PACKET. PO SCH (09:01)
[2017-11-24] MEDS: busPIRone 10 MG TABLET. PO SCH ×3 (09:02→16:47)
[2017-11-24] MEDS: POTASSIUM CHLORIDE 20 MEQ TABLET.ER. PO SCH (09:02)
[2017-11-24] MEDS: ASCORBIC ACID 500 MG TABLET PO SCH (09:02)
[2017-11-24] MEDS: VITAMIN B COMPLEX CAPSULE. PO SCH (09:02)
[2017-11-24] MEDS: PANTOPRAZOLE 40 MG TABLET. PO SCH (09:02)
[2017-11-24] MEDS: QUEtiapine 25 MG TABLET. PO SCH ×3 (09:02→20:03)
[2017-11-24] MEDS: SENNOSIDES 8.6 MG TABLET PO SCH ×2 (09:02→20:03)
[2017-11-24] MEDS: VENLAFAXINE XR 37.5 MG CAP.ER.24H. PO SCH (09:02)
[2017-11-24] MEDS: DOCUSATE SODIUM 100 MG CAPSULE PO SCH ×2 (09:03→20:03)
[2017-11-24] MEDS: FUROSEMIDE 40 MG TABLET PO SCH (09:03)
[2017-11-24] MEDS: INSULIN LISPRO 300 UNITS/3 ML INSULN.PEN. SQ SCH ×3 (09:03→17:18)
[2017-11-24] MEDS: HYDROcodone/APAP 5/325MG 1 TAB TABLET PO SCH ×2 (09:05→20:04)
[2017-11-24 09:06] VITALS: BP 126/107
[2017-11-24] MEDS: FLUTICASONE 50MCG/NASAL SPRAY 16GM BOTTLE. NS SCH (09:06)
[2017-11-24] MEDS: BUDESONIDE 0.5 MG/2 ML NEBU NEB SCH ×2 (10:32→20:43)
--- NOTE | 2017-11-24 12:36 | PN ---
DATE: 11/22/2017 PSYCHIATRIC PROGRESS NOTE This is a late entry, 11/22, covers elements not covered in my initial note. SUBJECTIVE: I met with the patient in the evening. The patient slept 4-1/2 hours previous evening. She is intolerant of some peers, couple of the female patients. Compliant with medications. She is more confused than she seems on the surface. REVIEW OF SYSTEMS: No CV, , pulmonary, eye, ENT system symptoms on review. Reliability poor. MENTAL STATUS EXAM: Oriented to herself. Insight, judgment, recent and remote memory, attention, concentration, fund of knowledge poor, consistent with her diagnosis mentioned in my initial note. PLAN: No change from initial note. MAN Wislon BULLARD MD DR: ERINN/alex JOB#: [id number] / [id number]
[2017-11-24 16:16] VITALS: BP 103/83
[2017-11-24] MEDS: TAMSULOSIN 0.4 MG CAP.ER.24H. PO SCH (16:47)
[2017-11-24] MEDS: MIRTAZAPINE 15 MG TABLET PO SCH (20:04)
--- NOTE | 2017-11-25 00:30 | PN ---
DATE: 11/23/2017 PSYCHIATRIC PROGRESS NOTE This is a late entry, 11/23, covers elements not covered in my initial note. SUBJECTIVE: I met with the patient in the evening. The patient slept 5-1/2 hours previous evening, alert, oriented to herself and place, aware of her name and date of , pleasant, but otherwise memory is impaired. REVIEW OF SYSTEMS: No CV, , pulmonary, eye, ENT system symptoms on review. MENTAL STATUS EXAM: Oriented as above. Speech coherent, rapid at times. Abstraction fair, computation impaired, language function intact. Unable to do serial sevens, unable to spell world forward except with 2 errors and backward she is unable to spell it. No active suicidal or homicidal ideation. No clear psychotic symptoms. LABORATORY DATA: Reviewed. IMPRESSION: Unchanged from initial note. PLAN: No change from initial note. MAN Wilson BULLARD MD DR: ERINN/alex JOB#: [id number] / [id number]
[2017-11-25] MEDS: IPRATRPIUM/ALBUTEROL 0.5/2.5MG 3 ML NEBU. NEB SCH ×4 (05:34→20:00)
[2017-11-25] MEDS: BUDESONIDE 0.5 MG/2 ML NEBU NEB SCH ×2 (05:34→20:00)
[2017-11-25 05:45] VITALS: BP 134/54
[2017-11-25] MEDS: PANTOPRAZOLE 40 MG TABLET. PO SCH (07:58)
[2017-11-25] MEDS: INSULIN LISPRO 300 UNITS/3 ML INSULN.PEN. SQ SCH ×3 (08:00→17:36)
[2017-11-25] MEDS: VITAMIN B COMPLEX CAPSULE. PO SCH (08:01)
[2017-11-25] MEDS: FLUTICASONE 50MCG/NASAL SPRAY 16GM BOTTLE. NS SCH (08:01)
[2017-11-25] MEDS: busPIRone 10 MG TABLET. PO SCH ×3 (08:02→17:31)
[2017-11-25] MEDS: DOCUSATE SODIUM 100 MG CAPSULE PO SCH ×2 (08:04→20:08)
[2017-11-25] MEDS: VENLAFAXINE XR 37.5 MG CAP.ER.24H. PO SCH (08:05)
[2017-11-25] MEDS: POTASSIUM CHLORIDE 20 MEQ TABLET.ER. PO SCH (08:06)
[2017-11-25] MEDS: FUROSEMIDE 40 MG TABLET PO SCH (08:06)
[2017-11-25] MEDS: SENNOSIDES 8.6 MG TABLET PO SCH ×2 (08:07→20:08)
[2017-11-25] MEDS: POLYETHYLENE GLYCOL 3350 17 GM PACKET. PO SCH (08:07)
[2017-11-25] MEDS: QUEtiapine 25 MG TABLET. PO SCH ×3 (08:08→20:09)
[2017-11-25] MEDS: MULTIVITAMIN with MINERAL TABLET. PO SCH (08:08)
[2017-11-25] MEDS: ASCORBIC ACID 500 MG TABLET PO SCH (08:09)
[2017-11-25] MEDS: HYDROcodone/APAP 5/325MG 1 TAB TABLET PO SCH ×2 (08:12→20:08)
[2017-11-25 16:18] VITALS: BP 112/75
[2017-11-25] MEDS: TAMSULOSIN 0.4 MG CAP.ER.24H. PO SCH (17:29)
[2017-11-25] MEDS: MIRTAZAPINE 15 MG TABLET PO SCH (20:08)
[2017-11-25] MEDS: MAG HYDROX/AL HYDROX/SIMETH 30 ML ORAL.SUSP PO PRN (22:39)
--- NOTE | 2017-11-26 00:24 | PN ---
DATE: 11/24/2017 PSYCHIATRIC PROGRESS NOTE This is a late entry, 11/24, covers elements not covered in my initial note. SUBJECTIVE: I met with the patient in the evening in the room. The patient slept 5-3/4 hours previous evening. Otherwise, pleasant, confused with short-term memory deficits. REVIEW OF SYSTEMS: No CV, , pulmonary, eye, ENT system symptoms on review. Reliability poor. MENTAL STATUS EXAM: Oriented to herself. Insight, judgment, recent and remote memory, attention, concentration, fund of knowledge poor, consistent with her diagnosis mentioned in my initial note. PLAN: No change from initial note. MAN Wilson BULLARD MD DR: ERINN/alex JOB#: [id number] / [id number]
--- NOTE | 2017-11-26 02:53 | PDOC ---
Exam Note: Harris Note: Please also refer to the separate dictated note~for this date of service dictated separately.~Patient seen individually. Discussed the patient with Nursing staff reviewed the chart.~Reviewed interim history and current functioning. Reviewed vital signs,~Labs/ Radiology~and current medications noted below. Continue current treatment with the changes noted in the dictated addendum note Assessment: Vital Signs: Vital Signs Date Time Temp Pulse Resp B/P (MAP) Pulse Ox O2 Delivery O2 Flow Rate FiO2 11/25/17 22:41 86 148/80 11/25/17 21:49 18 Room Air 11/25/17 16:45 96 11/25/17 16:18 97.3 I&O Intake and Output 11/26/17 07:00 Intake Total 980 ml Balance 980 ml Intake Oral 980 ml # Voids 1 Labs: Laboratory Tests Test 11/25/17 07:34 11/25/17 11:45 11/25/17 12:03 11/25/17 16:52 Glucose (Fingerstick) 160 mg/dL (70-99) H 65 mg/dL (70-99) L 82 mg/dL (70-99) 159 mg/dL (70-99) H Test 11/25/17 19:05 Glucose (Fingerstick) 214 mg/dL (70-99) H Current Medications: Meds: Current Medications Albuterol Sulfate (Ventolin) 2.5 mg PRN Q6HRS PRN NEB SHORTNESS OF BREATH Last administered on 11/22/17at 02:19; Start 11/15/17 at 20:45 Vitamin D (Vitamin D3) 50,000 unit WEEKLY PO Last administered on 11/22/17at 08: 07; Start 11/22/17 at 09:00 Cyanocobalamin (Vitamin B-12) 1,000 mcg QMONTH IM ; Start 12/15/17 at 09:00 Diltiazem HCl (Cardizem 24hr Cd) 120 mg BID PO Last administered on 11/25/17at 22:41; Start 11/16/17 at 09:00 Guaifenesin (Mucinex Er) 600 mg BID PO Last administered on 11/25/17at 20:08; Start 11/15/17 at 21:00 Albuterol/ Ipratropium (Duoneb) 3 ml RTQID NEB Last administered on 11/25/17 16:45; Start 11/15/17 at 21:00 Al Hydroxide/Mg Hydroxide (Mylanta Plus Xs) 15 ml PRN AFTMEAL PRN PO DYSPEPSIA Last administered on 11/25/17 22:39; Start 11/15/17 at 20:45 Multi-Ingredient Ointment (Analgesic [place]) 1 edi PRN QID PRN TP MUSCLE PAIN; Start 11/15/17 at 20:45 Multivitamins/ Calcium (Thera-M Plus) 1 tab DAILY PO Last administered on 08:08; Start 11/16/17 at 09:00 Potassium Chloride (Klor-Con) 20 meq DAILY PO Last administered on 11/25/17 08 :06; Start 11/16/17 at 09:00 Tamsulosin HCl (Flomax) 0.4 mg QEVNG PO Last administered on 11/25/17 17:29; Start 11/16/17 at 18:00 Acetaminophen (Tylenol) 500 mg PRN Q4HRS PRN PO PAIN / TEMP; Start 11/15/17 at 21:15 Ascorbic Acid (Vitamin C) 1,000 mg DAILY PO Last administered on 11/25/17 08: 09; Start 11/16/17 at 09:00 Benzonatate (Tessalon Perle) 100 mg PRN TID PRN PO COUGH Last administered on 02:19; Start 11/16/17 at 09:00 Budesonide (Pulmicort) 0.5 mg RTBID NEB Last administered on 11/25/17 05:34; Start 11/16/17 at 08:00 Buspirone HCl (Buspar) 10 mg 0900,1300 PO Last administered on 11/25/17 12:13 ; Start 11/16/17 at 09:00 Buspirone HCl (Buspar) 20 mg DAILYWSUP PO Last administered on 11/25/17 17:31 ; Start 11/16/17 at 17:00 Docusate Sodium (Colace) 100 mg BID PO Last administered on 11/25/17 20:08; Start 11/15/17 at 21:30 Fluticasone Propionate (Flonase) 2 spray DAILY NS Last administered on 08:01; Start 11/16/17 at 09:00 Furosemide (Lasix) 40 mg DAILY PO Last administered on 11/25/17at 08:06; Start 11/16/17 at 09:00 Acetaminophen/ Hydrocodone Bitart (Lortab 5/325) 1 tab BID PO Last administered on 11/25/17at 20:08; Start 11/15/17 at 21:30 Acetaminophen/ Hydrocodone Bitart (Lortab 5/325) 1 tab PRN Q6HRS PRN PO PAIN; Start 11/15/17 at 21:30 Insulin Human Lispro (HumaLOG) If blood sugar is 75-150=0un... TIDWMEALHC PRN SQ Diabetes Last administered on 11/19/17at 20:18; Start 11/15/17 at 20:45; Stop at 12:25; Status DC Loperamide HCl (Imodium) 2 mg PRN Q8HRS PRN PO DIARRHEA; Start 11/15/17 at 21:30 Magnesium Hydroxide (Milk Of Magnesia) 2,400 mg PRN QHS PRN PO CONSTIPATION; Start 11/15/17 at 21:30 Magnesium Oxide (Magnesium Oxide) 400 mg BID PO Last administered on 11/22/17at 21:16; Start 11/15/17 at 22:00; Stop 11/23/17 at 11:58; Status DC Mirtazapine (Remeron) 7.5 mg QHS PO Last administered on 11/15/17at 22:17; Start 11/15/17 at 22:00; Stop 11/16/17 at 18:24; Status DC Ondansetron HCl (Zofran Odt) 4 mg PRN Q8HRS PRN PO NAUSEA/VOMITING; Start at 21:30 Pantoprazole Sodium (Protonix) 40 mg DAILYAC PO Last administered on 11/25/17at 07:58; Start 11/16/17 at 07:30 Polyethylene Glycol (miraLAX) 17 gm DAILY PO Last administered on 11/25/17at 08: 07; Start 11/16/17 at 09:00 Quetiapine Fumarate (SEROquel) 25 mg 0900,1500 PO Last administered on at 14:51; Start 11/16/17 at 09:00 Quetiapine Fumarate (SEROquel) 75 mg QHS PO Last administered on 11/25/17 20: 09; Start 11/15/17 at 21:30 Sennosides (Senna) 8.6 mg BID PO Last administered on 11/25/17 20:08; Start at 21:30 Trazodone HCl (Desyrel) 50 mg PRN QHS PRN PO INSOMNIA, MAY REPEAT X1 Last administered on 11/15/17at 22:17; Start 11/15/17 at 21:30 Venlafaxine HCl (Effexor Xr) 75 mg DAILY PO Last administered on 11/25/17 08: 05; Start 11/16/17 at 09:00 Vitamin B Complex 1 cap DAILY PO Last administered on 11/25/17at 08:01; Start at 09:00 Acetaminophen (Tylenol) 650 mg PRN Q6HRS PRN PO PAIN / TEMP; Start 11/15/17 at 22:15; Status UNV Multi-Ingredient Ointment (Analgesic [place]) 1 edi PRN QID PRN TP MUSCLE PAIN; Start 11/15/17 at 22:15; Status UNV Al Hydroxide/Mg Hydroxide (Mylanta Plus Xs) 15 ml PRN AFTMEALHC PRN PO DYSPEPSIA; Start 11/15/17 at 22:15; Status UNV Magnesium Hydroxide (Milk Of Magnesia) 2,400 mg PRN QHS PRN PO CONSTIPATION; Start 11/15/17 at 22:15; Status UNV Mirtazapine (Remeron) 15 mg QHS PO Last administered on 11/25/17at 20:08; Start 11/16/17 at 21:00 Insulin Human Lispro (HumaLOG) If blood sugar is 75-150=0un... TIDWMEALS SQ Last administered on 11/25/17at 17:36; Start 11/21/17 at 17:00 Active Scripts Active Reported Trazodone Hcl 50 Mg Tablet 50 Mg PO PRN QHS PRN Buspirone Hcl 10 Mg Tablet 20 Mg PO DAILYWSUP Venlafaxine Hcl Er (Venlafaxine Hcl) 75 Mg Cap.er.24h 75 Mg PO DAILY Seroquel (Quetiapine Fumarate) 25 Mg Tablet 25 Mg PO BID @ 0900,1500 Seroquel (Quetiapine Fumarate) 50 Mg Tablet 75 Mg PO QHS Thera M Plus Tablet (Multivits,Ca,Minerals/Iron/FA) 1 Each Tablet 1 Each PO DAILY Remeron (Mirtazapine) 15 Mg Tablet 7.5 Mg PO QHS Analgesic [place] (Methyl Salicylate/Menthol) 28 Gm Oint...g. 1 Edi TP PRN QID PRN Mag-Al Plus Xs Suspension (Mag Hydrox/Al Hydrox/Simeth) 30 Ml Oral.susp 15 Ml PO PRN AFTMEAL PRN Pulmicort (Budesonide) 0.5 Mg/2 Ml Ampul.neb 0.5 Mg NEB BID Benzonatate 100 Mg Capsule 100 Mg PO PRN TID PRN Albuterol Sulfate Neb Soln (Albuterol Sulfate) 2.5 Mg/3 Ml Vial.neb 2.5 Mg NEB PRN Q6HRS PRN Ondansetron Hcl 4 Mg Tablet 4 Mg PO PRN Q4HRS PRN dissolve on tongue Novolog Flexpen (Insulin Aspart) 100 Unit/1 Ml Insuln.pen 0-6 Unit SQ TIDWMEALHC PRN BS 75-150= 0 units BS 151-200= 2 units BS 201-250= 3 units BS 251-300= 4 units BS 301-350= 5 units BS 351-400= 6 units BS<70 or >400 call Physician Miralax (Polyethylene Glycol 3350) 17 Gm Powd.pack 17 Gm PO PRN DAILY PRN Mucinex (Guaifenesin) 600 Mg Tablet.er 600 Mg PO TID Buspirone Hcl 10 Mg Tablet 10 Mg PO BID@ 0900,1300 Senna Lax (Sennosides) 8.6 Mg Tablet 8.6 Mg PO BID Docusate Sodium 100 Mg Capsule 100 Mg PO BID Vitamin B Complex 1 Each Tablet 100 Mg PO DAILY D3-50 (Cholecalciferol (Vitamin D3)) 50,000 Unit Capsule 50,000 Unit PO WEEKLY every thursday C-1000 (Ascorbic Acid) 1,000 Mg Tablet 1,000 Mg PO DAILY Klor-Con M20 (Potassium Chloride) 20 Meq Tab.er.prt 20 Meq PO DAILY Pantoprazole Sodium 40 Mg Tablet.dr 40 Mg PO DAILYAC Tamsulosin Hcl 0.4 Mg Cap.er.24h 0.4 Mg PO QEVNG Hydrocodone-Apap 5-325 (Hydrocodone Bit/Acetaminophen) 1 Each Tablet 1 Tab PO PRN Q6HRS PRN Hydrocodone-Apap 5-325 (Hydrocodone Bit/Acetaminophen) 1 Each Tablet 1 Tab PO BID Milk Of Magnesia (Magnesium Hydroxide) 2,400 Mg/10 Ml Oral.susp 2,400 Mg PO PRN QHS PRN Lasix (Furosemide) 40 Mg Tablet 40 Mg PO DAILY Flonase Allergy Relief (Fluticasone Propionate) 9.9 Ml [place].susp 2 Sprays NS DAILY use in each nostril Miralax (Polyethylene Glycol 3350) 17 Gm Powd.pack 17 Gm PO DAILY Loperamide (Loperamide Hcl) 2 Mg Capsule 2 Mg PO PRN Q8HRS PRN Not to exceed 8 capsules in 24hrs Acetaminophen 500 Mg Tablet 500 Mg PO PRN Q4HRS PRN Magnesium Oxide 400 Mg Tablet 400 Mg PO BID Duoneb 0.5-3(2.5) Mg/3 Ml (Albuterol/Ipratropium) 3 Ml Ampul.neb 3 Ml NEB QID Cardizem Cd (Diltiazem Hcl) 240 Mg Cap.er.24h 120 Mg PO BID HOLD FOR SBP <110 Cyanocobalamin Injection (Cyanocobalamin (Vitamin B-12)) 1,000 Mcg/1 Ml Vial 1, 000 Mcg IM QMONTH next due 09/24/17 NEXT DOSE DUE 09/19/17 I have reviewed the current psychotropics carefully including drug interactions. Risk benefit ratio favors no change other than as noted in my dictated progress note. 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
[2017-11-26] MEDS: IPRATRPIUM/ALBUTEROL 0.5/2.5MG 3 ML NEBU. NEB SCH ×4 (05:39→20:46)
[2017-11-26 06:15] VITALS: BP 121/78
[2017-11-26] MEDS: INSULIN LISPRO 300 UNITS/3 ML INSULN.PEN. SQ SCH ×3 (08:00→16:33)
[2017-11-26] MEDS: PANTOPRAZOLE 40 MG TABLET. PO SCH (08:04)
[2017-11-26] MEDS: VITAMIN B COMPLEX CAPSULE. PO SCH (08:04)
[2017-11-26] MEDS: busPIRone 10 MG TABLET. PO SCH ×3 (08:05→17:02)
[2017-11-26] MEDS: DOCUSATE SODIUM 100 MG CAPSULE PO SCH ×2 (08:05→21:00)
[2017-11-26] MEDS: VENLAFAXINE XR 37.5 MG CAP.ER.24H. PO SCH (08:05)
[2017-11-26] MEDS: SENNOSIDES 8.6 MG TABLET PO SCH ×2 (08:06→21:00)
[2017-11-26] MEDS: FUROSEMIDE 40 MG TABLET PO SCH (08:06)
[2017-11-26] MEDS: MULTIVITAMIN with MINERAL TABLET. PO SCH (08:06)
[2017-11-26] MEDS: POTASSIUM CHLORIDE 20 MEQ TABLET.ER. PO SCH (08:06)
[2017-11-26] MEDS: QUEtiapine 25 MG TABLET. PO SCH ×3 (08:06→21:01)
[2017-11-26] MEDS: ASCORBIC ACID 500 MG TABLET PO SCH (08:07)
[2017-11-26] MEDS: POLYETHYLENE GLYCOL 3350 17 GM PACKET. PO SCH (08:07)
[2017-11-26] MEDS: HYDROcodone/APAP 5/325MG 1 TAB TABLET PO SCH ×3 (08:09→22:26)
[2017-11-26] MEDS: FLUTICASONE 50MCG/NASAL SPRAY 16GM BOTTLE. NS SCH (08:18)
[2017-11-26] MEDS: BUDESONIDE 0.5 MG/2 ML NEBU NEB SCH ×2 (10:08→20:46)
[2017-11-26 16:08] VITALS: BP 121/74
[2017-11-26] MEDS: TAMSULOSIN 0.4 MG CAP.ER.24H. PO SCH (17:02)
--- NOTE | 2017-11-26 20:20 | PDOC ---
Exam Note: Harris Note: Please also refer to the separate dictated note~for this date of service dictated separately.~Patient seen individually. Discussed the patient with Nursing staff reviewed the chart.~Reviewed interim history and current functioning. Reviewed vital signs,~Labs/ Radiology~and current medications noted below. Continue current treatment with the changes noted in the dictated addendum note Assessment: Vital Signs: Vital Signs Date Time Temp Pulse Resp B/P (MAP) Pulse Ox O2 Delivery O2 Flow Rate FiO2 11/26/17 16:08 97.3 73 18 121/74 (90) 93 Room Air I&O Intake and Output 11/26/17 06:59 Intake Total 980 ml Balance 980 ml Intake Oral 980 ml # Voids 1 Labs: Laboratory Tests Test 11/26/17 07:15 11/26/17 07:40 11/26/17 11:40 11/26/17 16:25 Magnesium Level 2.8 mg/dL (1.8-2.4) H Glucose (Fingerstick) 142 mg/dL (70-99) H 150 mg/dL (70-99) H 149 mg/dL (70-99) H Test 11/26/17 19:04 Glucose (Fingerstick) 153 mg/dL (70-99) H Current Medications: Meds: Current Medications Albuterol Sulfate (Ventolin) 2.5 mg PRN Q6HRS PRN NEB SHORTNESS OF BREATH Last administered on 11/22/17at 02:19; Start 11/15/17 at 20:45 Vitamin D (Vitamin D3) 50,000 unit WEEKLY PO Last administered on 11/22/17at 08: 07; Start 11/22/17 at 09:00 Cyanocobalamin (Vitamin B-12) 1,000 mcg QMONTH IM ; Start 12/15/17 at 09:00 Diltiazem HCl (Cardizem 24hr Cd) 120 mg BID PO Last administered on 11/26/17at 08:05; Start 11/16/17 at 09:00 Guaifenesin (Mucinex Er) 600 mg BID PO Last administered on 11/26/17at 08:07; Start 11/15/17 at 21:00 Albuterol/ Ipratropium (Duoneb) 3 ml RTQID NEB Last administered on 11/26/17at 10:08; Start 11/15/17 at 21:00 Al Hydroxide/Mg Hydroxide (Mylanta Plus Xs) 15 ml PRN AFTMEAL PRN PO DYSPEPSIA Last administered on 11/25/17at 22:39; Start 11/15/17 at 20:45 Multi-Ingredient Ointment (Analgesic [place]) 1 edi PRN QID PRN TP MUSCLE PAIN; Start 11/15/17 at 20:45 Multivitamins/ Calcium (Thera-M Plus) 1 tab DAILY PO Last administered on 08:06; Start 11/16/17 at 09:00 Potassium Chloride (Klor-Con) 20 meq DAILY PO Last administered on 11/26/17 08 :06; Start 11/16/17 at 09:00 Tamsulosin HCl (Flomax) 0.4 mg QEVNG PO Last administered on 11/26/17 17:02; Start 11/16/17 at 18:00 Acetaminophen (Tylenol) 500 mg PRN Q4HRS PRN PO PAIN / TEMP; Start 11/15/17 at 21:15 Ascorbic Acid (Vitamin C) 1,000 mg DAILY PO Last administered on 11/26/17 08: 07; Start 11/16/17 at 09:00 Benzonatate (Tessalon Perle) 100 mg PRN TID PRN PO COUGH Last administered on 02:19; Start 11/16/17 at 09:00 Budesonide (Pulmicort) 0.5 mg RTBID NEB Last administered on 11/26/17at 10:08; Start 11/16/17 at 08:00 Buspirone HCl (Buspar) 10 mg 0900,1300 PO Last administered on 11/26/17at 11:51 ; Start 11/16/17 at 09:00 Buspirone HCl (Buspar) 20 mg DAILYWSUP PO Last administered on 11/26/17 17:02 ; Start 11/16/17 at 17:00 Docusate Sodium (Colace) 100 mg BID PO Last administered on 11/26/17 08:05; Start 11/15/17 at 21:30 Fluticasone Propionate (Flonase) 2 spray DAILY NS Last administered on 08:18; Start 11/16/17 at 09:00 Furosemide (Lasix) 40 mg DAILY PO Last administered on 11/26/17 08:06; Start 11/16/17 at 09:00 Acetaminophen/ Hydrocodone Bitart (Lortab 5/325) 1 tab BID PO Last administered on 11/26/17 08:09; Start 11/15/17 at 21:30 Acetaminophen/ Hydrocodone Bitart (Lortab 5/325) 1 tab PRN Q6HRS PRN PO PAIN; Start 11/15/17 at 21:30 Insulin Human Lispro (HumaLOG) If blood sugar is 75-150=0un... TIDWMEALHC PRN SQ Diabetes Last administered on 11/19/17at 20:18; Start 11/15/17 at 20:45; Stop at 12:25; Status DC Loperamide HCl (Imodium) 2 mg PRN Q8HRS PRN PO DIARRHEA; Start 11/15/17 at 21:30 Magnesium Hydroxide (Milk Of Magnesia) 2,400 mg PRN QHS PRN PO CONSTIPATION; Start 11/15/17 at 21:30 Magnesium Oxide (Magnesium Oxide) 400 mg BID PO Last administered on 11/22/17at 21:16; Start 11/15/17 at 22:00; Stop 11/23/17 at 11:58; Status DC Mirtazapine (Remeron) 7.5 mg QHS PO Last administered on 11/15/17 22:17; Start 11/15/17 at 22:00; Stop 11/16/17 at 18:24; Status DC Ondansetron HCl (Zofran Odt) 4 mg PRN Q8HRS PRN PO NAUSEA/VOMITING; Start at 21:30 Pantoprazole Sodium (Protonix) 40 mg DAILYAC PO Last administered on 11/26/17at 08:04; Start 11/16/17 at 07:30 Polyethylene Glycol (miraLAX) 17 gm DAILY PO Last administered on 11/26/17 08: 07; Start 11/16/17 at 09:00 Quetiapine Fumarate (SEROquel) 25 mg 0900,1500 PO Last administered on at 15:00; Start 11/16/17 at 09:00 Quetiapine Fumarate (SEROquel) 75 mg QHS PO Last administered on 8/15/18at 20: 09; Start 11/15/17 at 21:30 Sennosides (Senna) 8.6 mg BID PO Last administered on 11/26/17at 08:06; Start at 21:30 Trazodone HCl (Desyrel) 50 mg PRN QHS PRN PO INSOMNIA, MAY REPEAT X1 Last administered on 11/15/17at 22:17; Start 11/15/17 at 21:30 Venlafaxine HCl (Effexor Xr) 75 mg DAILY PO Last administered on 11/26/17at 08: 05; Start 11/16/17 at 09:00 Vitamin B Complex 1 cap DAILY PO Last administered on 11/26/17at 08:04; Start at 09:00 Acetaminophen (Tylenol) 650 mg PRN Q6HRS PRN PO PAIN / TEMP; Start 11/15/17 at 22:15; Status UNV Multi-Ingredient Ointment (Analgesic [place]) 1 edi PRN QID PRN TP MUSCLE PAIN; Start 11/15/17 at 22:15; Status UNV Al Hydroxide/Mg Hydroxide (Mylanta Plus Xs) 15 ml PRN AFTMEALHC PRN PO DYSPEPSIA; Start 11/15/17 at 22:15; Status UNV Magnesium Hydroxide (Milk Of Magnesia) 2,400 mg PRN QHS PRN PO CONSTIPATION; Start 11/15/17 at 22:15; Status UNV Mirtazapine (Remeron) 15 mg QHS PO Last administered on 11/25/17at 20:08; Start 11/16/17 at 21:00 Insulin Human Lispro (HumaLOG) If blood sugar is 75-150=0un... TIDWMEALS SQ Last administered on 11/25/17at 17:36; Start 11/21/17 at 17:00 Active Scripts Active Reported Trazodone Hcl 50 Mg Tablet 50 Mg PO PRN QHS PRN Buspirone Hcl 10 Mg Tablet 20 Mg PO DAILYWSUP Venlafaxine Hcl Er (Venlafaxine Hcl) 75 Mg Cap.er.24h 75 Mg PO DAILY Seroquel (Quetiapine Fumarate) 25 Mg Tablet 25 Mg PO BID @ 0900,1500 Seroquel (Quetiapine Fumarate) 50 Mg Tablet 75 Mg PO QHS Thera M Plus Tablet (Multivits,Ca,Minerals/Iron/FA) 1 Each Tablet 1 Each PO DAILY Remeron (Mirtazapine) 15 Mg Tablet 7.5 Mg PO QHS Analgesic [place] (Methyl Salicylate/Menthol) 28 Gm Oint...g. 1 Edi TP PRN QID PRN Mag-Al Plus Xs Suspension (Mag Hydrox/Al Hydrox/Simeth) 30 Ml Oral.susp 15 Ml PO PRN AFTMEAL PRN Pulmicort (Budesonide) 0.5 Mg/2 Ml Ampul.neb 0.5 Mg NEB BID Benzonatate 100 Mg Capsule 100 Mg PO PRN TID PRN Albuterol Sulfate Neb Soln (Albuterol Sulfate) 2.5 Mg/3 Ml Vial.neb 2.5 Mg NEB PRN Q6HRS PRN Ondansetron Hcl 4 Mg Tablet 4 Mg PO PRN Q4HRS PRN dissolve on tongue Novolog Flexpen (Insulin Aspart) 100 Unit/1 Ml Insuln.pen 0-6 Unit SQ TIDWMEALHC PRN BS 75-150= 0 units BS 151-200= 2 units BS 201-250= 3 units BS 251-300= 4 units BS 301-350= 5 units BS 351-400= 6 units BS<70 or >400 call Physician Miralax (Polyethylene Glycol 3350) 17 Gm Powd.pack 17 Gm PO PRN DAILY PRN Mucinex (Guaifenesin) 600 Mg Tablet.er 600 Mg PO TID Buspirone Hcl 10 Mg Tablet 10 Mg PO BID@ 0900,1300 Senna Lax (Sennosides) 8.6 Mg Tablet 8.6 Mg PO BID Docusate Sodium 100 Mg Capsule 100 Mg PO BID Vitamin B Complex 1 Each Tablet 100 Mg PO DAILY D3-50 (Cholecalciferol (Vitamin D3)) 50,000 Unit Capsule 50,000 Unit PO WEEKLY every thursday C-1000 (Ascorbic Acid) 1,000 Mg Tablet 1,000 Mg PO DAILY Klor-Con M20 (Potassium Chloride) 20 Meq Tab.er.prt 20 Meq PO DAILY Pantoprazole Sodium 40 Mg Tablet.dr 40 Mg PO DAILYAC Tamsulosin Hcl 0.4 Mg Cap.er.24h 0.4 Mg PO QEVNG Hydrocodone-Apap 5-325 (Hydrocodone Bit/Acetaminophen) 1 Each Tablet 1 Tab PO PRN Q6HRS PRN Hydrocodone-Apap 5-325 (Hydrocodone Bit/Acetaminophen) 1 Each Tablet 1 Tab PO BID Milk Of Magnesia (Magnesium Hydroxide) 2,400 Mg/10 Ml Oral.susp 2,400 Mg PO PRN QHS PRN Lasix (Furosemide) 40 Mg Tablet 40 Mg PO DAILY Flonase Allergy Relief (Fluticasone Propionate) 9.9 Ml [place].susp 2 Sprays NS DAILY use in each nostril Miralax (Polyethylene Glycol 3350) 17 Gm Powd.pack 17 Gm PO DAILY Loperamide (Loperamide Hcl) 2 Mg Capsule 2 Mg PO PRN Q8HRS PRN Not to exceed 8 capsules in 24hrs Acetaminophen 500 Mg Tablet 500 Mg PO PRN Q4HRS PRN Magnesium Oxide 400 Mg Tablet 400 Mg PO BID Duoneb 0.5-3(2.5) Mg/3 Ml (Albuterol/Ipratropium) 3 Ml Ampul.neb 3 Ml NEB QID Cardizem Cd (Diltiazem Hcl) 240 Mg Cap.er.24h 120 Mg PO BID HOLD FOR SBP <110 Cyanocobalamin Injection (Cyanocobalamin (Vitamin B-12)) 1,000 Mcg/1 Ml Vial 1, 000 Mcg IM QMONTH next due 09/24/17 NEXT DOSE DUE 09/19/17 I have reviewed the current psychotropics carefully including drug interactions. Risk benefit ratio favors no change other than as noted in my dictated progress note. 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
--- NOTE | 2017-11-26 20:55 | PDOC ---
Exam Note: Harris Note: Late entry for DOS November 24, 2017. Please also refer to the separate dictated note~for this date of service dictated separately.~Patient seen individually. Discussed the patient with Nursing staff reviewed the chart.~Reviewed interim history and current functioning. Reviewed vital signs,~Labs/ Radiology~and current medications noted below. Continue current treatment with the changes noted in the dictated addendum note Assessment: Vital Signs: VS - Last 72 Hours, by Label Date Time Temp Pulse Resp B/P (MAP) Pulse Ox O2 Delivery O2 Flow Rate FiO2 11/26/17 20:46 95 Room Air 11/26/17 20:46 95 Room Air 11/26/17 16:08 97.3 73 18 121/74 (90) 93 Room Air 11/26/17 10:10 96 Room Air 11/26/17 09:09 Room Air 11/26/17 08:09 93 Room Air 11/26/17 08:05 81 121/78 11/26/17 06:15 97.9 81 20 121/78 (92) 93 11/25/17 22:41 86 148/80 11/25/17 21:49 18 11/25/17 20:08 18 Room Air 11/25/17 16:45 96 Room Air 11/25/17 16:18 97.3 78 18 112/75 (87) 96 11/25/17 11:18 94 Room Air 11/25/17 09:35 90 11/25/17 08:12 Room Air 11/25/17 08:04 72 134/54 11/25/17 05:45 97.3 72 16 134/54 (80) 90 11/25/17 05:37 94 Room Air 11/25/17 05:36 94 Room Air 11/24/17 21:28 79 147/52 11/24/17 20:45 98 Room Air 11/24/17 20:44 98 Room Air 11/24/17 20:04 18 Room Air 11/24/17 16:28 97 Room Air 11/24/17 16:16 97.7 72 18 103/83 (90) 94 Room Air 11/24/17 11:29 95 Room Air 11/24/17 09:06 126/107 (113) 11/24/17 09:03 83 126/107 11/24/17 06:14 97.6 83 18 93 11/24/17 04:15 95 Room Air Vital Signs Date Time Temp Pulse Resp B/P (MAP) Pulse Ox O2 Delivery O2 Flow Rate FiO2 11/26/17 20:46 95 Room Air 11/26/17 16:08 97.3 73 18 121/74 (90) I&O Intake and Output 11/26/17 06:59 Intake Total 980 ml Balance 980 ml Intake Oral 980 ml # Voids 1 Labs: Laboratory Tests Test 11/26/17 07:15 11/26/17 07:40 11/26/17 11:40 11/26/17 16:25 Magnesium Level 2.8 mg/dL (1.8-2.4) H Glucose (Fingerstick) 142 mg/dL (70-99) H 150 mg/dL (70-99) H 149 mg/dL (70-99) H Test 11/26/17 19:04 Glucose (Fingerstick) 153 mg/dL (70-99) H Current Medications: Meds: Current Medications Albuterol Sulfate (Ventolin) 2.5 mg PRN Q6HRS PRN NEB SHORTNESS OF BREATH Last administered on 11/22/17at 02:19; Start 11/15/17 at 20:45 Vitamin D (Vitamin D3) 50,000 unit WEEKLY PO Last administered on 11/22/17at 08: 07; Start 11/22/17 at 09:00 Cyanocobalamin (Vitamin B-12) 1,000 mcg QMONTH IM ; Start 12/15/17 at 09:00 Diltiazem HCl (Cardizem 24hr Cd) 120 mg BID PO Last administered on 11/26/17at 08:05; Start 11/16/17 at 09:00 Guaifenesin (Mucinex Er) 600 mg BID PO Last administered on 11/26/17at 08:07; Start 11/15/17 at 21:00 Albuterol/ Ipratropium (Duoneb) 3 ml RTQID NEB Last administered on 11/26/17at 20:46; Start 11/15/17 at 21:00 Al Hydroxide/Mg Hydroxide (Mylanta Plus Xs) 15 ml PRN AFTMEAL PRN PO DYSPEPSIA Last administered on 11/25/17at 22:39; Start 11/15/17 at 20:45 Multi-Ingredient Ointment (Analgesic [place]) 1 edi PRN QID PRN TP MUSCLE PAIN; Start 11/15/17 at 20:45 Multivitamins/ Calcium (Thera-M Plus) 1 tab DAILY PO Last administered on 08:06; Start 11/16/17 at 09:00 Potassium Chloride (Klor-Con) 20 meq DAILY PO Last administered on 11/26/17 08 :06; Start 11/16/17 at 09:00 Tamsulosin HCl (Flomax) 0.4 mg QEVNG PO Last administered on 11/26/17 17:02; Start 11/16/17 at 18:00 Acetaminophen (Tylenol) 500 mg PRN Q4HRS PRN PO PAIN / TEMP; Start 11/15/17 at 21:15 Ascorbic Acid (Vitamin C) 1,000 mg DAILY PO Last administered on 11/26/17 08: 07; Start 11/16/17 at 09:00 Benzonatate (Tessalon Perle) 100 mg PRN TID PRN PO COUGH Last administered on 02:19; Start 11/16/17 at 09:00 Budesonide (Pulmicort) 0.5 mg RTBID NEB Last administered on 11/26/17 20:46; Start 11/16/17 at 08:00 Buspirone HCl (Buspar) 10 mg 0900,1300 PO Last administered on 11/26/17at 11:51 ; Start 11/16/17 at 09:00 Buspirone HCl (Buspar) 20 mg DAILYWSUP PO Last administered on 11/26/17 17:02 ; Start 11/16/17 at 17:00 Docusate Sodium (Colace) 100 mg BID PO Last administered on 11/26/17 08:05; Start 11/15/17 at 21:30 Fluticasone Propionate (Flonase) 2 spray DAILY NS Last administered on 08:18; Start 11/16/17 at 09:00 Furosemide (Lasix) 40 mg DAILY PO Last administered on 11/26/17 08:06; Start 11/16/17 at 09:00 Acetaminophen/ Hydrocodone Bitart (Lortab 5/325) 1 tab BID PO Last administered on 11/26/17 08:09; Start 11/15/17 at 21:30 Acetaminophen/ Hydrocodone Bitart (Lortab 5/325) 1 tab PRN Q6HRS PRN PO PAIN; Start 11/15/17 at 21:30 Insulin Human Lispro (HumaLOG) If blood sugar is 75-150=0un... TIDWMEALHC PRN SQ Diabetes Last administered on 11/19/17at 20:18; Start 11/15/17 at 20:45; Stop at 12:25; Status DC Loperamide HCl (Imodium) 2 mg PRN Q8HRS PRN PO DIARRHEA; Start 11/15/17 at 21:30 Magnesium Hydroxide (Milk Of Magnesia) 2,400 mg PRN QHS PRN PO CONSTIPATION; Start 11/15/17 at 21:30 Magnesium Oxide (Magnesium Oxide) 400 mg BID PO Last administered on 11/22/17at 21:16; Start 11/15/17 at 22:00; Stop 11/23/17 at 11:58; Status DC Mirtazapine (Remeron) 7.5 mg QHS PO Last administered on 11/15/17at 22:17; Start 11/15/17 at 22:00; Stop 11/16/17 at 18:24; Status DC Ondansetron HCl (Zofran Odt) 4 mg PRN Q8HRS PRN PO NAUSEA/VOMITING; Start at 21:30 Pantoprazole Sodium (Protonix) 40 mg DAILYAC PO Last administered on 11/26/17at 08:04; Start 11/16/17 at 07:30 Polyethylene Glycol (miraLAX) 17 gm DAILY PO Last administered on 11/26/17at 08: 07; Start 11/16/17 at 09:00 Quetiapine Fumarate (SEROquel) 25 mg 0900,1500 PO Last administered on at 15:00; Start 11/16/17 at 09:00 Quetiapine Fumarate (SEROquel) 75 mg QHS PO Last administered on 11/25/17at 20: 09; Start 11/15/17 at 21:30 Sennosides (Senna) 8.6 mg BID PO Last administered on 11/26/17at 08:06; Start at 21:30 Trazodone HCl (Desyrel) 50 mg PRN QHS PRN PO INSOMNIA, MAY REPEAT X1 Last administered on 11/15/17at 22:17; Start 11/15/17 at 21:30 Venlafaxine HCl (Effexor Xr) 75 mg DAILY PO Last administered on 11/26/17at 08: 05; Start 11/16/17 at 09:00 Vitamin B Complex 1 cap DAILY PO Last administered on 11/26/17at 08:04; Start at 09:00 Acetaminophen (Tylenol) 650 mg PRN Q6HRS PRN PO PAIN / TEMP; Start 11/15/17 at 22:15; Status UNV Multi-Ingredient Ointment (Analgesic [place]) 1 edi PRN QID PRN TP MUSCLE PAIN; Start 11/15/17 at 22:15; Status UNV Al Hydroxide/Mg Hydroxide (Mylanta Plus Xs) 15 ml PRN AFTMEALHC PRN PO DYSPEPSIA; Start 11/15/17 at 22:15; Status UNV Magnesium Hydroxide (Milk Of Magnesia) 2,400 mg PRN QHS PRN PO CONSTIPATION; Start 11/15/17 at 22:15; Status UNV Mirtazapine (Remeron) 15 mg QHS PO Last administered on 11/25/17at 20:08; Start 11/16/17 at 21:00 Insulin Human Lispro (HumaLOG) If blood sugar is 75-150=0un... TIDWMEALS SQ Last administered on 11/25/17at 17:36; Start 11/21/17 at 17:00 Active Scripts Active Reported Trazodone Hcl 50 Mg Tablet 50 Mg PO PRN QHS PRN Buspirone Hcl 10 Mg Tablet 20 Mg PO DAILYWSUP Venlafaxine Hcl Er (Venlafaxine Hcl) 75 Mg Cap.er.24h 75 Mg PO DAILY Seroquel (Quetiapine Fumarate) 25 Mg Tablet 25 Mg PO BID @ 0900,1500 Seroquel (Quetiapine Fumarate) 50 Mg Tablet 75 Mg PO QHS Thera M Plus Tablet (Multivits,Ca,Minerals/Iron/FA) 1 Each Tablet 1 Each PO DAILY Remeron (Mirtazapine) 15 Mg Tablet 7.5 Mg PO QHS Analgesic [place] (Methyl Salicylate/Menthol) 28 Gm Oint...g. 1 Edi TP PRN QID PRN Mag-Al Plus Xs Suspension (Mag Hydrox/Al Hydrox/Simeth) 30 Ml Oral.susp 15 Ml PO PRN AFTMEAL PRN Pulmicort (Budesonide) 0.5 Mg/2 Ml Ampul.neb 0.5 Mg NEB BID Benzonatate 100 Mg Capsule 100 Mg PO PRN TID PRN Albuterol Sulfate Neb Soln (Albuterol Sulfate) 2.5 Mg/3 Ml Vial.neb 2.5 Mg NEB PRN Q6HRS PRN Ondansetron Hcl 4 Mg Tablet 4 Mg PO PRN Q4HRS PRN dissolve on tongue Novolog Flexpen (Insulin Aspart) 100 Unit/1 Ml Insuln.pen 0-6 Unit SQ TIDWMEALHC PRN BS 75-150= 0 units BS 151-200= 2 units BS 201-250= 3 units BS 251-300= 4 units BS 301-350= 5 units BS 351-400= 6 units BS<70 or >400 call Physician Miralax (Polyethylene Glycol 3350) 17 Gm Powd.pack 17 Gm PO PRN DAILY PRN Mucinex (Guaifenesin) 600 Mg Tablet.er 600 Mg PO TID Buspirone Hcl 10 Mg Tablet 10 Mg PO BID@ 0900,1300 Senna Lax (Sennosides) 8.6 Mg Tablet 8.6 Mg PO BID Docusate Sodium 100 Mg Capsule 100 Mg PO BID Vitamin B Complex 1 Each Tablet 100 Mg PO DAILY D3-50 (Cholecalciferol (Vitamin D3)) 50,000 Unit Capsule 50,000 Unit PO WEEKLY every thursday C-1000 (Ascorbic Acid) 1,000 Mg Tablet 1,000 Mg PO DAILY Klor-Con M20 (Potassium Chloride) 20 Meq Tab.er.prt 20 Meq PO DAILY Pantoprazole Sodium 40 Mg Tablet.dr 40 Mg PO DAILYAC Tamsulosin Hcl 0.4 Mg Cap.er.24h 0.4 Mg PO QEVNG Hydrocodone-Apap 5-325 (Hydrocodone Bit/Acetaminophen) 1 Each Tablet 1 Tab PO PRN Q6HRS PRN Hydrocodone-Apap 5-325 (Hydrocodone Bit/Acetaminophen) 1 Each Tablet 1 Tab PO BID Milk Of Magnesia (Magnesium Hydroxide) 2,400 Mg/10 Ml Oral.susp 2,400 Mg PO PRN QHS PRN Lasix (Furosemide) 40 Mg Tablet 40 Mg PO DAILY Flonase Allergy Relief (Fluticasone Propionate) 9.9 Ml [place].susp 2 Sprays NS DAILY use in each nostril Miralax (Polyethylene Glycol 3350) 17 Gm Powd.pack 17 Gm PO DAILY Loperamide (Loperamide Hcl) 2 Mg Capsule 2 Mg PO PRN Q8HRS PRN Not to exceed 8 capsules in 24hrs Acetaminophen 500 Mg Tablet 500 Mg PO PRN Q4HRS PRN Magnesium Oxide 400 Mg Tablet 400 Mg PO BID Duoneb 0.5-3(2.5) Mg/3 Ml (Albuterol/Ipratropium) 3 Ml Ampul.neb 3 Ml NEB QID Cardizem Cd (Diltiazem Hcl) 240 Mg Cap.er.24h 120 Mg PO BID HOLD FOR SBP <110 Cyanocobalamin Injection (Cyanocobalamin (Vitamin B-12)) 1,000 Mcg/1 Ml Vial 1, 000 Mcg IM QMONTH next due 09/24/17 NEXT DOSE DUE 09/19/17 I have reviewed the current psychotropics carefully including drug interactions. Risk benefit ratio favors no change other than as noted in my dictated progress note. 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
[2017-11-26] MEDS: MIRTAZAPINE 15 MG TABLET PO SCH (21:00)
--- NOTE | 2017-11-26 22:14 | PN ---
DATE: 11/25/2017 PSYCHIATRIC PROGRESS NOTE This is a late entry of 11/25/2017, covers elements not covered in my initial note. SUBJECTIVE: I met with the patient in the evening. The patient slept 6-3/4 hours previous evening. She remains somewhat confused, withdrawn, but actually less confused than she seems on the surface. REVIEW OF SYSTEMS: No CV, , pulmonary, eye, ENT system symptoms on review. MENTAL STATUS EXAM: I met with her in her room. Speech coherent, abstraction fair, computation impaired, and language function intact. Mood and affect somewhat withdrawn, but much less labile and less irritable as compared to at admission. She was trying to put the last button of the sweater into the button hole, was unable to do this. I assisted her, and she was very excited about being successful fairly appropriate. IMPRESSION: Unchanged from initial note. PLAN: No change from initial note. Speech coherent, abstraction fair, computation impaired, language function intact. Mood and affect less anxious, labile. RACHEL BULLARD MD DR: ERINN/alex JOB#: [id number] / [id number]
--- NOTE | 2017-11-27 01:22 | PDOC ---
Exam Note: Harris Note: Please also refer to the separate dictated note~for this date of service dictated separately.~Patient seen individually. Discussed the patient with Nursing staff reviewed the chart.~Reviewed interim history and current functioning. Reviewed vital signs,~Labs/ Radiology~and current medications noted below. Continue current treatment with the changes noted in the dictated addendum note Assessment: Vital Signs: Vital Signs Date Time Temp Pulse Resp B/P (MAP) Pulse Ox O2 Delivery O2 Flow Rate FiO2 11/26/17 23:26 16 Room Air 11/26/17 22:27 93 146/62 11/26/17 20:46 95 11/26/17 16:08 97.3 I&O Intake and Output 11/27/17 07:00 Intake Total 1440 ml Balance 1440 ml Intake Oral 1440 ml # Voids 1 Labs: Laboratory Tests Test 11/26/17 07:15 11/26/17 07:40 11/26/17 11:40 11/26/17 16:25 Magnesium Level 2.8 mg/dL (1.8-2.4) H Glucose (Fingerstick) 142 mg/dL (70-99) H 150 mg/dL (70-99) H 149 mg/dL (70-99) H Test 11/26/17 19:04 Glucose (Fingerstick) 153 mg/dL (70-99) H Current Medications: Meds: Current Medications Albuterol Sulfate (Ventolin) 2.5 mg PRN Q6HRS PRN NEB SHORTNESS OF BREATH Last administered on 11/22/17at 02:19; Start 11/15/17 at 20:45 Vitamin D (Vitamin D3) 50,000 unit WEEKLY PO Last administered on 11/22/17at 08: 07; Start 11/22/17 at 09:00 Cyanocobalamin (Vitamin B-12) 1,000 mcg QMONTH IM ; Start 12/15/17 at 09:00 Diltiazem HCl (Cardizem 24hr Cd) 120 mg BID PO Last administered on 11/26/17at 22:27; Start 11/16/17 at 09:00 Guaifenesin (Mucinex Er) 600 mg BID PO Last administered on 11/26/17at 21:00; Start 11/15/17 at 21:00 Albuterol/ Ipratropium (Duoneb) 3 ml RTQID NEB Last administered on 11/26/17 20:46; Start 11/15/17 at 21:00 Al Hydroxide/Mg Hydroxide (Mylanta Plus Xs) 15 ml PRN AFTMEAL PRN PO DYSPEPSIA Last administered on 11/25/17 22:39; Start 11/15/17 at 20:45 Multi-Ingredient Ointment (Analgesic [place]) 1 edi PRN QID PRN TP MUSCLE PAIN; Start 11/15/17 at 20:45 Multivitamins/ Calcium (Thera-M Plus) 1 tab DAILY PO Last administered on 08:06; Start 11/16/17 at 09:00 Potassium Chloride (Klor-Con) 20 meq DAILY PO Last administered on 11/26/17 08 :06; Start 11/16/17 at 09:00 Tamsulosin HCl (Flomax) 0.4 mg QEVNG PO Last administered on 11/26/17 17:02; Start 11/16/17 at 18:00 Acetaminophen (Tylenol) 500 mg PRN Q4HRS PRN PO PAIN / TEMP; Start 11/15/17 at 21:15 Ascorbic Acid (Vitamin C) 1,000 mg DAILY PO Last administered on 11/26/17 08: 07; Start 11/16/17 at 09:00 Benzonatate (Tessalon Perle) 100 mg PRN TID PRN PO COUGH Last administered on 02:19; Start 11/16/17 at 09:00 Budesonide (Pulmicort) 0.5 mg RTBID NEB Last administered on 11/26/17 20:46; Start 11/16/17 at 08:00 Buspirone HCl (Buspar) 10 mg 0900,1300 PO Last administered on 11/26/17 11:51 ; Start 11/16/17 at 09:00 Buspirone HCl (Buspar) 20 mg DAILYWSUP PO Last administered on 11/26/17 17:02 ; Start 11/16/17 at 17:00 Docusate Sodium (Colace) 100 mg BID PO Last administered on 11/26/17 21:00; Start 11/15/17 at 21:30 Fluticasone Propionate (Flonase) 2 spray DAILY NS Last administered on 08:18; Start 11/16/17 at 09:00 Furosemide (Lasix) 40 mg DAILY PO Last administered on 11/26/17 08:06; Start 11/16/17 at 09:00 Acetaminophen/ Hydrocodone Bitart (Lortab 5/325) 1 tab BID PO Last administered on 11/26/17 22:26; Start 11/15/17 at 21:30 Acetaminophen/ Hydrocodone Bitart (Lortab 5/325) 1 tab PRN Q6HRS PRN PO PAIN; Start 11/15/17 at 21:30 Insulin Human Lispro (HumaLOG) If blood sugar is 75-150=0un... TIDWMEALHC PRN SQ Diabetes Last administered on 11/19/17 20:18; Start 11/15/17 at 20:45; Stop at 12:25; Status DC Loperamide HCl (Imodium) 2 mg PRN Q8HRS PRN PO DIARRHEA; Start 11/15/17 at 21:30 Magnesium Hydroxide (Milk Of Magnesia) 2,400 mg PRN QHS PRN PO CONSTIPATION; Start 11/15/17 at 21:30 Magnesium Oxide (Magnesium Oxide) 400 mg BID PO Last administered on 11/22/17 21:16; Start 11/15/17 at 22:00; Stop 11/23/17 at 11:58; Status DC Mirtazapine (Remeron) 7.5 mg QHS PO Last administered on 11/15/17at 22:17; Start 11/15/17 at 22:00; Stop 11/16/17 at 18:24; Status DC Ondansetron HCl (Zofran Odt) 4 mg PRN Q8HRS PRN PO NAUSEA/VOMITING; Start at 21:30 Pantoprazole Sodium (Protonix) 40 mg DAILYAC PO Last administered on 11/26/17 08:04; Start 11/16/17 at 07:30 Polyethylene Glycol (miraLAX) 17 gm DAILY PO Last administered on 11/26/17 08: 07; Start 11/16/17 at 09:00 Quetiapine Fumarate (SEROquel) 25 mg 0900,1500 PO Last administered on at 15:00; Start 11/16/17 at 09:00 Quetiapine Fumarate (SEROquel) 75 mg QHS PO Last administered on 11/26/17at 21: 01; Start 11/15/17 at 21:30 Sennosides (Senna) 8.6 mg BID PO Last administered on 11/26/17at 21:00; Start at 21:30 Trazodone HCl (Desyrel) 50 mg PRN QHS PRN PO INSOMNIA, MAY REPEAT X1 Last administered on 11/15/17at 22:17; Start 11/15/17 at 21:30 Venlafaxine HCl (Effexor Xr) 75 mg DAILY PO Last administered on 11/26/17at 08: 05; Start 11/16/17 at 09:00 Vitamin B Complex 1 cap DAILY PO Last administered on 11/26/17at 08:04; Start at 09:00 Acetaminophen (Tylenol) 650 mg PRN Q6HRS PRN PO PAIN / TEMP; Start 11/15/17 at 22:15; Status UNV Multi-Ingredient Ointment (Analgesic [place]) 1 edi PRN QID PRN TP MUSCLE PAIN; Start 11/15/17 at 22:15; Status UNV Al Hydroxide/Mg Hydroxide (Mylanta Plus Xs) 15 ml PRN AFTMEALHC PRN PO DYSPEPSIA; Start 11/15/17 at 22:15; Status UNV Magnesium Hydroxide (Milk Of Magnesia) 2,400 mg PRN QHS PRN PO CONSTIPATION; Start 11/15/17 at 22:15; Status UNV Mirtazapine (Remeron) 15 mg QHS PO Last administered on 11/26/17at 21:00; Start 11/16/17 at 21:00 Insulin Human Lispro (HumaLOG) If blood sugar is 75-150=0un... TIDWMEALS SQ Last administered on 11/25/17at 17:36; Start 11/21/17 at 17:00 Active Scripts Active Reported Trazodone Hcl 50 Mg Tablet 50 Mg PO PRN QHS PRN Buspirone Hcl 10 Mg Tablet 20 Mg PO DAILYWSUP Venlafaxine Hcl Er (Venlafaxine Hcl) 75 Mg Cap.er.24h 75 Mg PO DAILY Seroquel (Quetiapine Fumarate) 25 Mg Tablet 25 Mg PO BID @ 0900,1500 Seroquel (Quetiapine Fumarate) 50 Mg Tablet 75 Mg PO QHS Thera M Plus Tablet (Multivits,Ca,Minerals/Iron/FA) 1 Each Tablet 1 Each PO DAILY Remeron (Mirtazapine) 15 Mg Tablet 7.5 Mg PO QHS Analgesic [place] (Methyl Salicylate/Menthol) 28 Gm Oint...g. 1 Edi TP PRN QID PRN Mag-Al Plus Xs Suspension (Mag Hydrox/Al Hydrox/Simeth) 30 Ml Oral.susp 15 Ml PO PRN AFTMEAL PRN Pulmicort (Budesonide) 0.5 Mg/2 Ml Ampul.neb 0.5 Mg NEB BID Benzonatate 100 Mg Capsule 100 Mg PO PRN TID PRN Albuterol Sulfate Neb Soln (Albuterol Sulfate) 2.5 Mg/3 Ml Vial.neb 2.5 Mg NEB PRN Q6HRS PRN Ondansetron Hcl 4 Mg Tablet 4 Mg PO PRN Q4HRS PRN dissolve on tongue Novolog Flexpen (Insulin Aspart) 100 Unit/1 Ml Insuln.pen 0-6 Unit SQ TIDWMEALHC PRN BS 75-150= 0 units BS 151-200= 2 units BS 201-250= 3 units BS 251-300= 4 units BS 301-350= 5 units BS 351-400= 6 units BS<70 or >400 call Physician Miralax (Polyethylene Glycol 3350) 17 Gm Powd.pack 17 Gm PO PRN DAILY PRN Mucinex (Guaifenesin) 600 Mg Tablet.er 600 Mg PO TID Buspirone Hcl 10 Mg Tablet 10 Mg PO BID@ 0900,1300 Senna Lax (Sennosides) 8.6 Mg Tablet 8.6 Mg PO BID Docusate Sodium 100 Mg Capsule 100 Mg PO BID Vitamin B Complex 1 Each Tablet 100 Mg PO DAILY D3-50 (Cholecalciferol (Vitamin D3)) 50,000 Unit Capsule 50,000 Unit PO WEEKLY every thursday C-1000 (Ascorbic Acid) 1,000 Mg Tablet 1,000 Mg PO DAILY Klor-Con M20 (Potassium Chloride) 20 Meq Tab.er.prt 20 Meq PO DAILY Pantoprazole Sodium 40 Mg Tablet.dr 40 Mg PO DAILYAC Tamsulosin Hcl 0.4 Mg Cap.er.24h 0.4 Mg PO QEVNG Hydrocodone-Apap 5-325 (Hydrocodone Bit/Acetaminophen) 1 Each Tablet 1 Tab PO PRN Q6HRS PRN Hydrocodone-Apap 5-325 (Hydrocodone Bit/Acetaminophen) 1 Each Tablet 1 Tab PO BID Milk Of Magnesia (Magnesium Hydroxide) 2,400 Mg/10 Ml Oral.susp 2,400 Mg PO PRN QHS PRN Lasix (Furosemide) 40 Mg Tablet 40 Mg PO DAILY Flonase Allergy Relief (Fluticasone Propionate) 9.9 Ml [place].susp 2 Sprays NS DAILY use in each nostril Miralax (Polyethylene Glycol 3350) 17 Gm Powd.pack 17 Gm PO DAILY Loperamide (Loperamide Hcl) 2 Mg Capsule 2 Mg PO PRN Q8HRS PRN Not to exceed 8 capsules in 24hrs Acetaminophen 500 Mg Tablet 500 Mg PO PRN Q4HRS PRN Magnesium Oxide 400 Mg Tablet 400 Mg PO BID Duoneb 0.5-3(2.5) Mg/3 Ml (Albuterol/Ipratropium) 3 Ml Ampul.neb 3 Ml NEB QID Cardizem Cd (Diltiazem Hcl) 240 Mg Cap.er.24h 120 Mg PO BID HOLD FOR SBP <110 Cyanocobalamin Injection (Cyanocobalamin (Vitamin B-12)) 1,000 Mcg/1 Ml Vial 1, 000 Mcg IM QMONTH next due 09/24/17 NEXT DOSE DUE 09/19/17 I have reviewed the current psychotropics carefully including drug interactions. Risk benefit ratio favors no change other than as noted in my dictated progress note. 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
[2017-11-27] MEDS: IPRATRPIUM/ALBUTEROL 0.5/2.5MG 3 ML NEBU. NEB SCH ×4 (05:40→19:57)
[2017-11-27 06:03] VITALS: BP 149/42
[2017-11-27] MEDS: POLYETHYLENE GLYCOL 3350 17 GM PACKET. PO SCH (07:24)
[2017-11-27] MEDS: VITAMIN B COMPLEX CAPSULE. PO SCH (07:24)
[2017-11-27] MEDS: PANTOPRAZOLE 40 MG TABLET. PO SCH (07:24)
[2017-11-27] MEDS: SENNOSIDES 8.6 MG TABLET PO SCH ×2 (07:24→20:01)
[2017-11-27] MEDS: DOCUSATE SODIUM 100 MG CAPSULE PO SCH ×2 (07:24→20:01)
[2017-11-27] MEDS: QUEtiapine 25 MG TABLET. PO SCH ×3 (07:25→20:01)
[2017-11-27] MEDS: MULTIVITAMIN with MINERAL TABLET. PO SCH (07:25)
[2017-11-27] MEDS: ASCORBIC ACID 500 MG TABLET PO SCH (07:25)
[2017-11-27] MEDS: busPIRone 10 MG TABLET. PO SCH ×3 (07:25→17:13)
[2017-11-27] MEDS: VENLAFAXINE XR 37.5 MG CAP.ER.24H. PO SCH (07:26)
[2017-11-27] MEDS: POTASSIUM CHLORIDE 20 MEQ TABLET.ER. PO SCH (07:26)
[2017-11-27] MEDS: FUROSEMIDE 40 MG TABLET PO SCH (07:27)
[2017-11-27] MEDS: FLUTICASONE 50MCG/NASAL SPRAY 16GM BOTTLE. NS SCH ×2 (07:27→08:51)
[2017-11-27] MEDS: HYDROcodone/APAP 5/325MG 1 TAB TABLET PO SCH ×2 (07:29→20:01)
[2017-11-27] MEDS: INSULIN LISPRO 300 UNITS/3 ML INSULN.PEN. SQ SCH ×3 (07:35→16:33)
[2017-11-27] MEDS: BUDESONIDE 0.5 MG/2 ML NEBU NEB SCH ×2 (10:43→19:57)
--- NOTE | 2017-11-27 12:53 | PN ---
DATE: 11/26/2017 PSYCHIATRIC PROGRESS NOTE This is a late entry, 11/26, covers elements not covered in my initial note. SUBJECTIVE: I met with the patient in the evening. The patient was staffed at treatment team meeting with the entire team in the morning. The patient is more oriented than she seems on the surface. REVIEW OF SYSTEMS: No CV, , pulmonary, eye, ENT system symptoms on review. I met with her in her room in the evening. MENTAL STATUS EXAM: Oriented to herself and situation. Speech coherent, abstraction fair, computation impaired, language function intact. Mood and affect showing improvement, more pleasant, verbal, interactive, much improved as compared to when she was initially admitted. LABORATORY DATA: Reviewed. IMPRESSION: Major depressive disorder, recurrent with history of psychotic features; anxiety disorder, unspecified; major neurocognitive disorder, early Alzheimer, vascular with depression. PLAN: Continue psychotropics from initial note. MAN Wilson BULLARD MD DR: ERINN/alex JOB#: [id number] / [id number]
[2017-11-27 15:56] VITALS: BP 160/59
[2017-11-27] MEDS: TAMSULOSIN 0.4 MG CAP.ER.24H. PO SCH (17:13)
[2017-11-27] MEDS: MIRTAZAPINE 15 MG TABLET PO SCH (20:01)
--- NOTE | 2017-11-27 20:25 | PDOC ---
Exam Note: Harris Note: Please also refer to the separate dictated note~for this date of service dictated separately.~Patient seen individually. Discussed the patient with Nursing staff reviewed the chart.~Reviewed interim history and current functioning. Reviewed vital signs,~Labs/ Radiology~and current medications noted below. Continue current treatment with the changes noted in the dictated addendum note Assessment: Vital Signs: Vital Signs Date Time Temp Pulse Resp B/P (MAP) Pulse Ox O2 Delivery O2 Flow Rate FiO2 11/27/17 20:01 20 93 11/27/17 20:01 72 160/59 11/27/17 19:55 Room Air 11/27/17 15:56 98.5 I&O Intake and Output 11/27/17 06:59 Intake Total 1440 ml Balance 1440 ml Intake Oral 1440 ml # Voids 1 Labs: Laboratory Tests Test 11/27/17 07:33 11/27/17 11:45 11/27/17 16:16 11/27/17 19:05 Glucose (Fingerstick) 111 mg/dL (70-99) H 151 mg/dL (70-99) H 97 mg/dL (70-99) 215 mg/dL (70-99) H Current Medications: Meds: Current Medications Albuterol Sulfate (Ventolin) 2.5 mg PRN Q6HRS PRN NEB SHORTNESS OF BREATH Last administered on 11/22/17at 02:19; Start 11/15/17 at 20:45 Vitamin D (Vitamin D3) 50,000 unit WEEKLY PO Last administered on 11/22/17at 08: 07; Start 11/22/17 at 09:00 Cyanocobalamin (Vitamin B-12) 1,000 mcg QMONTH IM ; Start 12/15/17 at 09:00 Diltiazem HCl (Cardizem 24hr Cd) 120 mg BID PO Last administered on 11/27/17at 20:01; Start 11/16/17 at 09:00 Guaifenesin (Mucinex Er) 600 mg BID PO Last administered on 11/27/17at 20:01; Start 11/15/17 at 21:00 Albuterol/ Ipratropium (Duoneb) 3 ml RTQID NEB Last administered on 11/27/17at 19:57; Start 11/15/17 at 21:00 Al Hydroxide/Mg Hydroxide (Mylanta Plus Xs) 15 ml PRN AFTMEAL PRN PO DYSPEPSIA Last administered on 11/25/17 22:39; Start 11/15/17 at 20:45 Multi-Ingredient Ointment (Analgesic [place]) 1 edi PRN QID PRN TP MUSCLE PAIN; Start 11/15/17 at 20:45 Multivitamins/ Calcium (Thera-M Plus) 1 tab DAILY PO Last administered on 07:25; Start 11/16/17 at 09:00 Potassium Chloride (Klor-Con) 20 meq DAILY PO Last administered on 11/27/17 07 :26; Start 11/16/17 at 09:00 Tamsulosin HCl (Flomax) 0.4 mg QEVNG PO Last administered on 11/27/17 17:13; Start 11/16/17 at 18:00 Acetaminophen (Tylenol) 500 mg PRN Q4HRS PRN PO PAIN / TEMP; Start 11/15/17 at 21:15 Ascorbic Acid (Vitamin C) 1,000 mg DAILY PO Last administered on 11/27/17 07: 25; Start 11/16/17 at 09:00 Benzonatate (Tessalon Perle) 100 mg PRN TID PRN PO COUGH Last administered on 02:19; Start 11/16/17 at 09:00 Budesonide (Pulmicort) 0.5 mg RTBID NEB Last administered on 11/27/17 19:57; Start 11/16/17 at 08:00 Buspirone HCl (Buspar) 10 mg 0900,1300 PO Last administered on 11/27/17 12:10 ; Start 11/16/17 at 09:00 Buspirone HCl (Buspar) 20 mg DAILYWSUP PO Last administered on 11/27/17 17:13 ; Start 11/16/17 at 17:00 Docusate Sodium (Colace) 100 mg BID PO Last administered on 11/27/17 20:01; Start 11/15/17 at 21:30 Fluticasone Propionate (Flonase) 2 spray DAILY NS Last administered on 08:51; Start 11/16/17 at 09:00 Furosemide (Lasix) 40 mg DAILY PO Last administered on 8/17/18at 07:27; Start 11/16/17 at 09:00 Acetaminophen/ Hydrocodone Bitart (Lortab 5/325) 1 tab BID PO Last administered on 11/27/17at 20:01; Start 11/15/17 at 21:30 Acetaminophen/ Hydrocodone Bitart (Lortab 5/325) 1 tab PRN Q6HRS PRN PO PAIN; Start 11/15/17 at 21:30 Insulin Human Lispro (HumaLOG) If blood sugar is 75-150=0un... TIDWMEALHC PRN SQ Diabetes Last administered on 11/19/17 20:18; Start 11/15/17 at 20:45; Stop at 12:25; Status DC Loperamide HCl (Imodium) 2 mg PRN Q8HRS PRN PO DIARRHEA; Start 11/15/17 at 21:30 Magnesium Hydroxide (Milk Of Magnesia) 2,400 mg PRN QHS PRN PO CONSTIPATION; Start 11/15/17 at 21:30 Magnesium Oxide (Magnesium Oxide) 400 mg BID PO Last administered on 11/22/17at 21:16; Start 11/15/17 at 22:00; Stop 11/23/17 at 11:58; Status DC Mirtazapine (Remeron) 7.5 mg QHS PO Last administered on 11/15/17at 22:17; Start 11/15/17 at 22:00; Stop 11/16/17 at 18:24; Status DC Ondansetron HCl (Zofran Odt) 4 mg PRN Q8HRS PRN PO NAUSEA/VOMITING; Start at 21:30 Pantoprazole Sodium (Protonix) 40 mg DAILYAC PO Last administered on 11/27/17at 07:24; Start 11/16/17 at 07:30 Polyethylene Glycol (miraLAX) 17 gm DAILY PO Last administered on 11/27/17at 07: 24; Start 11/16/17 at 09:00 Quetiapine Fumarate (SEROquel) 25 mg 0900,1500 PO Last administered on at 12:10; Start 11/16/17 at 09:00 Quetiapine Fumarate (SEROquel) 75 mg QHS PO Last administered on 11/27/17at 20: 01; Start 11/15/17 at 21:30 Sennosides (Senna) 8.6 mg BID PO Last administered on 11/27/17at 20:01; Start at 21:30 Trazodone HCl (Desyrel) 50 mg PRN QHS PRN PO INSOMNIA, MAY REPEAT X1 Last administered on 11/15/17at 22:17; Start 11/15/17 at 21:30 Venlafaxine HCl (Effexor Xr) 75 mg DAILY PO Last administered on 11/27/17at 07: 26; Start 11/16/17 at 09:00 Vitamin B Complex 1 cap DAILY PO Last administered on 11/27/17at 07:24; Start at 09:00 Acetaminophen (Tylenol) 650 mg PRN Q6HRS PRN PO PAIN / TEMP; Start 11/15/17 at 22:15; Status UNV Multi-Ingredient Ointment (Analgesic [place]) 1 edi PRN QID PRN TP MUSCLE PAIN; Start 11/15/17 at 22:15; Status UNV Al Hydroxide/Mg Hydroxide (Mylanta Plus Xs) 15 ml PRN AFTMEALHC PRN PO DYSPEPSIA; Start 11/15/17 at 22:15; Status UNV Magnesium Hydroxide (Milk Of Magnesia) 2,400 mg PRN QHS PRN PO CONSTIPATION; Start 11/15/17 at 22:15; Status UNV Mirtazapine (Remeron) 15 mg QHS PO Last administered on 11/27/17at 20:01; Start 11/16/17 at 21:00 Insulin Human Lispro (HumaLOG) If blood sugar is 75-150=0un... TIDWMEALS SQ Last administered on 11/27/17at 12:09; Start 11/21/17 at 17:00 Active Scripts Active Reported Trazodone Hcl 50 Mg Tablet 50 Mg PO PRN QHS PRN Buspirone Hcl 10 Mg Tablet 20 Mg PO DAILYWSUP Venlafaxine Hcl Er (Venlafaxine Hcl) 75 Mg Cap.er.24h 75 Mg PO DAILY Seroquel (Quetiapine Fumarate) 25 Mg Tablet 25 Mg PO BID @ 0900,1500 Seroquel (Quetiapine Fumarate) 50 Mg Tablet 75 Mg PO QHS Thera M Plus Tablet (Multivits,Ca,Minerals/Iron/FA) 1 Each Tablet 1 Each PO DAILY Remeron (Mirtazapine) 15 Mg Tablet 7.5 Mg PO QHS Analgesic [place] (Methyl Salicylate/Menthol) 28 Gm Oint...g. 1 Edi TP PRN QID PRN Mag-Al Plus Xs Suspension (Mag Hydrox/Al Hydrox/Simeth) 30 Ml Oral.susp 15 Ml PO PRN AFTMEAL PRN Pulmicort (Budesonide) 0.5 Mg/2 Ml Ampul.neb 0.5 Mg NEB BID Benzonatate 100 Mg Capsule 100 Mg PO PRN TID PRN Albuterol Sulfate Neb Soln (Albuterol Sulfate) 2.5 Mg/3 Ml Vial.neb 2.5 Mg NEB PRN Q6HRS PRN Ondansetron Hcl 4 Mg Tablet 4 Mg PO PRN Q4HRS PRN dissolve on tongue Novolog Flexpen (Insulin Aspart) 100 Unit/1 Ml Insuln.pen 0-6 Unit SQ TIDWMEALHC PRN BS 75-150= 0 units BS 151-200= 2 units BS 201-250= 3 units BS 251-300= 4 units BS 301-350= 5 units BS 351-400= 6 units BS<70 or >400 call Physician Miralax (Polyethylene Glycol 3350) 17 Gm Powd.pack 17 Gm PO PRN DAILY PRN Mucinex (Guaifenesin) 600 Mg Tablet.er 600 Mg PO TID Buspirone Hcl 10 Mg Tablet 10 Mg PO BID@ 0900,1300 Senna Lax (Sennosides) 8.6 Mg Tablet 8.6 Mg PO BID Docusate Sodium 100 Mg Capsule 100 Mg PO BID Vitamin B Complex 1 Each Tablet 100 Mg PO DAILY D3-50 (Cholecalciferol (Vitamin D3)) 50,000 Unit Capsule 50,000 Unit PO WEEKLY every thursday C-1000 (Ascorbic Acid) 1,000 Mg Tablet 1,000 Mg PO DAILY Klor-Con M20 (Potassium Chloride) 20 Meq Tab.er.prt 20 Meq PO DAILY Pantoprazole Sodium 40 Mg Tablet.dr 40 Mg PO DAILYAC Tamsulosin Hcl 0.4 Mg Cap.er.24h 0.4 Mg PO QEVNG Hydrocodone-Apap 5-325 (Hydrocodone Bit/Acetaminophen) 1 Each Tablet 1 Tab PO PRN Q6HRS PRN Hydrocodone-Apap 5-325 (Hydrocodone Bit/Acetaminophen) 1 Each Tablet 1 Tab PO BID Milk Of Magnesia (Magnesium Hydroxide) 2,400 Mg/10 Ml Oral.susp 2,400 Mg PO PRN QHS PRN Lasix (Furosemide) 40 Mg Tablet 40 Mg PO DAILY Flonase Allergy Relief (Fluticasone Propionate) 9.9 Ml [place].susp 2 Sprays NS DAILY use in each nostril Miralax (Polyethylene Glycol 3350) 17 Gm Powd.pack 17 Gm PO DAILY Loperamide (Loperamide Hcl) 2 Mg Capsule 2 Mg PO PRN Q8HRS PRN Not to exceed 8 capsules in 24hrs Acetaminophen 500 Mg Tablet 500 Mg PO PRN Q4HRS PRN Magnesium Oxide 400 Mg Tablet 400 Mg PO BID Duoneb 0.5-3(2.5) Mg/3 Ml (Albuterol/Ipratropium) 3 Ml Ampul.neb 3 Ml NEB QID Cardizem Cd (Diltiazem Hcl) 240 Mg Cap.er.24h 120 Mg PO BID HOLD FOR SBP <110 Cyanocobalamin Injection (Cyanocobalamin (Vitamin B-12)) 1,000 Mcg/1 Ml Vial 1, 000 Mcg IM QMONTH next due 09/24/17 NEXT DOSE DUE 09/19/17 I have reviewed the current psychotropics carefully including drug interactions. Risk benefit ratio favors no change other than as noted in my dictated progress note. 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
[2017-11-28] MEDS: IPRATRPIUM/ALBUTEROL 0.5/2.5MG 3 ML NEBU. NEB SCH ×4 (05:20→19:59)
[2017-11-28 05:59] VITALS: BP 91/65
[2017-11-28] MEDS: INSULIN LISPRO 300 UNITS/3 ML INSULN.PEN. SQ SCH ×3 (07:52→17:00)
[2017-11-28] MEDS: POLYETHYLENE GLYCOL 3350 17 GM PACKET. PO SCH (07:55)
[2017-11-28] MEDS: DOCUSATE SODIUM 100 MG CAPSULE PO SCH ×2 (07:55→19:55)
[2017-11-28] MEDS: ASCORBIC ACID 500 MG TABLET PO SCH (07:55)
[2017-11-28] MEDS: PANTOPRAZOLE 40 MG TABLET. PO SCH (07:56)
[2017-11-28] MEDS: POTASSIUM CHLORIDE 20 MEQ TABLET.ER. PO SCH (07:56)
[2017-11-28] MEDS: VITAMIN B COMPLEX CAPSULE. PO SCH (07:56)
[2017-11-28] MEDS: SENNOSIDES 8.6 MG TABLET PO SCH ×2 (07:56→19:55)
[2017-11-28] MEDS: QUEtiapine 25 MG TABLET. PO SCH ×3 (07:56→19:53)
[2017-11-28] MEDS: VENLAFAXINE XR 37.5 MG CAP.ER.24H. PO SCH (07:56)
[2017-11-28] MEDS: busPIRone 10 MG TABLET. PO SCH ×3 (07:56→17:51)
[2017-11-28] MEDS: MULTIVITAMIN with MINERAL TABLET. PO SCH (07:57)
[2017-11-28] MEDS: FUROSEMIDE 40 MG TABLET PO SCH (07:57)
[2017-11-28] MEDS: FLUTICASONE 50MCG/NASAL SPRAY 16GM BOTTLE. NS SCH (07:58)
[2017-11-28] MEDS: HYDROcodone/APAP 5/325MG 1 TAB TABLET PO SCH ×2 (08:00→19:54)
[2017-11-28 08:11] LABS: BASO # 0.1 x10^3/uL (0.0-0.2); BASO % 1 % (0-3); EOS # 0.2 x10^3/uL (0.0-0.7); EOS % 3 % (0-3); HEMATOCRIT 37.3 % (36.0-47.0); HEMOGLOBIN 12.5 g/dL (12.0-15.5); LYMPH # 1.7 x10^3/uL (1.0-4.8); LYMPH % 22 % (24-48); MEAN CORPUSCULAR HEMOGLOBIN 30 pg (25-35); MEAN CORPUSCULAR HGB CONC 33 g/dL (31-37); MEAN CORPUSCULAR VOLUME 90 fL (79-100); MONO # 0.7 x10^3/uL (0.0-1.1); MONO % 10 % (0-9); NEUT # 4.8 x10^3uL (1.8-7.7); NEUT % 64 % (31-73); PLATELET COUNT 306 x10^3/uL (140-400); RED BLOOD COUNT 4.16 x10^6/uL (3.50-5.40); RED CELL DISTRIBUTION WIDTH 14.7 % (11.5-14.5); WHITE BLOOD COUNT 7.5 x10^3/uL (4.0-11.0)
[2017-11-28 08:25] LABS: ALBUMIN 3.1 g/dL (3.4-5.0); ALBUMIN/GLOBULIN RATIO 0.8 (1.0-1.7); CALCIUM 8.9 mg/dL (8.5-10.1); GFR 52.2; POTASSIUM 4.3 mmol/L (3.5-5.1); TOTAL BILIRUBIN 0.2 mg/dL (0.2-1.0); TOTAL PROTEIN 7.2 g/dL (6.4-8.2)
[2017-11-28] MEDS: BUDESONIDE 0.5 MG/2 ML NEBU NEB SCH ×2 (11:00→19:59)
[2017-11-28 16:29] VITALS: BP 109/68
[2017-11-28] MEDS: TAMSULOSIN 0.4 MG CAP.ER.24H. PO SCH (17:51)
[2017-11-28] MEDS: MIRTAZAPINE 15 MG TABLET PO SCH (19:54)
--- NOTE | 2017-11-28 22:18 | PDOC ---
Exam Note: Harris Note: Please also refer to the separate dictated note~for this date of service dictated separately.~Patient seen individually. Discussed the patient with Nursing staff reviewed the chart.~Reviewed interim history and current functioning. Reviewed vital signs,~Labs/ Radiology~and current medications noted below. Continue current treatment with the changes noted in the dictated addendum note Assessment: Vital Signs: Vital Signs Date Time Temp Pulse Resp B/P (MAP) Pulse Ox O2 Delivery O2 Flow Rate FiO2 11/28/17 20:00 94 Room Air 11/28/17 19:54 84 109/68 11/28/17 16:29 97.4 18 I&O Intake and Output 11/28/17 07:01 Intake Total 1200 ml Balance 1200 ml Intake Oral 1200 ml # Voids 1 Labs: Laboratory Tests Test 11/28/17 07:34 11/28/17 07:38 11/28/17 11:15 11/28/17 16:53 Glucose (Fingerstick) 121 mg/dL (70-99) H 123 mg/dL (70-99) H 104 mg/dL (70-99) H White Blood Count 7.5 x10^3/uL (4.0-11.0) Red Blood Count 4.16 x10^6/uL (3.50-5.40) Hemoglobin 12.5 g/dL (12.0-15.5) Hematocrit 37.3 % (36.0-47.0) Mean Corpuscular Volume 90 fL (79-100) Mean Corpuscular Hemoglobin 30 pg (25-35) Mean Corpuscular Hemoglobin Concent 33 g/dL (31-37) Red Cell Distribution Width 14.7 % (11.5-14.5) H Platelet Count 306 x10^3/uL (140-400) Neutrophils (%) (Auto) 64 % (31-73) Lymphocytes (%) (Auto) 22 % (24-48) L Monocytes (%) (Auto) 10 % (0-9) H Eosinophils (%) (Auto) 3 % (0-3) Basophils (%) (Auto) 1 % (0-3) Neutrophils # (Auto) 4.8 x10^3uL (1.8-7.7) Lymphocytes # (Auto) 1.7 x10^3/uL (1.0-4.8) Monocytes # (Auto) 0.7 x10^3/uL (0.0-1.1) Eosinophils # (Auto) 0.2 x10^3/uL (0.0-0.7) Basophils # (Auto) 0.1 x10^3/uL (0.0-0.2) Sodium Level 140 mmol/L (136-145) Potassium Level 4.3 mmol/L (3.5-5.1) Chloride Level 102 mmol/L (98-107) Carbon Dioxide Level 31 mmol/L (21-32) Anion Gap 7 (6-14) Blood Urea Nitrogen 21 mg/dL (7-20) H Creatinine 1.0 mg/dL (0.6-1.0) Estimated GFR (Cockcroft-Gault) 52.2 BUN/Creatinine Ratio 21 (6-20) H Glucose Level 125 mg/dL (70-99) H Calcium Level 8.9 mg/dL (8.5-10.1) Total Bilirubin 0.2 mg/dL (0.2-1.0) Aspartate Amino Transferase (AST) 16 U/L (15-37) Alanine Aminotransferase (ALT) 16 U/L (14-59) Alkaline Phosphatase 103 U/L (46-116) Total Protein 7.2 g/dL (6.4-8.2) Albumin 3.1 g/dL (3.4-5.0) L Albumin/Globulin Ratio 0.8 (1.0-1.7) L Test 11/28/17 19:50 Glucose (Fingerstick) 110 mg/dL (70-99) H Current Medications: Meds: Current Medications Albuterol Sulfate (Ventolin) 2.5 mg PRN Q6HRS PRN NEB SHORTNESS OF BREATH Last administered on 11/22/17at 02:19; Start 11/15/17 at 20:45 Vitamin D (Vitamin D3) 50,000 unit WEEKLY PO Last administered on 11/22/17at 08: 07; Start 11/22/17 at 09:00 Cyanocobalamin (Vitamin B-12) 1,000 mcg QMONTH IM ; Start 12/15/17 at 09:00 Diltiazem HCl (Cardizem 24hr Cd) 120 mg BID PO Last administered on 11/28/17at 19:54; Start 11/16/17 at 09:00 Guaifenesin (Mucinex Er) 600 mg BID PO Last administered on 11/28/17 19:54; Start 11/15/17 at 21:00 Albuterol/ Ipratropium (Duoneb) 3 ml RTQID NEB Last administered on 11/28/17 19:59; Start 11/15/17 at 21:00 Al Hydroxide/Mg Hydroxide (Mylanta Plus Xs) 15 ml PRN AFTMEAL PRN PO DYSPEPSIA Last administered on 11/25/17at 22:39; Start 11/15/17 at 20:45 Multi-Ingredient Ointment (Analgesic [place]) 1 edi PRN QID PRN TP MUSCLE PAIN; Start 11/15/17 at 20:45 Multivitamins/ Calcium (Thera-M Plus) 1 tab DAILY PO Last administered on 07:57; Start 11/16/17 at 09:00 Potassium Chloride (Klor-Con) 20 meq DAILY PO Last administered on 11/28/17 07 :56; Start 11/16/17 at 09:00 Tamsulosin HCl (Flomax) 0.4 mg QEVNG PO Last administered on 11/28/17 17:51; Start 11/16/17 at 18:00 Acetaminophen (Tylenol) 500 mg PRN Q4HRS PRN PO PAIN / TEMP; Start 11/15/17 at 21:15 Ascorbic Acid (Vitamin C) 1,000 mg DAILY PO Last administered on 11/28/17at 07: 55; Start 11/16/17 at 09:00 Benzonatate (Tessalon Perle) 100 mg PRN TID PRN PO COUGH Last administered on 02:19; Start 11/16/17 at 09:00 Budesonide (Pulmicort) 0.5 mg RTBID NEB Last administered on 11/28/17 19:59; Start 11/16/17 at 08:00 Buspirone HCl (Buspar) 10 mg 0900,1300 PO Last administered on 11/28/17 13:31 ; Start 11/16/17 at 09:00 Buspirone HCl (Buspar) 20 mg DAILYWSUP PO Last administered on 11/28/17 17:51 ; Start 11/16/17 at 17:00 Docusate Sodium (Colace) 100 mg BID PO Last administered on 11/28/17 19:55; Start 11/15/17 at 21:30 Fluticasone Propionate (Flonase) 2 spray DAILY NS Last administered on 07:58; Start 11/16/17 at 09:00 Furosemide (Lasix) 40 mg DAILY PO Last administered on 11/28/17 07:57; Start 11/16/17 at 09:00 Acetaminophen/ Hydrocodone Bitart (Lortab 5/325) 1 tab BID PO Last administered on 11/28/17 19:54; Start 11/15/17 at 21:30 Acetaminophen/ Hydrocodone Bitart (Lortab 5/325) 1 tab PRN Q6HRS PRN PO PAIN; Start 11/15/17 at 21:30 Insulin Human Lispro (HumaLOG) If blood sugar is 75-150=0un... TIDWMEALHC PRN SQ Diabetes Last administered on 11/19/17 20:18; Start 11/15/17 at 20:45; Stop at 12:25; Status DC Loperamide HCl (Imodium) 2 mg PRN Q8HRS PRN PO DIARRHEA; Start 11/15/17 at 21:30 Magnesium Hydroxide (Milk Of Magnesia) 2,400 mg PRN QHS PRN PO CONSTIPATION; Start 11/15/17 at 21:30 Magnesium Oxide (Magnesium Oxide) 400 mg BID PO Last administered on 11/22/17at 21:16; Start 11/15/17 at 22:00; Stop 11/23/17 at 11:58; Status DC Mirtazapine (Remeron) 7.5 mg QHS PO Last administered on 11/15/17at 22:17; Start 11/15/17 at 22:00; Stop 11/16/17 at 18:24; Status DC Ondansetron HCl (Zofran Odt) 4 mg PRN Q8HRS PRN PO NAUSEA/VOMITING; Start at 21:30 Pantoprazole Sodium (Protonix) 40 mg DAILYAC PO Last administered on 11/28/17 07:56; Start 11/16/17 at 07:30 Polyethylene Glycol (miraLAX) 17 gm DAILY PO Last administered on 11/28/17 07: 55; Start 11/16/17 at 09:00 Quetiapine Fumarate (SEROquel) 25 mg 0900,1500 PO Last administered on 13:31; Start 11/16/17 at 09:00 Quetiapine Fumarate (SEROquel) 75 mg QHS PO Last administered on 11/28/17 19: 53; Start 11/15/17 at 21:30 Sennosides (Senna) 8.6 mg BID PO Last administered on 11/28/17 19:55; Start at 21:30 Trazodone HCl (Desyrel) 50 mg PRN QHS PRN PO INSOMNIA, MAY REPEAT X1 Last administered on 11/15/17 22:17; Start 11/15/17 at 21:30 Venlafaxine HCl (Effexor Xr) 75 mg DAILY PO Last administered on 11/28/17 07: 56; Start 11/16/17 at 09:00 Vitamin B Complex 1 cap DAILY PO Last administered on 11/28/17 07:56; Start at 09:00 Acetaminophen (Tylenol) 650 mg PRN Q6HRS PRN PO PAIN / TEMP; Start 11/15/17 at 22:15; Status UNV Multi-Ingredient Ointment (Analgesic [place]) 1 edi PRN QID PRN TP MUSCLE PAIN; Start 11/15/17 at 22:15; Status UNV Al Hydroxide/Mg Hydroxide (Mylanta Plus Xs) 15 ml PRN AFTMEALHC PRN PO DYSPEPSIA; Start 11/15/17 at 22:15; Status UNV Magnesium Hydroxide (Milk Of Magnesia) 2,400 mg PRN QHS PRN PO CONSTIPATION; Start 11/15/17 at 22:15; Status UNV Mirtazapine (Remeron) 15 mg QHS PO Last administered on 11/28/17 19:54; Start 11/16/17 at 21:00 Insulin Human Lispro (HumaLOG) If blood sugar is 75-150=0un... TIDWMEALS SQ Last administered on 11/27/17at 12:09; Start 11/21/17 at 17:00 Active Scripts Active Reported Trazodone Hcl 50 Mg Tablet 50 Mg PO PRN QHS PRN Buspirone Hcl 10 Mg Tablet 20 Mg PO DAILYWSUP Venlafaxine Hcl Er (Venlafaxine Hcl) 75 Mg Cap.er.24h 75 Mg PO DAILY Seroquel (Quetiapine Fumarate) 25 Mg Tablet 25 Mg PO BID @ 0900,1500 Seroquel (Quetiapine Fumarate) 50 Mg Tablet 75 Mg PO QHS Thera M Plus Tablet (Multivits,Ca,Minerals/Iron/FA) 1 Each Tablet 1 Each PO DAILY Remeron (Mirtazapine) 15 Mg Tablet 7.5 Mg PO QHS Analgesic [place] (Methyl Salicylate/Menthol) 28 Gm Oint...g. 1 Edi TP PRN QID PRN Mag-Al Plus Xs Suspension (Mag Hydrox/Al Hydrox/Simeth) 30 Ml Oral.susp 15 Ml PO PRN AFTMEAL PRN Pulmicort (Budesonide) 0.5 Mg/2 Ml Ampul.neb 0.5 Mg NEB BID Benzonatate 100 Mg Capsule 100 Mg PO PRN TID PRN Albuterol Sulfate Neb Soln (Albuterol Sulfate) 2.5 Mg/3 Ml Vial.neb 2.5 Mg NEB PRN Q6HRS PRN Ondansetron Hcl 4 Mg Tablet 4 Mg PO PRN Q4HRS PRN dissolve on tongue Novolog Flexpen (Insulin Aspart) 100 Unit/1 Ml Insuln.pen 0-6 Unit SQ TIDWMEALHC PRN BS 75-150= 0 units BS 151-200= 2 units BS 201-250= 3 units BS 251-300= 4 units BS 301-350= 5 units BS 351-400= 6 units BS<70 or >400 call Physician Miralax (Polyethylene Glycol 3350) 17 Gm Powd.pack 17 Gm PO PRN DAILY PRN Mucinex (Guaifenesin) 600 Mg Tablet.er 600 Mg PO TID Buspirone Hcl 10 Mg Tablet 10 Mg PO BID@ 0900,1300 Senna Lax (Sennosides) 8.6 Mg Tablet 8.6 Mg PO BID Docusate Sodium 100 Mg Capsule 100 Mg PO BID Vitamin B Complex 1 Each Tablet 100 Mg PO DAILY D3-50 (Cholecalciferol (Vitamin D3)) 50,000 Unit Capsule 50,000 Unit PO WEEKLY every thursday C-1000 (Ascorbic Acid) 1,000 Mg Tablet 1,000 Mg PO DAILY Klor-Con M20 (Potassium Chloride) 20 Meq Tab.er.prt 20 Meq PO DAILY Pantoprazole Sodium 40 Mg Tablet.dr 40 Mg PO DAILYAC Tamsulosin Hcl 0.4 Mg Cap.er.24h 0.4 Mg PO QEVNG Hydrocodone-Apap 5-325 (Hydrocodone Bit/Acetaminophen) 1 Each Tablet 1 Tab PO PRN Q6HRS PRN Hydrocodone-Apap 5-325 (Hydrocodone Bit/Acetaminophen) 1 Each Tablet 1 Tab PO BID Milk Of Magnesia (Magnesium Hydroxide) 2,400 Mg/10 Ml Oral.susp 2,400 Mg PO PRN QHS PRN Lasix (Furosemide) 40 Mg Tablet 40 Mg PO DAILY Flonase Allergy Relief (Fluticasone Propionate) 9.9 Ml [place].susp 2 Sprays NS DAILY use in each nostril Miralax (Polyethylene Glycol 3350) 17 Gm Powd.pack 17 Gm PO DAILY Loperamide (Loperamide Hcl) 2 Mg Capsule 2 Mg PO PRN Q8HRS PRN Not to exceed 8 capsules in 24hrs Acetaminophen 500 Mg Tablet 500 Mg PO PRN Q4HRS PRN Magnesium Oxide 400 Mg Tablet 400 Mg PO BID Duoneb 0.5-3(2.5) Mg/3 Ml (Albuterol/Ipratropium) 3 Ml Ampul.neb 3 Ml NEB QID Cardizem Cd (Diltiazem Hcl) 240 Mg Cap.er.24h 120 Mg PO BID HOLD FOR SBP <110 Cyanocobalamin Injection (Cyanocobalamin (Vitamin B-12)) 1,000 Mcg/1 Ml Vial 1, 000 Mcg IM QMONTH next due 09/24/17 NEXT DOSE DUE 09/19/17 I have reviewed the current psychotropics carefully including drug interactions. Risk benefit ratio favors no change other than as noted in my dictated progress note. 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
[2017-11-29] MEDS: IPRATRPIUM/ALBUTEROL 0.5/2.5MG 3 ML NEBU. NEB SCH ×4 (05:20→20:25)
[2017-11-29 05:54] VITALS: BP 149/65
[2017-11-29] MEDS: INSULIN LISPRO 300 UNITS/3 ML INSULN.PEN. SQ SCH ×3 (07:32→16:48)
[2017-11-29] MEDS: POLYETHYLENE GLYCOL 3350 17 GM PACKET. PO SCH (07:40)
[2017-11-29] MEDS: VITAMIN B COMPLEX CAPSULE. PO SCH (07:41)
[2017-11-29] MEDS: QUEtiapine 25 MG TABLET. PO SCH ×3 (07:41→21:04)
[2017-11-29] MEDS: FUROSEMIDE 40 MG TABLET PO SCH (07:41)
[2017-11-29] MEDS: VENLAFAXINE XR 37.5 MG CAP.ER.24H. PO SCH (07:41)
[2017-11-29] MEDS: SENNOSIDES 8.6 MG TABLET PO SCH ×2 (07:41→21:04)
[2017-11-29] MEDS: busPIRone 10 MG TABLET. PO SCH ×3 (07:41→18:30)
[2017-11-29] MEDS: MULTIVITAMIN with MINERAL TABLET. PO SCH (07:42)
[2017-11-29] MEDS: PANTOPRAZOLE 40 MG TABLET. PO SCH (07:42)
[2017-11-29] MEDS: POTASSIUM CHLORIDE 20 MEQ TABLET.ER. PO SCH (07:42)
[2017-11-29] MEDS: DOCUSATE SODIUM 100 MG CAPSULE PO SCH ×2 (07:42→21:03)
[2017-11-29] MEDS: ASCORBIC ACID 500 MG TABLET PO SCH (07:42)
[2017-11-29] MEDS: FLUTICASONE 50MCG/NASAL SPRAY 16GM BOTTLE. NS SCH (07:43)
[2017-11-29] MEDS: HYDROcodone/APAP 5/325MG 1 TAB TABLET PO SCH ×2 (07:45→21:04)
[2017-11-29] MEDS: CHOLECALCIFEROL (VITAMIN D3) 50,000 UNIT CAPSULE PO SCH (07:45)
[2017-11-29] MEDS: BUDESONIDE 0.5 MG/2 ML NEBU NEB SCH ×2 (10:33→20:25)
[2017-11-29 16:26] VITALS: BP 106/58
[2017-11-29] MEDS: TAMSULOSIN 0.4 MG CAP.ER.24H. PO SCH (18:30)
--- NOTE | 2017-11-29 20:55 | PDOC ---
Exam Note: Harris Note: Please also refer to the separate dictated note~for this date of service dictated separately.~Patient seen individually. Discussed the patient with Nursing staff reviewed the chart.~Reviewed interim history and current functioning. Reviewed vital signs,~Labs/ Radiology~and current medications noted below. Continue current treatment with the changes noted in the dictated addendum note Assessment: Vital Signs: Vital Signs Date Time Temp Pulse Resp B/P (MAP) Pulse Ox O2 Delivery O2 Flow Rate FiO2 11/29/17 20:25 93 Room Air 11/29/17 16:26 98.0 72 20 106/58 (74) I&O Intake and Output 11/29/17 07:01 Intake Total 1560 ml Balance 1560 ml Intake Oral 1560 ml # Voids 1 Labs: Laboratory Tests Test 11/29/17 07:28 11/29/17 11:45 11/29/17 16:39 11/29/17 19:08 Glucose (Fingerstick) 233 mg/dL (70-99) H 130 mg/dL (70-99) H 139 mg/dL (70-99) H 179 mg/dL (70-99) H Current Medications: Meds: Current Medications Albuterol Sulfate (Ventolin) 2.5 mg PRN Q6HRS PRN NEB SHORTNESS OF BREATH Last administered on 11/22/17at 02:19; Start 11/15/17 at 20:45 Vitamin D (Vitamin D3) 50,000 unit WEEKLY PO Last administered on 11/29/17at 07: 45; Start 11/22/17 at 09:00 Cyanocobalamin (Vitamin B-12) 1,000 mcg QMONTH IM ; Start 12/15/17 at 09:00 Diltiazem HCl (Cardizem 24hr Cd) 120 mg BID PO Last administered on 11/29/17at 07:41; Start 11/16/17 at 09:00 Guaifenesin (Mucinex Er) 600 mg BID PO Last administered on 11/29/17at 07:42; Start 11/15/17 at 21:00 Albuterol/ Ipratropium (Duoneb) 3 ml RTQID NEB Last administered on 11/29/17at 20:25; Start 11/15/17 at 21:00 Al Hydroxide/Mg Hydroxide (Mylanta Plus Xs) 15 ml PRN AFTMEAL PRN PO DYSPEPSIA Last administered on 11/25/17 22:39; Start 11/15/17 at 20:45 Multi-Ingredient Ointment (Analgesic [place]) 1 edi PRN QID PRN TP MUSCLE PAIN; Start 11/15/17 at 20:45 Multivitamins/ Calcium (Thera-M Plus) 1 tab DAILY PO Last administered on 07:42; Start 11/16/17 at 09:00 Potassium Chloride (Klor-Con) 20 meq DAILY PO Last administered on 11/29/17 07 :42; Start 11/16/17 at 09:00 Tamsulosin HCl (Flomax) 0.4 mg QEVNG PO Last administered on 11/29/17 18:30; Start 11/16/17 at 18:00 Acetaminophen (Tylenol) 500 mg PRN Q4HRS PRN PO PAIN / TEMP; Start 11/15/17 at 21:15 Ascorbic Acid (Vitamin C) 1,000 mg DAILY PO Last administered on 11/29/17 07: 42; Start 11/16/17 at 09:00 Benzonatate (Tessalon Perle) 100 mg PRN TID PRN PO COUGH Last administered on 02:19; Start 11/16/17 at 09:00 Budesonide (Pulmicort) 0.5 mg RTBID NEB Last administered on 11/29/17 20:25; Start 11/16/17 at 08:00 Buspirone HCl (Buspar) 10 mg 0900,1300 PO Last administered on 11/29/17 13:32 ; Start 11/16/17 at 09:00 Buspirone HCl (Buspar) 20 mg DAILYWSUP PO Last administered on 11/29/17 18:30 ; Start 11/16/17 at 17:00 Docusate Sodium (Colace) 100 mg BID PO Last administered on 11/29/17 07:42; Start 11/15/17 at 21:30 Fluticasone Propionate (Flonase) 2 spray DAILY NS Last administered on 07:43; Start 11/16/17 at 09:00 Furosemide (Lasix) 40 mg DAILY PO Last administered on 11/29/17 07:41; Start 11/16/17 at 09:00 Acetaminophen/ Hydrocodone Bitart (Lortab 5/325) 1 tab BID PO Last administered on 11/29/17at 07:45; Start 11/15/17 at 21:30 Acetaminophen/ Hydrocodone Bitart (Lortab 5/325) 1 tab PRN Q6HRS PRN PO PAIN; Start 11/15/17 at 21:30 Insulin Human Lispro (HumaLOG) If blood sugar is 75-150=0un... TIDWMEALHC PRN SQ Diabetes Last administered on 11/19/17at 20:18; Start 11/15/17 at 20:45; Stop at 12:25; Status DC Loperamide HCl (Imodium) 2 mg PRN Q8HRS PRN PO DIARRHEA; Start 11/15/17 at 21:30 Magnesium Hydroxide (Milk Of Magnesia) 2,400 mg PRN QHS PRN PO CONSTIPATION; Start 11/15/17 at 21:30 Magnesium Oxide (Magnesium Oxide) 400 mg BID PO Last administered on 11/22/17at 21:16; Start 11/15/17 at 22:00; Stop 11/23/17 at 11:58; Status DC Mirtazapine (Remeron) 7.5 mg QHS PO Last administered on 11/15/17at 22:17; Start 11/15/17 at 22:00; Stop 11/16/17 at 18:24; Status DC Ondansetron HCl (Zofran Odt) 4 mg PRN Q8HRS PRN PO NAUSEA/VOMITING; Start at 21:30 Pantoprazole Sodium (Protonix) 40 mg DAILYAC PO Last administered on 11/29/17at 07:42; Start 11/16/17 at 07:30 Polyethylene Glycol (miraLAX) 17 gm DAILY PO Last administered on 11/29/17at 07: 40; Start 11/16/17 at 09:00 Quetiapine Fumarate (SEROquel) 25 mg 0900,1500 PO Last administered on at 13:32; Start 11/16/17 at 09:00 Quetiapine Fumarate (SEROquel) 75 mg QHS PO Last administered on 11/28/17at 19: 53; Start 11/15/17 at 21:30 Sennosides (Senna) 8.6 mg BID PO Last administered on 11/29/17at 07:41; Start at 21:30 Trazodone HCl (Desyrel) 50 mg PRN QHS PRN PO INSOMNIA, MAY REPEAT X1 Last administered on 11/15/17at 22:17; Start 11/15/17 at 21:30 Venlafaxine HCl (Effexor Xr) 75 mg DAILY PO Last administered on 11/29/17at 07: 41; Start 11/16/17 at 09:00 Vitamin B Complex 1 cap DAILY PO Last administered on 11/29/17at 07:41; Start at 09:00 Acetaminophen (Tylenol) 650 mg PRN Q6HRS PRN PO PAIN / TEMP; Start 11/15/17 at 22:15; Status UNV Multi-Ingredient Ointment (Analgesic [place]) 1 edi PRN QID PRN TP MUSCLE PAIN; Start 11/15/17 at 22:15; Status UNV Al Hydroxide/Mg Hydroxide (Mylanta Plus Xs) 15 ml PRN AFTMEALHC PRN PO DYSPEPSIA; Start 11/15/17 at 22:15; Status UNV Magnesium Hydroxide (Milk Of Magnesia) 2,400 mg PRN QHS PRN PO CONSTIPATION; Start 11/15/17 at 22:15; Status UNV Mirtazapine (Remeron) 15 mg QHS PO Last administered on 11/28/17at 19:54; Start 11/16/17 at 21:00 Insulin Human Lispro (HumaLOG) If blood sugar is 75-150=0un... TIDWMEALS SQ Last administered on 11/27/17at 12:09; Start 11/21/17 at 17:00 Active Scripts Active Reported Trazodone Hcl 50 Mg Tablet 50 Mg PO PRN QHS PRN Buspirone Hcl 10 Mg Tablet 20 Mg PO DAILYWSUP Venlafaxine Hcl Er (Venlafaxine Hcl) 75 Mg Cap.er.24h 75 Mg PO DAILY Seroquel (Quetiapine Fumarate) 25 Mg Tablet 25 Mg PO BID @ 0900,1500 Seroquel (Quetiapine Fumarate) 50 Mg Tablet 75 Mg PO QHS Thera M Plus Tablet (Multivits,Ca,Minerals/Iron/FA) 1 Each Tablet 1 Each PO DAILY Remeron (Mirtazapine) 15 Mg Tablet 7.5 Mg PO QHS Analgesic [place] (Methyl Salicylate/Menthol) 28 Gm Oint...g. 1 Edi TP PRN QID PRN Mag-Al Plus Xs Suspension (Mag Hydrox/Al Hydrox/Simeth) 30 Ml Oral.susp 15 Ml PO PRN AFTMEAL PRN Pulmicort (Budesonide) 0.5 Mg/2 Ml Ampul.neb 0.5 Mg NEB BID Benzonatate 100 Mg Capsule 100 Mg PO PRN TID PRN Albuterol Sulfate Neb Soln (Albuterol Sulfate) 2.5 Mg/3 Ml Vial.neb 2.5 Mg NEB PRN Q6HRS PRN Ondansetron Hcl 4 Mg Tablet 4 Mg PO PRN Q4HRS PRN dissolve on tongue Novolog Flexpen (Insulin Aspart) 100 Unit/1 Ml Insuln.pen 0-6 Unit SQ TIDWMEALHC PRN BS 75-150= 0 units BS 151-200= 2 units BS 201-250= 3 units BS 251-300= 4 units BS 301-350= 5 units BS 351-400= 6 units BS<70 or >400 call Physician Miralax (Polyethylene Glycol 3350) 17 Gm Powd.pack 17 Gm PO PRN DAILY PRN Mucinex (Guaifenesin) 600 Mg Tablet.er 600 Mg PO TID Buspirone Hcl 10 Mg Tablet 10 Mg PO BID@ 0900,1300 Senna Lax (Sennosides) 8.6 Mg Tablet 8.6 Mg PO BID Docusate Sodium 100 Mg Capsule 100 Mg PO BID Vitamin B Complex 1 Each Tablet 100 Mg PO DAILY D3-50 (Cholecalciferol (Vitamin D3)) 50,000 Unit Capsule 50,000 Unit PO WEEKLY every thursday C-1000 (Ascorbic Acid) 1,000 Mg Tablet 1,000 Mg PO DAILY Klor-Con M20 (Potassium Chloride) 20 Meq Tab.er.prt 20 Meq PO DAILY Pantoprazole Sodium 40 Mg Tablet.dr 40 Mg PO DAILYAC Tamsulosin Hcl 0.4 Mg Cap.er.24h 0.4 Mg PO QEVNG Hydrocodone-Apap 5-325 (Hydrocodone Bit/Acetaminophen) 1 Each Tablet 1 Tab PO PRN Q6HRS PRN Hydrocodone-Apap 5-325 (Hydrocodone Bit/Acetaminophen) 1 Each Tablet 1 Tab PO BID Milk Of Magnesia (Magnesium Hydroxide) 2,400 Mg/10 Ml Oral.susp 2,400 Mg PO PRN QHS PRN Lasix (Furosemide) 40 Mg Tablet 40 Mg PO DAILY Flonase Allergy Relief (Fluticasone Propionate) 9.9 Ml [place].susp 2 Sprays NS DAILY use in each nostril Miralax (Polyethylene Glycol 3350) 17 Gm Powd.pack 17 Gm PO DAILY Loperamide (Loperamide Hcl) 2 Mg Capsule 2 Mg PO PRN Q8HRS PRN Not to exceed 8 capsules in 24hrs Acetaminophen 500 Mg Tablet 500 Mg PO PRN Q4HRS PRN Magnesium Oxide 400 Mg Tablet 400 Mg PO BID Duoneb 0.5-3(2.5) Mg/3 Ml (Albuterol/Ipratropium) 3 Ml Ampul.neb 3 Ml NEB QID Cardizem Cd (Diltiazem Hcl) 240 Mg Cap.er.24h 120 Mg PO BID HOLD FOR SBP <110 Cyanocobalamin Injection (Cyanocobalamin (Vitamin B-12)) 1,000 Mcg/1 Ml Vial 1, 000 Mcg IM QMONTH next due 09/24/17 NEXT DOSE DUE 09/19/17 I have reviewed the current psychotropics carefully including drug interactions. Risk benefit ratio favors no change other than as noted in my dictated progress note. 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
[2017-11-29 21:02] VITALS: BP 170/80
[2017-11-29] MEDS: MIRTAZAPINE 15 MG TABLET PO SCH (21:03)
--- NOTE | 2017-11-29 22:24 | PN ---
DATE: 11/27/2017 This is a late entry, 11/27/2017, covers the elements not covered in my initial note. SUBJECTIVE: I met with the patient in the evening. Overall, the patient remains confused, forgetful, anxious, but not aggressive. She has had a good day. REVIEW OF SYSTEMS: No CV, , pulmonary, eye, ENT system symptoms on review. Reliability varies. MENTAL STATUS EXAM: Oriented to herself and situation. Speech coherent, abstraction fair, computation impaired, much less angry, irritable. No suicidal or homicidal ideation. IMPRESSION: Unchanged from initial note. PLAN: No change from initial note. MAN Wilson BULLARD MD DR: ERINN/alex JOB#: [id number] / [id number]
[2017-11-30] MEDS: IPRATRPIUM/ALBUTEROL 0.5/2.5MG 3 ML NEBU. NEB SCH ×2 (05:17→11:13)
[2017-11-30 05:58] VITALS: BP 134/93
[2017-11-30] MEDS: INSULIN LISPRO 300 UNITS/3 ML INSULN.PEN. SQ SCH ×2 (07:50→12:00)
[2017-11-30] MEDS: VITAMIN B COMPLEX CAPSULE. PO SCH (09:01)
[2017-11-30 09:02] VITALS: BP 134/93
[2017-11-30] MEDS: FUROSEMIDE 40 MG TABLET PO SCH (09:02)
[2017-11-30] MEDS: POTASSIUM CHLORIDE 20 MEQ TABLET.ER. PO SCH (09:02)
[2017-11-30] MEDS: ASCORBIC ACID 500 MG TABLET PO SCH (09:02)
[2017-11-30] MEDS: busPIRone 10 MG TABLET. PO SCH ×2 (09:02→12:29)
[2017-11-30] MEDS: QUEtiapine 25 MG TABLET. PO SCH (09:02)
[2017-11-30] MEDS: SENNOSIDES 8.6 MG TABLET PO SCH (09:02)
[2017-11-30] MEDS: DOCUSATE SODIUM 100 MG CAPSULE PO SCH (09:02)
[2017-11-30] MEDS: PANTOPRAZOLE 40 MG TABLET. PO SCH (09:03)
[2017-11-30] MEDS: VENLAFAXINE XR 37.5 MG CAP.ER.24H. PO SCH (09:03)
[2017-11-30] MEDS: FLUTICASONE 50MCG/NASAL SPRAY 16GM BOTTLE. NS SCH (09:03)
[2017-11-30] MEDS: MULTIVITAMIN with MINERAL TABLET. PO SCH (09:03)
[2017-11-30] MEDS: POLYETHYLENE GLYCOL 3350 17 GM PACKET. PO SCH (09:03)
[2017-11-30] MEDS: HYDROcodone/APAP 5/325MG 1 TAB TABLET PO SCH (09:04)
[2017-11-30] MEDS: BUDESONIDE 0.5 MG/2 ML NEBU NEB SCH (11:13)
--- NOTE | 2017-11-30 12:59 | PN ---
DATE: 11/28/2017 PSYCHIATRIC PROGRESS NOTE This is a late entry, 11/28, covers elements not covered in my initial SUBJECTIVE: I met with the patient in the morning. The patient remains confused, withdrawn, but otherwise pleasant, not aggressive, slept 5-1/2 hours. REVIEW OF SYSTEMS: No CV, , pulmonary, eye, ENT system symptoms on review. Met with her at some length in her room. She is lying in bed, asleep, before lunch, but woke up and said she is up and about most of the day. MENTAL STATUS EXAM: Oriented to herself and situation. Speech coherent, abstraction fair, computation impaired, language function intact. Attention span short. Short term memory is impaired. Mood and affect at times withdrawn, generally better. LABORATORY DATA: Reviewed. IMPRESSION: Unchanged from initial note. PLAN: No change from initial note. MAN Wilson BULLARD MD DR: ERINN/alex JOB#: [id number] / [id number]
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
--- NOTE | 2017-11-30 23:21 | PN ---
DATE: 11/29/2017 PSYCHIATRIC PROGRESS NOTE This is a late entry, 11/29, covers elements not covered in my initial note. SUBJECTIVE: I met with the patient in the morning. The patient remains somewhat confused, forgetful, anxious, but not aggressive. REVIEW OF SYSTEMS: No CV, , pulmonary, eye, ENT system symptoms on review. Reliability poor. MENTAL STATUS EXAM: Oriented to herself and situation. Speech is coherent, less pressured. Abstraction fair, computation impaired, language function intact. Mood and affect improved. LABORATORY DATA: Reviewed. IMPRESSION: Unchanged from initial note. PLAN: No change from initial note. MAN Wilson BULLARD MD DR: ERINN/alex JOB#: [id number] / [id number]
--- NOTE | 2017-12-01 18:05 | PDOC ---
Exam Note: Harris Note: Please also refer to the separate dictated note~for this date of service dictated separately.~Patient seen individually. Discussed the patient with Nursing staff reviewed the chart.~Reviewed interim history and current functioning. Reviewed vital signs,~Labs/ Radiology~and current medications noted below. Continue current treatment with the changes noted in the dictated addendum note. This is a late entry for 11/30/17 Assessment: Vital Signs: Vital Signs Date Time Temp Pulse Resp B/P (MAP) Pulse Ox O2 Delivery O2 Flow Rate FiO2 11/30/17 11:14 95 Room Air 11/30/17 09:04 20 11/30/17 09:02 81 134/93 11/30/17 05:58 97.4 I&O Intake and Output 12/01/17 07:00 Intake Total 720 ml Balance 720 ml Intake Oral 720 ml Current Medications: Meds: Current Medications Albuterol Sulfate (Ventolin) 2.5 mg PRN Q6HRS PRN NEB SHORTNESS OF BREATH Last administered on 11/22/17at 02:19; Start 11/15/17 at 20:45; Stop 11/30/17 at 13:37 ; Status DC Vitamin D (Vitamin D3) 50,000 unit WEEKLY PO Last administered on 11/29/17at 07: 45; Start 11/22/17 at 09:00; Stop 11/30/17 at 13:37; Status DC Cyanocobalamin (Vitamin B-12) 1,000 mcg QMONTH IM ; Start 12/15/17 at 09:00; Stop 12/15/17 at 09:00; Status DC Diltiazem HCl (Cardizem 24hr Cd) 120 mg BID PO Last administered on 11/30/17at 09:02; Start 11/16/17 at 09:00; Stop 11/30/17 at 13:37; Status DC Guaifenesin (Mucinex Er) 600 mg BID PO Last administered on 11/30/17at 09:03; Start 11/15/17 at 21:00; Stop 11/30/17 at 13:37; Status DC Albuterol/ Ipratropium (Duoneb) 3 ml RTQID NEB Last administered on 11/30/17at 11:13; Start 11/15/17 at 21:00; Stop 11/30/17 at 13:37; Status DC Al Hydroxide/Mg Hydroxide (Mylanta Plus Xs) 15 ml PRN AFTMEAL PRN PO DYSPEPSIA Last administered on 11/25/17at 22:39; Start 11/15/17 at 20:45; Stop 11/30/17 at 13:37; Status DC Multi-Ingredient Ointment (Analgesic [place]) 1 edi PRN QID PRN TP MUSCLE PAIN; Start 11/15/17 at 20:45; Stop 11/30/17 at 13:37; Status DC Multivitamins/ Calcium (Thera-M Plus) 1 tab DAILY PO Last administered on at 09:03; Start 11/16/17 at 09:00; Stop 11/30/17 at 13:37; Status DC Potassium Chloride (Klor-Con) 20 meq DAILY PO Last administered on 11/30/17at 09 :02; Start 11/16/17 at 09:00; Stop 11/30/17 at 13:37; Status DC Tamsulosin HCl (Flomax) 0.4 mg QEVNG PO Last administered on 11/29/17at 18:30; Start 11/16/17 at 18:00; Stop 11/30/17 at 13:37; Status DC Acetaminophen (Tylenol) 500 mg PRN Q4HRS PRN PO PAIN / TEMP; Start 11/15/17 at 21:15; Stop 11/30/17 at 13:37; Status DC Ascorbic Acid (Vitamin C) 1,000 mg DAILY PO Last administered on 11/30/17at 09: 02; Start 11/16/17 at 09:00; Stop 11/30/17 at 13:37; Status DC Benzonatate (Tessalon Perle) 100 mg PRN TID PRN PO COUGH Last administered on at 02:19; Start 11/16/17 at 09:00; Stop 11/30/17 at 13:37; Status DC Budesonide (Pulmicort) 0.5 mg RTBID NEB Last administered on 11/30/17at 11:13; Start 11/16/17 at 08:00; Stop 11/30/17 at 13:37; Status DC Buspirone HCl (Buspar) 10 mg 0900,1300 PO Last administered on 11/30/17at 12:29 ; Start 11/16/17 at 09:00; Stop 11/30/17 at 13:37; Status DC Buspirone HCl (Buspar) 20 mg DAILYWSUP PO Last administered on 11/29/17at 18:30 ; Start 11/16/17 at 17:00; Stop 11/30/17 at 13:37; Status DC Docusate Sodium (Colace) 100 mg BID PO Last administered on 11/30/17at 09:02; Start 11/15/17 at 21:30; Stop 11/30/17 at 13:37; Status DC Fluticasone Propionate (Flonase) 2 spray DAILY NS Last administered on at 09:03; Start 11/16/17 at 09:00; Stop 11/30/17 at 13:37; Status DC Furosemide (Lasix) 40 mg DAILY PO Last administered on 11/30/17at 09:02; Start 11/16/17 at 09:00; Stop 11/30/17 at 13:37; Status DC Acetaminophen/ Hydrocodone Bitart (Lortab 5/325) 1 tab BID PO Last administered on 11/30/17at 09:04; Start 11/15/17 at 21:30; Stop 11/30/17 at 13:37 ; Status DC Acetaminophen/ Hydrocodone Bitart (Lortab 5/325) 1 tab PRN Q6HRS PRN PO PAIN; Start 11/15/17 at 21:30; Stop 11/30/17 at 13:37; Status DC Insulin Human Lispro (HumaLOG) If blood sugar is 75-150=0un... TIDWMEALHC PRN SQ Diabetes Last administered on 11/19/17at 20:18; Start 11/15/17 at 20:45; Stop at 12:25; Status DC Loperamide HCl (Imodium) 2 mg PRN Q8HRS PRN PO DIARRHEA; Start 11/15/17 at 21:30 ; Stop 11/30/17 at 13:37; Status DC Magnesium Hydroxide (Milk Of Magnesia) 2,400 mg PRN QHS PRN PO CONSTIPATION; Start 11/15/17 at 21:30; Stop 11/30/17 at 13:37; Status DC Magnesium Oxide (Magnesium Oxide) 400 mg BID PO Last administered on 11/22/17at 21:16; Start 11/15/17 at 22:00; Stop 11/23/17 at 11:58; Status DC Mirtazapine (Remeron) 7.5 mg QHS PO Last administered on 11/15/17at 22:17; Start 11/15/17 at 22:00; Stop 11/16/17 at 18:24; Status DC Ondansetron HCl (Zofran Odt) 4 mg PRN Q8HRS PRN PO NAUSEA/VOMITING; Start at 21:30; Stop 11/30/17 at 13:37; Status DC Pantoprazole Sodium (Protonix) 40 mg DAILYAC PO Last administered on 11/30/17 09:03; Start 11/16/17 at 07:30; Stop 11/30/17 at 13:37; Status DC Polyethylene Glycol (miraLAX) 17 gm DAILY PO Last administered on 11/30/17at 09: 03; Start 11/16/17 at 09:00; Stop 11/30/17 at 13:37; Status DC Quetiapine Fumarate (SEROquel) 25 mg 0900,1500 PO Last administered on at 09:02; Start 11/16/17 at 09:00; Stop 11/30/17 at 13:37; Status DC Quetiapine Fumarate (SEROquel) 75 mg QHS PO Last administered on 11/29/17at 21: 04; Start 11/15/17 at 21:30; Stop 11/30/17 at 13:37; Status DC Sennosides (Senna) 8.6 mg BID PO Last administered on 11/30/17at 09:02; Start at 21:30; Stop 11/30/17 at 13:37; Status DC Trazodone HCl (Desyrel) 50 mg PRN QHS PRN PO INSOMNIA, MAY REPEAT X1 Last administered on 11/15/17at 22:17; Start 11/15/17 at 21:30; Stop 11/30/17 at 13:37; Status DC Venlafaxine HCl (Effexor Xr) 75 mg DAILY PO Last administered on 11/30/17 09: 03; Start 11/16/17 at 09:00; Stop 11/30/17 at 13:37; Status DC Vitamin B Complex 1 cap DAILY PO Last administered on 11/30/17at 09:01; Start at 09:00; Stop 11/30/17 at 13:37; Status DC Acetaminophen (Tylenol) 650 mg PRN Q6HRS PRN PO PAIN / TEMP; Start 11/15/17 at 22:15; Status UNV Multi-Ingredient Ointment (Analgesic [place]) 1 edi PRN QID PRN TP MUSCLE PAIN; Start 11/15/17 at 22:15; Status UNV Al Hydroxide/Mg Hydroxide (Mylanta Plus Xs) 15 ml PRN AFTMEALHC PRN PO DYSPEPSIA; Start 11/15/17 at 22:15; Status UNV Magnesium Hydroxide (Milk Of Magnesia) 2,400 mg PRN QHS PRN PO CONSTIPATION; Start 11/15/17 at 22:15; Status UNV Mirtazapine (Remeron) 15 mg QHS PO Last administered on 11/29/17at 21:03; Start 11/16/17 at 21:00; Stop 11/30/17 at 13:37; Status DC Insulin Human Lispro (HumaLOG) If blood sugar is 75-150=0un... TIDWMEALS SQ Last administered on 11/27/17at 12:09; Start 11/21/17 at 17:00; Stop 11/30/17 at 13:37; Status DC Active Scripts Active Reported Trazodone Hcl 50 Mg Tablet 50 Mg PO PRN QHS PRN Buspirone Hcl 10 Mg Tablet 20 Mg PO DAILYWSUP Venlafaxine Hcl Er (Venlafaxine Hcl) 75 Mg Cap.er.24h 75 Mg PO DAILY Seroquel (Quetiapine Fumarate) 25 Mg Tablet 25 Mg PO BID @ 0900,1500 Seroquel (Quetiapine Fumarate) 50 Mg Tablet 75 Mg PO QHS Thera M Plus Tablet (Multivits,Ca,Minerals/Iron/FA) 1 Each Tablet 1 Each PO DAILY Remeron (Mirtazapine) 15 Mg Tablet 15 Mg PO QHS Analgesic [place] (Methyl Salicylate/Menthol) 28 Gm Oint...g. 1 Edi TP PRN QID PRN Mag-Al Plus Xs Suspension (Mag Hydrox/Al Hydrox/Simeth) 30 Ml Oral.susp 15 Ml PO PRN AFTMEAL PRN Pulmicort (Budesonide) 0.5 Mg/2 Ml Ampul.neb 0.5 Mg NEB BID Benzonatate 100 Mg Capsule 100 Mg PO PRN TID PRN Albuterol Sulfate Neb Soln (Albuterol Sulfate) 2.5 Mg/3 Ml Vial.neb 2.5 Mg NEB PRN Q6HRS PRN Ondansetron Hcl 4 Mg Tablet 4 Mg PO PRN Q8HRS PRN dissolve on tongue Novolog Flexpen (Insulin Aspart) 100 Unit/1 Ml Insuln.pen 0-6 Unit SQ TIDWMEALHC PRN BS 75-150= 0 units BS 151-200= 2 units BS 201-250= 3 units BS 251-300= 4 units BS 301-350= 5 units BS 351-400= 6 units BS<70 or >400 call Physician Mucinex (Guaifenesin) 600 Mg Tablet.er 600 Mg PO TID Buspirone Hcl 10 Mg Tablet 10 Mg PO BID@ 0900,1300 Senna Lax (Sennosides) 8.6 Mg Tablet 8.6 Mg PO BID Docusate Sodium 100 Mg Capsule 100 Mg PO BID Vitamin B Complex 1 Each Tablet 100 Mg PO DAILY D3-50 (Cholecalciferol (Vitamin D3)) 50,000 Unit Capsule 50,000 Unit PO WEEKLY every thursday C-1000 (Ascorbic Acid) 1,000 Mg Tablet 1,000 Mg PO DAILY Klor-Con M20 (Potassium Chloride) 20 Meq Tab.er.prt 20 Meq PO DAILY Pantoprazole Sodium 40 Mg Tablet.dr 40 Mg PO DAILYAC Tamsulosin Hcl 0.4 Mg Cap.er.24h 0.4 Mg PO QEVNG Hydrocodone-Apap 5-325 (Hydrocodone Bit/Acetaminophen) 1 Each Tablet 1 Tab PO BID Milk Of Magnesia (Magnesium Hydroxide) 2,400 Mg/10 Ml Oral.susp 2,400 Mg PO PRN QHS PRN Lasix (Furosemide) 40 Mg Tablet 40 Mg PO DAILY Flonase Allergy Relief (Fluticasone Propionate) 9.9 Ml [place].susp 2 Sprays NS DAILY use in each nostril Miralax (Polyethylene Glycol 3350) 17 Gm Powd.pack 17 Gm PO DAILY Loperamide (Loperamide Hcl) 2 Mg Capsule 2 Mg PO PRN Q8HRS PRN Not to exceed 8 capsules in 24hrs Acetaminophen 500 Mg Tablet 500 Mg PO PRN Q4HRS PRN Duoneb 0.5-3(2.5) Mg/3 Ml (Albuterol/Ipratropium) 3 Ml Ampul.neb 3 Ml NEB QID Cardizem Cd (Diltiazem Hcl) 240 Mg Cap.er.24h 120 Mg PO BID HOLD FOR SBP <110 Cyanocobalamin Injection (Cyanocobalamin (Vitamin B-12)) 1,000 Mcg/1 Ml Vial 1, 000 Mcg IM QMONTH next due 12/15/17 NEXT DOSE DUE 09/19/17 I have reviewed the current psychotropics carefully including drug interactions. Risk benefit ratio favors no change other than as noted in my dictated progress note. Diagnosis: Problems: (1) Impulse control disorder (2) Dementia, vascular, with depression (3) Dementia, vascular, with delusions (4) Dementia in Alzheimer's disease with depression (5) Dementia in Alzheimer's disease with delusions (6) Anxiety disorder RACHEL BULLARD MD Dec 01, 2017 18:05
[2017-12-15] MEDS ORDERED: CYANOCOBALAMIN (VITAMIN B-12) 1,000 MCG/ML VIAL IM SCH (09:00)
== END 2017-11-30 13:36 | DRG 885 ==
LOC: ER 12:50 → GEROPSY 18:46
PROVIDERS: ADMIT Psychiatry & Neurology Psychiatry; ATTEND Psychiatry & Neurology Psychiatry
DX: F33.3 Major depressive disorder, recurrent, severe with psychotic symptoms (principal); F02.81 Dementia in other diseases classified elsewhere, unspecified severity, with behavioral disturbance; E87.1 Hypo-osmolality and hyponatremia; F01.51 Vascular dementia, unspecified severity, with behavioral disturbance; I13.0 Hypertensive heart and chronic kidney disease with heart failure and stage 1 through stage 4 chronic kidney disease, or unspecified chronic kidney disease; G30.9 Alzheimer's disease, unspecified; E11.22 Type 2 diabetes mellitus with diabetic chronic kidney disease; E11.65 Type 2 diabetes mellitus with hyperglycemia; E78.5 Hyperlipidemia, unspecified; F41.9 Anxiety disorder, unspecified; J44.9 Chronic obstructive pulmonary disease, unspecified; I50.9 Heart failure, unspecified; K21.9 Gastro-esophageal reflux disease without esophagitis; N18.9 Chronic kidney disease, unspecified; I25.10 Atherosclerotic heart disease of native coronary artery without angina pectoris; Z66 Do not resuscitate; F63.9 Impulse disorder, unspecified; F33.41 Major depressive disorder, recurrent, in partial remission; Z79.899 Other long term (current) drug therapy; Z90.49 Acquired absence of other specified parts of digestive tract; Z90.710 Acquired absence of both cervix and uterus
CPT/HCPCS: 36415; 80053; 80061; 81001; 82306; 82607; 82947; 83036; 83540; 83550; 83735; 84436; 84443; 84480; 85025; 86592; 87086; 87186; 93005; 94640; J1815; J7613; J7620; J7626; 99285-25